=== PATIENT | female | born 1965 | race Caucasian/White ===

== ENCOUNTER 2017-09-20 09:58 | Outpatient (CLI) | payer MEDICARE, MEDICAID ==
--- NOTE | 2017-09-20 14:52 | PET ---
PET SCAN WITH CT ATTENUATION CORRECTION: HISTORY: Solitary pulmonary nodule. Right lung mass with metastasis. COMPARISON: None. CORRELATION: Chest, abdomen, and pelvis CT dated 08/25/17. TECHNIQUE: PET scanning with CT attenuation correction is performed from the base of the brain to the proximal t highs following the intravenous administration of 12.80 mCi F18-FDG. FINDINGS: HEAD/NECK: There appears to be hypermetabolic left Level II lymph node with a maximum SUV of 3.5. CHEST: There is a hypermetabolic nodule in the right upper lobe with a maximum SUV of 8.0. There is a hyperm etabolic activity associated with a left lower lobe mass with a maximum SUV of 14.7. There is hypermetabolic activity associated with a necrotic anterior right mediastinal lymph node wit h a maximum SUV of 8.4. There is hypermetabolic activity associated with a necrotic right paratrachea l/precarinal lymph node with a maximum SUV of 11.1. There is no FDG avidity associated with pericardi al hypodensities/lymph nodes noted on previous CT. ABDOMEN/PELVIS: No abnormal FDG localization associated with peripancreatic and periportal lymph nodes. No abnormal F DG localization in the abdomen or pelvis. OSSEOUS STRUCTURES: No abnormal FDG localization. IMPRESSION: Left lower lobe mass with FDG avidity. There is evidence of metastasis in the mediastinum and contral ateral lung, as well as a left neck lymph node. POS: [facility]
== END 2017-09-20 09:59 | disposition home or self-care (01) ==
LOC: PET 09:58
PROVIDERS: ATTEND Internal Medicine Critical Care Medicine
DX: R91.1 Solitary pulmonary nodule (principal); R91.8 Other nonspecific abnormal finding of lung field
CPT/HCPCS: 78815; A9552

== ENCOUNTER 2017-10-06 08:51 | Day surgery (SDC) | payer MEDICARE, MEDICAID ==
[2017-10-06 09:15] LABS: Hematocrit 38.6 % (36.0-47.0); Mean Platelet Volume 8.4 fL (7.4-10.4); Red Blood Cell (RBC) Count 4.07 mill/uL (4.20-5.40); White Blood Cell (WBC) Count 17.2 thou/uL (4.8-10.8)
[2017-10-06 09:19] LABS: Prothrombin Time 13.2 SEC (12.0-14.7)
[2017-10-06 10:31] LABS: Band 4 % (5-11); Neutrophil 39 % (42-75); Reactive Lymphocytes 2 % (0-10)
[2017-10-06 13:17] VITALS: BP 146/78; TEMP 97.7; BMI 38.4
--- NOTE | 2017-10-06 13:23 | RAD ---
INSPIRATORY AND EXPIRATORY AP CHEST XRAY: DATE: 10/06/17. HISTORY: Post biopsy left lower lobe mass. FINDINGS: There is a large mass seen overlying the left lung base which was seen on CT exam on 08/25/17. There is mild atelectasis at the right lung base. There is no pneumothorax or pleural effusion seen. Cardiac silhouette and pulmonary vasculature are within normal limits. There is mild prominence in t he right paratracheal location which likely is attributable to patient's lymphadenopathy noted on martin or CT thorax. There is partial visualization of surgical clips overlying the epigastric region. Degenerative diop es are noted in the spine. IMPRESSION: 1. Left lower lobe mass without evidence of a pneumothorax or pleural effusion. 2. Prominence of the right paratracheal soft tissues most likely related to patient's lymphadenopath y noted on CT thorax. POS: [facility]
--- NOTE | 2017-10-06 13:55 | CT ---
CT GUIDED PERCUTANEOUS BIOPSY OF A LEFT LOWER LOBE MASS: 10/06/2017 HISTORY: Left lower lobe mass. TECHNIQUE: After informed consent was obtained, the patient was placed on the CT scan table in the prone positio n. Limited CT scan examination was performed with a grid localizer overlying the left posterolateral chest. An area was meticulously prepped and draped in the usual sterile fashion. The patient was a dministered 100 mcg of Fentanyl during the procedure. The skin and subcutaneous tissues were infiltrated with buffered 1% Lidocaine for local anesthesia. A small skin incision was made. A 17 gauge guide needle was advanced, followed by three axial noncon trasted CT images. These steps were repeated until the needle was placed just within the peripheral aspect of the left lower lobe mass. A total of two 18 gauge core needle biopsy specimens were obtain ed utilizing a coaxial technique. During the procedure, the patient began experiencing pain and discomfort and, as a result, the patien t was unable to remain stationary. The needle was removed at this time. A CT scan through the thora x demonstrated no evidence of pneumothorax, and there was no evidence of hemorrhage or pleural fluid on the left. Findings are likely related to pleuritic type chest pain due to placement of the needle , but there is no hematoma or pneumothorax present. The patient was transported to the radiology nurses' holding area with slow but gradual improvement i n the pleuritic type chest pain. A follow-up chest x-ray was performed, and no pneumothorax or pleur al fluid was seen on the chest x-ray. Continued monitoring of the patient in radiology nurses' [facility] day[facility] ng will be performed with an additional follow-up chest x-ray performed prior to discharge. IMPRESSION: 1. Large lobulated left lower lobe mass. 2. Technically successful CT guided percutaneous biopsy of the large left lower lobe mass. Patholog y is currently pending at this time. POS: [facility]
--- NOTE | 2017-10-06 14:36 | RAD ---
INSPIRATORY AND EXPIRATORY PA CHEST RADIOGRAPH: Date: 10-06-17 History: Follow up post left lower lobe mass biopsy. Comparison: 10-06-17 at 1053 hours. FINDINGS: Again noted is a large left lower lobe mass. No pneumothorax or pleural effusion is seen. Prominent o f the right mediastinal structures is again present related to lymphadenopathy. Right lung is otherwi se clear. No other interval change. IMPRESSION: Stable left lower lobe mass without evidence of a pneumothorax. POS: [facility]
== END 2017-10-06 14:00 | disposition home or self-care (01) ==
LOC: CT 08:51
PROVIDERS: ATTEND Internal Medicine Critical Care Medicine
PROC: 0BDJ8ZX Extraction of Left Lower Lung Lobe, Via Natural or Artificial Opening Endoscopic, Diagnostic (ICD-10-PCS; principal; 2017-10-06)
DX: C34.32 Malignant neoplasm of lower lobe, left bronchus or lung (principal); Z90.81 Acquired absence of spleen; Z90.89 Acquired absence of other organs; Z90.710 Acquired absence of both cervix and uterus; Z98.890 Other specified postprocedural states; Z87.891 Personal history of nicotine dependence
CPT/HCPCS: 32405; 36415; 71010; 77002; 85025; 85610; 85730; 88305; 88313; 88334; 88341; 88342

== ENCOUNTER 2017-10-20 12:17 | Outpatient (CLI) | payer MEDICARE, MEDICAID | END 2017-10-20 12:18 | disposition home or self-care (01) | LOC: ULT 12:17 | PROVIDERS: ATTEND Internal Medicine Hematology & Oncology | DX: Z51.11 Encounter for antineoplastic chemotherapy (principal); C34.32 Malignant neoplasm of lower lobe, left bronchus or lung; Z79.899 Other long term (current) drug therapy | CPT/HCPCS: 93306 ==

== ENCOUNTER 2017-11-02 13:53 | Day surgery (SDC) | payer MEDICARE, MEDICAID ==
[2017-11-02] MEDS ORDERED: Pembrolizumab 200 MG in Sodium Chloride 0.9% 250 ML 250 ML IV SCH (14:15)
[2017-11-02] MEDS ORDERED: Sodium Chloride 0.9% 20 ML ONE (15:28)
[2017-11-02 15:32] VITALS: TEMP 97.9
[2017-11-02 16:40] VITALS: BP 131/71
== END 2017-11-02 15:42 | disposition home or self-care (01) ==
LOC: ONC/OP 13:53
PROVIDERS: ATTEND Internal Medicine Hematology & Oncology
DX: Z51.11 Encounter for antineoplastic chemotherapy (principal); C34.32 Malignant neoplasm of lower lobe, left bronchus or lung; M19.90 Unspecified osteoarthritis, unspecified site; F41.8 Other specified anxiety disorders; Z90.710 Acquired absence of both cervix and uterus; Z90.81 Acquired absence of spleen; Z98.890 Other specified postprocedural states
CPT/HCPCS: 36415; 80053; 82248; 83615; 84100; 84443; 84550; 96413; A4216; J7050; J9271

== ENCOUNTER 2017-11-23 12:25 | Day surgery (SDC) | payer MEDICARE, MEDICAID ==
[2017-11-23] MEDS ORDERED: Sodium Chloride 0.9% 20 ML ONE (12:37)
[2017-11-23] MEDS ORDERED: Pembrolizumab 200 MG in Sodium Chloride 0.9% 250 ML 250 ML IV SCH (12:45)
== END 2017-11-23 13:47 | disposition home or self-care (01) ==
LOC: ONC/OP 12:25
PROVIDERS: ATTEND Internal Medicine Hematology & Oncology
DX: Z51.11 Encounter for antineoplastic chemotherapy (principal); C34.32 Malignant neoplasm of lower lobe, left bronchus or lung; M19.90 Unspecified osteoarthritis, unspecified site; B19.20 Unspecified viral hepatitis C without hepatic coma; F32.9 Major depressive disorder, single episode, unspecified; K76.9 Liver disease, unspecified; F41.9 Anxiety disorder, unspecified; F17.200 Nicotine dependence, unspecified, uncomplicated; Z79.899 Other long term (current) drug therapy; Z90.81 Acquired absence of spleen; Z90.710 Acquired absence of both cervix and uterus; Z98.890 Other specified postprocedural states
CPT/HCPCS: 36415; 80053; 82248; 83615; 84100; 84443; 84550; 96413; A4216; J7050; J9271

== ENCOUNTER 2017-12-14 12:44 | Day surgery (SDC) | payer MEDICARE, MEDICAID ==
[2017-12-14] MEDS ORDERED: Pembrolizumab 200 MG, Admixture Fee 1 EACH in Sodium Chloride 0.9% 250 ML 250 ML IV SCH (13:15)
== END 2017-12-14 14:35 | disposition home or self-care (01) ==
LOC: ONC/OP 12:44
PROVIDERS: ATTEND Internal Medicine Hematology & Oncology
DX: Z51.11 Encounter for antineoplastic chemotherapy (principal); C34.32 Malignant neoplasm of lower lobe, left bronchus or lung; C78.1 Secondary malignant neoplasm of mediastinum; K74.60 Unspecified cirrhosis of liver; I25.10 Atherosclerotic heart disease of native coronary artery without angina pectoris; F41.9 Anxiety disorder, unspecified; F32.9 Major depressive disorder, single episode, unspecified; F17.200 Nicotine dependence, unspecified, uncomplicated; M19.90 Unspecified osteoarthritis, unspecified site; Z99.3 Dependence on wheelchair; Z90.710 Acquired absence of both cervix and uterus; Z98.890 Other specified postprocedural states; Z86.19 Personal history of other infectious and parasitic diseases
CPT/HCPCS: 96413; J7050; J9271

== ENCOUNTER 2017-12-29 09:06 | Outpatient (CLI) | payer MEDICARE, MEDICAID ==
--- NOTE | 2017-12-29 13:41 | PET ---
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 Bilateral lung cancer. Exam requested for restaging following last chemotherapy on 11/27/17. COMPARISON: PET CT dated 09/20/17. TECHNIQUE: PET scanning with CT attenuation correction was performed from the base of the brain through the prox imal thighs following the intravenous administration of 10.6 mCi F18-FDG in the left antecubital neil a. Imaging was performed after an uptake interval of 54 minutes. FINDINGS: HEAD/NECK: Hypermetabolic left Level II lymph node is again seen with a SUV of 3 (previously 3.5). CHEST: Hypermetabolic nodule in the right upper lobe has a SUV of 3.5 (previously 8). The left lower lobe ma ss is smaller with increased FDG localization and SUV of 5.4 (previously 14.7). Hypermetabolic mediastinal lymph node is again seen with a SUV of 6.3 in the right anterior mediastin al lymph node (previously 8.4) and SUV of 9.6 (previously 11.1) in the right paratracheal lymph node. No new hypermetabolic mediastinal, hilar or axillary lymph nodes are seen. ABDOMEN/PELVIS: No hypermetabolic liver, adrenal, or lymph evin lesions are seen. SKELETON: No hypermetabolic osseous lesions are noted. IMPRESSION: Incomplete response to therapy with interval improvement (without complete resolution) of previously noted findings of 09/20/17. POS: [facility]
== END 2017-12-29 09:07 | disposition home or self-care (01) ==
LOC: PET 09:06
PROVIDERS: ATTEND Internal Medicine Hematology & Oncology
DX: C34.32 Malignant neoplasm of lower lobe, left bronchus or lung (principal)
CPT/HCPCS: 78815; A9552

== ENCOUNTER 2018-01-04 11:08 | Day surgery (SDC) | payer MEDICARE, MEDICAID ==
[2018-01-04] MEDS ORDERED: Sodium Chloride 0.9% 20 ML ONE (11:17)
[2018-01-04] MEDS ORDERED: Pembrolizumab 200 MG, Admixture Fee 1 EACH in Sodium Chloride 0.9% 250 ML 250 ML IV SCH (11:30)
== END 2018-01-04 14:13 | disposition home or self-care (01) ==
LOC: ONC/OP 11:08
PROVIDERS: ATTEND Internal Medicine Hematology & Oncology
DX: Z51.11 Encounter for antineoplastic chemotherapy (principal); C34.92 Malignant neoplasm of unspecified part of left bronchus or lung; C77.9 Secondary and unspecified malignant neoplasm of lymph node, unspecified; M19.90 Unspecified osteoarthritis, unspecified site; F41.8 Other specified anxiety disorders; Z87.891 Personal history of nicotine dependence; Z79.899 Other long term (current) drug therapy
CPT/HCPCS: 36415; 80053; 82248; 83615; 84100; 84443; 84550; 96413; A4216; J7050; J9271

== ENCOUNTER 2018-01-25 11:46 | Day surgery (SDC) | payer MEDICARE, MEDICAID ==
[2018-01-25] MEDS ORDERED: Sodium Chloride 0.9% 20 ML ONE (12:03)
[2018-01-25 12:12] VITALS: BP 149/69; TEMP 97.8
[2018-01-25] MEDS ORDERED: Pembrolizumab 200 MG, Admixture Fee 1 EACH in Sodium Chloride 0.9% 250 ML 250 ML IV SCH (12:45)
== END 2018-01-25 13:34 | disposition home or self-care (01) ==
LOC: ONC/OP 11:46
PROVIDERS: ATTEND Internal Medicine Hematology & Oncology
DX: Z51.11 Encounter for antineoplastic chemotherapy (principal); C34.32 Malignant neoplasm of lower lobe, left bronchus or lung; C77.1 Secondary and unspecified malignant neoplasm of intrathoracic lymph nodes; R41.3 Other amnesia; F41.9 Anxiety disorder, unspecified; F32.9 Major depressive disorder, single episode, unspecified; M17.0 Bilateral primary osteoarthritis of knee; Z99.3 Dependence on wheelchair; Z79.899 Other long term (current) drug therapy; Z87.891 Personal history of nicotine dependence
CPT/HCPCS: 96413; A4216; J7050; J9271

== ENCOUNTER 2018-02-15 11:59 | Day surgery (SDC) | payer MEDICARE, MEDICAID ==
[2018-02-15] MEDS ORDERED: Pembrolizumab 200 MG in Sodium Chloride 0.9% 250 ML 250 ML IV SCH (12:15)
[2018-02-15] MEDS ORDERED: Sodium Chloride 0.9% 40 ML ONE (12:30)
== END 2018-02-15 13:28 | disposition home or self-care (01) ==
LOC: ONC/OP 11:59
PROVIDERS: ATTEND Internal Medicine Hematology & Oncology
DX: Z51.11 Encounter for antineoplastic chemotherapy (principal); C34.32 Malignant neoplasm of lower lobe, left bronchus or lung; M19.90 Unspecified osteoarthritis, unspecified site; F41.8 Other specified anxiety disorders; Z87.891 Personal history of nicotine dependence; Z79.899 Other long term (current) drug therapy
CPT/HCPCS: 96413; A4216; J7050; J9271

== ENCOUNTER 2018-03-01 05:54 | Day surgery (SDC) | payer MEDICARE, MEDICAID ==
[2018-02-28 10:24] VITALS: BMI 37.5
[2018-03-01] MEDS ORDERED: Lidocaine 2% 10 ML INJ ONE (06:47)
[2018-03-01] MEDS ORDERED: Bupivacaine/Epinephrine 0.25% 30 ML VIAL ONE (06:47)
[2018-03-01] MEDS ORDERED: CEFAZOLIN/Water 2 GM/20 ML SYRINGE ONE (07:12)
[2018-03-01] MEDS ORDERED: Fentanyl 100 MCG/2 ML VIAL ONE ×2 (07:24→07:31)
[2018-03-01 07:31] LABS: INR-International Normal Ratio 1.2; PTT 37.6 SEC (22.9-36.1); Prothrombin Time 15.6 SEC (12.0-14.7)
[2018-03-01] MEDS ORDERED: Midazolam HCl 2 mg/2 ml Vial ONE (07:31)
[2018-03-01] MEDS ORDERED: Propofol 500 MG/50 ML VIAL ONE (07:31)
[2018-03-01] MEDS ORDERED: HYDROcodone/Acetaminophen 5/325 mg Tablet ONE (09:34)
--- NOTE | 2018-03-01 10:54 | RAD ---
SINGLE VIEW CHEST: HISTORY: Mediport placement. COMPARISON: None. FINDINGS: A single view of the chest shows a normal sized cardiomediastinal silhouette. There is a right IJ Me diport with its tip in the superior vena cava. No pneumothorax is seen. There is no evidence of con solidation, mass, or pleural effusion. Degenerative changes are seen in the spine. IMPRESSION: Status post Mediport placement without evidence of complication. POS: [facility]
[2018-03-01] MEDS ORDERED: PHENYLEPHRINE-NS 100 MCG/ML 10 ML SYRINGE ONE (14:46)
[2018-03-01] MEDS ORDERED: Lidocaine 1% PF 5 ML VIAL ONE (14:46)
[2018-03-01] MEDS ORDERED: PROPOFOL 200 MG/20 ML VIAL ONE (14:47)
--- NOTE | 2018-03-02 17:12 | PDOC.OP ---
Operative Note - Operative Note Operative Note: PROCEDURE: Right internal jugular MediPort placement with ultrasound and fluoroscopic guidance SURGEON: Hipolito Telles M.D. DATE OF PROCEDURE: 02/26/20 PREOPERATIVE DIAGNOSIS: Squamous cell carcinoma of the lung POSTOPERATIVE DIAGNOSIS: Squamous cell carcinoma the lung HISTORY: Patient is diagnosed with lung cancer. Chemotherapy has been recommended and the oncologist has requested MediPort placement for this. OPERATIVE PROCEDURE IN DETAIL: After informed consent was obtained and appropriate preoperative antibiotics were administered, the patient was taken to the operating room and placed in supine position and monitored anesthesia care was administered. Due to the patient's history of cirrhosis the decision was made to place a right internal jugular Mediport. The patient was placed in Trendelenburg position and the right internal jugular vein accessed easily on the first attempt under direct ultrasound guidance with excellent flow of dark venous non-pulsatile blood. A wire threaded easily and was confirmed to be in the superior vena cava by fluoroscopy. Local anesthesia was infused the skin and subcutaneous tissues of the right chest and a subcutaneous pocket developed inferiorly. A Mediport was obtained and confirmed to fit in the subcutaneous pocket. This was secured inferiorly to the pectoralis fascia with a Prolene suture, which was clamped, but not tied. The Mediport tubing was tunneled from the right chest to the right IJ access site. The dilator and sheath were then placed over the wire and the dilator and wire removed leaving the sheath in place. The clamped MediPort tubing was tunneled through the sheath, which was then split and removed leaving the MediPort tubing in place. The tubing was adjusted until the tip was confirmed by fluoroscopy to be in the superior vena cava just above the atrium. The tubing was clamped at the skin level and cut and the tubing secured to the port, which was then placed in the subcutaneous pocket. The previously placed suture was secured and two additional sutures were placed to fix the port in place within the pocket. The port was aspirated with the Salas needle and had excellent flow of dark venous non-pulsatile blood and easily flushed without resistance. The subcutaneous tissues were closed with a running Monocryl suture, following which the skin was closed with a running subcuticular Monocryl suture. Dermabond dressings were placed and the hub was again accessed through the skin and confirmed to easily aspirate and easily flush. The course of the catheter was confirmed by fluoroscopy to be smooth with the tip appropriately located in the superior vena cava. The patient was taken her back to the day stay unit in good condition. Estimated blood loss was minimal. There were no complications. There were no specimens.
== END 2018-03-01 10:50 | disposition home or self-care (01) ==
LOC: SDC 05:54
PROVIDERS: ATTEND Surgery
PROC: 0JH63WZ Insertion of Totally Implantable Vascular Access Device into Chest Subcutaneous Tissue and Fascia, Percutaneous Approach (ICD-10-PCS; principal; 2018-03-01)
DX: C34.92 Malignant neoplasm of unspecified part of left bronchus or lung (principal); C77.1 Secondary and unspecified malignant neoplasm of intrathoracic lymph nodes; K74.60 Unspecified cirrhosis of liver; K43.9 Ventral hernia without obstruction or gangrene; F17.210 Nicotine dependence, cigarettes, uncomplicated; F17.290 Nicotine dependence, other tobacco product, uncomplicated; M19.90 Unspecified osteoarthritis, unspecified site; F41.8 Other specified anxiety disorders; Z79.82 Long term (current) use of aspirin; Z79.899 Other long term (current) drug therapy
CPT/HCPCS: 36561; 71045; 85610; 85730; C1788; 36415; J1642; J2001; J2250; J2704; J3010

== ENCOUNTER 2018-03-08 10:10 | Day surgery (SDC) | payer MEDICARE, MEDICAID ==
[2018-03-08] MEDS ORDERED: Sodium Chloride 0.9% 40 ML ONE (10:24)
[2018-03-08] MEDS ORDERED: Pembrolizumab 200 MG, Admixture Fee 1 EACH in Sodium Chloride 0.9% 250 ML 250 ML IV SCH (10:30)
[2018-03-08 11:33] VITALS: BP 111/76; TEMP 97.8
== END 2018-03-08 14:49 | disposition home or self-care (01) ==
LOC: ONC/OP 10:10
PROVIDERS: ATTEND Internal Medicine Hematology & Oncology
DX: Z51.12 Encounter for antineoplastic immunotherapy (principal); C34.32 Malignant neoplasm of lower lobe, left bronchus or lung
CPT/HCPCS: 84443; 96413; A4216; J1642; J7050; J9271

== ENCOUNTER 2018-03-29 10:42 | Inpatient (IN) | payer MEDICARE, MEDICAID ==
[2018-03-29] MEDS ORDERED: Sodium Chloride 0.9% 20 ML ONE (10:55)
[2018-03-29] MEDS ORDERED: Sodium Chloride 0.9% 40 ML ONE (11:28)
[2018-03-29] MEDS ORDERED: Pembrolizumab 200 MG in Sodium Chloride 0.9% 250 ML 250 ML IV SCH (11:30)
[2018-03-29] MEDS ORDERED: Acetaminophen 500 MG TAB PO SCH (11:45)
[2018-03-29] MEDS ORDERED: diphenhydrAMINE 25 MG CAP PO SCH (11:45)
[2018-03-29 12:00] VITALS: BMI 37.9
[2018-03-29] MEDS ORDERED: Bisacodyl 5 MG TAB PO PRN (14:03)
[2018-03-29] MEDS ORDERED: Acetaminophen 325 MG TAB PO PRN (14:03)
--- NOTE | 2018-03-29 14:31 | HP ---
PRIMARY CARE PROVIDER: Mandy Cadena D.O. CHIEF COMPLAINT: Shortness of breath. HISTORY OF PRESENT ILLNESS: Ms. Hand is a pleasant 53-year-old lady who was seen at [facility] after she was sent to the hospital by her oncologist. She has a history of stage IV lung cancer and is on Keytruda treatments. Her last chemotherapy was 3 weeks ago. Over the last week, she has been feeling short of breath. She reports shortness of breath with exert ion. She denies any orthopnea or paroxysmal nocturnal dyspnea. She denies any chest pain. She repo rts feeling winded after walking even short distances. She also reports that over the last several d ays, she has noted that her stools have become darker. They are not black. She denies any hematoche karishma or hematemesis. She denies any fevers or chills. She denies any abdominal pain, but reports laurel t she has some abdominal discomfort. She was seen in the Oncology office earlier today and was found to have symptomatic anemia with hemog lobin of 5.8. She was therefore sent to the hospital for admission. REVIEW OF SYSTEMS: All other systems reviewed and found to be negative. PAST MEDICAL HISTORY: Significant for hepatitis C, liver cirrhosis, stage IV lung cancer, depression , and chronic pain. PAST SURGICAL HISTORY: Significant for tonsillectomy, hysterectomy, splenectomy, left knee arthrosco py, and MediPort placement. ALLERGIES: No known drug allergies. CURRENT MEDICATIONS: Include amitriptyline, Tylenol #3, cyclobenzaprine, clonazepam, zolpidem, vitam in D, and aspirin. Doses need to be clarified. FAMILY HISTORY: No family history of premature coronary artery disease. SOCIAL HISTORY: No history of alcohol use or recreational drug use. The patient uses E-cigarettes. PHYSICAL EXAMINATION: GENERAL: On examination, Ms. Hand is awake and alert, not in acute distress. VITAL SIGNS: Blood pressure is 149/68, pulse is 89. She is breathing at rate of 18 and saturating w ell on room air. She is afebrile. She is obese. EYES: No scleral icterus. She has conjunctival pallor. ENT: Moist mucosal membranes, no oropharyngeal erythema or exudates. NECK: Supple, nontender, trachea midline. RESPIRATORY: Accessory muscles of breathing are not active. Chest wall movements are symmetric bila terally. LUNGS: Clear to auscultation without wheeze, rhonchi or crepitations. CARDIOVASCULAR: S1 and S2 are heard, regular. Peripheral pulses palpable. No carotid bruit, no per icardial rub. ABDOMEN: Distended, nontender, bowel sounds heard. MUSCULOSKELETAL: Power is 5/5 in all four extremities. She has bilateral lower extremity edema. NEUROLOGIC: Cranial nerves II-XII intact. SKIN: Cutaneous pallor present. LYMPHATIC: No cervical lymphadenopathy. PSYCHIATRIC: Normal mood and normal affect. The patient is oriented to person, place, and time. LABORATORY DATA: Ms. Hand's labs and investigations were reviewed. Today, she has a white count o f 15,100, hemoglobin 5.8 and platelet count 700,000. Her last known hemoglobin was 10.4 on 8. ASSESSMENT AND PLAN: Ms. Hand is a pleasant 53-year-old lady who was seen at [facility] on 03/29/2018. Her problem list includes: 1. Symptomatic anemia: Etiology is unclear. Given her description of change in stool color, upper gastrointestinal bleed is a possibility. She will be admitted to the hospital for further workup. S he is receiving packed RBC transfusions as ordered by Oncology Service. She will be started on a PPI drip. Gastroenterology Service will be consulted. 2. Stage IV lung cancer. The patient is receiving chemotherapy today. 3. Hepatitis C: Stable. 4. Chronic pain: Appears to be stable. Many thanks for allowing me to participate in your patient's care. Please feel free to contact me wi th any questions or concerns. LEVEL OF RISK: Moderate. LEVEL OF COMPLEXITY: Moderate.
[2018-03-29] MEDS ORDERED: Lubiprostone 24 MCG CAP PO PRN (15:11)
[2018-03-29 15:47] LABS: Potassium 5.3 mmol/L (3.5-5.1)
[2018-03-29] MEDS ORDERED: Albuterol Sulfate 2.5 mg/3 ml Neb NEB SCH (16:00)
--- NOTE | 2018-03-29 16:46 | CON ---
DATE OF CONSULTATION: 03/29/2018 HISTORY OF PRESENT ILLNESS: Patient is a 53-year-old female recently diagnosed with a stag e IV lung cancer. Over the last week, she has had difficulty with weakness and standing and shortnes s of breath. She has had no nausea, vomiting, no melena or hematochezia, although she does report he r stools are occasionally dark, no red blood is noted. She also complains of upper abdominal fullnes s. PAST MEDICAL HISTORY: Includes hepatitis C, cirrhosis, stage IV lung cancer, depression, chronic aidan n syndrome. PAST SURGICAL HISTORY: Includes tonsillectomy, hysterectomy, splenectomy, left knee arthroscopy. ALLERGIES: No known allergies. HOME MEDICATIONS: Includes clonazepam 1 p.o. b.i.d., Ambien 10 mg p.o. at bedtime, Amitiza 24 mcg p. o. b.i.d., hydrocodone 1 p.o. t.i.d., Flexeril 10 mg p.o. t.i.d., vitamin D3 2000 units p.o. at bedti me, aspirin 81 mg p.o. daily and amitriptyline 100 mg p.o. daily. SOCIAL HISTORY: She does not drink. FAMILY HISTORY: Negative for GI or liver disease. REVIEW OF SYSTEMS: CONSTITUTIONAL: No fever or chills, no weight loss. EYES: No blurred vision or double vision. ENT: No sore throat or earache. CARDIOVASCULAR: No chest pain or palpitation. PU LMONARY: Positive for shortness of breath. Positive for dyspnea on exertion. GASTROINTESTINAL: Po sitive for bloating and abdominal fullness. GENITOURINARY: No hematuria or dysuria. MUSCULOSKELETA L: No joint pain or muscle weakness. SKIN: No rashes. NEUROLOGIC: No numbness or seizure activit y. PHYSICAL EXAMINATION: GENERAL: Shows a pale white female in no acute distress. VITAL SIGNS: Temperature 97.2, pulse 89, respiratory rate 16, blood pressure 149/68. HEENT: Unremarkable. NECK: Supple. CHEST: Clear. CARDIOVASCULAR: Regular rate and rhythm. ABDOMEN: Distended. There is a mass in the epigastric area. No rebound or guarding is notable. EXTREMITIES: Normal. NEUROLOGIC: Nonfocal. LABORATORY DATA AND IMAGING DATA: Shows a white blood cell count of 15.7, hemoglobin of 10.4, hemato crit of 33.5 prior to this admission. PT is 15.6 with an INR of 1.2. Chemistries show sodium of 131 , potassium 5.3, CO2 21, uric acid 72, AST of 48, ALT 38, alkaline phosphatase 289. HIV is negative. Abdominal and pelvic CT from 02/16/2018 shows enlarged liver and changes consistent with lung cance r. Abdominal ultrasound done in December showed mild increased hepatic echotexture suggestive of steato sis. ASSESSMENT: 1. Severe symptomatic anemia. 2. Possible melena. 3. Stage IV lung cancer. 4. Hepatomegaly. 5. History of hepatitis C. RECOMMENDATIONS: 1. PPI. 2. EGD. 3. Alpha fetoprotein.
[2018-03-29] MEDS: Pantoprazole 80 MG in Sodium Chloride 0.9% 100 ML IVP SCH (20:34)
[2018-03-29] MEDS: Amitriptyline HCl 100 MG TAB PO SCH (20:34)
[2018-03-29] MEDS: HYDROcodone/Acetaminophen 10/325 mg Tablet PO SCH (20:35)
[2018-03-29] MEDS: Zolpidem Tartrate 5 MG TAB PO SCH (20:35)
[2018-03-29] MEDS: clonazePAM 1 MG TAB PO SCH (20:35)
[2018-03-29] MEDS: Cyclobenzaprine 10 MG TAB PO SCH (20:36)
[2018-03-30 05:11] LABS: Anion Gap 11 mmol/L (10-20); BUN (Urea Nitrogen) 13 mg/dL (9.8-20.1); Calc. Creatinine Clearance 121 mL/min (70-130); Calcium 8.8 mg/dL (7.8-10.44); Carbon Dioxide 26 mmol/L (22-29); Chloride 101 mmol/L (98-107); Estimated GFR-MDRD 74; Glucose 73 mg/dL (70-105); Potassium 4.5 mmol/L (3.5-5.1); Sodium 133 mmol/L (136-145)
[2018-03-30 05:52] LABS: Band 2 % (5-11); Eosinophils 1 % (0-10); Lymphocytes 40 % (21-51); MDiff Complete? YES; Mean Corpuscular HGB CONC 31.7 g/dL (32.0-36.0); Mean Corpuscular Hemoglobin 27.3 pg (27.0-31.0); Mean Corpuscular Volume 86.2 fl (81.0-99.0); Mean Platelet Volume 8.9 fL (7.4-10.4); Monocytes 12 % (0-10); Neutrophil 44 % (42-75); Nucleated RBC 1 % (0); Platelet Count 595 thou/uL (130-400); Red Blood Cell (RBC) Count 2.93 mill/uL (4.20-5.40); White Blood Cell (WBC) Count 13.7 thou/uL (4.8-10.8)
[2018-03-30] MEDS: HYDROcodone/Acetaminophen 10/325 mg Tablet PO SCH ×3 (08:34→20:59)
[2018-03-30] MEDS ORDERED: Promethazine HCl 25 MG/ML VIAL SLOW IVP PRN (10:00)
[2018-03-30] MEDS ORDERED: Ondansetron HCl/PF 4 MG/2 ML Vial IVP PRN (10:00)
[2018-03-30] MEDS: clonazePAM 1 MG TAB PO SCH ×2 (10:18→21:00)
[2018-03-30] MEDS: Cyclobenzaprine 10 MG TAB PO SCH ×3 (10:19→21:00)
--- NOTE | 2018-03-30 10:57 | OP ---
DATE OF PROCEDURE: 03/30/2018 SURGEON: Sb Gama M.D. PREPROCEDURE DIAGNOSES: 1. Severe anemia. 2. Cirrhosis. 3. Lung cancer. POSTOPERATIVE DIAGNOSES: 1. Grade I esophageal varices. 2. Mild portal gastropathy. 3. Normal duodenum. 4. No bleeding sites identified. RECOMMENDATIONS: Colonoscopy tomorrow. ANESTHESIA: TIVA. PROCEDURE IN DETAIL: After the patient was informed of the risks, benefits, and possible complicatio ns of endoscopy including perforation, bleeding, reactions to medication and aspiration, informed con sent was obtained. The patient brought to endoscopy where she was sedated in gradual fashion. Once she was comfortable a bite block was advanced in the appendiceal orifice. The endoscope was advanced through the esophagus, stomach, second and third portion of duodenum and slowly removed. There was good visualization of mucosa. The esophagus was notable for grade I varices, no stigmata of bleeding . There was mild portal gastropathy with no signs of bleeding. Retroflexed views in the stomach wer e normal. The stomach was normal in forward view. The duodenum was normal to the third portion. Th e scope was removed. The patient tolerated the procedure without any complications.
[2018-03-30] MEDS: Pantoprazole 80 MG in Sodium Chloride 0.9% 100 ML IVP SCH (11:26)
--- NOTE | 2018-03-30 14:42 | PDOC.PN ---
- Subjective Encounter Start Date: 03/30/18 Encounter Start Time: 14:40 Pt seen for followup re: symptomatic anemia. Denies chest pain, shortness of breath, fevers or chills. - Objective MAR Reviewed: Yes Vital Signs & Weight: Vital Signs (12 hours) Temp Pulse Resp BP Pulse Ox 03/30/18 11:49 98.0 F 96 20 123/75 78 L 03/30/18 08:00 98.0 F 96 20 139/76 95 03/30/18 04:00 98.1 F 81 16 125/65 94 L Weight Weight 213 lb I&O: 03/29/18 03/30/18 03/31/18 06:59 06:59 06:59 Intake Total 1060 Output Total 1 Balance 1059 Result Diagrams: 03/30/18 04:37 03/30/18 04:37 Additional Labs: Labs reviewed by me Phys Exam - Physical Examination Constitutional: NAD HEENT: moist MMs, sclera anicteric, oral pharynx no lesions, 2+ tonsils pallor Neck: no nodes, no JVD, supple, full ROM Respiratory: no wheezing, no rales, no rhonchi, clear to auscultation bilateral Cardiovascular: RRR, no rub S1, S2 Gastrointestinal: soft, non-tender, no distention, positive bowel sounds Musculoskeletal: edema present Neurological: moves all 4 limbs Psychiatric: normal affect, A&O x 3 Dx/Plan (1) Symptomatic anemia Code(s): D64.9 - ANEMIA, UNSPECIFIED Status: Acute Comment: s/p EGD, for colonoscopy tomorrow. Hb improved after pRBC transfusions. (2) Lung cancer Code(s): C34.90 - MALIGNANT NEOPLASM OF UNSP PART OF UNSP BRONCHUS OR LUNG Status: Chronic Comment: pt received chemotherapy yesterday (3) Hepatitis C Code(s): B19.20 - UNSPECIFIED VIRAL HEPATITIS C WITHOUT HEPATIC COMA Status: Chronic Comment: stable (4) Cirrhosis Code(s): K74.60 - UNSPECIFIED CIRRHOSIS OF LIVER Status: Chronic Comment: stable (5) Chronic pain Code(s): G89.29 - OTHER CHRONIC PAIN Status: Chronic Comment: stable - Plan plan discussed w/ family, out of bed/ambulate * . Review of Systems - Review of Systems Constitutional: negative: fever, chills, sweats, weakness, malaise Respiratory: negative: Cough, Shortness of Breath, SOB with Excertion, Pleuritic Pain, Wheezing Cardiovascular: negative: chest pain, palpitations, orthopnea, paroxysmal nocturnal dyspnea, edema, light headedness Gastrointestinal: negative: Nausea, Vomiting, Abdominal Pain, Diarrhea, Constipation, Melena, Hematochezia Genitourinary: negative: Dysuria, Frequency, Incontinence, Hematuria, Retention Skin: negative: Rash, Lesions, [place], Bruising Neurological: negative: Weakness, Numbness, Incoordination, Change in Speech, Confusion, Seizures - Medications/Allergies Allergies/Adverse Reactions: Allergies Allergy/AdvReac Type Severity Reaction Status Date / Time No Known Drug Allergies Allergy Verified 03/29/18 11:38 Medications: Current Medications Acetaminophen (Tylenol) 650 mg PO Q4H PRN PRN Reason: Headache/Fever or Pain Hydrocodone Bitart/Acetaminophen ([place] 10/325) 1 tab PO TID [facility] Last Admin: 03/30/18 08:34 Dose: 1 tab Amitriptyline HCl (Elavil) 100 mg PO [facility] Last Admin: 03/29/18 20:34 Dose: 100 mg Aspirin (Aspirin Chewable) 81 mg PO [facility] Last Admin: 03/29/18 20:34 Dose: 81 mg Bisacodyl (Dulcolax) 10 mg PO DAILYPRN PRN PRN Reason: Constipation Cholecalciferol (Vitamin D3) 2,000 units PO HS [facility] Last Admin: 03/29/18 20:34 Dose: 2,000 units Clonazepam (Klonopin) 1 mg PO BID [facility] Last Admin: 03/30/18 10:18 Dose: 1 mg Cyclobenzaprine HCl (Flexeril) 10 mg PO TID [facility] Last Admin: 03/30/18 10:19 Dose: 10 mg Lubiprostone (Amitiza) 24 mcg PO BID-WM PRN PRN Reason: Constipation Morphine Sulfate (Morphine) 4 mg SLOW IVP Q6H PRN PRN Reason: Moderate to Severe Pain (4-10) Last Admin: 03/30/18 11:26 Dose: 4 mg Pantoprazole Sodium (Protonix) 40 mg PO DAILY [facility] Polyethylene Glycol/Electrolytes (Golytely) 4,000 ml PO 1800 [facility] Stop: 03/30/18 23:59 Sodium Chloride (Flush - Normal Saline) 10 ml IVF PRN PRN PRN Reason: Saline Flush Zolpidem Tartrate (Ambien) 10 mg PO HS [facility] Last Admin: 03/29/18 20:35 Dose: 10 mg
[2018-03-30] MEDS ORDERED: PROPOFOL 200 MG/20 ML VIAL ONE (15:03)
[2018-03-30] MEDS ORDERED: Lidocaine 1% PF 5 ML VIAL ONE (15:03)
[2018-03-30] MEDS ORDERED: GoLYTELY 4,000 ml Bottle PO SCH (18:00)
[2018-03-30] MEDS: Zolpidem Tartrate 5 MG TAB PO SCH (20:59)
[2018-03-30] MEDS: Amitriptyline HCl 100 MG TAB PO SCH (20:59)
[2018-03-31 06:42] LABS: Anion Gap 14 mmol/L (10-20); BUN (Urea Nitrogen) 10 mg/dL (9.8-20.1); Calc. Creatinine Clearance 115 mL/min (70-130); Calcium 9.5 mg/dL (7.8-10.44); Carbon Dioxide 26 mmol/L (22-29); Chloride 100 mmol/L (98-107); Estimated GFR-MDRD 70; Glucose 94 mg/dL (70-105); Potassium 4.2 mmol/L (3.5-5.1); Sodium 136 mmol/L (136-145)
[2018-03-31 07:30] LABS: Band 1 % (5-11); Eosinophils 5 % (0-10); Hemoglobin 8.3 g/dL (12.0-16.0); Hypochromia SLIGHT = 6-15 cells (100X) (0-5/hpf); Large Platelets SLIGHT; Lymphocytes 55 % (21-51); MDiff Complete? YES; Mean Corpuscular HGB CONC 31.9 g/dL (32.0-36.0); Mean Corpuscular Hemoglobin 28.2 pg (27.0-31.0); Mean Corpuscular Volume 88.2 fl (81.0-99.0); Mean Platelet Volume 9.2 fL (7.4-10.4); Monocytes 6 % (0-10); Neutrophil 27 % (42-75); PLT Morphology Comment Appears Increased; Platelet Count 613 thou/uL (130-400); Polychromasia SLIGHT = 2-3 cells (100X) (0-2/hpf); RBC Distribution Width 14.1 % (11.5-14.5); Reactive Lymphocytes 4 % (0-10); Red Blood Cell (RBC) Count 2.94 mill/uL (4.20-5.40); White Blood Cell (WBC) Count 12.9 thou/uL (4.8-10.8)
[2018-03-31] MEDS: HYDROcodone/Acetaminophen 10/325 mg Tablet PO SCH ×3 (07:46→20:21)
[2018-03-31] MEDS: Cyclobenzaprine 10 MG TAB PO SCH ×3 (07:46→20:21)
[2018-03-31] MEDS: clonazePAM 1 MG TAB PO SCH ×2 (07:46→20:22)
[2018-03-31] MEDS ORDERED: Promethazine HCl 25 MG/ML VIAL SLOW IVP PRN (10:01)
[2018-03-31] MEDS ORDERED: Promethazine HCl 25 MG/ML VIAL IM PRN (10:01)
[2018-03-31] MEDS ORDERED: Ondansetron HCl/PF 4 MG/2 ML Vial IVP PRN (10:01)
--- NOTE | 2018-03-31 10:30 | OP ---
DATE OF PROCEDURE: 03/31/2018 SURGEON: Sb Gama M.D. PREOPERATIVE DIAGNOSES: 1. Presentation with severe anemia. 2. Normal esophagogastroduodenoscopy yesterday. 3. History of cirrhosis. 4. History of epigastric mass. PROCEDURES: Colonoscopy with polypectomy. POSTOPERATIVE DIAGNOSES: 1. A 5 mm polyp sigmoid colon removed by snare polypectomy. 2. Severe diverticular disease with a tortuous colon requiring conversion to upper endoscope which w e were able to reach the cecum with. 3. Very poor prep, could not rule out other small polyps, but no overt mass lesions were seen, no bl eeding sources were seen. RECOMMENDATIONS: We will discuss with Oncology. It is reported she had a hemoglobin of 5.8 at the O ncology office. We will talk to them, if they do not think this is related to her chemotherapy we wi ll go and get a CAT scan of her abdomen. Follow up on large left hepatic lobe and make sure there townsend s been no intraperitoneal blood loss. Follow up on pathology of polyp. ANESTHESIA: TIVA. PROCEDURE IN DETAIL: After the patient was informed of the risks, benefits and possible complication s of endoscopy including perforation, reaction to medication and aspiration, informed consent was obt ained. The patient was brought to endoscopy suite where she was sedated in a gradual fashion. Once she was comfortable, a rectal exam was performed which was normal. The endoscope was advanced in the anal canal through the colon to cecum which was identified by the ileocecal valve and appendiceal or ifice. In the sigmoid colon we could not navigate this with a regular colonoscope. Therefore we swi tched to an upper endoscope which is more flexible and we were able to navigate this area. There wer e no signs of active inflammation, masses or lesions. The prep was fair with polyps less than a cent imeter being possibly missed, but no large masses were seen, no bleeding sources were seen. The dive rticula showed no signs of inflammation. The cecum was reached, but it was identified by the appendi ceal orifice. The scope was then slowly removed. We did the best we could to clear the prep, but du e to vegetable matter that was present we could not get it clear even with irrigation. Retroflexed v iews in the rectum were normal. Sigmoid colon polyp was found and removed, 5 mm in size, submitted t o Pathology. The scope was then removed. The patient tolerated the procedure well with no complicat ions.
--- NOTE | 2018-03-31 14:03 | CT ---
ABDOMEN CT WITH CONTRAST PELVIC CT WITH CONTRAST: COMPARISON: 02/16/18. CORRELATION: PET imaging 12/29/17. HISTORY: Left lung cancer. Cirrhosis. Acute drop in hemoglobin. TECHNIQUE: An abdomen and pelvic CT is performed with IV and oral contrast. Coronal reformatted images are subm itted for interpretation. FINDINGS: ABDOMEN CT: Incomplete evaluated opacity in the left lower lobe measuring 2.5 x 1.9 cm. Heart size is within nor mal limits. There is no pericardial effusion. However, there are hypodensities along the anterior a spect of the heart, measuring 1.7 x 0.9 cm. A necrotic pericardial lymph node is favored. There is an additional hypodensity along the right heart border with an attenuation coefficient of -19 Hounsfi eld units suggesting a pericardial cyst measuring 3.1 cm. Visualized aorta has a normal caliber. No periaortic fat stranding. There is marked hepatomegaly with nodularity compatible with patient's history of cirrhosis. Gallbla dder is unremarkable. Portal vein is patent. Spleen is not appreciated. Small splenule is again no aaliyah. Stable appearance of the pancreas and adrenal glands. Symmetric enhancement of the kidneys. There is what appears to be a large gastrohepatic lymph nodes. Sound Designer enlarged gastrohepatic lymph node measures 2.5 x 1.3 cm. Additional enlarged lymph nodes are noted. No retrocrural lymphad enopathy. Symmetric enhancement of the kidneys. Bilaterally, no obstructive uropathy. No mesenteric mass, free air, or free fluid. No evidence of bowel obstruction. The gastric mucosa, duodenum, and multiple normal-caliber small bowel loops are noted. Ileocecal junction is normal. No rmal-caliber appendix. There is scattered fecal material in a nondistended, nondilated colon. Limit ed evaluation of the ascending colon mucosa due to lack of adequate contrast opacification. The nico ining colonic mucosa is also difficult to assess due to lack of adequate distention. If there is con cern for colon-based pathology, consider colonoscopy. Diverticulosis, without evidence of diverticul itis is identified. PELVIC CT: The uterus is surgically absent. No pelvic mass, lymphadenopathy, free air, or free fluid. No lytic or blastic lesions in the osseous structures. IMPRESSION: 1. Incompletely evaluated mass in the left lower lobe. 2. Limited evaluation of the colon. Mucosal prominence may be due to inadequate distention. Consid er nonemergent colonoscopy. 3. Hepatomegaly with cirrhosis. 4. Enlarged gastrohepatic lymph nodes, unchanged from the previous examination. Lymphadenopathy is nonspecific. POS: [facility]
--- NOTE | 2018-03-31 15:46 | PDOC.PN ---
- Subjective Encounter Start Date: 03/31/18 Encounter Start Time: 15:44 Pt seen for followup re: anemia. Denies chest pain, shortness of breath, fevers or chills. - Objective MAR Reviewed: Yes Vital Signs & Weight: Vital Signs (12 hours) Temp Pulse Resp BP Pulse Ox 03/31/18 13:10 97.4 F L 80 18 126/85 97 03/31/18 12:00 97.4 F L 72 18 121/74 99 03/31/18 11:24 97.4 F L 67 16 135/75 94 L 03/31/18 10:25 97.4 F L 77 18 124/65 100 03/31/18 08:00 97.8 F 74 20 118/56 L 95 Weight Weight 213 lb I&O: 03/30/18 03/31/18 04/01/18 06:59 06:59 06:59 Intake Total 1060 3440 Output Total 1 Balance 1059 3440 Result Diagrams: 03/31/18 06:10 03/31/18 06:10 Additional Labs: Labs reviewed by me Phys Exam - Physical Examination Constitutional: NAD HEENT: moist MMs Neck: supple Respiratory: clear to auscultation bilateral Cardiovascular: RRR Gastrointestinal: soft Neurological: moves all 4 limbs Psychiatric: normal affect Dx/Plan (1) Symptomatic anemia Code(s): D64.9 - ANEMIA, UNSPECIFIED Status: Acute Comment: s/p C-scope, with polyp removal. hemoglobin stable. (2) Lung cancer Code(s): C34.90 - MALIGNANT NEOPLASM OF UNSP PART OF UNSP BRONCHUS OR LUNG Status: Chronic Comment: s/p chemo 2 days ago (3) Hepatitis C Code(s): B19.20 - UNSPECIFIED VIRAL HEPATITIS C WITHOUT HEPATIC COMA Status: Chronic Comment: stable (4) Cirrhosis Code(s): K74.60 - UNSPECIFIED CIRRHOSIS OF LIVER Status: Chronic Comment: stable (5) Chronic pain Code(s): G89.29 - OTHER CHRONIC PAIN Status: Chronic Comment: stable - Plan * . Review of Systems - Review of Systems Constitutional: negative: fever, chills, sweats, weakness, malaise Cardiovascular: negative: chest pain, palpitations, orthopnea, paroxysmal nocturnal dyspnea, edema, light headedness Gastrointestinal: negative: Nausea, Vomiting, Abdominal Pain, Diarrhea, Constipation, Melena, Hematochezia - Medications/Allergies Allergies/Adverse Reactions: Allergies Allergy/AdvReac Type Severity Reaction Status Date / Time No Known Drug Allergies Allergy Verified 03/29/18 11:38 Medications: Current Medications Acetaminophen (Tylenol) 650 mg PO Q4H PRN PRN Reason: Headache/Fever or Pain Hydrocodone Bitart/Acetaminophen (Cushing 10/325) 1 tab PO TID [facility] Last Admin: 03/31/18 14:41 Dose: 1 tab Amitriptyline HCl (Elavil) 100 mg PO [facility] Last Admin: 03/30/18 20:59 Dose: 100 mg Aspirin (Aspirin Chewable) 81 mg PO [facility] Last Admin: 03/30/18 20:59 Dose: 81 mg Bisacodyl (Dulcolax) 10 mg PO DAILYPRN PRN PRN Reason: Constipation Cholecalciferol (Vitamin D3) 2,000 units PO [facility] Last Admin: 03/30/18 21:00 Dose: 2,000 units Clonazepam (Klonopin) 1 mg PO BID [facility] Last Admin: 03/31/18 07:46 Dose: 1 mg Cyclobenzaprine HCl (Flexeril) 10 mg PO TID [facility] Last Admin: 03/31/18 14:41 Dose: 10 mg Lubiprostone (Amitiza) 24 mcg PO BID-WM PRN PRN Reason: Constipation Morphine Sulfate (Morphine) 4 mg SLOW IVP Q6H PRN PRN Reason: Moderate to Severe Pain (4-10) Last Admin: 03/31/18 15:42 Dose: 4 mg Pantoprazole Sodium (Protonix) 40 mg PO DAILY [facility] Last Admin: 03/31/18 07:46 Dose: 40 mg Sodium Chloride (Flush - Normal Saline) 10 ml IVF PRN PRN PRN Reason: Saline Flush Zolpidem Tartrate (Ambien) 10 mg PO [facility] Last Admin: 03/30/18 20:59 Dose: 10 mg
[2018-03-31] MEDS ORDERED: Iopamidol 370 76% 100 ML VIAL ONE (16:31)
[2018-03-31] MEDS ORDERED: Lidocaine 1% PF 5 ML VIAL ONE (17:57)
[2018-03-31] MEDS ORDERED: PROPOFOL 200 MG/20 ML VIAL ONE (17:57)
[2018-03-31] MEDS: Amitriptyline HCl 100 MG TAB PO SCH (20:22)
[2018-03-31] MEDS: Zolpidem Tartrate 5 MG TAB PO SCH (20:22)
[2018-04-01 03:56] LABS: #Basophils 0.1 thou/uL (0.0-0.2); #Eosinphils 0.9 thou/uL (0.0-0.7); #Lymphocytes 5.4 thou/uL (1.20-3.40); #Monocytes 1.2 thou/uL (0.11-0.59); #Neutrophils 6.3 thou/uL (1.40-6.50); %Basophils 0.8 % (0.0-1.0); %Eosinophils 6.5 % (0.0-10.0); %Monocytes 8.6 % (0.0-10.0); %Neutrophils 45.1 % (42.0-75.0); Hemoglobin 7.9 g/dL (12.0-16.0); Mean Corpuscular HGB CONC 32.2 g/dL (32.0-36.0); Mean Corpuscular Hemoglobin 27.9 pg (27.0-31.0); Mean Corpuscular Volume 86.6 fl (81.0-99.0); Mean Platelet Volume 8.9 fL (7.4-10.4); Platelet Count 610 thou/uL (130-400); RBC Distribution Width 14.5 % (11.5-14.5); Red Blood Cell (RBC) Count 2.84 mill/uL (4.20-5.40); White Blood Cell (WBC) Count 13.9 thou/uL (4.8-10.8)
[2018-04-01 04:15] LABS: Anion Gap 13 mmol/L (10-20); BUN (Urea Nitrogen) 8 mg/dL (9.8-20.1); Calc. Creatinine Clearance 126 mL/min (70-130); Carbon Dioxide 25 mmol/L (22-29); Chloride 100 mmol/L (98-107); Estimated GFR-MDRD 77; Glucose 82 mg/dL (70-105); Potassium 4.2 mmol/L (3.5-5.1); Sodium 134 mmol/L (136-145)
[2018-04-01 07:42] VITALS: BP 127/90; TEMP 97.8
[2018-04-01] MEDS: clonazePAM 1 MG TAB PO SCH (07:48)
[2018-04-01] MEDS: HYDROcodone/Acetaminophen 10/325 mg Tablet PO SCH (07:48)
[2018-04-01] MEDS: Cyclobenzaprine 10 MG TAB PO SCH (07:49)
--- NOTE | 2018-04-01 17:17 | DIS ---
PRIMARY CARE PROVIDER: Mandy Cadena D.O. DATE OF ADMISSION: 03/29/2018 DATE OF DISCHARGE: 04/01/2018 DISCHARGE DIAGNOSES: 1. Symptomatic anemia. 2. Colon polyp. 3. Severe diverticular disease. 4. Grade 1 esophageal varices. 5. Mild portal gastropathy. CONDITION OF PATIENT ON THE DAY OF DISCHARGE: Stable. I assessed Ms. Hand on the day of discharge . She denies any chest pain or shortness of breath. Vital signs are stable. S1 and S2 are heard, r egular. Lungs are clear to auscultation bilaterally. CONSULTATIONS DURING THIS HOSPITALIZATION: Gastroenterology, Dr. Reji Layne. DISCHARGE MEDICATIONS: Amitriptyline 100 mg at bedtime, vitamin D3 of 2000 units at bedtime, Klonopi n 1 mg 2 times a day, Flexeril 10 mg 3 times a day, [place] p.r.n., Protonix 40 mg daily, zolpidem 10 m g at bedtime, Amitiza 24 mcg 2 times a day. HOSPITAL COURSE: Ms. Hand is a pleasant 53-year-old lady, who was admitted to [facility] on 03/29/2018 for symptomatic anemia. Please refer to my history and physical note for further information. She was seen by Gastroenterology Service. She was started on PPI. She underw ent EGD on 03/30/2018, which showed grade 1 esophageal varices, mild portal gastropathy, normal duode num and no bleeding sites identified. She went on to have colonoscopy on 03/31/2018. She was found to have a 5 mm sigmoid colon polyp, which was removed by snare polypectomy. She also had severe dive rticular disease with a tortuous colon requiring conversion to upper endoscope. The prep was poor. Other polyps could not be ruled out by metal plater. No overt mass lesions were seen. No blee ding sources were seen. She went on to have a CT scan of abdomen and pelvis on 03/31/2018, which arcelia wed an incompletely evaluated mass in the left lower lobe, limited evaluation of the colon, hepatomeg hedy with cirrhosis and enlarged gastrohepatic lymph nodes unchanged from previous examination. She was cleared for discharge by Gastroenterology and Oncology Services. On the day of discharge, she has white count 13,900, hemoglobin 7.9, platelet count 610,000, sodium 1 34, potassium 4.2 and creatinine 0.78. Her alpha fetoprotein level was elevated at 15.9. She is advised to follow up with Oncology Service, Gastroenterology Service and her primary care prov wade as an outpatient. Many thanks for allowing me to participate in your patient's care. Please feel free to contact me wi th any questions or concerns. DISCHARGE DESTINATION: Home. TOTAL AMOUNT OF TIME SPENT COORDINATING THIS DISCHARGE: Thirty three minutes.
== END 2018-04-01 11:10 | disposition home or self-care (01) | DRG 812 ==
LOC: ONC/OP 10:42 → ONC 11:01
PROVIDERS: ADMIT Internal Medicine Hematology & Oncology; ATTEND Internal Medicine Hematology & Oncology
PROC: 30233N1 Transfusion of Nonautologous Red Blood Cells into Peripheral Vein, Percutaneous Approach (ICD-10-PCS; 2018-03-29)
PROC: 0DJ08ZZ Inspection of Upper Intestinal Tract, Via Natural or Artificial Opening Endoscopic (ICD-10-PCS; 2018-03-30)
PROC: 0DBN8ZX Excision of Sigmoid Colon, Via Natural or Artificial Opening Endoscopic, Diagnostic (ICD-10-PCS; principal; 2018-03-31)
DX: D64.9 Anemia, unspecified (principal); C34.32 Malignant neoplasm of lower lobe, left bronchus or lung; I85.10 Secondary esophageal varices without bleeding; M19.90 Unspecified osteoarthritis, unspecified site; E03.8 Other specified hypothyroidism; K74.60 Unspecified cirrhosis of liver; F32.9 Major depressive disorder, single episode, unspecified; G89.4 Chronic pain syndrome; K57.30 Diverticulosis of large intestine without perforation or abscess without bleeding; K63.5 Polyp of colon; K31.9 Disease of stomach and duodenum, unspecified; B19.20 Unspecified viral hepatitis C without hepatic coma; Z79.899 Other long term (current) drug therapy
CPT/HCPCS: 36415; 36430; 74177; 80048; 80053; 82105; 82248; 83615; 84100; 84132; 84443; 84550; 85025; 86850; 86900; 86901; 88305; A4216; C9113; J2001; J2270; J2704; J7050; J9271; P9016

== ENCOUNTER 2018-04-19 11:55 | Inpatient (IN) | payer MEDICARE, MEDICAID ==
[2018-04-19] MEDS ORDERED: Pembrolizumab 200 MG in Sodium Chloride 0.9% 250 ML 250 ML IV SCH (14:15)
[2018-04-19] MEDS ORDERED: diphenhydrAMINE 25 MG CAP PO SCH (14:15)
[2018-04-19] MEDS ORDERED: Acetaminophen 500 MG TAB PO SCH (14:15)
[2018-04-19] MEDS ORDERED: Chloraseptic Spray 180 ml Bottle PO PRN (14:21)
[2018-04-19] MEDS ORDERED: Loratadine 10 MG TAB PO PRN (14:21)
[2018-04-19] MEDS ORDERED: Lubiprostone 24 MCG CAP PO PRN (14:21)
[2018-04-19] MEDS ORDERED: Artificial Tears 18 DROP/0.9 ML EA EYE PRN (14:21)
[2018-04-19] MEDS ORDERED: Mag-Al 1200 mg/1200 mg/30 ML UDCUP PO PRN (14:21)
[2018-04-19] MEDS ORDERED: Milk Of Magnesia 30 ML UDCUP PO PRN (14:21)
[2018-04-19] MEDS ORDERED: Acetaminophen 325 MG TAB PO PRN (14:21)
[2018-04-19] MEDS ORDERED: hydrALAZINE 20 MG/ML VIAL SLOW IVP PRN (14:21)
[2018-04-19] MEDS ORDERED: Ondansetron HCl/PF 4 MG/2 ML Vial IVP PRN (14:21)
[2018-04-19] MEDS ORDERED: Ondansetron ODT 4 MG TAB PO PRN (14:21)
[2018-04-19] MEDS ORDERED: Senokot 8.6 MG TAB PO PRN (14:21)
[2018-04-19] MEDS ORDERED: Sodium Chloride 0.65% Nasal 44 ML BOT EA NARE PRN (14:21)
[2018-04-19] MEDS ORDERED: Diabetic Tussin 200 MG/10 ML UDCUP PO PRN (14:21)
[2018-04-19] MEDS ORDERED: Loperamide HCl 2 MG CAP PO PRN (14:21)
[2018-04-19] MEDS ORDERED: Eucerin (Mineral Oil/Petrolatum,White) 30 gm Jar TOP PRN (14:21)
[2018-04-19 15:46] LABS: INR-International Normal Ratio 1.2; PTT 35.7 SEC (22.9-36.1)
[2018-04-19 15:55] LABS: Hemoglobin 6.2 g/dL (12.0-16.0); Mean Corpuscular HGB CONC 31.8 g/dL (32.0-36.0); Mean Corpuscular Hemoglobin 26.1 pg (27.0-31.0); Mean Corpuscular Volume 82.1 fL (78.0-98.0); Mean Platelet Volume 9.5 fL (7.4-10.4); Platelet Count 617 thou/uL (130-400); Red Blood Cell (RBC) Count 2.36 mill/uL (4.20-5.40)
--- NOTE | 2018-04-19 16:05 | HP ---
PRIMARY CARE PHYSICIAN: Dr. Surinder Galvan. REASON FOR ADMISSION: Direct admission from oncologist's office for anemia. HISTORY OF PRESENT ILLNESS: A 53-year-old female who has underlying history of squamous cell carcinoma of lung and she is getting chemotherapy. Patient also has underlying cirrhosis of liver secondary to chronic hepatitis C. She was recently admitted in our hospital on 03/29/2018. At that time, patient had symptomatic anemia. She was given blood transfusion. She was evaluated by per diem clerk. She had negative upper endoscopy and colonoscopy showed sigmoid colon polyp which was removed with polypectomy. She also had CT of the abdomen and pelvis which showed only cirrhosis of liver, without any acute abdominal process. The patient was discharged home on 04/01/2018. Patient has received so far 9 cycles of chemotherapy which she gets every 3 weeks. The patient is planned for chemotherapy, Keytruda today. Patient was seen by per diem clerk and they ordered a bunch of blood tests for her ongoing anemia as well as Dr. Rich saw this patient and she was instructed to go to hospital for blood transfusion for anemia. She does have generalized weakness, fatigue, dyspnea on exertion, dizziness, easy fatigability, and weakness. She denies any chest pain, palpitations or syncope. She denies any black tarry stool. She denies any hematochezia. She denies any kind of blood loss from her body. She denies any abdominal distension. She denies any altered mental status. She denies any fever or chills. She denies any headaches. She denies any loss of consciousness. She reports that she has chronic pain. When she was in hospital, she was asking for pain medication. She denies any NSAID abuse. She denies any epigastric pain. REVIEW OF SYSTEMS: The following complete review of systems was negative, unless otherwise mentioned in the HPI or below: Constitutional: Weight loss or gain, ability to conduct usual activities. Skin: Rash, itching. Eyes: Double vision, pain. ENT/Mouth: Nose bleeding, neck stiffness, pain, tenderness. Cardiovascular: Palpitations, dyspnea on exertion, orthopnea. Respiratory: Shortness of breath, wheezing, cough, hemoptysis, fever or night sweats. Gastrointestinal: Poor appetite, abdominal pain, heartburn, nausea, vomiting, constipation, or diarrhea. Genitourinary: Urgency, frequency, dysuria, nocturia. Musculoskeletal: Pain, swelling. Neurologic/Psychiatric: Anxiety, depression. Allergy/Immunologic: Skin rash, bleeding tendency. Please see my HPI for pertinent positive and negative. All other review of systems reviewed and negative except as mentioned in the HPI. 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 PAST PSYCHIATRIC HISTORY: Anxiety and depression. PAST SURGICAL HISTORY: Splenic resection, total hysterectomy, ACL repair, history of , MediPort placement. SOCIAL HISTORY: Patient is single. She has no children. She currently lives with her father. She has history of smoking. She denies any alcohol abuse. She denies any other illicit drug abuse. ALLERGIES: No known drug allergy. FAMILY HISTORY: No strong family history of premature coronary artery disease, stroke or cancer. CURRENT HOME MEDICATIONS: Amitriptyline 100 mg p.o. at bedtime, vitamin D3 2000 units p.o. at bedtime, Klonopin 1 mg p.o. b.i.d., Flexeril 10 mg t.i.d., [place]one 10 one tablet t.i.d., Amitiza 24 mcg p.o. b.i.d. p.r.n., Protonix 40 mg p.o. daily, Ambien 10 mg p.o. at bedtime. PHYSICAL EXAMINATION: VITAL SIGNS: Currently, temperature 98.6, pulse 72, respiratory rate 18, blood pressure 130/80, saturation 99% on room air and weight 221 pounds. GENERAL: Patient is currently alert, awake, no obvious acute distress. HEAD: Normocephalic, atraumatic. EYES: Pupils round, reactive to light. Extraocular muscle intact. ENT: Oropharynx within normal limit. Pale mucous membranes, no oral lesion, no pharyngeal erythema, no exudate. NECK: Supple, no JVD, no thyromegaly, no carotid bruit, no jugular venous distention. LUNGS: Clear to auscultation without any rhonchi or rales. CARDIAC: S1 and S2 regular. No murmur, no gallop, no rub. ABDOMEN: Soft, bowel sounds present, nontender, nondistended. No organomegaly , no mass, no suprapubic tenderness. BACK: Examination unremarkable, no CVA tenderness. EXTREMITIES: Upper extremity passive movement of all joints are normal. Lower extremities: No edema. Good peripheral pulsation. SKIN: Pallor plus, no rash, no icterus. NEUROLOGIC: The patient is alert and oriented x3. Cranial nerves II-XII intact. Motor and sensation within normal limit. No focal neurological deficit noted. PSYCHIATRIC: Anxious affect. HEMATOLOGICAL SYSTEM: No lymphadenopathy. SIGNIFICANT LABORATORY DATA: At this point, we do not have any blood test done from clinic. We are going to order CBC and acute hepatitis profile. Alpha 1 antitrypsin, antinuclear antibody, ceruloplasmin, ferritin, gamma GGT, immunoglobulin IgG and IgM iron, TIBC, mitochondrial antibody, smooth muscle antibody, ammonia, CBC, CMP. TSH 8.51. ASSESSMENT AND PLAN/IMPRESSION: 1. Symptomatic anemia. The patient is sent from GI and Oncology Clinic for transfusion. The patient will be given 2 units of transfusion as per Oncology recommendations. As per Gastroenterology recommendation, we are sending recommended test including acute hepatitis profile, alpha 1 antitrypsin, BELLA, ceruloplasmin, ferritin, gamma GGT IgA, IgM iron, TIBC, antimitochondrial antibody, smooth muscle antibody, ammonia, CBC, CMP, we will also check stool for guaiac. This patient had upper endoscopy recently which was unremarkable. Colonoscopy showed colon polyp which was removed. CBC does not have any acute ongoing bleeding. Etiology of her anemia is unclear suspecting chemotherapy related bone marrow suppression is also possible. The patient may need a capsule endoscopy to rule out any bleeding from small intestine that can be done as an outpatient basis. We will transfuse 2 units of PRBCs today and then we will repeat CBC tomorrow. We will consider discharging her home tomorrow. 2. Chronic hepatitis C with liver cirrhosis. We are going to do necessary testing for this problem including acute hepatitis profile. Alpha 1 antitrypsin , BELLA, ceruloplasmin, ferritin, gamma GGT, IgM, IgG, mitochondrial antibody, ammonia, PT/INR, smooth muscle antibody. The patient will follow up with GI as an outpatient basis. 3. Squamous cell carcinoma of lung, stage 4 with a mediastinal metastasis and probable right-sided lung metastasis. Patient is getting chemotherapy with Keytruda every 3 weeks. The patient is planned for chemotherapy today. 4. Anxiety and depression. We will continue Klonopin 1 mg p.o. b.i.d. and amitriptyline 100 mg p.o. at bedtime. 5. Chronic low back pain. The patient will be given Flexeril 10 mg p.o. t.i.d. The patient will continue morphine p.r.n. basis for her chronic pain. We will also continue [place] while in hospital. 6. Hypothyroidism. We will start levothyroxine 25 mcg p.o. daily. The patient will need follow up with primary care physician for followup on thyroid function test. 7. Deep venous thrombosis prophylaxis not needed because we are expecting discharge in 24 hours. 8. Gastrointestinal prophylaxis, Protonix 40 mg p.o. daily. CODE STATUS: The patient is FULL CODE. The patient's father is surrogate decision maker. Disposition plan within 24 hours. Plan of care discussed with the patient in detail. MTDD
[2018-04-19 16:17] LABS: Ferritin 533.95 ng/mL (10-291)
[2018-04-19 16:31] LABS: HBCM Index 0.11 S/CO (0-0.79); HBSAg Index 0.21 S/CO (0-0.99); Hep A IgM AB Non-Reactive (NonReactive); Hep A IgM S/CO 0.09 S/CO (0-0.79); Hep B Surf Ag Non-Reactive S/CO (NonReactive); Hepatitis B Core IGM Abs Non-Reactive (NonReactive)
[2018-04-19 16:34] LABS: Anisocytosis SLIGHT = 6-15 cells (100X) (0-5/hpf); Band 1 % (5-11); Eosinophils 2 % (0-10); Howell Jolly Bodies SLIGHT = 1-2 cells (100X) (None Seen); Hypochromia SLIGHT = 6-15 cells (100X) (0-5/hpf); Large Platelets SLIGHT; Lymphocytes 44 % (21-51); MDiff Complete? YES; Monocytes 2 % (0-10); Neutrophil 50 % (42-75); PLT Morphology Comment Appears Increased; Polychromasia MODERATE = 3-4 cells (100X) (0-2/hpf); Target Cells MODERATE= 6-15 cells (100X) (0-1/hpf)
[2018-04-19] MEDS: HYDROcodone/Acetaminophen 10/325 mg Tablet PO PRN (17:59)
[2018-04-19 18:23] LABS: Hep C IgG Ab Reflex HepC Qnt (NonReactive)
[2018-04-19] MEDS: clonazePAM 1 MG TAB PO SCH (21:42)
[2018-04-19] MEDS: Amitriptyline HCl 100 MG TAB PO SCH (21:46)
[2018-04-20] MEDS: HYDROcodone/Acetaminophen 10/325 mg Tablet PO PRN ×4 (00:50→20:22)
[2018-04-20] MEDS: Levothyroxine Sodium 25 MCG TAB PO SCH (06:15)
[2018-04-20 06:48] LABS: ALT (SGPT) 37 U/L (8-55); AST (SGOT) 50 U/L (5-34); Albumin 2.9 g/dL (3.5-5.0); Alkaline Phosphatase 226 U/L (40-150); Anion Gap 12 mmol/L (10-20); BUN (Urea Nitrogen) 20 mg/dL (9.8-20.1); Bilirubin, Total 0.5 mg/dL (0.2-1.2); Calc. Creatinine Clearance 131 mL/min (70-130); Calcium 8.9 mg/dL (7.8-10.44); Carbon Dioxide 24 mmol/L (22-29); Chloride 103 mmol/L (98-107); Estimated GFR-MDRD 78; Globulin 4.7 g/dL (2.4-3.5); Glucose 107 mg/dL (70-105); Potassium 4.5 mmol/L (3.5-5.1); Protein, Total 7.6 g/dL (6.0-8.3); Sodium 134 mmol/L (136-145)
[2018-04-20 07:05] LABS: Hemoglobin 6.6 g/dL (12.0-16.0); Mean Corpuscular HGB CONC 32.3 g/dL (32.0-36.0); Mean Corpuscular Volume 83.7 fL (78.0-98.0); Mean Platelet Volume 9.8 fL (7.4-10.4); Platelet Count 512 thou/uL (130-400); RBC Distribution Width 15.5 % (11.5-14.5); Red Blood Cell (RBC) Count 2.46 mill/uL (4.20-5.40); White Blood Cell (WBC) Count 14.3 thou/uL (4.8-10.8)
[2018-04-20] MEDS ORDERED: Furosemide 20 MG/2 ML VIAL SLOW IVP SCH (07:15)
[2018-04-20 08:02] LABS: Band 2 % (5-11); Hypochromia SLIGHT = 6-15 cells (100X) (0-5/hpf); Lymphocytes 37 % (21-51); MDiff Complete? YES; Monocytes 8 % (0-10); Neutrophil 50 % (42-75); Nucleated RBC 1 % (0); PLT Morphology Comment Appears Increased; Polychromasia MODERATE = 3-4 cells (100X) (0-2/hpf); Reactive Lymphocytes 2 % (0-10); Target Cells MODERATE= 6-15 cells (100X) (0-1/hpf)
--- NOTE | 2018-04-20 09:38 | PDOC.PN ---
- Subjective Encounter Start Date: 04/20/18 Encounter Start Time: 06:45 -: old records requested/rev Patient seen and examined. No new complaints. No overnight events - Objective Resuscitation Status: Resuscitation Status FULL:Full Resuscitation MAR Reviewed: Yes Vital Signs & Weight: Vital Signs (12 hours) Temp Pulse Pulse Resp BP BP BP 04/20/18 08:11 98.3 F 88 18 133/69 04/20/18 08:00 98.3 F 88 18 133/69 04/20/18 03:30 97.6 F 88 16 128/74 04/20/18 01:15 98.1 F 89 16 127/68 04/19/18 23:59 98.7 F 92 20 138/70 Pulse Ox 04/20/18 08:11 94 L 04/20/18 08:00 94 L 04/20/18 03:30 04/20/18 01:15 04/19/18 23:59 Weight Weight 219 lb I&O: 04/19/18 04/20/18 04/21/18 06:59 06:59 06:59 Intake Total 1200 Balance 1200 Result Diagrams: 04/20/18 06:28 04/20/18 06:28 Phys Exam - Physical Examination Constitutional: NAD HEENT: PERRLA, moist MMs, sclera anicteric pallor+ Neck: no JVD, supple Respiratory: no wheezing, no rales, no rhonchi Cardiovascular: RRR, no significant murmur, no rub Gastrointestinal: soft, non-tender, no distention, positive bowel sounds Musculoskeletal: no edema, pulses present Neurological: non-focal, normal sensation, moves all 4 limbs Lymphatic: no nodes Psychiatric: normal affect, A&O x 3 Deviation from normal: no asterexis Skin: no rash, normal turgor Dx/Plan (1) Hyperammonemia Code(s): E72.20 - DISORDER OF UREA CYCLE METABOLISM, UNSPECIFIED Status: Acute (2) Hypothyroidism Code(s): E03.9 - HYPOTHYROIDISM, UNSPECIFIED Status: Acute (3) Symptomatic anemia Code(s): D64.9 - ANEMIA, UNSPECIFIED Status: Acute Comment: (4) Anxiety and depression Code(s): F41.9 - ANXIETY DISORDER, UNSPECIFIED; F32.9 - MAJOR DEPRESSIVE DISORDER, SINGLE EPISODE, UNSPECIFIED Status: Chronic (5) Chronic pain Code(s): G89.29 - OTHER CHRONIC PAIN Status: Chronic Comment: stable (6) Hepatic cirrhosis due to chronic hepatitis C infection Code(s): B18.2 - CHRONIC VIRAL HEPATITIS C; K74.60 - UNSPECIFIED CIRRHOSIS OF LIVER Status: Chronic (7) Hepatitis C Code(s): B19.20 - UNSPECIFIED VIRAL HEPATITIS C WITHOUT HEPATIC COMA Status: Chronic Comment: stable (8) Obesity (BMI 30-39.9) Code(s): E66.9 - OBESITY, UNSPECIFIED Status: Chronic (9) SCC (squamous cell carcinoma of lung) Code(s): C34.90 - MALIGNANT NEOPLASM OF UNSP PART OF UNSP BRONCHUS OR LUNG Status: Chronic - Plan cont current plan of care * 2 unit prbc given but H & H has not improved * guiac is negative * etiology of anemia is unclear * follow on send out test result * consult GI and oncology for opinion * does not have e/o hemolysis * medication reviewed as below * symptomatic treatment * ? lab error, will repeat H & H. * transfuse again for low H & H * discharge when risk management consultant OK * no encephalopathy, but will add lactulose and rifaximin Review of Systems - Review of Systems Eyes: negative: Pain, Vision Change, Conjunctivae Inflammation, Eyelid Inflammation, Redness, Other ENT: negative: Ear Pain, Ear Discharge, Nose Pain, Nose Discharge, Nose Congestion, Mouth Pain, Mouth Swelling, Throat Pain, Throat Swelling, Other Respiratory: negative: Cough, Dry, Shortness of Breath, Hemoptysis, SOB with Excertion, Pleuritic Pain, Sputum, Wheezing Cardiovascular: negative: chest pain, palpitations, orthopnea, paroxysmal nocturnal dyspnea, edema, light headedness, other Gastrointestinal: negative: Nausea, Vomiting, Abdominal Pain, Diarrhea, Constipation, Melena, Hematochezia, Other Musculoskeletal: negative: Neck Pain, Shoulder Pain, Arm Pain, Back Pain, Hand Pain, Leg Pain, Foot Pain, Other Skin: negative: Rash, Lesions, N[place]um, Bruising, Other - Medications/Allergies Allergies/Adverse Reactions: Allergies Allergy/AdvReac Type Severity Reaction Status Date / Time No Known Drug Allergies Allergy Verified 03/29/18 11:38 Medications: Current Medications Acetaminophen (Tylenol) 650 mg PO Q4H PRN PRN Reason: Headache/Fever or Pain Hydrocodone Bitart/Acetaminophen ([place] 10/325) 1 tab PO Q4H PRN PRN Reason: Moderate Pain (4-6) Last Admin: 04/20/18 06:15 Dose: 1 tab Hydrocodone Bitart/Acetaminophen ([place] 5/325) 1 tab PO Q4H PRN PRN Reason: Mild Pain (1-3) Al Hydroxide/Mg Hydroxide (Maalox) 30 ml PO Q6H PRN PRN Reason: Heartburn or Indigestion Amitriptyline HCl (Elavil) 100 mg PO HS [facility] Last Admin: 04/19/18 21:46 Dose: 100 mg Artificial Tears (Tears Naturale) 0 drop EA EYE PRN PRN PRN Reason: Dry Eyes Aspirin (Ecotrin) 81 mg PO QAM [facility] Cholecalciferol (Vitamin D3) 2,000 units PO DAILY [facility] Clonazepam (Klonopin) 1 mg PO BID [facility] Last Admin: 04/19/18 21:42 Dose: 1 mg Cyclobenzaprine HCl (Flexeril) 10 mg PO TID PRN PRN Reason: Muscle Spasm Guaifenesin (Robitussin Sf) 200 mg PO Q4H PRN PRN Reason: Cough Hydralazine HCl (Apresoline) 10 mg SLOW IVP Q4H PRN PRN Reason: Systolic BP > 180 Lactulose (Lactulose) 20 gm PO BID [facility] Levothyroxine Sodium (Synthroid) 25 mcg PO 0600 [facility] Last Admin: 04/20/18 06:15 Dose: 25 mcg Loperamide HCl (Imodium) 2 mg PO PRN PRN PRN Reason: Diarrhea/Loose Stools Loratadine (Claritin) 10 mg PO DAILYPRN PRN PRN Reason: Sinus Symptoms Lubiprostone (Amitiza) 24 mcg PO BID PRN PRN Reason: Constipation Magnesium Hydroxide (Milk Of Magnesium) 30 ml PO DAILYPRN PRN PRN Reason: Constipation Mineral Oil/White Petrolatum (Eucerin Cream) 0 gm TOP BIDPRN PRN PRN Reason: Dry Skin Morphine Sulfate (Morphine Sulfate) 4 mg SLOW IVP Q4H PRN PRN Reason: Severe Pain (7-10) Last Admin: 04/20/18 07:49 Dose: 4 mg Ondansetron HCl (Zofran Odt) 4 mg PO Q6H PRN PRN Reason: Nausea/Vomiting Ondansetron HCl (Zofran) 4 mg IVP Q6H PRN PRN Reason: Nausea/Vomiting Pantoprazole Sodium (Protonix) 40 mg PO DAILY [facility] Phenol (Chloraseptic [place] 180 Ml Bot) 0 ml PO PRN PRN PRN Reason: Sore Throat Rifaximin (Xifaxan) 550 mg PO BID [facility] Senna (Senokot) 2 tab PO HSPRN PRN PRN Reason: Constipation Sodium Chloride ([place] Nasal [place] 0.65%) 0 ml EA NARE QIDPRN PRN PRN Reason: Nasal Congestion Sodium Chloride (Flush - Normal Saline) 10 ml IVF Q12HR [facility] Last Admin: 04/20/18 07:51 Dose: 10 ml Sodium Chloride (Flush - Normal Saline) 10 ml IVF PRN PRN PRN Reason: Saline Flush Last Admin: 04/19/18 15:35 Dose: 10 ml Zolpidem Tartrate (Ambien) 5 mg PO HSPRN PRN PRN Reason: Insomnia
[2018-04-20] MEDS: Rifaximin 550 MG TAB PO SCH ×2 (09:58→20:22)
[2018-04-20] MEDS: clonazePAM 1 MG TAB PO SCH ×2 (09:58→20:24)
[2018-04-20] MEDS: Aspirin 81 mg Enteric Coated Tablet PO SCH (09:58)
[2018-04-20 12:04] LABS: Hemoglobin 7.3 g/dL (12.0-16.0)
--- NOTE | 2018-04-20 12:19 | CON ---
DATE OF CONSULTATION: 04/20/2018 REASON FOR CONSULTATION: Lung cancer. HISTORY OF PRESENT ILLNESS: Ms. Hand is a pleasant 53-year-old female who was diagnosed with squamous cell carcinoma of the left lung, stage IV. She was 100% PD-L1 positive. She was start ed on Keytruda and has received 9 cycles with dramatic improvement in her cancer. The patient has townsend d a leukocytosis since the time of diagnosis as well as a thrombocytosis. She has been mildly anemic ; however, in the past several weeks she has become severely anemic with a hemoglobin of 5.8 in early March. She was admitted and had a negative GI workup. A CT scan in the past showed cirrhosis. She has also had intermittent elevated LFTs since starting Keytruda. Yesterday, she presented to the [facility] for treatment. She complained of fatigue. Her hemoglobin was 6.2. She was admitted for further evaluation. She denies any bleeding, but reports frequent black stools. She was transfused 2 units of blood yesterday with minimal improvement. Her CBC today shows a hemoglobin of 6.6. She has targ et cells and Ellis[place] bodies. She has got nucleated RBCs. PAST MEDICAL HISTORY: 1. Stage IV squamous cell carcinoma of the left lung. 2. Cirrhosis. 3. Osteoarthritis. 4. Anxiety and depression. 5. History of hepatitis C. PAST SURGICAL HISTORY: 1. Splenic resection. 2. Total hysterectomy. 3. ACL repair. 4. . ALLERGIES: No known drug allergies. HOME MEDICATIONS: 1. Amitiza 24 mcg p.r.n. 2. Amitriptyline 100 mg at bedtime p.r.n. 3. Clonazepam 1 mg b.i.d. 4. Flexeril p.r.n. 5. Hydrocodone 10/325 p.r.n. 6. Xanax b.i.d. p.r.n. 7. Zolpidem 10 mg at bedtime p.r.n. FAMILY HISTORY: Noncontributory. SOCIAL HISTORY: She is single. No children, lives with her family. No alcohol or illicit drug use. Current everyday smoker. REVIEW OF SYSTEMS: CONSTITUTIONAL: No fever, chills, night sweats. EYES: No blurred or double vision. ENT: No pain, hoarseness, sore throat, dysphagia. CARDIOVASCULAR: No chest pain, palpitations or syncope. RESPIRATORY: Positive for dyspnea on exertion. GASTROINTESTINAL: No nausea, vomiting, diarrhea, constipation or abdominal pain. GENITOURINARY: No dysuria or hematuria. MUSCULOSKELETAL: No joint or back pain. SKIN: No rash or pruritus. HEMATOLOGIC: No bleeding, bruising or clotting. NEUROLOGIC: Positive for weakness, no headache, numbness, tingling or seizure activity. PSYCHIATRIC: Positive for anxiety and depression. PHYSICAL EXAMINATION: VITAL SIGNS: Temperature is 98.3, pulse is 88, respiratory rate 18, BP is 133/69. She is 94% on candice m air. GENERAL: Well-developed, well-nourished female in no acute distress. HEENT: Normocephalic, atraumatic. Pupils equal and reactive to light. NECK: Supple. HEART: Regular rate and rhythm. LUNGS: Clear. ABDOMEN: Soft, nontender, bowel sounds are positive. EXTREMITIES: No clubbing, cyanosis or edema. SKIN: No rash. HEMATOLOGIC: No petechia or purpura. NEUROLOGICAL: Nonfocal. PSYCHIATRIC: The patient is alert and oriented and appropriate. PERTINENT LABORATORY AND X-RAYS: Current WBCs are 14.3, hemoglobin 6.6, hematocrit 20.6, platelet co unt is 512,000, and 50% neutrophils, 2% bands, 37% lymphocytes. PT is 15.0, INR is 1.2, PTT 35.7. S odium is 134, potassium 4.5, chloride 103, CO2 is 24, BUN is 20, creatinine 0.77, calcium 8.9. Iron is 24, TIBC is 576. Ferritin is 533, bilirubin is 0.5, GGT is 224, AST is 50, ALT is 34, alkaline ph osphatase is 226. Ammonia is 120. LDH is 188, serum total protein is 7.6, albumin 2.9, globulin 4.7 . IgG and IgM were normal. Hepatitis C antibody is positive. IMPRESSION: 1. Non-small cell lung cancer, squamous type on Keytruda. 2. Acute severe symptomatic anemia with poor response to transfusion. DISCUSSION: The patient's inflammatory markers have been drawn and are currently pending. We will c heck haptoglobin and Georgette to rule out hemolysis, although her bilirubin is normal as is her LDH. S he will have a bone marrow hopefully this afternoon. We will transfuse later today based on Georgette r esults, believe GI has been consulted for their additional insight. Thank you for the consult. We will follow her closely.
[2018-04-20] MEDS ORDERED: Sodium Bicarbonate 2.5 MEQ/5 ML VIAL ONE (13:20)
[2018-04-20] MEDS ORDERED: Fentanyl 100 MCG/2 ML VIAL ONE (13:20)
[2018-04-20] MEDS ORDERED: Midazolam HCl 2 mg/2 ml Vial ONE (13:20)
--- NOTE | 2018-04-20 14:36 | CT ---
CT GUIDED BONE MARROW ASPIRATION AND CORE BIOPSY: DATE: 04/20/18. HISTORY: A 53-year-old female with severe anemia and lung cancer. FINDINGS: Informed consent obtained prior to the procedure. Preprocedural imaging demonstrates sigmoid diverticulosis. The patient was placed on the CT table in the prone position and the skin overlying the left iliac robert ne was prepped and draped in normal sterile fashion. The skin was anesthetized with 1% buffered Lido ame. The periosteum of the left iliac bone was anesthetized as well. A small skin pritesh was made and the 11G outer guide needle was advanced through the cortex and confirm ed with CT. Aspiration was then performed yielding approximately 10 cc of marrow aspirate which was given to the pathology personnel at the bedside. Subsequently, a 2-3 cm core was obtained and given to the pathology personnel at the bedside as well. The needle was removed and hemostasis was quickly achieved with manual compression. The patient tole rated the procedure well. IMPRESSION: Successful CT-guided bone marrow aspiration and core biopsy utilizing an 11-gauge system. POS: RADHA
[2018-04-20] MEDS: Amitriptyline HCl 100 MG TAB PO SCH (20:21)
[2018-04-20] MEDS: Zolpidem Tartrate 5 MG TAB PO PRN (20:24)
--- NOTE | 2018-04-21 05:29 | CON ---
DATE OF CONSULTATION: 04/20/2018 REASON FOR CONSULTATION: Anemia. CONSULTING PHYSICIAN: Dr. Chema Dunaway. HISTORY OF PRESENT ILLNESS: The patient is a 53-year-old female with past medical history of osteoar thritis, anxiety, depression, chronic HCV with cirrhosis and stage IV squamous cell carcinoma of the left lung, presenting with complaints of increased fatigue and shortness of breath. The patient stat es that she was recently discharged from the hospital as part of the workup related to a worsening of her anemia including both an upper and lower endoscopy that were negative for obvious source of blee ding. She was ultimately discharged to home and was followed up in the oncology clinic when routine CBC showed that she had had a significant drop in her hemoglobin and hematocrit since the previous ho spitalization. She was subsequently admitted to the hospital for further evaluation. Currently, she complains of increased fatigue and tiredness as well as shortness of breath with exertion where she is unable to walk any more than 50 feet without having to stop. She also endorses of darker co lored stools that have been present intermittently for the last week. The stools were dark brown in coloration and characterize semisolid to liquid. However, over the last 6 hours, she said that these darker colored liquid stools have turned from darker color to bright red blood per rectum that was p resent both in the toilet and on the toilet paper. She does have a history of chronic abdominal pain located within the midepigastric region that has been chronic since 08/2017, but she has not noticed any significant change in his abdominal pain over the last 1-2 weeks. Currently, she denies any jennifer sea, vomiting, fevers, chills, hematemesis, dysphagia, odynophagia or constipation. Of note, she was transfused approximately 2 units of PRBCs yesterday with no significant change in he r hemoglobin and hematocrit. REVIEW OF SYSTEMS: A 10-category review of systems was obtained with all responses negative except f or the pertinent positives as listed in the HPI. PAST MEDICAL HISTORY: As per HPI. PAST SURGICAL HISTORY: Total hysterectomy, ACL repair, splenic resection as well as elective abortio n. FAMILY HISTORY: Denies any GI malignancy. SOCIAL HISTORY: Denies any alcohol or illicit drug use, but does continue to smoke daily. OUTPATIENT MEDICATIONS: Reviewed including chemotherapy course with the last cycle being this . ALLERGIES: No known drug allergies. PHYSICAL EXAMINATION: VITAL SIGNS: Temperature of 97.8, pulse 104, blood pressure 144/70, respiratory rate 20, satting 95% on room air. GENERAL: The patient is lying in bed, in no acute distress. Alert and oriented x4. NECK: Supple. No JVD noted. CARDIOVASCULAR: Tachycardic rate with a 3/6 systolic ejection murmur best heard at the left lower st ernal border. RESPIRATORY: Clear to auscultation bilaterally with no discernible wheezes or rales. ABDOMEN: Normoactive bowel sounds, nontender, nondistended. EXTREMITIES: No cyanosis, clubbing or edema. LABORATORY DATA: CBC with a white blood cell count of 14.3, hemoglobin 7.3, hematocrit 23.2, platele ts 512. Chemistry with a sodium of 134, potassium 4.5, chloride 103, CO2 of 24, BUN 20, creatinine 0 .77, glucose 107, AST 50, ALT 37, alkaline phosphatase 226, total bilirubin 0.5, albumin 2.9. INR 1. 2. Iron 24, ferritin 533, TIBC 576. IMAGING DATA: EGD performed on 03/30/2018, showed the presence of grade I esophageal varices that di d not show any high-risk stigmata of active or recent bleeding. There was also the presence of mild portal hypertensive gastropathy, but no bleeding sites were identified during that evaluation. A fol low up colonoscopy obtained on 03/31/2018 showed the presence of 5 mm sigmoid polyp, severe diverticu lar disease, but also with a very poor prep. So, mucosal lesions less than 5 mm in size, may not hav e been evaluated. There was no mention of either internal or external hemorrhoids during the colonos copy. ASSESSMENT AND PLAN: The patient is a 53-year-old female with past medical history of osteoarthritis , anxiety, depression, chronic hepatitis C with cirrhosis and stage IV squamous cell carcinoma of the left lung, presenting with anemia. Anemia: The patient is presenting with a chronic anemia that has been present and performed fo r the greater portion of this year; however, she has had significant worsening of her anemia over the last month, characterized as an approximate drop in hemoglobin over the last 3 weeks. During her hospitalization, she was evaluated with both an upper and lower endoscopy with no obvious sources of gastrointestinal bleeding identified at that time. Since then she has had as a further decrease i n her hemoglobin and hematocrit, but is now complaining of darker colored stools over the last 2-3 da ys as well as bright red blood per rectum concerning for the presence of melena and hematochezia. Co ncerning the origin of her hematochezia, it seems to be more hemorrhoidal or rectal outlet related pr imarily because of its appearance after having multiple liquid bowel movements over the last 12-24 ho urs; however, these darker colored stools are potentially worrisome for the presence of melena and up per gastrointestinal bleeding. It is unclear if this bleeding is within the upper gastrointestinal t ract that can be reached with the endoscope including the esophagus, stomach or proximal small intest ine or is within the jejunum or ileum further generating her anemia. As the cause for anemia is unkn own, but differential could include portal hypertensive gastropathy, arteriovenous malformation, Kai lafoy lesion, mucositis associated with chemotherapy administration, small bowel neoplasm, enteritis and/or colitis. RECOMMENDATIONS: 1. We continue to trend H and H and transfuse as necessary to maintain an H and H of 7/21. 2. We continue to monitor clinically for signs of active gastrointestinal bleeding. 3. If she continues to have a decreasing H and H despite administration of packed red blood cells. I would consider repeat upper endoscopy given the appearance of these darker colored stools prior to admission and occult melena being a more likely source of her significant anemia. 4. Could consider use of loperamide as an antidiarrheal agent. 5. If her watery stools continue, may consider infectious workup as a possible source of GI bleeding as well. We will continue to follow. Please call with any questions.
[2018-04-21] MEDS: Levothyroxine Sodium 25 MCG TAB PO SCH (06:37)
[2018-04-21 07:01] LABS: Hemoglobin 5.4 g/dL (12.0-16.0); Mean Corpuscular HGB CONC 31.4 g/dL (32.0-36.0); Mean Corpuscular Hemoglobin 26.1 pg (27.0-31.0); Mean Corpuscular Volume 83.3 fL (78.0-98.0); Mean Platelet Volume 9.3 fL (7.4-10.4); Platelet Count 550 thou/uL (130-400); RBC Distribution Width 15.6 % (11.5-14.5); Red Blood Cell (RBC) Count 2.07 mill/uL (4.20-5.40); White Blood Cell (WBC) Count 16.3 thou/uL (4.8-10.8)
[2018-04-21 07:34] LABS: Band 4 % (5-11); Eosinophils 4 % (0-10); Hypochromia SLIGHT = 6-15 cells (100X) (0-5/hpf); Lymphocytes 53 % (21-51); MDiff Complete? YES; Monocytes 6 % (0-10); Neutrophil 31 % (42-75); PLT Morphology Comment Appears Increased; Polychromasia SLIGHT = 2-3 cells (100X) (0-2/hpf); Target Cells MODERATE= 6-15 cells (100X) (0-1/hpf)
[2018-04-21] MEDS: clonazePAM 1 MG TAB PO SCH ×2 (08:58→20:13)
[2018-04-21] MEDS: Aspirin 81 mg Enteric Coated Tablet PO SCH (08:59)
[2018-04-21] MEDS: Rifaximin 550 MG TAB PO SCH ×2 (08:59→20:11)
--- NOTE | 2018-04-21 10:46 | PDOC.PN ---
- Subjective Encounter Start Date: 04/21/18 Encounter Start Time: 08:30 Patient seen and examined for anemia, today her Hb dropped again, she does not have any bleeding from any site, but she feels weak.. No new complaints. No overnight events - Objective Resuscitation Status: Resuscitation Status FULL:Full Resuscitation MAR Reviewed: Yes Vital Signs & Weight: Vital Signs (12 hours) Temp Pulse Resp BP BP Pulse Ox 04/21/18 08:00 97.6 F 102 H 20 141/69 H 96 04/21/18 00:01 98.8 F 98 18 142/74 H 96 Weight Admit Weight 219 lb Weight 219 lb 0.009 oz I&O: 04/20/18 04/21/18 04/22/18 06:59 06:59 06:59 Intake Total 1200 2000 Balance 1200 1999 Result Diagrams: 04/21/18 06:48 04/20/18 06:28 Phys Exam - Physical Examination Constitutional: NAD HEENT: PERRLA, moist MMs, sclera anicteric pallor+ Neck: no JVD, supple Respiratory: no wheezing, no rales, no rhonchi Cardiovascular: RRR, no significant murmur, no rub Gastrointestinal: soft, non-tender, no distention, positive bowel sounds Musculoskeletal: no edema, pulses present Neurological: non-focal, normal sensation, moves all 4 limbs Lymphatic: no nodes Psychiatric: normal affect, A&O x 3 Skin: no rash, normal turgor Dx/Plan (1) Hyperammonemia Code(s): E72.20 - DISORDER OF UREA CYCLE METABOLISM, UNSPECIFIED Status: Acute (2) Hypothyroidism Code(s): E03.9 - HYPOTHYROIDISM, UNSPECIFIED Status: Acute (3) Symptomatic anemia Code(s): D64.9 - ANEMIA, UNSPECIFIED Status: Acute Comment: (4) Anxiety and depression Code(s): F41.9 - ANXIETY DISORDER, UNSPECIFIED; F32.9 - MAJOR DEPRESSIVE DISORDER, SINGLE EPISODE, UNSPECIFIED Status: Chronic (5) Chronic pain Code(s): G89.29 - OTHER CHRONIC PAIN Status: Chronic Comment: stable (6) Hepatic cirrhosis due to chronic hepatitis C infection Code(s): B18.2 - CHRONIC VIRAL HEPATITIS C; K74.60 - UNSPECIFIED CIRRHOSIS OF LIVER Status: Chronic (7) Hepatitis C Code(s): B19.20 - UNSPECIFIED VIRAL HEPATITIS C WITHOUT HEPATIC COMA Status: Chronic Comment: stable (8) Obesity (BMI 30-39.9) Code(s): E66.9 - OBESITY, UNSPECIFIED Status: Chronic (9) SCC (squamous cell carcinoma of lung) Code(s): C34.90 - MALIGNANT NEOPLASM OF UNSP PART OF UNSP BRONCHUS OR LUNG Status: Chronic - Plan cont current plan of care * as her Hb again dropped very low, she is not ready for discharge * she had bone marrow biopsy done and await few test results * will defer transfusion decision to hematology * GI following, may be repeat EGD? * will check parvo virus antibody * medication reviewed as below * symptomatic treatment * will change to inpt status. Review of Systems - Review of Systems Constitutional: weakness. negative: fever, chills, sweats, malaise, other ENT: negative: Ear Pain, Ear Discharge, Nose Pain, Nose Discharge, Nose Congestion, Mouth Pain, Mouth Swelling, Throat Pain, Throat Swelling, Other Respiratory: negative: Cough, Dry, Shortness of Breath, Hemoptysis, SOB with Excertion, Pleuritic Pain, Sputum, Wheezing Cardiovascular: negative: chest pain, palpitations, orthopnea, paroxysmal nocturnal dyspnea, edema, light headedness, other Gastrointestinal: negative: Nausea, Vomiting, Abdominal Pain, Diarrhea, Constipation, Melena, Hematochezia, Other Genitourinary: negative: Dysuria, Frequency, Incontinence, Hematuria, Retention , Other Musculoskeletal: negative: Neck Pain, Shoulder Pain, Arm Pain, Back Pain, Hand Pain, Leg Pain, Foot Pain, Other Skin: negative: Rash, Lesions, [place], Bruising, Other Neurological: negative: Weakness, Numbness, Incoordination, Change in Speech, Confusion, Seizures, Other - Medications/Allergies Allergies/Adverse Reactions: Allergies Allergy/AdvReac Type Severity Reaction Status Date / Time No Known Drug Allergies Allergy Verified 03/29/18 11:38 Medications: Current Medications Acetaminophen (Tylenol) 650 mg PO Q4H PRN PRN Reason: Headache/Fever or Pain Hydrocodone Bitart/Acetaminophen ([place] 10/325) 1 tab PO Q4H PRN PRN Reason: Moderate Pain (4-6) Last Admin: 04/20/18 20:22 Dose: 1 tab Hydrocodone Bitart/Acetaminophen ([place] 5/325) 1 tab PO Q4H PRN PRN Reason: Mild Pain (1-3) Al Hydroxide/Mg Hydroxide (Maalox) 30 ml PO Q6H PRN PRN Reason: Heartburn or Indigestion Amitriptyline HCl (Elavil) 100 mg PO HS [facility] Last Admin: 04/20/18 20:21 Dose: 100 mg Artificial Tears (Tears Naturale) 0 drop EA EYE PRN PRN PRN Reason: Dry Eyes Aspirin (Ecotrin) 81 mg PO QAM [facility] Last Admin: 04/21/18 08:59 Dose: 81 mg Cholecalciferol (Vitamin D3) 2,000 units PO DAILY [facility] Last Admin: 04/21/18 09:00 Dose: 2,000 units Clonazepam (Klonopin) 1 mg PO BID [facility] Last Admin: 04/21/18 08:58 Dose: 1 mg Cyclobenzaprine HCl (Flexeril) 10 mg PO TID PRN PRN Reason: Muscle Spasm Guaifenesin (Robitussin Sf) 200 mg PO Q4H PRN PRN Reason: Cough Hydralazine HCl (Apresoline) 10 mg SLOW IVP Q4H PRN PRN Reason: Systolic BP > 180 Lactulose (Lactulose) 20 gm PO BID [facility] Last Admin: 04/21/18 09:03 Dose: Not Given Levothyroxine Sodium (Synthroid) 25 mcg PO 0600 [facility] Last Admin: 04/21/18 06:37 Dose: 25 mcg Loperamide HCl (Imodium) 2 mg PO PRN PRN PRN Reason: Diarrhea/Loose Stools Last Admin: 04/20/18 16:07 Dose: 2 mg Loratadine (Claritin) 10 mg PO DAILYPRN PRN PRN Reason: Sinus Symptoms Lubiprostone (Amitiza) 24 mcg PO BID PRN PRN Reason: Constipation Magnesium Hydroxide (Milk Of Magnesium) 30 ml PO DAILYPRN PRN PRN Reason: Constipation Mineral Oil/White Petrolatum (Eucerin Cream) 0 gm TOP BIDPRN PRN PRN Reason: Dry Skin Morphine Sulfate (Morphine Sulfate) 4 mg SLOW IVP Q4H PRN PRN Reason: Severe Pain (7-10) Last Admin: 04/21/18 06:37 Dose: 4 mg Ondansetron HCl (Zofran Odt) 4 mg PO Q6H PRN PRN Reason: Nausea/Vomiting Ondansetron HCl (Zofran) 4 mg IVP Q6H PRN PRN Reason: Nausea/Vomiting Pantoprazole Sodium (Protonix) 40 mg PO DAILY [facility] Last Admin: 04/21/18 08:59 Dose: 40 mg Phenol (Chloraseptic [place] 180 Ml Bot) 0 ml PO PRN PRN PRN Reason: Sore Throat Rifaximin (Xifaxan) 550 mg PO BID [facility] Last Admin: 04/21/18 08:59 Dose: 550 mg Senna (Senokot) 2 tab PO HSPRN PRN PRN Reason: Constipation Sodium Chloride ([place] Nasal [place] 0.65%) 0 ml EA NARE QIDPRN PRN PRN Reason: Nasal Congestion Sodium Chloride (Flush - Normal Saline) 10 ml IVF Q12HR [facility] Last Admin: 04/21/18 09:05 Dose: 10 ml Sodium Chloride (Flush - Normal Saline) 10 ml IVF PRN PRN PRN Reason: Saline Flush Last Admin: 04/20/18 16:07 Dose: 10 ml Zolpidem Tartrate (Ambien) 5 mg PO HSPRN PRN PRN Reason: Insomnia Last Admin: 04/20/18 20:24 Dose: 5 mg
[2018-04-21 12:21] LABS: ANA Symphony (Qualitative) Negative (Negative); EliA Vaculitis New Method **** NEW METHOD ****; Mitochondrial Ab 0.7 U/mL (<4 Negative); dsDNA IgG Antibody 1.3 IU/mL (<10 Negative)
[2018-04-21] MEDS: HYDROcodone/Acetaminophen 10/325 mg Tablet PO PRN ×2 (14:04→20:11)
--- NOTE | 2018-04-21 19:19 | PRG ---
DATE OF SERVICE: 04/21/2018 REASON FOR CONSULTATION: Anemia. SUBJECTIVE: Overnight, the patient did continue to have frequent watery bowel movements, but states that the darker colored fluid that she was expressing is no longer present. However, it has turned i nto bright red blood per rectum present on both the toilet paper and in the toilet. Otherwise, she d enies any nausea, vomiting, fevers, chills, hematemesis, dysphagia, odynophagia, constipation, or abd ominal pain. OBJECTIVE: VITAL SIGNS: Temperature 97.7, pulse 102, blood pressure 133/65, respiratory rate 18, satting 96% on room air. GENERAL: The patient is lying in bed, in no acute distress. Alert and oriented x4. CARDIOVASCULAR: Tachycardic rate, but regular rhythm. RESPIRATORY: Clear to auscultation bilaterally. ABDOMEN: Normoactive bowel sounds, soft, nontender, nondistended. EXTREMITIES: No cyanosis, clubbing or edema. LABORATORY DATA: CBC with a white blood cell count of 16.3, hemoglobin 5.4, hematocrit 17.2, platele ts 550. IMAGING DATA: No current GI imaging is available for review. ASSESSMENT AND PLAN: The patient is a 53-year-old female with past medical history of osteoarthritis , anxiety, depression, chronic hepatitis C with cirrhosis and stage IV squamous cell carcinoma of the left lung, presenting with anemia. Anemia: The patient is presenting with a chronic anemia that has been present for the [facility] of this year; however, she has had significant worsening of her anemia over the last month, charact erized as a significant drop over the last 3 weeks. During her last hospitalization, she was evaluat ed by the GI service with both an upper and lower endoscopy with no obvious sources of GI bleeding id entified at that time. Since that evaluation, she has continued to have a decrease in her hemoglobin and hematocrit, but now presenting with darker colored stools over the last 2-3 days prior to admiss ion that have slowly evolved into bright red blood per rectum present both in the toilet and on the t oilet paper. Her H&H has also continued to drop despite the infusion of blood, concerning for active bleeding in this patient. At this point, with the appearance of these dark colored stools on admiss ion as well as the appearance of bright red blood per rectum, localization of her bleeding is most li dev somewhere within the GI tract, but cannot be determined if it is upper or lower in origin. The differential could include portal hypertensive gastropathy, arteriovenous malformation, Dieulafoy les ion, mucositis associated with chemotherapy administration (much less likely given normal LDH) small bowel neoplasm, enteritis, colitis, hemorrhoidal bleeding or rectal outlet bleeding due to skin macer ation. RECOMMENDATIONS: 1. We would continue to trend H&H and transfuse as necessary to maintain an H&H of 05/13. 2. We would continue to monitor clinically for signs of active gastrointestinal bleeding. 3. We will plan for both EGD and colonoscopy tomorrow. We will place the patient on a clear liquid diet today with n.p.o. at midnight in preparation for these procedures. We will continue to follow. Please call with any questions.
[2018-04-21] MEDS: Amitriptyline HCl 100 MG TAB PO SCH (20:11)
[2018-04-21] MEDS: HYDROcodone/Acetaminophen 5/325 mg Tablet PO PRN (21:52)
[2018-04-21] MEDS: Zolpidem Tartrate 5 MG TAB PO PRN (21:53)
[2018-04-21] MEDS ORDERED: GoLYTELY 4,000 ml Bottle PO SCH (23:45)
[2018-04-22] MEDS: Levothyroxine Sodium 25 MCG TAB PO SCH (05:14)
[2018-04-22] MEDS: Rifaximin 550 MG TAB PO SCH ×2 (09:00→20:08)
[2018-04-22] MEDS: clonazePAM 1 MG TAB PO SCH ×2 (09:00→20:08)
[2018-04-22] MEDS ORDERED: Morphine 4 MG/ML VIAL ONE (09:11)
[2018-04-22] MEDS: HYDROcodone/Acetaminophen 5/325 mg Tablet PO PRN (12:42)
--- NOTE | 2018-04-22 13:17 | PDOC.PN ---
- Subjective Encounter Start Date: 04/22/18 Encounter Start Time: 13:16 Subjective: no new complaints.no bleeding per rectum.no dizziness -: no CP/SOB - Objective Resuscitation Status: Resuscitation Status FULL:Full Resuscitation MAR Reviewed: Yes Vital Signs & Weight: Vital Signs (12 hours) Temp Pulse Resp BP BP Pulse Ox 04/22/18 12:40 97.5 F L 110 H 18 139/71 93 L 04/22/18 08:00 97.6 F 94 20 98 04/22/18 07:30 97.6 F 94 20 145/81 H 98 Weight Admit Weight 219 lb Weight 219 lb 0.009 oz I&O: 04/21/18 04/22/18 04/23/18 06:59 06:59 06:59 Intake Total 1999 700 Balance 1999 700 Result Diagrams: 04/22/18 08:31 04/20/18 06:28 Additional Labs: Laboratory Tests 02/14/18 03/29/18 04/19/18 11:53 10:22 14:49 Hgb Iron TIBC Ferritin AST 51 H 48 H Alkaline Phosphatase 302 H 289 H GGT Ammonia 120 H Lactate Dehydrogenase Rpzia-0-Cwlstwqscwk Ceruloplasmin IgG Total IgM Total BELLA Screen BELLA IgG Screen Anti-ds DNA IgG Ab Anti-Mitochondrial Ab 04/19/18 04/19/18 04/19/18 15:33 15:33 15:33 Hgb Iron 24 L TIBC 576 H Ferritin 533.95 H AST Alkaline Phosphatase GGT 224 H Ammonia Lactate Dehydrogenase Bbfxw-8-Mvioijhllcd Ceruloplasmin IgG Total 1584.00 IgM Total 167.00 BELLA Screen Negative BELLA IgG Screen Negative Anti-ds DNA IgG Ab 1.3 Anti-Mitochondrial Ab 0.7 04/19/18 04/19/18 04/20/18 15:33 15:33 06:28 Hgb 6.2 L Iron TIBC Ferritin AST 50 H Alkaline Phosphatase 226 H GGT Ammonia Lactate Dehydrogenase Irfxo-0-Uduouvkbgzh 355 H Ceruloplasmin 21.1 IgG Total IgM Total BELLA Screen BELLA IgG Screen Anti-ds DNA IgG Ab Anti-Mitochondrial Ab 04/20/18 04/20/18 04/20/18 06:28 06:28 10:47 Hgb 6.6 L 7.3 L Iron TIBC Ferritin AST Alkaline Phosphatase GGT Ammonia Lactate Dehydrogenase 188 Dvveh-2-Eknrafiahep Ceruloplasmin IgG Total IgM Total BELLA Screen BELLA IgG Screen Anti-ds DNA IgG Ab Anti-Mitochondrial Ab 04/21/18 04/21/18 06:48 06:48 Hgb 5.4 L* Iron TIBC Ferritin AST Alkaline Phosphatase GGT Ammonia 46 Lactate Dehydrogenase Bzqhz-3-Oixfuexauhu Ceruloplasmin IgG Total IgM Total BELLA Screen BELLA IgG Screen Anti-ds DNA IgG Ab Anti-Mitochondrial Ab labs reviewed Phys Exam - Physical Examination Constitutional: NAD HEENT: PERRLA, moist MMs, sclera anicteric, oral pharynx no lesions Neck: no nodes, no JVD, supple, full ROM Respiratory: no wheezing, no rales, no rhonchi, clear to auscultation bilateral Cardiovascular: RRR, no significant murmur, no rub Gastrointestinal: soft, non-tender, no distention, positive bowel sounds Musculoskeletal: no edema, pulses present Neurological: non-focal, normal sensation, moves all 4 limbs Psychiatric: normal affect, A&O x 3 Skin: no rash Dx/Plan (1) Symptomatic anemia Code(s): D64.9 - ANEMIA, UNSPECIFIED Status: Acute Comment: s/p Transfusion 04/21/18 (2) Hyperammonemia Code(s): E72.20 - DISORDER OF UREA CYCLE METABOLISM, UNSPECIFIED Status: Acute Comment: Improved.continue lactulose. (3) Hypothyroidism Code(s): E03.9 - HYPOTHYROIDISM, UNSPECIFIED Status: Chronic (4) Anxiety and depression Code(s): F41.9 - ANXIETY DISORDER, UNSPECIFIED; F32.9 - MAJOR DEPRESSIVE DISORDER, SINGLE EPISODE, UNSPECIFIED Status: Chronic (5) Chronic pain Code(s): G89.29 - OTHER CHRONIC PAIN Status: Chronic Comment: stable (6) Hepatic cirrhosis due to chronic hepatitis C infection Code(s): B18.2 - CHRONIC VIRAL HEPATITIS C; K74.60 - UNSPECIFIED CIRRHOSIS OF LIVER Status: Chronic (7) Obesity (BMI 30-39.9) Code(s): E66.9 - OBESITY, UNSPECIFIED Status: Chronic Comment: On lactulose, Xifaxan (8) SCC (squamous cell carcinoma of lung) Code(s): C34.90 - MALIGNANT NEOPLASM OF UNSP PART OF UNSP BRONCHUS OR LUNG Status: Chronic Qualifiers: Laterality: left Qualified Code(s): C34.92 - Malignant neoplasm of unspecified part of left bronchus or lung Comment: On ChemoRx with Keytruda [id number] - Plan out of bed/ambulate, DVT proph w/SCDs H/h stable today.cont tpo monitor.s/p EGD/Colonoscopy-results pending -: BM Bx negative for aplastic anemia/leukemia/lymphoma. -: DC ASA given possibilty of GIB untill colonoscopy results available -: no evidence of hemolysis -: cont home meds as below & supportive care.AM labs * . Review of Systems - Review of Systems Constitutional: weakness. negative: fever, chills, sweats, other ENT: negative: Ear Pain, Ear Discharge, Nose Pain, Nose Discharge, Nose Congestion, Mouth Pain, Mouth Swelling, Throat Pain, Throat Swelling, Other Respiratory: negative: Cough, Dry, Shortness of Breath, Hemoptysis, SOB with Excertion, Pleuritic Pain, Sputum, Wheezing Cardiovascular: negative: chest pain, palpitations, orthopnea, paroxysmal nocturnal dyspnea, edema, light headedness, other Gastrointestinal: negative: Nausea, Vomiting, Abdominal Pain, Diarrhea, Constipation, Melena, Hematochezia, Other Genitourinary: negative: Dysuria, Frequency, Incontinence, Hematuria, Retention , Other Musculoskeletal: negative: Neck Pain, Shoulder Pain, Arm Pain, Back Pain, Hand Pain, Leg Pain, Foot Pain, Other Neurological: negative: Weakness, Numbness, Incoordination, Change in Speech, Confusion, Seizures, Other - Medications/Allergies Allergies/Adverse Reactions: Allergies Allergy/AdvReac Type Severity Reaction Status Date / Time No Known Drug Allergies Allergy Verified 03/29/18 11:38 Medications: Current Medications Acetaminophen (Tylenol) 650 mg PO Q4H PRN PRN Reason: Headache/Fever or Pain Hydrocodone Bitart/Acetaminophen ([place] 10/325) 1 tab PO Q4H PRN PRN Reason: Moderate Pain (4-6) Last Admin: 04/21/18 20:11 Dose: 1 tab Hydrocodone Bitart/Acetaminophen ([place] 5/325) 1 tab PO Q4H PRN PRN Reason: Mild Pain (1-3) Last Admin: 04/22/18 12:42 Dose: 1 tab Al Hydroxide/Mg Hydroxide (Maalox) 30 ml PO Q6H PRN PRN Reason: Heartburn or Indigestion Amitriptyline HCl (Elavil) 100 mg PO HS [facility] Last Admin: 04/21/18 20:11 Dose: 100 mg Artificial Tears (Tears Naturale) 0 drop EA EYE PRN PRN PRN Reason: Dry Eyes Cholecalciferol (Vitamin D3) 2,000 units PO DAILY [facility] Last Admin: 04/22/18 09:00 Dose: Not Given Clonazepam (Klonopin) 1 mg PO BID [facility] Last Admin: 04/22/18 09:00 Dose: Not Given Cyclobenzaprine HCl (Flexeril) 10 mg PO TID PRN PRN Reason: Muscle Spasm Guaifenesin (Robitussin Sf) 200 mg PO Q4H PRN PRN Reason: Cough Hydralazine HCl (Apresoline) 10 mg SLOW IVP Q4H PRN PRN Reason: Systolic BP > 180 Lactulose (Lactulose) 20 gm PO BID [facility] Last Admin: 04/22/18 09:00 Dose: Not Given Levothyroxine Sodium (Synthroid) 25 mcg PO 0600 [facility] Last Admin: 04/22/18 05:14 Dose: 25 mcg Loperamide HCl (Imodium) 2 mg PO PRN PRN PRN Reason: Diarrhea/Loose Stools Last Admin: 04/20/18 16:07 Dose: 2 mg Loratadine (Claritin) 10 mg PO DAILYPRN PRN PRN Reason: Sinus Symptoms Lubiprostone (Amitiza) 24 mcg PO BID PRN PRN Reason: Constipation Magnesium Hydroxide (Milk Of Magnesium) 30 ml PO DAILYPRN PRN PRN Reason: Constipation Mineral Oil/White Petrolatum (Eucerin Cream) 0 gm TOP BIDPRN PRN PRN Reason: Dry Skin Morphine Sulfate (Morphine Sulfate) 4 mg SLOW IVP Q4H PRN PRN Reason: Severe Pain (7-10) Last Admin: 04/22/18 12:43 Dose: 4 mg Ondansetron HCl (Zofran Odt) 4 mg PO Q6H PRN PRN Reason: Nausea/Vomiting Ondansetron HCl (Zofran) 4 mg IVP Q6H PRN PRN Reason: Nausea/Vomiting Pantoprazole Sodium (Protonix) 40 mg PO DAILY [facility] Last Admin: 04/22/18 09:00 Dose: Not Given Phenol (Chloraseptic [place] 180 Ml Bot) 0 ml PO PRN PRN PRN Reason: Sore Throat Rifaximin (Xifaxan) 550 mg PO BID [facility] Last Admin: 04/22/18 09:00 Dose: Not Given Senna (Senokot) 2 tab PO HSPRN PRN PRN Reason: Constipation Sodium Chloride ([place] Nasal [place] 0.65%) 0 ml EA NARE QIDPRN PRN PRN Reason: Nasal Congestion Sodium Chloride (Flush - Normal Saline) 10 ml IVF Q12HR [facility] Last Admin: 04/22/18 12:44 Dose: 10 ml Sodium Chloride (Flush - Normal Saline) 10 ml IVF PRN PRN PRN Reason: Saline Flush Last Admin: 04/20/18 16:07 Dose: 10 ml Zolpidem Tartrate (Ambien) 5 mg PO HSPRN PRN PRN Reason: Insomnia Last Admin: 04/21/18 21:53 Dose: 5 mg
[2018-04-22] MEDS ORDERED: PROPOFOL 200 MG/20 ML VIAL ONE (15:02)
[2018-04-22] MEDS: HYDROcodone/Acetaminophen 10/325 mg Tablet PO PRN ×2 (17:34→21:34)
--- NOTE | 2018-04-22 17:51 | OP ---
DATE OF PROCEDURE: 04/22/2018 PROCEDURES: Esophagogastroduodenoscopy (diagnostic), colonoscopy with control of hemorrhage. INDICATIONS FOR PROCEDURE: Melena, hematochezia. DESCRIPTION OF PROCEDURE: After the risks and benefits of the procedures were explained to the patie nt including risks of bleeding, infection, perforation, reaction to anesthesia and/or pain, informed consent was obtained. The patient was then taken to the endoscopy suite where deep sedation was admi nistered via propofol and anesthesia support. Once adequate anesthesia was achieved, the standard ga stroscope was introduced into the mouth with intubation of the esophagus, stomach and the proximal sm all intestine with the findings listed below. Upon completion of this portion of the procedure, all equipment was removed and the bed rotated approximately 180 degrees. After a digital rectal examinat ion, the standard colonoscope was introduced into the rectum and advanced to the terminal ileum with moderate difficulty requiring manual abdominal pressure in order to facilitate passage of the scope. The quality of the prep was poor with a significant amount of solid and liquid stool seen throughout the entire colon. The patient tolerated the procedure well with no immediate perioperative complica tions. EGD FINDINGS: Esophagus: Normal appearing mucosa was seen in the proximal, mid and distal esophagus. There was no evidence of erosions, ulcerations, mass lesions were active/recent bleeding. Stomach: A large amount of solid food was seen in the gastric fundus, body and proximal antrum, ther fran limiting visualization of approximately 40% of the gastric mucosa. The mucosa seen, there was no evidence of erosions, ulcerations, mass lesions or active/recent bleeding. Duodenum: Normal appearing mucosa was seen in both the duodenal bulb and second portion of the duode num. There was no evidence of erosions, ulcerations, mass lesions or active/recent bleeding. IMPRESSION: 1. Large amount of retained solid food within the stomach concerning for delayed gastric emptying. 2. Limited visualization of the gastric mucosa as a result of the solid food. 3. No evidence of active or recent gastrointestinal bleeding seen during this portion of the examina tion. COLONOSCOPY FINDINGS: Digital rectal examination, small external hemorrhoids were seen on external exam. COLON FINDINGS: Normal appearing mucosa was seen in the terminal ileum as well as at the ileocecal v alve and appendiceal orifice. A large amount of retained solid and liquid stool was seen throughout the entire colon that was somewhat amenable to aggressive irrigation and suctioning. However, with t hese methods the prep was only able to be considered adequate for the evaluation of lesions greater t hanna 5 mm in size. The mucosa of the visualized, normal appearing mucosa was seen in the ascending, t ransverse, and descending colons, multiple small diverticula was seen in the distal descending and si gmoid colons. These were aggressively irrigated for possible source of bleeding with no discernible bleeding seen at the sources; however, at approximately 25 cm past the anal verge, a 5 mm slightly cr atered ulceration was seen along one of the colonic folds with manipulation of the ulceration, it did start oozing some blood, but no consistent active bleeding seen. Hemoclips x3 were placed across th is ulceration with good hemostasis achieved. An erythematous polyp was also seen within a diverticul um at 20 cm past the anal verge that had what appeared to be a small superficial ulceration overlying the top of this polyp. No intervention was taken given the low likelihood of bleeding source. Norm al appearing mucosa was seen in the rectum, no abnormalities were seen on rectal retroflexion. Altho ugh difficulty with insufflation was experienced at this point. IMPRESSION: 1. Large amount of both solid and liquid stool was seen throughout the entire colon, limited visuali zation of the colonic mucosa. 2. A large amount of old blood was seen throughout the colon as well. 3. Moderate left-sided diverticulosis without evidence of recent bleeding. 4. A 5 mm slightly cratered ulceration at 25 cm with some friability, now status post Hemoclip x3 (m ost likely source of the patient's recent hematochezia). 5. Small external hemorrhoids. RECOMMENDATIONS: 1. We would continue to trend H and H and transfuse as necessary to maintain an H and H of 7/21. 2. Continue to monitor clinically for signs of active gastrointestinal bleeding. 3. If she continues to have symptoms of hematochezia, I would recommend a repeat flexible sigmoidosc opy for evaluation of the ulcer site and/or the small polyp with the possible ulcer on as well. 4. We will place the patient on clear liquid diet in case expedited repeat colonoscopy is needed. I f patient starts having darker colored stools we would consider repeat upper endoscopy given poor vis ualization of the gastric mucosa today; however, she did have an upper endoscopy approximately 3 week s ago that was negative for abnormalities, so the likelihood of upper gastrointestinal bleeding at th is time is low. We will continue to follow. Please call with any questions.
[2018-04-22 18:09] LABS: HCV log10 6.033 (.); Hep C PCR-Quant 1080000 IU/mL (.)
[2018-04-22] MEDS: Amitriptyline HCl 100 MG TAB PO SCH (20:08)
[2018-04-23] MEDS: Levothyroxine Sodium 25 MCG TAB PO SCH (05:18)
[2018-04-23 06:02] LABS: Hemoglobin 7.5 g/dL (12.0-16.0)
[2018-04-23 06:13] LABS: Anion Gap 14 mmol/L (10-20); BUN (Urea Nitrogen) 10 mg/dL (9.8-20.1); Calc. Creatinine Clearance 136 mL/min (70-130); Calcium 8.9 mg/dL (7.8-10.44); Carbon Dioxide 24 mmol/L (22-29); Chloride 98 mmol/L (98-107); Estimated GFR-MDRD 82; Glucose 89 mg/dL (70-105); Sodium 132 mmol/L (136-145)
[2018-04-23] MEDS: HYDROcodone/Acetaminophen 10/325 mg Tablet PO PRN ×4 (06:37→22:59)
[2018-04-23] MEDS: clonazePAM 1 MG TAB PO SCH ×2 (09:23→22:58)
[2018-04-23] MEDS: Rifaximin 550 MG TAB PO SCH ×2 (09:24→22:59)
--- NOTE | 2018-04-23 12:36 | PRG ---
DATE OF SERVICE: 04/23/2018 REASON FOR CONSULTATION: Anemia. SUBJECTIVE: Overnight, the patient did well with no further episodes of hematochezia. She states th at she is doing well without any complaints of nausea, vomiting, fevers, chills, dysphagia, odynophag ia, abdominal pain, or constipation. OBJECTIVE: VITAL SIGNS: Temperature 97.9, pulse 93, blood pressure 112/62, respiratory rate 20, satting 94% on room air. GENERAL: Patient is lying in bed in no acute distress. Alert and oriented x4. CARDIOVASCULAR: Regular rate and rhythm. RESPIRATORY: Clear to auscultation bilaterally. ABDOMEN: Normoactive bowel sounds, soft, nontender, nondistended. EXTREMITIES: No cyanosis, clubbing, or edema. LABORATORY DATA: Hemoglobin 7.5, hematocrit 24.2. Chemistry with a sodium of 132, potassium 4, chlo ride 98, CO2 of 24, BUN 10, creatinine 0.74, glucose 89. IMAGING DATA: Patient underwent both upper and lower endoscopy on 04/22/2018. Within the upper GI t ract, there was a large amount of retained solid food that did significantly limit visualization of t he gastric mucosa, but there was no evidence of active or recent bleeding within GI tract, in the upp er GI tract. However, during her colonoscopy, a large amount of old blood was seen throughout the co kolby with a 5-mm cratered ulceration seen at 25 cm that did exhibit friability. Hemoclips x3 were zackary es with good hemostasis achieved. 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 Anemia from gastrointestinal blood loss. The patient presented with chronic anemia that has been pre sent for the greater portion of the year, but has been worsening over the last month. She was seen a s an outpatient prior to admission and noted to have a significant drop in her H and H, which then pr ompted admission for further evaluation. Upon admission, she did have some complaints of darker colo red stools that evolved into bright red blood per rectum that was present both in the toilet and on t he toilet paper. Her H and H continued to drop with the appearance of this bright red blood per rect um, necessitating endoscopic evaluation. She underwent endoscopic evaluation on 04/22/2018 with no e vidence of gastrointestinal bleeding in the upper gastrointestinal tract, but a 5 mm ulceration in th e lower gastrointestinal tract in the sigmoid colon at approximately 25 cm. That was most likely the source of her bleeding. This was intervened upon by Hemoclips x3 and she has had no further episode s of hematochezia. RECOMMENDATIONS: 1. We would continue to trend H and H and transfuse as necessary to maintain an H and H of 7/21. 2. We would continue to monitor clinically for signs of active gastrointestinal bleeding. 3. If the patient continues to have a drop in her H and H, despite no further evidence of GI bleedin g, I would consider obtaining either a tagged red cell scan or a capsule endoscopy as an outpatient. We will continue to follow. Please call with any questions.
--- NOTE | 2018-04-23 13:49 | PDOC.PN ---
- Subjective Encounter Start Date: 04/23/18 Encounter Start Time: 13:47 Subjective: feels tired and weak. no more BRB NV.eating little - Objective Resuscitation Status: Resuscitation Status FULL:Full Resuscitation MAR Reviewed: Yes Vital Signs & Weight: Vital Signs (12 hours) Temp Pulse Resp 04/23/18 09:20 97.9 F 93 20 Weight Admit Weight 219 lb Weight 219 lb 0.009 oz I&O: 04/22/18 04/23/18 04/24/18 06:59 06:59 06:59 Intake Total 700 1220 Balance 700 1220 Result Diagrams: 04/23/18 05:51 04/23/18 05:51 Additional Labs: Laboratory Tests 04/20/18 06:28 Total Bilirubin 0.5 labs reviewed Laboratory Tests 04/19/18 04/19/18 04/20/18 15:33 15:33 10:47 Hgb 7.3 L Smooth Muscle Ab Titer 20 H HCV RNA (PCR) log10 6.033 HCV RNA Ultraquant [id number] 04/21/18 04/22/18 04/23/18 06:48 08:31 05:51 Hgb 5.4 L* 8.0 L 7.5 L Smooth Muscle Ab Titer HCV RNA (PCR) log10 HCV RNA Ultraquant Phys Exam - Physical Examination Constitutional: NAD pale HEENT: PERRLA, moist MMs, sclera anicteric, oral pharynx no lesions Neck: no nodes, no JVD, supple, full ROM Respiratory: no wheezing, no rales, no rhonchi, clear to auscultation bilateral Cardiovascular: RRR, no significant murmur, no rub Gastrointestinal: soft, non-tender, no distention, positive bowel sounds Musculoskeletal: no edema, pulses present Neurological: non-focal, normal sensation, moves all 4 limbs Psychiatric: normal affect, A&O x 3 Skin: no rash Dx/Plan (1) Symptomatic anemia Code(s): D64.9 - ANEMIA, UNSPECIFIED Status: Acute Comment: s/p Transfusion 04/21/18 .likley due to colonic ulcer found on Colonoscopy 04/22/18.S/P hemoclips (2) Colonic ulcer Code(s): K63.3 - ULCER OF INTESTINE Status: Acute (3) Hypothyroidism Code(s): E03.9 - HYPOTHYROIDISM, UNSPECIFIED Status: Chronic (4) Anxiety and depression Code(s): F41.9 - ANXIETY DISORDER, UNSPECIFIED; F32.9 - MAJOR DEPRESSIVE DISORDER, SINGLE EPISODE, UNSPECIFIED Status: Chronic (5) Chronic pain Code(s): G89.29 - OTHER CHRONIC PAIN Status: Chronic Comment: stable (6) Hepatic cirrhosis due to chronic hepatitis C infection Code(s): B18.2 - CHRONIC VIRAL HEPATITIS C; K74.60 - UNSPECIFIED CIRRHOSIS OF LIVER Status: Chronic Comment: No treatment in the past 30 years (7) Obesity (BMI 30-39.9) Code(s): E66.9 - OBESITY, UNSPECIFIED Status: Chronic Comment: On lactulose, Xifaxan (8) SCC (squamous cell carcinoma of lung) Code(s): C34.90 - MALIGNANT NEOPLASM OF UNSP PART OF UNSP BRONCHUS OR LUNG Status: Chronic Qualifiers: Laterality: left Qualified Code(s): C34.92 - Malignant neoplasm of unspecified part of left bronchus or lung Comment: On ChemoRx with Keytruda [id number] (9) Hyperammonemia Code(s): E72.20 - DISORDER OF UREA CYCLE METABOLISM, UNSPECIFIED Status: Resolved Comment: Improved.continue lactulose. - Plan PT/OT, out of bed/ambulate, DVT proph w/SCDs clinically stable. H/H w slight drop today despite no overt bleed -: monitor.s/p control of minor bleed from colonic ulcer -: discussed hep C status w her w high viral load-will refer to Gi an an OP -: cont lactulose . ammonia level Normal. -: Bennie HANNA in am if H/H stable. * .refuses rehab or HH . * am labs Review of Systems - Review of Systems Constitutional: weakness, malaise. negative: fever, chills, sweats, other Respiratory: negative: Cough, Dry, Shortness of Breath, Hemoptysis, SOB with Excertion, Pleuritic Pain, Sputum, Wheezing Cardiovascular: negative: chest pain, palpitations, orthopnea, paroxysmal nocturnal dyspnea, edema, light headedness, other Gastrointestinal: negative: Nausea, Vomiting, Abdominal Pain, Diarrhea, Constipation, Melena, Hematochezia, Other Genitourinary: negative: Dysuria, Frequency, Incontinence, Hematuria, Retention , Other Musculoskeletal: negative: Neck Pain, Shoulder Pain, Arm Pain, Back Pain, Hand Pain, Leg Pain, Foot Pain, Other Neurological: negative: Weakness, Numbness, Incoordination, Change in Speech, Confusion, Seizures, Other - Medications/Allergies Allergies/Adverse Reactions: Allergies Allergy/AdvReac Type Severity Reaction Status Date / Time No Known Drug Allergies Allergy Verified 03/29/18 11:38 Medications: Current Medications Acetaminophen (Tylenol) 650 mg PO Q4H PRN PRN Reason: Headache/Fever or Pain Hydrocodone Bitart/Acetaminophen ([place] 10/325) 1 tab PO Q4H PRN PRN Reason: Moderate Pain (4-6) Last Admin: 04/23/18 13:22 Dose: 1 tab Hydrocodone Bitart/Acetaminophen ([place] 5/325) 1 tab PO Q4H PRN PRN Reason: Mild Pain (1-3) Last Admin: 04/22/18 12:42 Dose: 1 tab Al Hydroxide/Mg Hydroxide (Maalox) 30 ml PO Q6H PRN PRN Reason: Heartburn or Indigestion Amitriptyline HCl (Elavil) 100 mg PO HS [facility] Last Admin: 04/22/18 20:08 Dose: 100 mg Artificial Tears (Tears Naturale) 0 drop EA EYE PRN PRN PRN Reason: Dry Eyes Cholecalciferol (Vitamin D3) 2,000 units PO DAILY [facility] Last Admin: 04/23/18 09:24 Dose: 2,000 units Clonazepam (Klonopin) 1 mg PO BID [facility] Last Admin: 04/23/18 09:23 Dose: 1 mg Cyclobenzaprine HCl (Flexeril) 10 mg PO TID PRN PRN Reason: Muscle Spasm Guaifenesin (Robitussin Sf) 200 mg PO Q4H PRN PRN Reason: Cough Hydralazine HCl (Apresoline) 10 mg SLOW IVP Q4H PRN PRN Reason: Systolic BP > 180 Lactulose (Lactulose) 20 gm PO BID [facility] Last Admin: 04/23/18 09:27 Dose: 20 gm Levothyroxine Sodium (Synthroid) 25 mcg PO 0600 [facility] Last Admin: 04/23/18 05:18 Dose: 25 mcg Loperamide HCl (Imodium) 2 mg PO PRN PRN PRN Reason: Diarrhea/Loose Stools Last Admin: 04/20/18 16:07 Dose: 2 mg Loratadine (Claritin) 10 mg PO DAILYPRN PRN PRN Reason: Sinus Symptoms Lubiprostone (Amitiza) 24 mcg PO BID PRN PRN Reason: Constipation Magnesium Hydroxide (Milk Of Magnesium) 30 ml PO DAILYPRN PRN PRN Reason: Constipation Mineral Oil/White Petrolatum (Eucerin Cream) 0 gm TOP BIDPRN PRN PRN Reason: Dry Skin Morphine Sulfate (Morphine Sulfate) 4 mg SLOW IVP Q4H PRN PRN Reason: Severe Pain (7-10) Last Admin: 04/23/18 13:23 Dose: 4 mg Ondansetron HCl (Zofran Odt) 4 mg PO Q6H PRN PRN Reason: Nausea/Vomiting Ondansetron HCl (Zofran) 4 mg IVP Q6H PRN PRN Reason: Nausea/Vomiting Pantoprazole Sodium (Protonix) 40 mg PO DAILY [facility] Last Admin: 04/23/18 09:24 Dose: 40 mg Phenol (Chloraseptic [place] 180 Ml Bot) 0 ml PO PRN PRN PRN Reason: Sore Throat Rifaximin (Xifaxan) 550 mg PO BID [facility] Last Admin: 04/23/18 09:24 Dose: 550 mg Senna (Senokot) 2 tab PO HSPRN PRN PRN Reason: Constipation Sodium Chloride ([place] Nasal [place] 0.65%) 0 ml EA NARE QIDPRN PRN PRN Reason: Nasal Congestion Sodium Chloride (Flush - Normal Saline) 10 ml IVF Q12HR [facility] Last Admin: 04/23/18 09:26 Dose: 10 ml Sodium Chloride (Flush - Normal Saline) 10 ml IVF PRN PRN PRN Reason: Saline Flush Last Admin: 04/20/18 16:07 Dose: 10 ml Zolpidem Tartrate (Ambien) 5 mg PO HSPRN PRN PRN Reason: Insomnia Last Admin: 04/21/18 21:53 Dose: 5 mg
[2018-04-23] MEDS: HYDROcodone/Acetaminophen 5/325 mg Tablet PO PRN ×2 (15:25→20:42)
[2018-04-23] MEDS: Cyclobenzaprine 10 MG TAB PO PRN (15:53)
[2018-04-23] MEDS: Amitriptyline HCl 100 MG TAB PO SCH (22:57)
[2018-04-23] MEDS: Zolpidem Tartrate 5 MG TAB PO PRN (22:58)
[2018-04-24] MEDS: Cyclobenzaprine 10 MG TAB PO PRN ×2 (01:15→21:05)
[2018-04-24] MEDS: Zolpidem Tartrate 5 MG TAB PO PRN ×2 (01:15→23:01)
[2018-04-24] MEDS: HYDROcodone/Acetaminophen 10/325 mg Tablet PO PRN ×3 (03:11→23:00)
[2018-04-24] MEDS: Levothyroxine Sodium 25 MCG TAB PO SCH (06:31)
[2018-04-24] MEDS: clonazePAM 1 MG TAB PO SCH ×2 (07:56→21:06)
[2018-04-24] MEDS: Rifaximin 550 MG TAB PO SCH ×2 (07:56→21:06)
--- NOTE | 2018-04-24 09:19 | PRG ---
DATE OF SERVICE: 04/24/2018 REASON FOR CONSULTATION: Anemia, hematochezia. SUBJECTIVE: Overnight, the patient did well with no further episodes of hematochezia and was resting comfortably in bed, eating breakfast when I interviewed her. Currently, denies any nausea, vomiting , fevers, chills or further GI bleeding (including melena). OBJECTIVE: VITAL SIGNS: Temperature 98.7, pulse 95, blood pressure 132/65, respiratory rate 18. She is satting 96% on room air. GENERAL: The patient is lying in bed in no acute distress. She is alert and oriented x4. CARDIOVASCULAR: Regular rate and rhythm. RESPIRATORY: Clear to auscultation bilaterally. ABDOMEN: Normoactive bowel sounds, soft, nontender, nondistended. EXTREMITIES: No cyanosis, clubbing or edema. LABORATORY DATA: CBC and chemistry were still pending at the time of interview. IMAGING DATA: No current GI imaging is available for review. 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 1. Anemia from gastrointestinal blood loss. The patient presented with chronic anemia that has been present for the greater portion of this last year, but worsening over the last month. She was seen as an outpatient prior to this admission and n oted to have significant drop in her H&H, which prompted admission this time for further evaluation. With a continued drop in her H&H during this admission, she underwent both upper and lower endoscopy with the upper endoscopy unrevealing, but the lower endoscopy revealing a 5 mm ulceration within the sigmoid colon, that was successfully clipped using Hemoclip x3 with good hemostasis achieved. Since the intervention. She has not had any further episodes of hematochezia and her H&H has been relativ rigo stable thus far. RECOMMENDATIONS: 1. We will check on her H&H this morning and if stable, the patient can be discharged from a GI [facility]. 2. Would have the patient follow up in the GI Clinic in approximately 2-3 weeks for further evaluati on related to her chronic hepatitis C and possible treatment related to that. She will need to have consultation with the oncologist prior to this to determine prognosis of her lung cancer which would then further dictate possible treatment for her chronic hepatitis C. We will sign off at this time. Please call with any additional questions.
[2018-04-24 09:33] LABS: Hemoglobin 7.3 g/dL (12.0-16.0); Mean Corpuscular Hemoglobin 27.3 pg (27.0-31.0); Mean Corpuscular Volume 82.9 fL (78.0-98.0); Mean Platelet Volume 9.7 fL (7.4-10.4); Platelet Count 591 thou/uL (130-400); RBC Distribution Width 22.9 % (11.5-14.5); Red Blood Cell (RBC) Count 2.68 mill/uL (4.20-5.40); White Blood Cell (WBC) Count 11.3 thou/uL (4.8-10.8)
[2018-04-24 09:36] LABS: Band 2 % (5-11); Eosinophils 8 % (0-10); Hypochromia MODERATE=16-30 cells (100X) (0-5/hpf); Large Platelets SLIGHT; Lymphocytes 30 % (21-51); MDiff Complete? YES; Monocytes 6 % (0-10); Neutrophil 50 % (42-75); PLT Morphology Comment Appears Increased; Polychromasia SLIGHT = 2-3 cells (100X) (0-2/hpf); Target Cells SLIGHT = 2-5 cells (100X) (0-1/hpf)
--- NOTE | 2018-04-24 12:33 | PDOC.PN ---
- Subjective Encounter Start Date: 04/24/18 Encounter Start Time: 12:31 Subjective: feels tired.no blood in stools,no dark stools -: no chest pain/SOB - Objective Resuscitation Status: Resuscitation Status FULL:Full Resuscitation MAR Reviewed: Yes Vital Signs & Weight: Vital Signs (12 hours) Temp Pulse Resp BP Pulse Ox 04/24/18 08:00 98.7 F 95 18 132/65 96 Weight Admit Weight 219 lb Weight 219 lb 0.009 oz I&O: 04/23/18 04/24/18 04/25/18 06:59 06:59 06:59 Intake Total 1220 Balance 1220 Result Diagrams: 04/24/18 07:49 04/23/18 05:51 Additional Labs: labs reviewed Phys Exam - Physical Examination Constitutional: NAD pale HEENT: PERRLA, moist MMs, sclera anicteric, oral pharynx no lesions Neck: no nodes, no JVD, supple, full ROM Respiratory: no wheezing, no rales, no rhonchi, clear to auscultation bilateral Cardiovascular: RRR, no significant murmur, no rub Gastrointestinal: soft, non-tender, no distention, positive bowel sounds Musculoskeletal: no edema, pulses present Neurological: non-focal, normal sensation, moves all 4 limbs Psychiatric: normal affect, A&O x 3 Skin: no rash Dx/Plan (1) Symptomatic anemia Code(s): D64.9 - ANEMIA, UNSPECIFIED Status: Acute Comment: s/p Transfusion 04/21/18 .likley due to colonic ulcer found on Colonoscopy 04/22/18.S/P hemoclips (2) Colonic ulcer Code(s): K63.3 - ULCER OF INTESTINE Status: Acute (3) Hypothyroidism Code(s): E03.9 - HYPOTHYROIDISM, UNSPECIFIED Status: Chronic (4) Anxiety and depression Code(s): F41.9 - ANXIETY DISORDER, UNSPECIFIED; F32.9 - MAJOR DEPRESSIVE DISORDER, SINGLE EPISODE, UNSPECIFIED Status: Chronic (5) Chronic pain Code(s): G89.29 - OTHER CHRONIC PAIN Status: Chronic Comment: stable (6) Hepatic cirrhosis due to chronic hepatitis C infection Code(s): B18.2 - CHRONIC VIRAL HEPATITIS C; K74.60 - UNSPECIFIED CIRRHOSIS OF LIVER Status: Chronic Comment: No treatment in the past 30 years (7) Obesity (BMI 30-39.9) Code(s): E66.9 - OBESITY, UNSPECIFIED Status: Chronic Comment: On lactulose, Xifaxan (8) SCC (squamous cell carcinoma of lung) Code(s): C34.90 - MALIGNANT NEOPLASM OF UNSP PART OF UNSP BRONCHUS OR LUNG Status: Chronic Qualifiers: Laterality: left Qualified Code(s): C34.92 - Malignant neoplasm of unspecified part of left bronchus or lung Comment: On ChemoRx with Keytruda [id number] (9) Hyperammonemia Code(s): E72.20 - DISORDER OF UREA CYCLE METABOLISM, UNSPECIFIED Status: Resolved Comment: Improved.continue lactulose. - Plan respiratory therapy, incentive spirometry, out of bed/ambulate, DVT proph w/SCDs H/H low again today .will give IV iron and repeat in am -: not stable for DC yet with Hb down trending -: OP Oncology as per before for lung Cancer -: cont lactulose to 2-3 stools .NH4 level better -: cont rifaxamin.OP f/u GI for chr hep C. * . Review of Systems - Review of Systems Constitutional: weakness. negative: fever, chills, sweats, malaise, other ENT: negative: Ear Pain, Ear Discharge, Nose Pain, Nose Discharge, Nose Congestion, Mouth Pain, Mouth Swelling, Throat Pain, Throat Swelling, Other Respiratory: negative: Cough, Dry, Shortness of Breath, Hemoptysis, SOB with Excertion, Pleuritic Pain, Sputum, Wheezing Cardiovascular: negative: chest pain, palpitations, orthopnea, paroxysmal nocturnal dyspnea, edema, light headedness, other Gastrointestinal: negative: Nausea, Vomiting, Abdominal Pain, Diarrhea, Constipation, Melena, Hematochezia, Other Genitourinary: negative: Dysuria, Frequency, Incontinence, Hematuria, Retention , Other Musculoskeletal: negative: Neck Pain, Shoulder Pain, Arm Pain, Back Pain, Hand Pain, Leg Pain, Foot Pain, Other Skin: negative: Rash, Lesions, [place], Bruising, Other Neurological: negative: Weakness, Numbness, Incoordination, Change in Speech, Confusion, Seizures, Other - Medications/Allergies Allergies/Adverse Reactions: Allergies Allergy/AdvReac Type Severity Reaction Status Date / Time No Known Drug Allergies Allergy Verified 03/29/18 11:38 Medications: Current Medications Acetaminophen (Tylenol) 650 mg PO Q4H PRN PRN Reason: Headache/Fever or Pain Hydrocodone Bitart/Acetaminophen ([place] 10/325) 1 tab PO Q4H PRN PRN Reason: Moderate Pain (4-6) Last Admin: 04/24/18 03:11 Dose: 1 tab Hydrocodone Bitart/Acetaminophen (Balm 5/325) 1 tab PO Q4H PRN PRN Reason: Mild Pain (1-3) Last Admin: 04/23/18 20:42 Dose: 1 tab Al Hydroxide/Mg Hydroxide (Maalox) 30 ml PO Q6H PRN PRN Reason: Heartburn or Indigestion Amitriptyline HCl (Elavil) 100 mg PO [facility] Last Admin: 04/23/18 22:57 Dose: 100 mg Artificial Tears (Tears Naturale) 0 drop EA EYE PRN PRN PRN Reason: Dry Eyes Cholecalciferol (Vitamin D3) 2,000 units PO DAILY [facility] Last Admin: 04/24/18 07:56 Dose: 2,000 units Clonazepam (Klonopin) 1 mg PO BID [facility] Last Admin: 04/24/18 07:56 Dose: 1 mg Cyclobenzaprine HCl (Flexeril) 10 mg PO TID PRN PRN Reason: Muscle Spasm Last Admin: 04/24/18 01:15 Dose: 10 mg Guaifenesin (Robitussin Sf) 200 mg PO Q4H PRN PRN Reason: Cough Hydralazine HCl (Apresoline) 10 mg SLOW IVP Q4H PRN PRN Reason: Systolic BP > 180 Lactulose (Lactulose) 20 gm PO BID [facility] Last Admin: 04/24/18 07:55 Dose: 20 gm Levothyroxine Sodium (Synthroid) 25 mcg PO 0600 [facility] Last Admin: 04/24/18 06:31 Dose: 25 mcg Loperamide HCl (Imodium) 2 mg PO PRN PRN PRN Reason: Diarrhea/Loose Stools Last Admin: 04/20/18 16:07 Dose: 2 mg Loratadine (Claritin) 10 mg PO DAILYPRN PRN PRN Reason: Sinus Symptoms Lubiprostone (Amitiza) 24 mcg PO BID PRN PRN Reason: Constipation Magnesium Hydroxide (Milk Of Magnesium) 30 ml PO DAILYPRN PRN PRN Reason: Constipation Mineral Oil/White Petrolatum (Eucerin Cream) 0 gm TOP BIDPRN PRN PRN Reason: Dry Skin Morphine Sulfate (Morphine Sulfate) 4 mg SLOW IVP Q4H PRN PRN Reason: Severe Pain (7-10) Last Admin: 04/24/18 11:22 Dose: 4 mg Ondansetron HCl (Zofran Odt) 4 mg PO Q6H PRN PRN Reason: Nausea/Vomiting Ondansetron HCl (Zofran) 4 mg IVP Q6H PRN PRN Reason: Nausea/Vomiting Pantoprazole Sodium (Protonix) 40 mg PO DAILY [facility] Last Admin: 04/24/18 07:56 Dose: 40 mg Phenol (Chloraseptic [place] 180 Ml Bot) 0 ml PO PRN PRN PRN Reason: Sore Throat Rifaximin (Xifaxan) 550 mg PO BID [facility] Last Admin: 04/24/18 07:56 Dose: 550 mg Senna (Senokot) 2 tab PO HSPRN PRN PRN Reason: Constipation Sodium Chloride ([place] Nasal [place] 0.65%) 0 ml EA NARE QIDPRN PRN PRN Reason: Nasal Congestion Sodium Chloride (Flush - Normal Saline) 10 ml IVF Q12HR [facility] Last Admin: 04/24/18 07:56 Dose: 10 ml Sodium Chloride (Flush - Normal Saline) 10 ml IVF PRN PRN PRN Reason: Saline Flush Last Admin: 04/24/18 01:16 Dose: 10 ml Zolpidem Tartrate (Ambien) 5 mg PO HSPRN PRN PRN Reason: Insomnia Last Admin: 04/24/18 01:15 Dose: 5 mg
[2018-04-24 12:54] LABS: Anion Gap 14 mmol/L (10-20); BUN (Urea Nitrogen) 7 mg/dL (9.8-20.1); Calc. Creatinine Clearance 128 mL/min (70-130); Carbon Dioxide 24 mmol/L (22-29); Chloride 97 mmol/L (98-107); Estimated GFR-MDRD 76; Glucose 103 mg/dL (70-105); Potassium 4.5 mmol/L (3.5-5.1); Sodium 130 mmol/L (136-145)
[2018-04-24 15:18] LABS: Parvovirus B19 IgG ABS 8.3 index (0.0-0.8); Parvovirus B19 IgM ABS 0.3 index (0.0-0.8)
[2018-04-24] MEDS: Amitriptyline HCl 100 MG TAB PO SCH (21:05)
[2018-04-25] MEDS: Zolpidem Tartrate 5 MG TAB PO PRN (00:20)
[2018-04-25] MEDS: Levothyroxine Sodium 25 MCG TAB PO SCH (06:15)
[2018-04-25] MEDS: HYDROcodone/Acetaminophen 10/325 mg Tablet PO PRN ×2 (06:39→12:00)
[2018-04-25] MEDS: Cyclobenzaprine 10 MG TAB PO PRN (07:04)
[2018-04-25] MEDS: Rifaximin 550 MG TAB PO SCH (08:34)
[2018-04-25] MEDS: clonazePAM 1 MG TAB PO SCH (08:34)
[2018-04-25 10:39] VITALS: BMI 37.5
[2018-04-25 12:19] LABS: Hemoglobin 7.3 g/dL (12.0-16.0)
--- NOTE | 2018-04-25 13:49 | DIS ---
DATE OF ADMISSION: 04/19/2018 DATE OF DISCHARGE: 04/25/2018 PRIMARY CARE PHYSICIAN: Dr. Mandy Cadena. PRIMARY ONCOLOGIST: Dr. Terrie Rich.e DISCHARGE DIAGNOSES: 1. Symptomatic anemia, multifactorial in nature with combination of some occult GI bleed as well as cancer chemotherapy as well as history of hepatitis C. 2. Colonic ulcer found on the colonoscopy this admission, status post Hemoclip. 3. Hypothyroidism. 4. Anxiety and depression. 5. Chronic pain. 6. Hepatic cirrhosis due to chronic hepatitis C infection without any treatment in the last 3 decade s. 7. Obesity with BMI of 37.5. 8. Hyperammonemia, resolved. 9. Squamous cell carcinoma of the lung, on chemotherapy with Dr. Rich. DISCHARGE MEDICATIONS: Aspirin 81 mg daily, Xanax 1 mg p.o. b.i.d., Flexeril 10 mg p.o. t.i.d., wanda min D3 daily, Elavil 100 mg daily, Amitzia 24 mcg b.i.d. p.r.n., [place] t.i.d., zolpidem 10 mg at bedt bi, Protonix 40 mg daily, rifaximin 550 mg p.o. b.i.d., Synthroid 25 mcg daily, and lactulose 20 mg p.o. b.i.d. The patient is instructed to titrate the lactulose to 2-3 soft stools daily. PROCEDURES DONE IN THE HOSPITAL: Include, bone marrow biopsy, which is negative for any evidence of leukemia, lymphoma, or aplasia. EGD and colonoscopy: EGD, was rather unremarkable without any erosion, ulceration, or mass lesions. There was a large amount of retained solid food within the stomach concerning for delayed gastric em ptying. The colonoscopy also showed large amount of solid and liquid stool in the colon. There was a large amount of old blood was seen throughout the colon as well. She had moderate left-sided diver ticulosis without evidence of recent bleed. There was a 5 mm slightly cratered ulceration 25 cm with some friability, which was hemoclipped. Small external hemorrhoids were also noticed. HISTORY OF PRESENT ILLNESS: Ms. Hand is a very pleasant 53-year-old unfortunate female, who was ad mitted as a direct admission from oncologist's office for anemia. She is currently undergoing chemot herapy for squamous cell carcinoma. She also has history of chronic active hepatitis C, which has be en untreated. She was found to have significant anemia by her oncologist, Dr. Rich. She was rece ntly also was admitted in the hospital for similar symptoms and underwent a GI workup with negative E GD and colonoscopy, and CT scan showing only cirrhosis. She was discharged home only on 04/01/2018, but had to be readmitted on 04/19/2018, when her hemoglobin level was once again found to be very low . Her hemoglobin on presentation was found to be 6.2. She was given blood transfusion and was admit aaliyah for further evaluation and care. Please see admission history and physical for further details. HOSPITAL COURSE: To evaluate for the reason of anemia, the patient underwent a bone marrow biopsy, w hich did not have any evidence of aplasia, leukemia, or lymphoma. She then underwent a GI evaluation again with repeat colonoscopy and EGD on 04/22/2018. This did show evidence of old blood and some s mall ulcerated lesion in the colon, which was hemoclipped. She was monitored over the next several d ays and her H&H did drop from 8-7.5, but then sterilely has been stable at 7.3. The patient is no lo nger symptomatic or having any evidence of any active bleed. At this time, she will be discharged wi th close followup with her oncologist for repeat CBC and transfusion as necessary. For her hepatitis C, she is instructed to go follow up with key sander for possible options f or treatment. She was seen and examined prior to discharge. PHYSICAL EXAMINATION: VITAL SIGNS: This morning, temperature 98.4, pulse of 94, respirations 18, saturating 96% on room ai r, blood pressure 142/66. GENERAL: No acute distress, awake, alert, oriented x3. She does appear pale, but is in good spirits . CHEST: Clear to auscultation. Rate and rhythm is regular. LABORATORY DATA: CBC shows hemoglobin at 7.3 with hematocrit of 22.5. Serum chemistries unremarkabl e. She is instructed to follow up with the Gastroenterology and Oncology as an outpatient. INHOUSE CONSULTATION. 1. Oncology, Dr. Rich. 2. Gastroenterology, Dr. Gonzalez. Total time spent 32 minutes.
[2018-04-25 17:02] VITALS: BP 130/72; TEMP 98.6
== END 2018-04-25 17:20 | disposition home or self-care (01) | DRG 803 ==
LOC: ONC/OP 11:55 → ONC 13:56 → OBSVTOIN 04-21 07:23
PROVIDERS: ADMIT Internal Medicine; ATTEND Internal Medicine Hematology & Oncology
PROC: 0QB33ZX Excision of Left Pelvic Bone, Percutaneous Approach, Diagnostic (ICD-10-PCS; 2018-04-20)
PROC: 07DR3ZX Extraction of Iliac Bone Marrow, Percutaneous Approach, Diagnostic (ICD-10-PCS; 2018-04-20)
PROC: 30233N1 Transfusion of Nonautologous Red Blood Cells into Peripheral Vein, Percutaneous Approach (ICD-10-PCS; 2018-04-21)
PROC: 0W3P8ZZ Control Bleeding in Gastrointestinal Tract, Via Natural or Artificial Opening Endoscopic (ICD-10-PCS; principal; 2018-04-22)
PROC: 0DJ08ZZ Inspection of Upper Intestinal Tract, Via Natural or Artificial Opening Endoscopic (ICD-10-PCS; 2018-04-22)
DX: D50.0 Iron deficiency anemia secondary to blood loss (chronic) (principal); K63.3 Ulcer of intestine; C34.92 Malignant neoplasm of unspecified part of left bronchus or lung; C78.1 Secondary malignant neoplasm of mediastinum; C78.01 Secondary malignant neoplasm of right lung; E72.20 Disorder of urea cycle metabolism, unspecified; D63.0 Anemia in neoplastic disease; D64.81 Anemia due to antineoplastic chemotherapy; K74.60 Unspecified cirrhosis of liver; B18.2 Chronic viral hepatitis C; F41.9 Anxiety disorder, unspecified; F32.9 Major depressive disorder, single episode, unspecified; G89.29 Other chronic pain; M54.5 Low back pain; E03.9 Hypothyroidism, unspecified; K57.30 Diverticulosis of large intestine without perforation or abscess without bleeding; K64.4 Residual hemorrhoidal skin tags; F17.210 Nicotine dependence, cigarettes, uncomplicated; E66.9 Obesity, unspecified; Z68.37 Body mass index [BMI] 37.0-37.9, adult; Z79.82 Long term (current) use of aspirin; Z79.899 Other long term (current) drug therapy; T45.1X5A Adverse effect of antineoplastic and immunosuppressive drugs, initial encounter
CPT/HCPCS: 20225; 36415; 36430; 77012; 80048; 80053; 80074; 82103; 82140; 82274; 82390; 82728; 82977; 83010; 83516; 83540; 83550; 83615; 84443; 85014; 85018; 85025; 85097; 85610; 85730; 86038; 86225; 86747; 86850; 86880; 86900; 86901; 87522; 88184; 88237; 88264; 88280; 88305; 88311; 88313; 88341; 88342; A4216; J1940; J2250; J2270; J2704; J3010; J7050; J9271; P9016

== ENCOUNTER 2018-05-10 10:55 | Day surgery (SDC) | payer MEDICARE, MEDICAID ==
[2018-05-10] MEDS ORDERED: Pembrolizumab 200 MG in Sodium Chloride 0.9% 250 ML 250 ML IV SCH (11:15)
[2018-05-10] MEDS ORDERED: Sodium Chloride 0.9% 20 ML ONE (11:58)
[2018-05-10 12:13] VITALS: BP 120/69; TEMP 98.5
== END 2018-05-10 13:00 | disposition home or self-care (01) ==
LOC: ONC/OP 10:55
PROVIDERS: ATTEND Internal Medicine Hematology & Oncology
DX: Z51.11 Encounter for antineoplastic chemotherapy (principal); C34.32 Malignant neoplasm of lower lobe, left bronchus or lung; C77.1 Secondary and unspecified malignant neoplasm of intrathoracic lymph nodes; D64.9 Anemia, unspecified; K74.60 Unspecified cirrhosis of liver; F41.9 Anxiety disorder, unspecified; F32.9 Major depressive disorder, single episode, unspecified; B19.20 Unspecified viral hepatitis C without hepatic coma; M19.90 Unspecified osteoarthritis, unspecified site; Z87.891 Personal history of nicotine dependence
CPT/HCPCS: 82728; 84443; 96413; A4216; J1642; J7050; J9271

== ENCOUNTER 2018-05-18 22:30 | Observation (INO) | payer MEDICARE, MEDICAID ==
--- NOTE | 2018-05-18 23:39 | RAD ---
CHEST TWO VIEWS: 05/18/18 HISTORY: Shortness of breath. COMPARISON: 03/01/18. FINDINGS: Stable right sided Mediport catheter. Enlarged cardiac silhouette. Pulmonary vessels and hilum are no rmal. Costophrenic angles are clear. patchy interstitial opacities may represent chronic change. No c onsolidation or mass. Lungs are hyperinflated. No pneumothorax or osseous abnormality. IMPRESSION: 1. Cardiomegaly. Pulmonary vascular prominence. 2. Hyperinflation. POS: [facility]
[2018-05-19 00:45] LABS: Reticulocyte Count 3.5 % (0.5-1.5)
[2018-05-19 00:59] LABS: Lactic Acid 1.4 mmol/L (0.5-2.2)
[2018-05-19 03:46] VITALS: BMI 36.8
[2018-05-19] MEDS: Cyclobenzaprine 10 MG TAB PO PRN ×3 (04:23→20:11)
[2018-05-19] MEDS ORDERED: HYDROcodone/Acetaminophen 10/325 mg Tablet PO SCH ×2 (06:00→11:45)
[2018-05-19 07:27] LABS: Hemoglobin 7.6 g/dL (12.0-16.0)
[2018-05-19] MEDS ORDERED: Prevnar 13-Val Conj/PF 0.5 ML SYRINGE IM ONE (09:00)
[2018-05-19] MEDS ORDERED: Acetaminophen 325 MG TAB PO PRN (11:15)
[2018-05-19] MEDS ORDERED: Dextrose 5 % And 0.9 % NaCl 1,000 ML IV SCH (11:30)
[2018-05-19] MEDS ORDERED: Sodium Ferric Gluconate 125 MG in Sodium Chloride 0.9% 100 ML IVPB SCH (15:15)
[2018-05-19 17:45] LABS: Hemoglobin 7.5 g/dL (12.0-16.0)
[2018-05-19] MEDS: ALPRAZolam 1 MG TAB PO SCH (20:10)
[2018-05-19] MEDS: HYDROcodone/Acetaminophen 10/325 mg Tablet PO SCH (20:11)
[2018-05-19] MEDS: Rifaximin 550 MG TAB PO SCH (20:11)
[2018-05-19] MEDS ORDERED: Amitriptyline HCl 100 MG TAB PO SCH (21:00)
[2018-05-19] MEDS ORDERED: Famotidine/PF 20 mg/2ml Vial SLOW IVP SCH (21:00)
[2018-05-19 21:08] LABS: Hemoglobin 7.3 g/dL (12.0-16.0)
--- NOTE | 2018-05-19 22:00 | CON ---
DATE OF CONSULTATION: 05/19/2018 REASON FOR CONSULTATION: Lung cancer. HISTORY OF PRESENT ILLNESS: Ms. 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 She is on immunotherapy with Keytruda and h as received 10 cycles, which showed dramatic improvement in her cancer. Over the past several weeks, she became severely anemic. In April, she was admitted for hemoglobin of 5.8. She had a GI workup, which showed a colonic ulcer, it was hemoclipped. Otherwise, there was no evidence of bleeding. She received 5 units of blood on prior admission. She was discharged on 04/25/2018. On 05/10/2018, she presented to the clinic for next dose of Keytruda, her hemoglobin was 7.9, ferritin was 293. She wa s feeling significantly improved; however, a few days ago, she began to have dark black stools again, she presented to the emergency room for evaluation. She did have a guaiac, which was negative. Her hemoglobin in the emergency room was 6.5. She was transfused 1 unit of packed RBCs and admitted for further treatment. Retic count has been performed and is elevated at 3.5. PAST MEDICAL HISTORY: 1. Stage IV squamous cell carcinoma on Keytruda immunotherapy. 2. Cirrhosis. 3. Hepatitis C. 4. Osteoarthritis. 5. Anxiety and depression. 6. Former tobacco use. PAST SURGICAL HISTORY: 1. Splenic resection. 2. Total hysterectomy. 3. ACL repair. 4. . ALLERGIES: No known drug allergies. HOME MEDICATIONS: 1. Xanax 1 mg b.i.d. 2. Amitriptyline 100 mg at bedtime. 3. Aspirin 81 mg. 4. Flexeril t.i.d. 5. Hydrocodone p.r.n. 6. Synthroid 25 mcg daily. 7. Amitiza 25 mcg b.i.d. 8. Protonix 40 mg daily. 9. Rifaximin 550 mg b.i.d. 10. Zolpidem 10 mg at bedtime. FAMILY HISTORY: Noncontributory. SOCIAL HISTORY: Single, lives with her family. No alcohol or illicit drug use. She is a daily smok er. REVIEW OF SYSTEMS: CONSTITUTIONAL: No fever, chills, night sweats. EYES: No blurred or double vision. ENT: No pain, hoarseness, sore throat, dysphagia. CARDIOVASCULAR: No chest pain, palpitations or syncope. RESPIRATORY: No shortness of breath, dyspnea on exertion or orthopnea. GASTROINTESTINAL: No nausea, vomiting, diarrhea, constipation. Positive for abdominal distention an d dark stools. GENITOURINARY: No dysuria or hematuria. MUSCULOSKELETAL: No joint or back pain. SKIN: No rash or pruritus. HEMATOLOGIC: Denies bleeding, bruising or clotting. NEUROLOGIC: Positive for weakness, no headache, numbness, tingling or seizure activity. PSYCHIATRIC: Positive for anxiety and depression. PHYSICAL EXAMINATION: VITAL SIGNS: Temperature is 98.4, pulse is 92, respiratory rate 22, BP is 121/80. She is 95% on candice m air. GENERAL: This is an obese female in no acute distress. HEENT: Normocephalic, atraumatic. Pupils equal and reactive to light. NECK: Supple. HEART: Regular rate and rhythm. LUNGS: Clear. ABDOMEN: Distended but nontender. Bowel sounds are positive. She does have a midline abdominal her henok. EXTREMITIES: No clubbing, cyanosis, or edema. SKIN: No rash. HEMATOLOGIC: No petechia or purpura. NEUROLOGICAL: Nonfocal. PSYCHIATRIC: The patient is alert and oriented and appropriate. PERTINENT LABORATORY AND X-RAYS: Current WBCs are 16.6, hemoglobin 7.6, hematocrit 24.1, platelet co unt is 617,000, 54% neutrophils, 3% bands, 35% lymphocytes. Sodium is 133, potassium 4.8, chloride 1 00, CO2 is 18, BUN is 11, creatinine 0.81, lactic acid 1.4, calcium 9.6, total bilirubin is 0.6, AST is 57, ALT 35, alkaline phosphatase is 269. BNP is 295. Serum total protein is 8.4, albumin 2.8, gl obulin 5.6. Chest x-ray showed cardiomegaly. Abdomen and pelvis CT showed cirrhosis with hepatomega ly and varices. There was some mucosal thickening of the sigmoid. There was a left lower lobe nodul e decreased in size since last scan. ASSESSMENT: 1. Stage IV squamous cell carcinoma on Keytruda immunotherapy. 2. Recurrent blood loss anemia. 3. Recent colonic ulcer with clipping. 4. Hepatitis C with hepatomegaly. 5. History of splenectomy with thrombocytosis and leukocytosis. DISCUSSION: The patient has been recently worked up by Gastroenterology, who again has been consulte d on this visitation. Her abdominal and pelvis CT shows no ascites. However, there is some mucosal thickening of the sigmoid colon. Recommend is monitoring her CBC and transfuse her p.r.n. Her last iron studies showed a ferritin level of 293, it is very unlikely that this anemia is due to her immun otherapy treatment. Await for the consults for further assistance. Thank you for the consult.
--- NOTE | 2018-05-19 22:02 | HP ---
DATE OF ADMISSION: 05/19/2018 CHIEF COMPLAINT: Dark stools. HISTORY OF PRESENT ILLNESS: The patient is a 53-year-old female with a history of hepatitis C; histo ry of recently diagnosed squamous cell carcinoma of the lung, stage IV with mets; who presented to [facility] with complaints of dark stool. The patient stated about 2-3 days ago she had diarrhea x1 which she stated it was pretty dark in nature. The patient stated that then following after a couple days later she had no bowel movement, but yesterday she had a very dark bowel movement and also has been complaining of some significant abdominal tightness around her upper abdomen area. The patient denies any nausea, vomiting, fevers, chills, any worsening abdominal pain; however, she feels that he r upper abdomen is pretty distended. The patient stated that she has been started on iron supplement s; however, has not recently taken anything because she just got the prescription yesterday. Upon reviewing the patient's history, the patient was just recently discharged 04/25/2018 and at that time, she had an EGD and colonoscopy. The colonoscopy indicated that she did have a 5 mm slightly c ratered ulceration which was hemoclipped; however, the EGD was normal. The patient denies any use of any recent NSAIDs or Excedrin. The patient states that she has been having a good appetite. She no rmally gets chemotherapy every 3 weeks, which is Keytruda. The patient's stool for occult in the ER was negative. PAST MEDICAL HISTORY: 1. She has a past medical history of osteoarthritis. 2. Cirrhosis of the liver secondary to hepatitis C. 3. Anxiety. 4. Depression. 5. Recurrent symptomatic anemia. She has received blood transfusions in the past. 6. Current stage IV squamous carcinoma of the lung with mediastinal lymphadenopathy. PAST SURGICAL HISTORY: She has had a splenic resection, she has had a total hysterectomy, ACL repair , history of and a MediPort placement. SOCIAL HISTORY: She has a history of smoking. Denies any alcohol or drug use. ALLERGIES: She has got no known drug allergies. MEDICATIONS: As the following: She takes amitriptyline 100 mg daily, vitamin D3 of 2000 daily, Klon opin 1 mg b.i.d., Flexeril 10 mg t.i.d., [place] 10 mg t.i.d., Amitiza 24 mcg p.o. b.i.d. p.r.n., Jeff nix 40 mg daily, Ambien 10 mg p.o. at bedtime. REVIEW OF SYSTEMS: All negative except for the ones mentioned above in the HPI. PHYSICAL EXAMINATION: VITAL SIGNS: As of the following, temperature of 98.4, pulse 92, respirations are 16, saturations 95 % on room air, blood pressure 121/80. GENERAL: She is awake, alert, and oriented x3, does not appear in distress. HEENT: The patient appears very slightly pale, does not appear dehydrated. CARDIOVASCULAR: S1, S2 present. No murmurs, rubs or gallops. ABDOMEN: Soft, mild distention noted on her upper abdomen area. No tenderness upon palpation. EXTREMITIES: No edema. Pedal pulses are present x2. NEUROLOGIC: Neurovascular marie, no focal deficits noted. LABORATORY DATA AND IMAGING: As the following: Her WBCs are 16.6, hemoglobin of 6.5, hematocrit of 21.4, repeat hemoglobin was 7.6, her platelets have been 617, bands are 3, her reticular count is 3.5 . Chemistry: Sodium of 133, potassium of 4.8, bicarbonate of 18, glucose of 118, lactic acid of 1.4 , AST 57, alkaline phosphatase of 261, ALT is 35. TSH was 5.924. She did have an abdomen and pelvis CAT scan with IV contrast which indicated persistent abdominal lymphadenopathy. There appears to be soft tissue in the perisplenic region which may represent varicosities versus omental seeding. No e vidence of high grade small-bowel obstruction. There are focal loops of small bowel which are slight ly prominent and may represent a partial obstructive process versus an ileus. ASSESSMENT AND PLAN: The patient is a very pleasant 53-year-old female who presents to the hospital with dark stools and abdominal distention. 1. Melena. The patient's H&H has been low. She had a recent EGD earlier this month, which did not indicate any acute abnormalities. She has not been taking any ibuprofen or any NSAIDs over the count er. She has a prescription of iron; however, has not started as of yet. Her anemia could be most li dev secondary due to chemotherapy-related; however, and also due to bone marrow suppression from her cirrhosis. The patient have a bone marrow biopsy which indicated mild decrease in the proportion of erythroid series, decreased stainable iron. No metastatic carcinoma identified. She has had a stoo l for occult blood negative in the past 2 times that she is here. She has been here; however, the co lonoscopy that she had last time did indicate an ulcer. Therefore, we will consult GI; however, I am not sure if this will benefit the patient in regards to scoping. We will continue the patient's Pro tonix. Also given the CT findings of possible varicosities versus omental seeding, there is a chance that the patient could have metastatic disease. Also, Oncology has been consulted. We will trend t he patient's H&H and transfuse if needed. We will also start her on some IV iron given her low IV ir on mentioned in the bone marrow and continue to monitor. We will keep patient n.p.o. for now with so me ice chips until the patient is seen by GI. 2. Mildly elevated LFTs. We will continue to monitor. 3. History of hepatitis C. We will continue to monitor. 4. Deep venous thrombosis prophylaxis. We will put the patient on sequential compression devices.
--- NOTE | 2018-05-20 02:58 | CON ---
DATE OF CONSULTATION: 05/19/2018 REASON FOR CONSULTATION: Dark stools. HISTORY OF PRESENT ILLNESS: Ms. Hand is a 53-year-old female well known to GI service, who has his tory of cirrhosis secondary to chronic hepatitis C, history of lung cancer, history of chronic anemia . She was evaluated by Gastroenterology on March 29, , and with EGD and colonoscopy on the and . She had grade I varices, no stigmata of bleeding. She had colonoscopy with this severel y tortuous sigmoid colon with severe diverticular disease at that time. On 03/30/2018, she had an EG D with grade I varices, moderate portal gastropathy, and no GI bleeding. On 04/22/2018, she had EGD with large amount of retained solid food in her stomach, but no bleeding and lot of solid and liquid stool throughout the colon with some old blood in the colon, which was felt to be diverticular relate d. There was a 5-mm cratered ulceration at 25 cm with some friability to which a Hemoclip was placed on. The patient came back to the hospital apparently on the with complaints of dark stools. She tho ught maybe she was bleeding again. She has had some abdominal fullness in the upper abdomen and felt she was distended. She complained of shortness of breath and some nausea. Presently, she had a Hem occult negative stool. Her hemoglobin was between 7 and 8, which is what it has been in the past. S he wants to eat now. She is hungry and denies any present abdominal pain, but feels full and wonders if that is certainly normal with her liver disease and cirrhosis. PAST MEDICAL HISTORY: 1. Lung disease, cancer, squamous, stage 4. 2. Hepatitis C, cirrhosis, compensated. 3. Obesity. PAST SURGICAL HISTORY: Left knee replacement, history of splenectomy, tonsillectomy, hysterectomy. ALLERGIES: None known. MEDICATIONS AT HOME: [place], Flexeril, alprazolam, zolpidem, amitriptyline, Protonix, Lasix, MiraLax, aspirin, ferrous sulfate, rifaximin. In the emergency room, her occult blood test was negative. MEDICATIONS: Tylenol, Xanax, Elavil, Flexeril, D5 normal at 35 an hour, hydrocodone, lactulose, Synt hroid, Protonix, rifaximin. REVIEW OF SYSTEMS: Negative for dysphagia or odynophagia. Negative for fever, chills, dysuria, freq uency, urgency, confusion, change in sleep pattern, weight loss or weight gain, hematemesis, nausea. PHYSICAL EXAMINATION: VITAL SIGNS: Temperature is 98, pulse 85, blood pressure is 117/76. GENERAL: She is resting comfortably in bed. She is in no distress. HEENT: Conjunctivae and sclerae are clear. NECK: Supple. LUNGS: Clear. HEART: Regular rate and rhythm without clicks or murmurs. ABDOMEN: Protuberant. She has got midline hernias with incarceration, which is reducible, somewhat protuberant without rebound or guarding. EXTREMITIES: Trace edema. There is no CVA tenderness. There is no asterixis. NEUROLOGIC: Intact. LABORATORY STUDIES AND X-RAY FINDINGS: Hemoglobin was 6.5 yesterday, 7.6 today, baseline is between 7 and 8. White count 16,000, platelet count 617. Sodium 133, potassium 4.8, bicarbonate was 20, chl oride was 100, anion gap 15, BUN 11, creatinine 0.8. Ferritin 292, AST 57, ALT 35, alkaline phosphat ase 261, bilirubin 0.6, albumin 2.8, protein 8.4, globulin 5.6. AFP 15.9 in 03/2018. CT scan on of the abdomen and pelvis showed cirrhosis, hepatomegaly, and varices consistent with abdomin al lymphadenopathy in perisplenic regions, and also may have just been varices. There are no signs o f bowel obstruction. There is focal loop of small bowel, slightly prominent mucosal thickening of th e sigmoid, which has been seen in the past on colonoscopy. ASSESSMENT: 1. This is an ill female, who is actually very nice, who has had repetitive admissions with anemia, complications of cirrhosis, and lung cancer. She has persistent anemia and definitely has some risk factors from gastrointestinal loss with portal hypertension, but she has had some bleeding noted with ulceration of the colon in the past, but on this admission, she has had heme-negative stool in the e mergency room and heme-negative stool today. There are no signs of overt gastrointestinal hemorrhage . 2. She has a very elevated globulin gap, this could be related to paraproteins from her cancer and t his could be related to myeloma. With her huge liver, multiple myeloma needs to be considered. RECOMMENDATIONS: 1. Two-gram sodium diet. 2. Continue PPI. 3. We would hold her IV fluids because this is going to make her retain fluid and have more distenti on. 4. We would check an SPEP and UPEP to rule out myeloma.
[2018-05-20] MEDS: Cyclobenzaprine 10 MG TAB PO PRN (04:03)
[2018-05-20] MEDS ORDERED: Levothyroxine Sodium 25 MCG TAB PO SCH (06:00)
[2018-05-20 06:27] LABS: Anion Gap 15 mmol/L (10-20); BUN (Urea Nitrogen) 10 mg/dL (9.8-20.1); Calc. Creatinine Clearance 129 mL/min (70-130); Calcium 10.3 mg/dL (7.8-10.44); Carbon Dioxide 24 mmol/L (22-29); Chloride 100 mmol/L (98-107); Estimated GFR-MDRD 78; Glucose 112 mg/dL (70-105); Potassium 5.5 mmol/L (3.5-5.1); Sodium 133 mmol/L (136-145)
[2018-05-20 07:38] LABS: Hemoglobin 7.5 g/dL (12.0-16.0); Mean Corpuscular HGB CONC 30.5 g/dL (32.0-36.0); Mean Corpuscular Hemoglobin 25.5 pg (27.0-31.0); Mean Corpuscular Volume 83.4 fL (78.0-98.0); Mean Platelet Volume 10.4 fL (7.4-10.4); Platelet Count 586 thou/uL (130-400); RBC Distribution Width 17.2 % (11.5-14.5); Red Blood Cell (RBC) Count 2.93 mill/uL (4.20-5.40)
[2018-05-20 07:51] LABS: Eosinophils 4 % (0-10); Hypochromia MODERATE=16-30 cells (100X) (0-5/hpf); Large Platelets SLIGHT; Lymphocytes 29 % (21-51); MDiff Complete? YES; Microcytosis MODERATE=15-30 cells (100X) (0-5/hpf); Monocytes 10 % (0-10); Neutrophil 56 % (42-75); PLT Morphology Comment Appears Decreased; Polychromasia SLIGHT = 2-3 cells (100X) (0-2/hpf); Reactive Lymphocytes 1 % (0-10); Target Cells SLIGHT = 2-5 cells (100X) (0-1/hpf)
[2018-05-20 08:27] LABS: Hemoglobin 7.5 g/dL (12.0-16.0)
[2018-05-20] MEDS: Rifaximin 550 MG TAB PO SCH (08:37)
[2018-05-20] MEDS: ALPRAZolam 1 MG TAB PO SCH (08:38)
[2018-05-20] MEDS: HYDROcodone/Acetaminophen 10/325 mg Tablet PO SCH ×2 (08:38→15:17)
[2018-05-20] MEDS ORDERED: Sodium Ferric Gluconate 125 MG in Sodium Chloride 0.9% 100 ML IVPB SCH (09:00)
[2018-05-20 14:23] LABS: Hemoglobin 7.8 g/dL (12.0-16.0)
--- NOTE | 2018-05-20 14:33 | PDOC.PN ---
- Subjective Encounter Start Date: 05/20/18 Encounter Start Time: 14:31 Ms. Hand was seen today in follow-up of anemia. She does not have any complaints today. She denies chest pain or dyspnea. - Objective Resuscitation Status: Resuscitation Status FULL:Full Resuscitation MAR Reviewed: Yes Vital Signs & Weight: Vital Signs (12 hours) Temp Pulse Resp BP Pulse Ox 05/20/18 11:35 97.8 F 86 18 115/73 96 05/20/18 08:38 98.5 F 87 14 05/20/18 07:47 98.5 F 87 14 106/71 96 Weight Weight 214 lb 15.211 oz I&O: 05/19/18 05/20/18 05/21/18 06:59 06:59 06:59 Intake Total 300 1080 110 Output Total 300 900 Balance 0 1080 -790 Result Diagrams: 05/20/18 14:13 05/20/18 05:27 Phys Exam - Physical Examination HEENT: PERRLA Respiratory: no wheezing, no rales, no rhonchi, clear to auscultation bilateral Cardiovascular: RRR, no significant murmur, no rub Gastrointestinal: soft, non-tender, positive bowel sounds Musculoskeletal: no edema Dx/Plan (1) Symptomatic anemia Code(s): D64.9 - ANEMIA, UNSPECIFIED Status: Acute Comment: s/p Transfusion 04/21/18 .likley due to colonic ulcer found on Colonoscopy 04/22/18.S/P hemoclips (2) Anxiety and depression Code(s): F41.9 - ANXIETY DISORDER, UNSPECIFIED; F32.9 - MAJOR DEPRESSIVE DISORDER, SINGLE EPISODE, UNSPECIFIED Status: Chronic (3) Hepatitis C Code(s): B19.20 - UNSPECIFIED VIRAL HEPATITIS C WITHOUT HEPATIC COMA Status: Chronic Comment: stable (4) SCC (squamous cell carcinoma of lung) Code(s): C34.90 - MALIGNANT NEOPLASM OF UNSP PART OF UNSP BRONCHUS OR LUNG Status: Chronic Qualifiers: Comment: On ChemoRx with Keytruda q2sernd - Plan * Anemia- not due to GI bleed * Currently she is having an SPEP UPEP done to rule out Myeloma * Once the 24hour urine is complete she can be discharged home..
[2018-05-20 17:33] VITALS: BP 121/71; TEMP 98.5
--- NOTE | 2018-05-21 02:46 | DIS ---
DATE OF ADMISSION: 05/19/2018 DATE OF DISCHARGE: 05/20/2018 PRIMARY CARE PHYSICIAN: Mandy Cadena DO DISCHARGE DISPOSITION: Home. PRIMARY DISCHARGE DIAGNOSES: 1. Anemia. 2. History of stage IV lung cancer. 3. History of recent gastrointestinal bleed. 4. History of chronic hepatitis C. DISCHARGE MEDICATIONS: Include rifaximin 550 mg twice daily, Edluar 10 mg at bedtime, Protonix 40 mg daily, Amitiza 24 mcg twice a day, levothyroxine 25 mcg daily, [place] 10/325 three times a day as nee ded, lactulose 20 grams twice a day, Flexeril 10 mg 3 times a day, vitamin D3 of 2000 units at bedtim e, aspirin 81 mg daily, amitriptyline 100 mg at bedtime and Xanax 1 mg twice a day. CODE STATUS: FULL CODE. ALLERGIES: No known drug allergies. HOSPITAL COURSE: Ms. Hand is a very pleasant 53-year-old female who presented to the emergency [facility] complaining of dark stools. She had recently had an EGD and colonoscopy and colonoscopy had demons trated a 5-mm cratered ulceration which was hemoclipped. EGD was normal. She presented to the [facility] room once again with dark stools and she was anemic. However, she has been on aspirin therapy. She was monitored in the hospital and her H&H remained stable. She did receive a unit of blood. He r anemia is normocytic and she did have a large globulin gap and she was seen by Gastroenterology, wh o did not feel that the bleeding was GI related and recommended that she undergo an SPEP, UPEP to rul e out myeloma. Once the urine collection was completed, the patient was stable and able to be discha rged home with close outpatient followup.
--- NOTE | 2018-05-22 09:50 | PRG ---
DATE OF SERVICE: 05/20/2018 SUBJECTIVE: Ms. Hand is without complaints. She has finished 24-hour urine for electrophore sis. She denies any bleeding. She is eating well. She is not short of breath. OBJECTIVE: VITAL SIGNS: Temperature is 97, pulse 66, and blood pressure 115/73. LUNGS: Clear, decreased breath sounds at bases, some slight expiratory wheezing. ABDOMEN: She has got midline hernias, which are reducible and she got a massively enlarged liver. LABORATORY STUDIES: Hemoglobin is stable at 7.8, white count was 13 this morning. Platelet count is 586. Sodium 133, potassium 5.5, BNP 295. ASSESSMENT: 1. Hepatitis C, cirrhosis. 2. Stage IV lung cancer on Keytruda. 3. Massive hepatomegaly with hepatitis C. No evidence of tumor. AFP is normal. Workup for myeloma in process as this can cause massively enlarged liver. I do not think that I would go as far as bio psying the liver on this as I am not sure it would change her treatment. SPEP and UPEP are pending. 4. We will order question of GI bleeding. Her stool, Hemoccult negative and she has no overt signs of blood or bleeding. At this time, her hemoglobin is stable. RECOMMENDATIONS: Agree with plans for discharge this evening. She remains stable.
[2018-05-22 18:11] LABS: A/G Ratio 0.4 (0.7-1.7); Albumin 2.1 g/dL (2.9-4.4); Alpha 1 0.6 g/dL (0.0-0.4); Alpha 2 1.1 g/dL (0.4-1.0); Beta 1.8 g/dL (0.7-1.3); Gamma 1.5 g/dL (0.4-1.8); M-Spike Not Observed g/dL (Not Observed); Protein Electrophoresis Intrp Note: (.)
[2018-05-23 13:18] LABS: Alpha-1-Globulin, PEP 24h Ur 2.9 % (NOT ESTAB.); Alpha-2-Globulin, PEP 24h Ur 19.1 % (NOT ESTAB.); Beta Globulin, PEP 24h Ur 30.6 % (NOT ESTAB.); Gamma Globulin, PEP 24h Ur 34.4 % (NOT ESTAB.); M-Spike,% PEP 24hr Ur Not Observed % (Not Observed); Protein, PEP 24hr calculated 157 mg/24 hr (30-150); Protein, Urine 12.1 mg/dL (Not Estab.)
== END 2018-05-20 19:24 | disposition home or self-care (01) ==
LOC: ERS 22:30 → SURG A 05-19 02:54
PROVIDERS: ADMIT Internal Medicine; ATTEND Internal Medicine
DX: D64.9 Anemia, unspecified (principal); F41.9 Anxiety disorder, unspecified; B18.2 Chronic viral hepatitis C; C34.90 Malignant neoplasm of unspecified part of unspecified bronchus or lung; F32.9 Major depressive disorder, single episode, unspecified; E66.9 Obesity, unspecified; K92.1 Melena; M19.90 Unspecified osteoarthritis, unspecified site; K74.60 Unspecified cirrhosis of liver; Z79.82 Long term (current) use of aspirin; Z87.891 Personal history of nicotine dependence; Z79.899 Other long term (current) drug therapy; Z79.52 Long term (current) use of systemic steroids; Z68.36 Body mass index [BMI] 36.0-36.9, adult
CPT/HCPCS: 36430; 71046; 80048; 83605; 83880; 84156; 84165; 84166; 85014 ×3; 85018 ×3; 85025; 85046; 86850; 86900; 86901; 86920; 96365; 96366; 96375; 99285; G0378; P9016; 36415; 96374; J2270; J2916; J7050

== ENCOUNTER 2018-05-31 14:47 | Day surgery (SDC) | payer MEDICARE, MEDICAID ==
[2018-05-31] MEDS ORDERED: Pembrolizumab 200 MG in Sodium Chloride 0.9% 250 ML 250 ML IV SCH (15:45)
[2018-05-31] MEDS ORDERED: ALPRAZolam 1 MG TAB PO PRN (17:13)
[2018-05-31] MEDS ORDERED: Cyclobenzaprine 10 MG TAB PO SCH (17:15)
[2018-05-31] MEDS: HYDROcodone/Acetaminophen 10/325 mg Tablet PO PRN (17:31)
[2018-05-31] MEDS ORDERED: Acetaminophen 500 MG TAB PO SCH (17:45)
[2018-05-31] MEDS ORDERED: diphenhydrAMINE 25 MG CAP PO SCH (17:45)
[2018-05-31] MEDS ORDERED: Cyclobenzaprine 10 MG TAB PO PRN (21:00)
[2018-05-31] MEDS ORDERED: ALPRAZolam 0.5 MG TAB PO PRN (21:30)
[2018-06-01] MEDS: HYDROcodone/Acetaminophen 10/325 mg Tablet PO PRN (01:42)
[2018-06-01 02:36] VITALS: BP 118/58; TEMP 97.9
== END 2018-06-01 08:45 | disposition home or self-care (01) ==
LOC: ONC/OP 14:47 → ONC 14:50 → ONC/OP 06-01 08:45
PROVIDERS: ATTEND Internal Medicine Hematology & Oncology
DX: Z51.11 Encounter for antineoplastic chemotherapy (principal); C34.32 Malignant neoplasm of lower lobe, left bronchus or lung; C77.1 Secondary and unspecified malignant neoplasm of intrathoracic lymph nodes; D64.9 Anemia, unspecified; D69.6 Thrombocytopenia, unspecified; K74.60 Unspecified cirrhosis of liver; F41.9 Anxiety disorder, unspecified; F32.9 Major depressive disorder, single episode, unspecified; B19.20 Unspecified viral hepatitis C without hepatic coma; M19.90 Unspecified osteoarthritis, unspecified site; Z87.891 Personal history of nicotine dependence; Z90.710 Acquired absence of both cervix and uterus; Z90.81 Acquired absence of spleen; Z79.52 Long term (current) use of systemic steroids; Z79.899 Other long term (current) drug therapy
CPT/HCPCS: 36415; 36430; 84443; 86850; 86900; 86901; 96413; J1642; J2270; J7050; J9271; P9016

== ENCOUNTER 2018-06-05 15:20 | Inpatient (IN) | payer MEDICARE, MEDICAID ==
[~2018-06-05 15:20] MED LIST: ISOVUE-370 76%-LOCM 1 ML ONE
--- NOTE | 2018-06-05 20:05 | CT ---
CT ABDOMEN AND PELVIS WITH CONTRAST: INDICATIONS: Abdominal pain. COMPARISON: 05/18/2018 FINDINGS: Redemonstration of cirrhotic morphology of the liver with ascites, which has progressed in volume. T here is marked distention of the gallbladder. Colonic diverticulosis is present. The bowel is incom pletely assessed without enteric contrast administration. Areas of mild colonic wall prominence and hyperdensity could relate to superimposed acute colitis in the correct clinical context or could rela te to wall thickening from chronic disease and a hypoproteinemic state, given the concomitant finding s. The previously noted prominent sized lymph nodes persist and are grossly stable. No overt hydron ephrosis involving either kidney. The pancreas and adrenal glands are grossly stable. Scattered vas cular disease is present. There is a partially imaged, wedge shaped density of the posterolateral le ft lung base that may relate to subsegmental atelectasis, although it is not reliably evaluated. Pat sarah beth subpleural densities of the lung bases are seen, likely volume loss. There is scattered osseous degenerative change, regionally. No evidence of free air. Diffuse soft tissue edema is present. Th ere is redemonstration of multiple ventral abdominal wall metallic clips. IMPRESSION: 1. Redemonstration of cirrhotic morphology of the liver with progressive ascites. 2. Marked distention of the gallbladder. 3. Hyperdensity and thickening of the colonic wall, as discussed above. 4. Grossly stable adenopathy. POS: [facility]
[2018-06-05] MEDS ORDERED: Ondansetron HCl/PF 4 MG/2 ML Vial IVP PRN (21:19)
[2018-06-05] MEDS ORDERED: HYDROcodone/Acetaminophen 5/325 mg Tablet PO PRN ×2 (21:19)
[2018-06-05] MEDS ORDERED: Acetaminophen 325 MG TAB PO PRN (21:19)
[2018-06-05] MEDS ORDERED: Ondansetron ODT 4 MG TAB SL PRN (21:19)
[2018-06-05 22:00] VITALS: BMI 36.7
[2018-06-06] MEDS ORDERED: Ondansetron HCl/PF 4 MG/2 ML Vial IVP PRN (01:25)
[2018-06-06] MEDS ORDERED: Ondansetron ODT 4 MG TAB PO PRN (01:25)
[2018-06-06] MEDS ORDERED: traMADol HCl 50 MG TAB PO PRN (01:25)
[2018-06-06] MEDS ORDERED: Acetaminophen 325 MG TAB PO PRN (01:25)
[2018-06-06] MEDS ORDERED: Lubiprostone 24 MCG CAP PO PRN (01:25)
[2018-06-06] MEDS ORDERED: Zolpidem Tartrate 5 MG TAB PO SCH ×2 (01:30→21:00)
[2018-06-06] MEDS: cefTRIAXone\\ROCEPHIN 1 GM in Sodium Chloride 0.9% 100 ML IVPB SCH (02:00)
--- NOTE | 2018-06-06 02:30 | HP ---
PRIMARY CARE PHYSICIAN: Mandy Cadena D.O. CHIEF COMPLAINT: Abdominal pain. HISTORY OF PRESENT ILLNESS: Ms. Hand is a pleasant 53-year-old female that has a history of stage IV squamous cell lung cancer. She also has a history of cirrhosis secondary to hepatitis C. She als o has a history of recent upper GI bleed. She was in her usual state of health until the last couple of months. She says that she has been having progressive abdominal pain. She relates that in the e pigastric region going straight down the middle of her abdomen. She says it feels like her bowels ar e squished up. She says she also says that her abdomen is getting larger and larger. She also says that she has been having rectal bleeding almost every day since her last admission. She says that th e blood in the stool was originally dark. She was on iron, so she could not tell if it was iron or n ot, so she stopped taking it and then she started noticing that the blood was more red in color. She would see it mixed in with the stool and she also noted some black clots in her stool as well. She also says she has been getting more and more short of breath and extremely tired. She also has occas ional nausea as well and as a result of the symptoms, she has come to the emergency room for evaluati on. In the ER, she was found to be anemic with a hemoglobin of 6.[address] scan of the abdomen show ed a distended gallbladder as well as some thickening in the ayala of her colon as well as progressiv e ascites. The patient relates the abdominal pain is constant and 7/10 and not really related or rel ieved by anything. The patient denies having any hematemesis; however. REVIEW OF SYSTEMS: All systems were reviewed and are negative except for that mentioned in the histo ry of present illness. PAST MEDICAL HISTORY: Significant for, stage IV squamous cell cancer of the lungs, osteoarthritis, h epatitis C with cirrhosis, anxiety and depression. PAST SURGICAL HISTORY: She has had a splenic resection, hysterectomy, ACL repair, MediPort placement and an . ALLERGIES: No known drug allergies. SOCIAL HISTORY: She is single. She is a nonsmoker, nondrinker. Denies any drug use. FAMILY HISTORY: Significant for heart disease in her father. Mother had bipolar disorder. MEDICATIONS: She is on Keytruda, Ambien 10 mg at bedtime, Protonix 40 mg daily, Amitiza 24 mcg twice a day as needed, [place] 10/325 three times a day, aspirin 81 mg daily, vitamin D3 of 2000 units daily , Flexeril 10 mg t.i.d., alprazolam 1 mg twice a day, Elavil 100 mg at bedtime, Lasix 20 mg daily, an d MiraLax 17 grams daily. PHYSICAL EXAMINATION: GENERAL: She is alert and oriented. She appears to be in no acute distress and she is well-develope d and well-nourished. VITAL SIGNS: Blood pressure was 121/62, heart rate 88, respiratory rate of 16, temperature is 98, an d O2 sats 93% on room air. HEENT: Pupils are equal, round, and reactive. Extraocular muscles are intact. Her sclerae are anic teric. Throat: No erythema, no exudates. NECK: No adenopathy, no bruits. LUNGS: Clear. There was no wheezing or rales. CARDIOVASCULAR: She has a normal S1, S2. I did not appreciate an S3 or S4. No murmurs, clicks, or rubs. ABDOMEN: Distended, mildly dull to percussion. She has some fullness in the epigastric region and m id abdominal region and this area is actually tender to palpation. The liver span is enlarged and is percussed to about 4-5 cm below the right costal margin. EXTREMITIES: She has got 1-2+ pitting edema. NEUROLOGIC: The exam is nonfocal. SKIN AND INTEGUMENT: She has got some very mild light petechial rash on the lower extremities. LABORATORY RESULTS: White blood cell count is 13.5, hemoglobin 6.7, hematocrit is 21.6, and platelet count is 749. Sodium 128, potassium 4.8, chloride is 99, CO2 of 17, BUN of 14, creatinine 0.84, glu cose is 125. ASSESSMENT AND PLAN: 1. This is a pleasant 53-year-old female that presents with abdominal pain, increasing abdominal gir th and ascites that was noted via CT scan. She also has a low grade temperature. Therefore, the fin dings are concerning for spontaneous bacterial peritonitis. She is also anemic and is reporting rect al bleeding. It is unclear if she has any other GI pathology such as peptic ulcer disease and she is potentially at risk for varices as well. She will be admitted and we will obtain an ultrasound guid ed paracentesis for both therapeutic and diagnostic purposes. The fluid will be sent for cell count and culture and will place her on empiric Rocephin pending the results of the test. We will consult Gastroenterology for further recommendations. With regards to the anemia, orders have already been quin mendoza to give her transfusion and will continue to monitor H&H and once again await further GI recom mendations. 2. Hyponatremia. This is likely related to cirrhosis and we will restart her Lasix and maybe need t o add Aldactone to improve her volume status regarding the cirrhosis which hopefully will help her se rum sodium level and lung cancer. We will continue her Keytruda and likely she will need to continue her on medications regarding this.
[2018-06-06] MEDS: HYDROcodone/Acetaminophen 5/325 mg Tablet PO PRN ×2 (05:32→11:40)
[2018-06-06 05:57] LABS: ALT (SGPT) 25 U/L (8-55); AST (SGOT) 42 U/L (5-34); Albumin 2.5 g/dL (3.5-5.0); Alkaline Phosphatase 202 U/L (40-150); Anion Gap 13 mmol/L (10-20); BUN (Urea Nitrogen) 14 mg/dL (9.8-20.1); Bilirubin, Direct 0.5 mg/dL (0.1-0.3); Bilirubin, Total 0.8 mg/dL (0.2-1.2); Calc. Creatinine Clearance 103 mL/min (70-130); Calcium 8.9 mg/dL (7.8-10.44); Carbon Dioxide 21 mmol/L (22-29); Chloride 101 mmol/L (98-107); Estimated GFR-MDRD 61; Glucose 84 mg/dL (70-105); Potassium 5.2 mmol/L (3.5-5.1); Protein, Total 7.1 g/dL (6.0-8.3); Sodium 130 mmol/L (136-145)
[2018-06-06 06:33] LABS: Hypochromia SLIGHT = 6-15 cells (100X) (0-5/hpf); Lymphocytes 29 % (21-51); MDiff Complete? YES; Mean Corpuscular Hemoglobin 28.3 pg (27.0-31.0); Mean Corpuscular Volume 88.6 fL (78.0-98.0); Mean Platelet Volume 8.8 fL (7.4-10.4); Monocytes 6 % (0-10); Neutrophil 65 % (42-75); PLT Morphology Comment Appears Increased; Platelet Count 682 thou/uL (130-400); RBC Distribution Width 17.6 % (11.5-14.5); Red Blood Cell (RBC) Count 2.48 mill/uL (4.20-5.40); White Blood Cell (WBC) Count 12.2 thou/uL (4.8-10.8)
[2018-06-06] MEDS ORDERED: Loratadine 10 MG TAB PO PRN (06:54)
[2018-06-06] MEDS ORDERED: Chloraseptic Spray 180 ml Bottle PO PRN (06:54)
[2018-06-06] MEDS ORDERED: Sodium Chloride 0.65% Nasal 44 ML BOT EA NARE PRN (06:54)
[2018-06-06] MEDS ORDERED: Senokot 8.6 MG TAB PO PRN (06:54)
[2018-06-06] MEDS ORDERED: hydrALAZINE 20 MG/ML VIAL SLOW IVP PRN (06:54)
[2018-06-06] MEDS ORDERED: Milk Of Magnesia 30 ML UDCUP PO PRN (06:54)
[2018-06-06] MEDS ORDERED: Artificial Tears 18 DROP/0.9 ML EA EYE PRN (06:54)
[2018-06-06] MEDS ORDERED: Diabetic Tussin 200 MG/10 ML UDCUP PO PRN (06:54)
[2018-06-06] MEDS ORDERED: Mag-Al 1200 mg/1200 mg/30 ML UDCUP PO PRN (06:54)
[2018-06-06] MEDS ORDERED: Eucerin (Mineral Oil/Petrolatum,White) 30 gm Jar TOP PRN (06:54)
[2018-06-06] MEDS: ALPRAZolam 0.5 MG TAB PO SCH ×2 (08:59→21:43)
[2018-06-06] MEDS: HYDROcodone/Acetaminophen 10/325 mg Tablet PO SCH ×3 (09:00→21:42)
[2018-06-06] MEDS ORDERED: Pantoprazole 40 MG VIAL IVP SCH (09:00)
[2018-06-06] MEDS ORDERED: Aspirin 81 mg Enteric Coated Tablet PO SCH (09:00)
[2018-06-06] MEDS ORDERED: Furosemide 20 MG TAB PO SCH (09:00)
[2018-06-06] MEDS ORDERED: Polyethylene Glycol 3350 17 GM Packet PO SCH (09:00)
[2018-06-06 09:09] LABS: INR-International Normal Ratio 1.3; Prothrombin Time 16.1 SEC (12.0-14.7)
[2018-06-06] MEDS: Cyclobenzaprine 10 MG TAB PO SCH ×3 (09:16→21:47)
--- NOTE | 2018-06-06 10:23 | PDOC.PN ---
- Subjective Encounter Start Date: 06/06/18 Encounter Start Time: 07:00 -: old records requested/rev pt has intermittent hematochezia, now admitted for ascites and anemia, had low grade fever, has mild abdominal discomfort - Objective Resuscitation Status: Resuscitation Status FULL:Full Resuscitation MAR Reviewed: Yes Vital Signs & Weight: Vital Signs (12 hours) Temp Pulse Resp BP BP Pulse Ox 06/06/18 10:02 99.1 F 93 18 134/69 96 06/06/18 07:10 97.4 F L 86 18 98/55 L 96 06/06/18 03:54 97.7 F 85 16 119/58 L 91 L 06/05/18 23:49 98.0 F 88 16 121/62 93 L 06/05/18 23:01 98.2 F 103 H 20 98 Weight Weight 214 lb I&O: 06/05/18 06/06/18 06/07/18 06:59 06:59 06:59 Intake Total 400 Balance 400 Result Diagrams: 06/06/18 05:35 06/06/18 05:35 Radiology Reviewed by me: Yes (CT abdomen noted) Phys Exam - Physical Examination Constitutional: NAD HEENT: PERRLA, moist MMs, sclera anicteric pallor+ Neck: no JVD, supple Respiratory: no wheezing, no rales, no rhonchi Cardiovascular: RRR, no significant murmur, no rub Gastrointestinal: soft, no distention, positive bowel sounds ascites+ Musculoskeletal: pulses present, edema present Neurological: non-focal, normal sensation, moves all 4 limbs Psychiatric: normal affect, A&O x 3 Skin: normal turgor Deviation from normal: pallor+ Dx/Plan (1) Hematochezia Code(s): K92.1 - MELENA Status: Acute (2) Hyperkalemia Code(s): E87.5 - HYPERKALEMIA Status: Acute (3) Anemia, normocytic normochromic Code(s): D64.9 - ANEMIA, UNSPECIFIED Status: Chronic (4) Anxiety and depression Code(s): F41.9 - ANXIETY DISORDER, UNSPECIFIED; F32.9 - MAJOR DEPRESSIVE DISORDER, SINGLE EPISODE, UNSPECIFIED Status: Chronic (5) Chronic hepatitis C Code(s): B18.2 - CHRONIC VIRAL HEPATITIS C Status: Chronic (6) Chronic pain Code(s): G89.29 - OTHER CHRONIC PAIN Status: Chronic Comment: stable (7) Cirrhosis of liver with ascites Code(s): K74.60 - UNSPECIFIED CIRRHOSIS OF LIVER; R18.8 - OTHER ASCITES Status : Chronic (8) Hypothyroidism Code(s): E03.9 - HYPOTHYROIDISM, UNSPECIFIED Status: Chronic (9) Obesity (BMI 30-39.9) Code(s): E66.9 - OBESITY, UNSPECIFIED Status: Chronic Comment: On lactulose, Xifaxan (10) SCC (squamous cell carcinoma of lung) Code(s): C34.90 - MALIGNANT NEOPLASM OF UNSP PART OF UNSP BRONCHUS OR LUNG Status: Chronic Qualifiers: Comment: On ChemoRx with Keytruda [id number] - Plan cont current plan of care, continue antibiotics * today diagnostic and therapeutic paracentesis * continue empiric rocephin * GI consulted for anemia * medication reviewed as below * symptomatic treatment * will repeat labs tomorrow. * home medication reconciled * will transfuse for Hb <7 Review of Systems - Review of Systems Constitutional: negative: fever, chills, sweats, weakness, malaise, other Eyes: negative: Pain, Vision Change, Conjunctivae Inflammation, Eyelid Inflammation, Redness, Other ENT: negative: Ear Pain, Ear Discharge, Nose Pain, Nose Discharge, Nose Congestion, Mouth Pain, Mouth Swelling, Throat Pain, Throat Swelling, Other Respiratory: negative: Cough, Dry, Shortness of Breath, Hemoptysis, SOB with Excertion, Pleuritic Pain, Sputum, Wheezing Cardiovascular: edema. negative: chest pain, palpitations, orthopnea, paroxysmal nocturnal dyspnea, light headedness, other Gastrointestinal: Abdominal Pain, Hematochezia. negative: Nausea, Vomiting, Diarrhea, Constipation, Melena, Other Genitourinary: negative: Dysuria, Frequency, Incontinence, Hematuria, Retention , Other Musculoskeletal: negative: Neck Pain, Shoulder Pain, Arm Pain, Back Pain, Hand Pain, Leg Pain, Foot Pain, Other - Medications/Allergies Allergies/Adverse Reactions: Allergies Allergy/AdvReac Type Severity Reaction Status Date / Time No Known Drug Allergies Allergy Verified 06/05/18 22:06 Medications: Current Medications Acetaminophen (Tylenol) 325 mg PO Q4H PRN PRN Reason: Headache/Fever or Pain Hydrocodone Bitart/Acetaminophen ([place] 5/325) 1 tab PO Q4H PRN PRN Reason: Moderate Pain (4-6) Last Admin: 06/06/18 05:32 Dose: 1 tab Hydrocodone Bitart/Acetaminophen ([place] 10/325) 1 tab PO TID [facility] Last Admin: 06/06/18 09:00 Dose: 1 tab Al Hydroxide/Mg Hydroxide (Maalox) 15 ml PO Q4H PRN PRN Reason: Heartburn or Indigestion Alprazolam (Xanax) 1 mg PO BID [facility] Last Admin: 06/06/18 08:59 Dose: 1 mg Amitriptyline HCl (Elavil) 100 mg PO [facility] Artificial Tears (Tears Naturale) 0 drop EA EYE PRN PRN PRN Reason: Dry Eyes Aspirin (Ecotrin) 81 mg PO QAM [facility] Last Admin: 06/06/18 08:59 Dose: 81 mg Cholecalciferol (Vitamin D3) 2,000 units PO [facility] Cyclobenzaprine HCl (Flexeril) 10 mg PO TID [facility] Last Admin: 06/06/18 09:16 Dose: 10 mg Furosemide (Lasix) 20 mg PO DAILY [facility] Last Admin: 06/06/18 08:59 Dose: 20 mg Guaifenesin (Robitussin Sf) 200 mg PO Q4H PRN PRN Reason: Cough Hydralazine HCl (Apresoline) 10 mg SLOW IVP Q4H PRN PRN Reason: Systolic BP > 180 Ceftriaxone Sodium 1 gm/ (Sodium Chloride) 100 mls @ 200 mls/hr IVPB Q24HR [facility] Last Admin: 06/06/18 02:00 Dose: 100 mls Loratadine (Claritin) 10 mg PO DAILYPRN PRN PRN Reason: Sinus Symptoms Lubiprostone (Amitiza) 24 mcg PO BID-WM PRN PRN Reason: Constipation Magnesium Hydroxide (Milk Of Magnesium) 30 ml PO DAILYPRN PRN PRN Reason: Constipation Mineral Oil/White Petrolatum (Eucerin Cream) 0 gm TOP BIDPRN PRN PRN Reason: Dry Skin Ondansetron HCl (Zofran Odt) 4 mg PO Q6H PRN PRN Reason: Nausea/Vomiting Ondansetron HCl (Zofran) 4 mg IVP Q6H PRN PRN Reason: Nausea/Vomiting Pantoprazole Sodium (Protonix) 40 mg IVP DAILY [facility] Last Admin: 06/06/18 09:00 Dose: 40 mg Phenol (Chloraseptic [place] 180 Ml Bot) 0 ml PO PRN PRN PRN Reason: Sore Throat Polyethylene Glycol (Miralax) 17 gm PO DAILY [facility] Last Admin: 06/06/18 09:00 Dose: 17 gm Senna (Senokot) 2 tab PO HSPRN PRN PRN Reason: Constipation Sodium Chloride (Gonzalez Nasal [place] 0.65%) 0 ml EA NARE QIDPRN PRN PRN Reason: Nasal Congestion Tramadol HCl (Ultram) 50 mg PO Q4H PRN PRN Reason: Moderate Pain (4-6) Zolpidem Tartrate (Ambien) 10 mg PO HS [facility]
--- NOTE | 2018-06-06 10:54 | ULT ---
SONOGRAPHIC GUIDED PARACENTESIS DIAGNOSTIC: History: Small amount of ascites. Fever. Pain. FINDINGS: Sonographic survey shows small amount of free fluid anterior to the right liver lobe. Sterile techniq ue, buffered local anesthesia, sonographic guidance and a right anterior approach were used to carefu lly advance a 22 gauge spinal needle into the free fluid in the right upper quadrant. Total volume of 22 cc clear yellow liquid was aspirated and sent to pathology for evaluation. Needle was removed. No evidence of calcification. Patient tolerated the procedure well and was returned in unchanged condit ion. IMPRESSION: Technically successful sonographic guided paracentesis. Pathology is pending. POS: [facility]
[2018-06-06 10:58] LABS: BF Color Yellow; Body Fluid Source Ascites Body Fluid; Clarity Hazy (Clear); Tube # EDTA
[2018-06-06 11:12] LABS: BF RBC Count - Manual 83 /cumm; BF WBC/Nonhematics Ct. - Manua 450 /cumm
[2018-06-06 11:34] LABS: BF Segmented Neutrophils 2 %; Cell Count Non Hematic 58 %; Lymphocytes 40 %
[2018-06-06] MEDS ORDERED: GoLYTELY 4,000 ml Bottle PO SCH (17:00)
[2018-06-06] MEDS ORDERED: Amitriptyline HCl 100 MG TAB PO SCH (21:00)
[2018-06-06] MEDS ORDERED: ZOLPIDEM TARTRATE 10 MG PO SCH (21:00)
--- NOTE | 2018-06-06 23:34 | PRG ---
DATE OF SERVICE: 06/06/2018 SUBJECTIVE: Ms. Hand is back in the hospital with anemia. She was last discharged on 05/20/2018. At that time, she came in with anemia. Again, she had negative Hemoccult stools. It was felt that her reportedly black stools is from iron. She was transfused and was discharged with a hemoglobin of 7.8. She returned yesterday with a hemoglobin of 6.7. She was transfused and one today is 7. No h emoccults were sent. The patient states her stools are not black. She has been not on her iron for a couple of days as she has a capsule endoscopy pending. Other evaluations for her anemia have inclu ded a bone marrow biopsy, which was negative; serologic workup for multiple myeloma, which was negati ve. On 04/19/2018, her iron was 24. Her TIBC was 576. Her ferritin was 533. Presently, she is wit hout complaints. She has an appointment in our office tomorrow for a capsule endoscopy of the small bowel at the request of Dr. Rich. The patient though states that she knows nothing about that, ta lked to my office, they have send her appropriate mail, have talked to her several times late last we ek scheduling this. OBJECTIVE: GENERAL: Presently, she knows where she is. She is alert and oriented. VITAL SIGNS: Temperature is 97, pulse 88, blood pressure is 112/66. ABDOMEN: Protuberant. She has got massive hepatomegaly. EXTREMITIES: No clubbing, cyanosis, or edema. SIGNIFICANT LABORATORY DATA: As per HPI, the H&H was noted. Platelets were 682. INR is 1.3. Sodiu m is 130, potassium 5.2, bilirubin 0.8, AST and ALT are 42 and 25, alkaline phosphatase is 202. Alph a fetoprotein was 15.9 on 03/29/2018. SPEP on 05/19/2018 showed nonspecific increase in alpha-1 frac tion, no monoclonal proteins. Hemoccults negative on 04/18/2018 and 04/19/2018. Previous endoscopie s 04/22/2018 and 03/30/2018: There were small erosions on her 04/22/2018 colonoscopy, for which a sm all clip was placed. This was around some areas of diverticular disease and her endoscopies prior to that. No bleeding sites were seen. ASSESSMENT: 1. Metastatic lung cancer, on Keytruda. There has been some concern on part of the Hematology this could be the cause of her anemia. 2. Cirrhosis, hepatitis C with massive hepatomegaly. Normal hepatoma screening. There has been no signs of portal hypertension or gastrointestinal bleeding on endoscopic evaluations thus far. 3. Some mild ascites noted on this admission. Apparently, this was tapped earlier today. RECOMMENDATIONS: 1. I have talked with the patient. She is able to get to our office tomorrow morning and get back t o our office tomorrow afternoon. She wants to go ahead and do the capsule endoscopy. We will go ahe ad and facilitate that, give her a prep today here. 2. Recommended to the hospitalist that she will be transfused 1 more unit of blood as her hemoglobin is 7, comes in about once weekly for blood anyway. 3. With regard to her chronic hepatitis C, she is not a candidate for therapy in light of her metast atic lung cancer. 4. If she is not found to have any of other findings on the capsule endoscopy, I would recommend con sidering Keytruda is possibly playing a role in her anemia. We will follow along with you.
[2018-06-07] MEDS: cefTRIAXone\\ROCEPHIN 1 GM in Sodium Chloride 0.9% 100 ML IVPB SCH (01:18)
[2018-06-07 04:26] VITALS: TEMP 97.6
[2018-06-07 05:03] LABS: Eosinophils 3 % (0-10); Hemoglobin 7.5 g/dL (12.0-16.0); Lymphocytes 40 % (21-51); MDiff Complete? YES; Mean Corpuscular HGB CONC 30.3 g/dL (32.0-36.0); Mean Corpuscular Hemoglobin 26.9 pg (27.0-31.0); Mean Corpuscular Volume 88.8 fL (78.0-98.0); Mean Platelet Volume 9.3 fL (7.4-10.4); Monocytes 7 % (0-10); Neutrophil 50 % (42-75); PLT Morphology Comment Appears Increased; Platelet Count 651 thou/uL (130-400); RBC Distribution Width 17.3 % (11.5-14.5); Red Blood Cell (RBC) Count 2.79 mill/uL (4.20-5.40); Target Cells SLIGHT = 2-5 cells (100X) (0-1/hpf); White Blood Cell (WBC) Count 10.1 thou/uL (4.8-10.8)
[2018-06-07 05:11] LABS: ALT (SGPT) 25 U/L (8-55); AST (SGOT) 43 U/L (5-34); Albumin 2.4 g/dL (3.5-5.0); Alkaline Phosphatase 199 U/L (40-150); Anion Gap 15 mmol/L (10-20); BUN (Urea Nitrogen) 11 mg/dL (9.8-20.1); Bilirubin, Total 0.9 mg/dL (0.2-1.2); Calc. Creatinine Clearance 128 mL/min (70-130); Calcium 8.7 mg/dL (7.8-10.44); Carbon Dioxide 22 mmol/L (22-29); Chloride 98 mmol/L (98-107); Estimated GFR-MDRD 78; Globulin 4.8 g/dL (2.4-3.5); Glucose 88 mg/dL (70-105); Potassium 3.5 mmol/L (3.5-5.1); Protein, Total 7.2 g/dL (6.0-8.3); Sodium 131 mmol/L (136-145)
[2018-06-07 07:37] VITALS: BP 129/64
--- NOTE | 2018-06-07 11:19 | DIS ---
PRIMARY CARE PHYSICIAN: Dr. Edson Cadena DATE OF ADMISSION: 06/05/2018 DATE OF DISCHARGE: 06/07/2018 DISCHARGE DISPOSITION: Home. PRIMARY DISCHARGE DIAGNOSES: 1. Hematochezia, intermittent 2. Anemia, symptomatic, status post 1 unit transfusion. 3. Hyponatremia and hyperkalemia, improved. 4. Ascites, status post paracentesis. SECONDARY DISCHARGE DIAGNOSES: Squamous cell carcinoma of lung, obesity with body mass index 36, hyp othyroidism, cirrhosis of liver with ascites, chronic pain disorder, chronic hepatitis C, anxiety and depression, chronic normocytic anemia. PRIMARY PROCEDURE/OPERATION: Paracentesis. RADIOLOGICAL INVESTIGATION: Abdomen and pelvis CT scan showed ascites, cirrhosis. SIGNIFICANT LABORATORY DATA: WBC 10.1, hemoglobin 7.5, platelets 651. INR 1.3. Sodium 131, potassi um 3.5, BUN 11, creatinine 0.77, calcium 8.7, AST 43, ALT 25, alkaline phosphatase 199, albumin 2.4. Ascites fluid; WBC 450 with a neutrophil 2%. Fluid albumin 1.0. Ascitic fluid culture is negative. DISCHARGE MEDICATIONS: Cipro 500 mg p.o. b.i.d., Florastor 250 mg p.o. daily, Xanax 1 mg p.o. b.i.d. , amitriptyline 100 mg p.o. at bedtime, vitamin D3 2000 unit p.o. at bedtime, Flexeril 10 mg p.o. t.i .d. p.r.n., Lasix 40 mg p.o. daily, [place] 10 one tablet t.i.d. p.r.n., Amitiza 24 mcg p.o. b.i.d. p.r .n., MiraLax 17 grams p.o. daily p.r.n., Ambien 10 mg p.o. at bedtime p.r.n., Protonix 40 mg p.o. karon ly. CONTRAINDICATIONS: None. CODE STATUS: FULL CODE. INPATIENT CONSULTANTS: Dr. Gama was consulted. TEST RESULTS PENDING ON DISCHARGE: None. ALLERGIES: No known drug allergy. DISCHARGE PLAN: Post hospital, the patient is instructed to follow up with primary care physician, Francisca Gama. The patient has a capsule endoscopy appointment today. HOSPITAL COURSE: A 53-year-old female who was admitted to the hospital by Dr. Carroll. The patient w as having abdominal distention and lower abdominal pain. She was feeling weakness. Her hemoglobin o n admission was 7.0. She had ascites which required paracentesis. Her paracentesis fluid was negati ve for any SBP, but her fluid albumin is less than around 1 and that is why the patient was treated w ith Rocephin while in hospital. On discharge, we changed to Cipro for prophylaxis. Her culture nico ined negative. She remained afebrile. This patient already had upper and lower endoscopy done in [facility] and she was scheduled for outpatient capsule endoscopy and she had appointment today and that is w hy we consider discharging her home today. She will get a capsule endoscopy done in Dr. Gama's off ice today. If this patient has a recurrent anemia and at this point GI is suspecting her chemotherapy contributi ng to her anemia. If this patient recurrently admitted for anemia, then she should have a bone marro w evaluation or just a periodic transfusional support. This patient will not be a good candidate for any future major surgery for a small intestinal problem in case if we diagnosed with a capsule endos copy. The patient is seen and examined at bedside today. Plan of care discussed with the patient in detail . VITAL SIGNS: Today, temperature 97.6, pulse 86, respiratory rate 18, saturation 98% on room air, blo od pressure 129/64, weight 214 pounds. GENERAL: The patient is currently alert, awake, no obvious acute distress. HEAD: Normocephalic, atraumatic. EYES: Pupils round, reactive to light. Extraocular muscle intact. ENT: Oropharynx within normal limits. Pallor plus. ABDOMEN: Soft and benign without any tenderness. EXTREMITIES: No edema. NEUROLOGIC: Nonfocal examination. During this admission, we increased her Lasix from 20 to 40 mg p.o. daily and Cipro 500 mg p.o. b.i.d . prescribed. The patient is medically stable for discharge today.
== END 2018-06-07 07:35 | disposition home or self-care (01) | DRG 378 ==
LOC: ERS 15:20 → ONC 21:04
PROVIDERS: ADMIT Internal Medicine; ATTEND Internal Medicine
PROC: 30233N1 Transfusion of Nonautologous Red Blood Cells into Peripheral Vein, Percutaneous Approach (ICD-10-PCS; 2018-06-05)
PROC: 0W9G3ZZ Drainage of Peritoneal Cavity, Percutaneous Approach (ICD-10-PCS; principal; 2018-06-06)
DX: K92.1 Melena (principal); E87.1 Hypo-osmolality and hyponatremia; C34.90 Malignant neoplasm of unspecified part of unspecified bronchus or lung; C79.9 Secondary malignant neoplasm of unspecified site; R18.8 Other ascites; K74.60 Unspecified cirrhosis of liver; B19.20 Unspecified viral hepatitis C without hepatic coma; M19.90 Unspecified osteoarthritis, unspecified site; Z90.710 Acquired absence of both cervix and uterus; D64.9 Anemia, unspecified; E87.5 Hyperkalemia; F41.9 Anxiety disorder, unspecified; F32.9 Major depressive disorder, single episode, unspecified; B18.2 Chronic viral hepatitis C; E03.9 Hypothyroidism, unspecified; E66.9 Obesity, unspecified; Z68.36 Body mass index [BMI] 36.0-36.9, adult
CPT/HCPCS: 36415; 36430; 49083; 74177; 80048; 80053; 80076; 82042; 85025; 85060; 85610; 85730; 86850; 86900; 86901; 87070; 87205; 88112; 88305; 89051; 96374; C9113; J0696; J2270; J7050; P9016

== ENCOUNTER 2018-06-18 19:45 | Observation (INO) | payer MEDICARE, MEDICAID ==
--- NOTE | 2018-06-18 21:11 | RAD ---
PORTABLE CHEST: HISTORY: Shortness of breath. History of lung cancer with recurrent ascites. COMPARISON: 05/18/2018 FINDINGS: Mild cardiomegaly. Mild vascular congestion. No focal infiltrate or consolidation. No significant effusion. Mediport catheter appears in adequate position. IMPRESSION: Cardiomegaly and mild vascular congestion. POS: [facility]
[2018-06-18 21:30] LABS: INR-International Normal Ratio 1.6; PTT 38.3 SEC (22.9-36.1); Prothrombin Time 19.5 SEC (12.0-14.7)
[2018-06-18 21:31] LABS: Hemoglobin 7.4 g/dL (12.0-16.0); Mean Corpuscular HGB CONC 31.2 g/dL (32.0-36.0); Mean Corpuscular Hemoglobin 26.2 pg (27.0-31.0); Red Blood Cell (RBC) Count 2.82 mill/uL (4.20-5.40); White Blood Cell (WBC) Count 11.2 thou/uL (4.8-10.8)
[2018-06-18 21:43] LABS: ALT (SGPT) 34 U/L (8-55); AST (SGOT) 58 U/L (5-34); Albumin 2.4 g/dL (3.5-5.0); Alkaline Phosphatase 243 U/L (40-150); Anion Gap 13 mmol/L (10-20); BUN (Urea Nitrogen) 15 mg/dL (9.8-20.1); Bilirubin, Total 1.1 mg/dL (0.2-1.2); Calc. Creatinine Clearance 0 mL/min (70-130); Calcium 9.2 mg/dL (7.8-10.44); Carbon Dioxide 24 mmol/L (22-29); Chloride 101 mmol/L (98-107); Estimated GFR-MDRD 72; Globulin 5.5 g/dL (2.4-3.5); Glucose 100 mg/dL (70-105); Potassium 4.8 mmol/L (3.5-5.1); Protein, Total 7.9 g/dL (6.0-8.3); Sodium 133 mmol/L (136-145)
[2018-06-18 22:00] LABS: Anisocytosis SLIGHT = 6-15 cells (100X) (0-5/hpf); Hypochromia MODERATE=16-30 cells (100X) (0-5/hpf); Lymphocytes 15 % (21-51); MDiff Complete? YES; Mean Platelet Volume 10.5 fL (7.4-10.4); Monocytes 16 % (0-10); Neutrophil 69 % (42-75); PLT Morphology Comment Appears Increased; Platelet Count 574 thou/uL (130-400); RBC Distribution Width 22.3 % (11.5-14.5); Target Cells SLIGHT = 2-5 cells (100X) (0-1/hpf)
[2018-06-18 22:57] LABS: Bilirubin Small (Negative); Blood, Urine Negative (Negative); Clarity CLEAR (Clear); Glucose, Urine (Dipstick) Negative (Negative); Leukocyte Negative (Negative); Nitrite Negative (Negative); Protein, Urine (Dipstick) Trace mg/dL (Neg-Trace); Specific Gravity, Urine 1.016 (1.002-1.036)
[2018-06-19 01:38] VITALS: BMI 39.8
[2018-06-19] MEDS ORDERED: Amitriptyline HCl 100 MG TAB PO SCH ×2 (02:15→21:00)
[2018-06-19] MEDS ORDERED: Lubiprostone 24 MCG CAP PO PRN (08:00)
[2018-06-19] MEDS ORDERED: Spironolactone 25 MG TAB PO SCH (08:15)
[2018-06-19] MEDS ORDERED: Furosemide 20 MG/2 ML VIAL SLOW IVP SCH (08:15)
--- NOTE | 2018-06-19 08:44 | HP ---
CHIEF COMPLAINT: Shortness of breath. HISTORY OF PRESENT ILLNESS: Patient is a 53-year-old female with a recent diagnosis of stage IV lung cancer. The patient initially presented with some upper abdominal fullness that she felt was gas, b ut had a chest x-ray which revealed lung cancer. She has been down the path of evaluating her lung c ancer and that has been the priority although in the midst of that, she has been diagnosed with under lying hepatitis C and cirrhosis with ascites. The patient was just here on the and had ultrasou nd guided paracentesis at that time. She also had anemia which was significantly symptomatic. She h ad transfusion at that time. She subsequently returned home in [place], but has had reaccumulat ion of fluid in her lower extremities and her abdomen. She reports that she is very fatigued with mi nimal exertion. Just simply walking across the room causes her to be substantially winded. Of note, the patient is to have a PET scan tomorrow and then she is to go into rehab for a period of time for some physical therapy. REVIEW OF SYSTEMS: Unremarkable through a 10-system review. The patient does report that she is voi ding relatively well with the use of the Lasix. PAST MEDICAL HISTORY: 1. As noted above, significant for stage IV lung cancer. She is on Keytruda and has the PET scan sc heduled tomorrow. She is following with Dr. Rich. 2. Tense ascites with previous tap. 3. History of anemia. Patient has some history of evident GI bleeding, but had upper and lower endo scopy without any substantial findings. Her hemoglobin is still low, but stable from her previous ad mission. 4. History of hyponatremia. 5. History of hepatitis C. 6. Osteoarthritis. 7. Anxiety and depression. PAST SURGICAL HISTORY: Spleen resection, hysterectomy, ACL repair, MediPort placement. FAMILY HISTORY: Heart disease in her father. Mother had bipolar disorder. SOCIAL HISTORY: Patient is single. She is a nonsmoker, nondrug user. ALLERGIES: She has no allergies. CURRENT MEDICATIONS: Levothyroxine 25 mcg every day, Vickers 10 mg at bedtime, aspirin 81 mg every d ay, polyethylene glycol 17 grams p.o. daily, Protonix 40 mg every day, Amitiza 24 mcg b.i.d., [place] 1 t.i.d., Lasix 20 mg every day, Flexeril 10 mg t.i.d., vitamin D3 2000 units at bedtime, Elavil 100 mg at bedtime, Xanax 1 mg p.o. b.i.d. PHYSICAL EXAMINATION: VITAL SIGNS: Temperature is 98.3, pulse 92, respirations 20, O2 saturation 94% on room air, BP 128/6 4. GENERAL APPEARANCE: Age appropriate female, in no distress. She is awake, alert, oriented, pleasant and cooperative. She is wearing 2 liters nasal cannula. HEENT: PERRL. No OP lesions. NECK: Supple and symmetric. HEART: Regular rate and rhythm without murmurs, gallops or rubs. LUNGS: Have slight rales in the right base, but otherwise clear with no wheezes and good air exchang e. ABDOMEN: Has significant ascites. It is relatively tense with some overlying abdominal fat, modestl y diffusely tender. EXTREMITIES: Reveal 2+ to 3+ pitting edema to above the level of the knee. SKIN: Reveals some small abrasions around the right ankle, otherwise clear. PSYCHIATRIC: Patient has appropriate affect and is quite pleasant. LABORATORY DATA AND IMAGING DATA: White count 11.2, hemoglobin 7.4, platelets 574. INR is 1.6, PTT 38.3. Sodium 133, potassium 4.8, chloride 101, BUN 15, creatinine 0.83, AST 58, ALT 34, alkaline isabela sphatase 243. Albumin is 2.4. Urinalysis shows small bilirubin. Chest x-ray is clear. IMPRESSION AND PLAN: 1. Dyspnea on exertion, likely multifactorial including the fact the patient has underlying lung can cer, now has tense ascites. 2. Tense ascites. Counseled the patient regarding the fact that this is going to be a recurrent pro blem. If we tap this, it will likely recur again within a few weeks as it has done this time. We townsend ve the option of not tapping it; however, given the fact that she is about to undergo therapy, I justino richmonde that probably makes sense to go ahead and get her tune up this week and so that we can maximize h er rehabilitation in a short term. I will go ahead and order ultrasound guided paracentesis and we w ill go ahead and do some studies given that she has white count of 11.2, although that is consistent with where she was previously and likely unrelated. 3. Stage IV lung cancer. Patient has a PET scan pending tomorrow's follow up with Dr. Rich and r ight now is on Keytruda. 4. Peripheral edema likely due to low albumin and some compression with tense ascites. We will go a head and try to diurese with some IV Lasix and p.o. Aldactone again in an effort to try to get her to tune up for therapy. 5. Anemia. Patient has some chronic anemia likely related to her liver disease. Given that she sti ll sounds like she is fairly symptomatic, I am going to go ahead and give her 1 more unit of blood as well. 6. Chronic hypothyroidism. We will continue with her usual home medications.
[2018-06-19] MEDS ORDERED: LEVOTHYROXINE SODIUM 25 MCG PO SCH (09:00)
[2018-06-19] MEDS: Cyclobenzaprine 10 MG TAB PO SCH ×3 (09:08→20:43)
[2018-06-19] MEDS: HYDROcodone/Acetaminophen 10/325 mg Tablet PO SCH ×3 (09:09→20:43)
[2018-06-19] MEDS: ALPRAZolam 1 MG TAB PO SCH ×2 (09:09→20:43)
[2018-06-19] MEDS: Polyethylene Glycol 3350 17 GM Packet PO SCH (09:20)
--- NOTE | 2018-06-19 11:08 | ULT ---
LIMITED ABDOMINAL ULTRASOUND EXAMINATION: History: Intraperitoneal free fluid. Recurrent ascites. Date: 06-19-18 FINDINGS: Sonographic imaging of the abdomen was obtained in four separate quadrants as well as in the midline. No free intraperitoneal fluid is identified. IMPRESSION: No evidence of ascites. POS: [facility]
[2018-06-19] MEDS ORDERED: Non-Formulary Item 1 EACH (Cholecalciferol (Vitamin D3) [Vitamin D3] 2,000 UNIT) PO SCH (21:00)
[2018-06-19] MEDS ORDERED: Zolpidem Tartrate 5 MG TAB PO SCH (21:00)
[2018-06-19] MEDS ORDERED: ZOLPIDEM TARTRATE 10 MG PO SCH (21:00)
[2018-06-20 05:29] LABS: Anion Gap 15 mmol/L (10-20); BUN (Urea Nitrogen) 15 mg/dL (9.8-20.1); Calc. Creatinine Clearance 124 mL/min (70-130); Calcium 9.2 mg/dL (7.8-10.44); Carbon Dioxide 24 mmol/L (22-29); Chloride 97 mmol/L (98-107); Estimated GFR-MDRD 69; Glucose 79 mg/dL (70-105); Potassium 4.5 mmol/L (3.5-5.1); Sodium 131 mmol/L (136-145)
[2018-06-20] MEDS ORDERED: Levothyroxine Sodium 25 MCG TAB PO SCH (06:00)
[2018-06-20 06:02] LABS: #Basophils 0.2 thou/uL (0.0-0.2); #Eosinphils 0.5 thou/uL (0.0-0.7); #Lymphocytes 4.4 thou/uL (1.20-3.40); #Neutrophils 5.1 thou/uL (1.40-6.50); %Basophils 1.5 % (0.0-1.0); %Eosinophils 4.5 % (0.0-10.0); %Lymphocytes 39.6 % (21.0-51.0); %Monocytes 8.5 % (0.0-10.0); %Neutrophils 45.9 % (42.0-75.0); Hemoglobin 7.6 g/dL (12.0-16.0); Mean Corpuscular HGB CONC 30.6 g/dL (32.0-36.0); Mean Corpuscular Hemoglobin 26.2 pg (27.0-31.0); Mean Corpuscular Volume 85.7 fL (78.0-98.0); Mean Platelet Volume 10.2 fL (7.4-10.4); Platelet Count 550 thou/uL (130-400); RBC Distribution Width 17.1 % (11.5-14.5); White Blood Cell (WBC) Count 11.1 thou/uL (4.8-10.8)
[2018-06-20 07:40] VITALS: BP 110/69; TEMP 98
[2018-06-20] MEDS: Polyethylene Glycol 3350 17 GM Packet PO SCH (07:53)
[2018-06-20] MEDS: Cyclobenzaprine 10 MG TAB PO SCH (07:54)
[2018-06-20] MEDS: ALPRAZolam 1 MG TAB PO SCH (07:54)
[2018-06-20] MEDS: HYDROcodone/Acetaminophen 10/325 mg Tablet PO SCH (07:54)
--- NOTE | 2018-06-20 23:22 | DIS ---
DATE OF ADMISSION: 06/19/2018 DATE OF DISCHARGE: 06/20/2018 DISCHARGE DIAGNOSES: 1. Stage IV lung cancer. 2. Hepatitis C. 3. Cirrhosis. 4. History of ascites. 5. Peripheral edema. 6. Abdominal distention. 7. Generalized weakness. 8. History of iron deficiency anemia. HISTORY: This patient is a 53-year-old female who actually lives in [place]. She has been diag nosed with a stage IV lung cancer and is taking Keytruda. Patient presented with some shortness of b reath which she believes was related to worsening abdominal fullness. She has had a recent admission where she had paracentesis because of tense ascites. She felt like this had reoccurred and her abdo men was distended. She also had reported new peripheral edema and this was worsening her dyspnea on exertion, her shortness of breath and her generalized weakness. HOSPITAL COURSE: Patient was placed in observation. She was sent for ultrasound with a potential pa racentesis given that she did appear to have some abdominal distention. However, her ultrasound fail ed to reveal significant pockets of ascites that were amenable to paracentesis. The patient did rece earle IV diuresis with the addition of some Aldactone and she did respond to that with significant void ing. She had some persistent peripheral edema in spite of that. The patient was also seen and evalu ated by rehab for the possibility of going there for some improvement in her generalized weakness. O n the second day, the patient stated still had some peripheral edema, but did feel somewhat better. Her vital signs were stable. PHYSICAL EXAMINATION: VITAL SIGNS: On day of discharge, temperature was 98.0, pulse 81, respirations 20, O2 sat 93%, blood pressure was 110/69. GENERAL: Awake and alert. HEART: Regular rate and rhythm. LUNGS: Clear. ABDOMEN: Still slightly distended, but nontender. EXTREMITIES: 1-2+ edema to the level of the knee. LABORATORY DATA: White count 11.7, hemoglobin 7.6, platelets 550, sodium 131, potassium 4.5, chlorid e 97. DISPOSITION: The patient is discharged, she is to have regular activity level and her diet is low so dium. DISCHARGE MEDICATIONS: Include vitamin D 2000 units at bedtime, Edluar 10 mg at bedtime, Amitiza 24 mcg b.i.d. as needed, Elavil 100 mcg at bedtime, Flexeril 10 mg t.i.d. p.r.n., [place] 10/325 p.r.n., p antoprazole 40 every day, Xanax 1 mg b.i.d., MiraLax 17 grams every day, levothyroxine 25 mcg every d ay, aspirin 81 mg every day, Lasix 20 mg p.o. daily. She is to go for her PET scan at the time of discharge. She subsequently will follow up with Dr. Etelvina swain the following day to discuss the results of the PET scan and subsequent to that will determine i f she is a candidate for rehabilitation based on their assessment. The patient is encouraged to retu rn to the emergency department should she have any problems prior to her follow up.
== END 2018-06-20 10:41 | disposition home or self-care (01) ==
LOC: ERS 19:45 → T4-A 06-19 01:17
PROVIDERS: ADMIT Internal Medicine Infectious Disease; ATTEND Internal Medicine Infectious Disease
DX: R06.02 Shortness of breath (principal); C34.90 Malignant neoplasm of unspecified part of unspecified bronchus or lung; B19.20 Unspecified viral hepatitis C without hepatic coma; K74.60 Unspecified cirrhosis of liver; R60.0 Localized edema; R53.1 Weakness; D50.9 Iron deficiency anemia, unspecified; M19.90 Unspecified osteoarthritis, unspecified site; E03.9 Hypothyroidism, unspecified; F41.8 Other specified anxiety disorders; Z79.82 Long term (current) use of aspirin; Z79.899 Other long term (current) drug therapy
CPT/HCPCS: 36430; 71045; 76705; 80048; 80053; 81003; 85025 ×2; 85610; 85730; 86850; 86900; 86901; 86920; 96374; 96376; 97139 ×3; 99285; G0378 ×2; G8978; G8979; G8987; G8988; P9016; 36415; A4216; J1940; J2270

== ENCOUNTER 2018-06-20 11:04 | Outpatient (CLI) | payer MEDICARE, MEDICAID ==
--- NOTE | 2018-06-20 14:34 | PET ---
PET CT FROM SKULL TO MID THIGH: INDICATION: History of lung cancer. COMPARISON: Recent PET CT evaluation dated 12/29/17. RADIOPHARMACEUTICAL: 12.8 mCi [id number] IV was administered. TECHNIQUE: PET CT images were obtained from the skull to the mid-thigh following introduction of IV radiotracer. CT images were obtained for attenuation correction purposes only. FINDINGS: Biodistribution for the examination appears acceptable. Head/Neck: The enlarged hypermetabolic left Level II lymph node now measures 2.5 cm, where it previously measure d 1.9 cm, with a peak SUV value of 3.76 and a mean value of 3.6. No additional hypermetabolic lymphad enopathy is seen within the head and neck region. Chest: There is new hypermetabolic right subclavicular lymph node and right paratracheal lymph node. The rig ht subclavicular lymph node measures 1.3 cm with a peak SUV value of 7.5 and a mean value of 6.74. Th e right paratracheal enlarged lymph node measures 1.5 cm with peak SUV of 7.53 and a mean value of 7. 07. Hypermetabolic right paratracheal and prevascular lymph nodes are stable in size with peak SUV uptake involving the right paratracheal lymph node with of 10.84 and mean value of 10.53. The peak SUV valu e of the prevascular lymph node was 6.67 and mean value of 5.6. There is a new 1.5 cm subcarinal hypermetabolic lymph node measuring 5.1 peak SUV with a mean value o f 4.32. Right upper lobe pulmonary nodule is increased in size, measuring 1.4 cm, with a peak SUV value of 6. 79 and a mean value of 5.45. The left lower lobe mass is slightly decreased in size, now measuring 3.2 cm, but with persistent hyp ermetabolic activity with a peak SUV value of 6.96 and mean value of 5.96. The nonhypermetabolic epicardial lymph nodes are stable. Small pericardial cyst along the right heart border is stable. There has been interval development of some shotty appearing lymph nodes within th e axillary region without associated hypermetabolic uptake. There is a small right pleural effusion. Abdomen/Pelvis: No hypermetabolic mass or lymphadenopathy is evident. There is mild anasarca. There is mild free fluid in the pelvis, which is nonhypermetabolic. Skin/Osseous Structures: No hypermetabolic skin or osseous abnormality is demonstrated. IMPRESSION: 1. Abnormal PET CT. Findings of mixed response to therapy. 2. Worsening hypermetabolic mediastinal and right subclavicular lymphadenopathy. 3. The hypermetabolic right upper lobe nodule is slightly increased in size from the comparison exam ination. The left lower lobe mass is slightly decreased in size. 4. Hypermetabolic left Level II lymph node is slightly increased in size from the comparison examina tion. 5. No evidence of hypermetabolic metastatic disease in abdomen or pelvis, or skin and osseous struct ures. 6. Anasarca and small right pleural effusion. POS: [facility]
== END 2018-06-20 11:05 | disposition home or self-care (01) ==
LOC: PET 11:04
PROVIDERS: ATTEND Internal Medicine Hematology & Oncology
DX: C34.90 Malignant neoplasm of unspecified part of unspecified bronchus or lung (principal); R59.0 Localized enlarged lymph nodes; R91.8 Other nonspecific abnormal finding of lung field; J90 Pleural effusion, not elsewhere classified
CPT/HCPCS: 78815; A9552

== ENCOUNTER 2018-06-21 11:26 | Day surgery (SDC) | payer MEDICARE, MEDICAID ==
[2018-06-21 11:56] VITALS: BP 128/58; TEMP 98
[2018-06-21] MEDS ORDERED: Sodium Chloride 0.9% 20 ML ONE (11:59)
[2018-06-21] MEDS ORDERED: Pembrolizumab 200 MG in Sodium Chloride 0.9% 250 ML 250 ML IV SCH (12:00)
--- NOTE | 2018-06-21 13:33 | EKG ---
Test Reason : CP Blood Pressure : / mmHG Vent. Rate : 091 BPM Atrial Rate : 091 BPM P-R Int : 152 ms QRS Dur : 082 ms QT Int : 362 ms P-R-T Axes : 071 001 056 degrees QTc Int : 445 ms Normal sinus rhythm Possible Left atrial enlargement Borderline ECG Confirmed by BLANCA RODRIGUEZ, CARMELA ([id number]), assignment editor RIKKI NOEL ([id number]) on 06/21/2018 1:32:51 PM Referred By: Confirmed By:CARMELA RIOS MD
== END 2018-06-21 15:56 ==
LOC: ONC/OP 11:26
PROVIDERS: ATTEND Internal Medicine Hematology & Oncology
DX: Z51.11 Encounter for antineoplastic chemotherapy (principal); C34.32 Malignant neoplasm of lower lobe, left bronchus or lung; F17.200 Nicotine dependence, unspecified, uncomplicated; Z79.82 Long term (current) use of aspirin; Z79.899 Other long term (current) drug therapy
CPT/HCPCS: 36415; 84443; 93005; 96413; A4216; J1642; J7050; J9271

== ENCOUNTER 2018-06-30 20:45 | Inpatient (IN) | payer MEDICARE, MEDICAID ==
--- NOTE | 2018-06-30 21:32 | RAD ---
CHEST ONE VIEW: 06/30/18 HISTORY: 53-year-old female with history of dyspnea, bilateral lower extremity swelling. COMPARISON: 06/26/18. FINDINGS: Right subclavian catheter injection port. Cardiomegaly with bilateral vascular congestion and some in terstitial and alveolar parenchymal changes which are more prominent in the perihilar regions than wh en compared to the prior study suggesting some developing edema. There is minimal cardiomegaly. IMPRESSION: Cardiomegaly with bilateral vascular congestion and some interstitial and alveolar parenchymal change s bilaterally certainly worrisome for some worsening bilateral pulmonary edema and right pleural effu pablo. These parenchymal changes have worsened from the prior study. Continued short term followup. POS: [facility]
[2018-06-30 21:39] LABS: ALT (SGPT) 68 U/L (8-55); AST (SGOT) 74 U/L (5-34); Albumin 2.5 g/dL (3.5-5.0); Alkaline Phosphatase 237 U/L (40-150); Anion Gap 17 mmol/L (10-20); BUN (Urea Nitrogen) 27 mg/dL (9.8-20.1); Bilirubin, Total 1.5 mg/dL (0.2-1.2); Calc. Creatinine Clearance 0 mL/min (70-130); Calcium 8.8 mg/dL (7.8-10.44); Carbon Dioxide 26 mmol/L (22-29); Chloride 87 mmol/L (98-107); Estimated GFR-MDRD 70; Globulin 5.6 g/dL (2.4-3.5); Glucose 89 mg/dL (70-105); Potassium 4.4 mmol/L (3.5-5.1); Protein, Total 8.1 g/dL (6.0-8.3); Sodium 126 mmol/L (136-145)
[2018-06-30 21:44] LABS: CKMB 0.5 ng/mL (0-6.6); Troponin I Less than 0.010 ng/mL (< 0.028)
[2018-06-30 21:52] LABS: Hemoglobin 7.8 g/dL (12.0-16.0); Hypochromia SLIGHT = 6-15 cells (100X) (0-5/hpf); Lymphocytes 51 % (21-51); MDiff Complete? YES; Mean Corpuscular HGB CONC 31.9 g/dL (32.0-36.0); Mean Corpuscular Hemoglobin 26.6 pg (27.0-31.0); Mean Corpuscular Volume 83.4 fL (78.0-98.0); Mean Platelet Volume 10.5 fL (7.4-10.4); Monocytes 4 % (0-10); Neutrophil 45 % (42-75); PLT Morphology Comment Appears Increased; Platelet Count 473 thou/uL (130-400); RBC Distribution Width 17.4 % (11.5-14.5); Red Blood Cell (RBC) Count 2.92 mill/uL (4.20-5.40); Target Cells MODERATE= 6-15 cells (100X) (0-1/hpf); White Blood Cell (WBC) Count 11.9 thou/uL (4.8-10.8)
[2018-06-30] MEDS ORDERED: ALPRAZolam 0.25 MG TAB ONE (22:18)
[2018-06-30] MEDS ORDERED: Nitroglycerin 2% Ointment 1 INCH/1 GM Packet ONE (22:19)
[2018-06-30] MEDS ORDERED: Furosemide 20 MG/2 ML VIAL ONE (22:19)
[2018-06-30] MEDS ORDERED: Furosemide 40 MG/4 ML VIAL ONE (22:19)
[2018-06-30] MEDS ORDERED: Ondansetron HCl/PF 4 MG/2 ML Vial IVP PRN (23:17)
[2018-06-30] MEDS ORDERED: Ondansetron ODT 4 MG TAB PO PRN (23:17)
[2018-06-30] MEDS ORDERED: Bisacodyl 5 MG TAB PO PRN (23:17)
[2018-06-30] MEDS ORDERED: Lubiprostone 24 MCG CAP PO PRN (23:22)
[2018-06-30] MEDS ORDERED: IRON SUCROSE COMPLEX 100 MG/5 ML SLOW IVP SCH (23:30)
[2018-06-30] MEDS ORDERED: Enoxaparin Sodium 40 MG/0.4 ML SYRINGE SC SCH (23:30)
[2018-07-01 00:44] LABS: Troponin I Less than 0.010 ng/mL (< 0.028)
[2018-07-01] MEDS ORDERED: Sodium Ferric Gluconate 125 MG in Sodium Chloride 0.9% 100 ML IVPB SCH (02:00)
[2018-07-01 03:31] LABS: Eosinophils 2 % (0-10); Hemoglobin 7.5 g/dL (12.0-16.0); Hypochromia SLIGHT = 6-15 cells (100X) (0-5/hpf); Lymphocytes 49 % (21-51); MDiff Complete? YES; Mean Corpuscular HGB CONC 31.7 g/dL (32.0-36.0); Mean Corpuscular Hemoglobin 26.6 pg (27.0-31.0); Mean Corpuscular Volume 83.9 fL (78.0-98.0); Mean Platelet Volume 10.4 fL (7.4-10.4); Monocytes 6 % (0-10); Neutrophil 43 % (42-75); PLT Morphology Comment Appears Increased; Platelet Count 452 thou/uL (130-400); RBC Distribution Width 17.1 % (11.5-14.5); Red Blood Cell (RBC) Count 2.81 mill/uL (4.20-5.40); Target Cells SLIGHT = 2-5 cells (100X) (0-1/hpf); White Blood Cell (WBC) Count 11.8 thou/uL (4.8-10.8)
[2018-07-01 03:33] LABS: Troponin I Less than 0.010 ng/mL (< 0.028)
[2018-07-01 04:01] LABS: Anion Gap 15 mmol/L (10-20); BUN (Urea Nitrogen) 27 mg/dL (9.8-20.1); Calc. Creatinine Clearance 126 mL/min (70-130); Calcium 8.6 mg/dL (7.8-10.44); Carbon Dioxide 27 mmol/L (22-29); Chloride 87 mmol/L (98-107); Estimated GFR-MDRD 73; Glucose 82 mg/dL (70-105); Potassium 3.6 mmol/L (3.5-5.1); Sodium 125 mmol/L (136-145)
[2018-07-01] MEDS: Levothyroxine Sodium 25 MCG TAB PO SCH (06:08)
[2018-07-01] MEDS: HYDROcodone/Acetaminophen 10/325 mg Tablet PO SCH ×3 (09:20→21:06)
[2018-07-01] MEDS: ALPRAZolam 1 MG TAB PO SCH ×2 (09:20→21:05)
[2018-07-01] MEDS: Furosemide 40 MG/4 ML VIAL SLOW IVP SCH (09:21)
[2018-07-01] MEDS: Cyclobenzaprine 10 MG TAB PO SCH ×3 (09:21→21:07)
[2018-07-01] MEDS: Famotidine 20 MG TAB PO SCH ×2 (09:21→21:05)
[2018-07-01] MEDS: Polyethylene Glycol 3350 17 GM Packet PO SCH (09:21)
--- NOTE | 2018-07-01 09:55 | HP ---
CHIEF COMPLAINT: Shortness of breath. HISTORY OF PRESENT ILLNESS: This is a 53-year-old female with multiple comorbidities who presented w ith shortness of breath, which has been ongoing for the past couple of days. The patient was recentl y admitted and patient was discharged for rehabilitation. Patient recently just got discharged from rehabilitation within 2 hours. The patient just returned to the hospital, because the patient is hav ing shortness of breath and patient has significant lower extremity edema about 4+ and the patient st ates that she is not able to walk. She is having a lot of shortness of breath with exertion and she has put on about 30 pounds since the last time she left the hospital. REVIEW OF SYSTEMS: Positive for shortness of breath, bilateral lower extremity edema, abdominal disc omfort, chest pressure, otherwise as documented in the HPI. All other systems are reviewed and are n egative. PAST MEDICAL HISTORY: Significant for, 1. Heart failure with preserved ejection fraction with left ventricular ejection fraction of 50%-55% . 2. Obesity. 3. Squamous cell lung cancer stage IV. 4. Hepatitis C. PAST SURGICAL HISTORY: The patient had left knee surgery, splenectomy, tonsillectomy, hysterectomy, and colonoscopy in the past. PSYCHIATRIC HISTORY: Includes anxiety, depression. SOCIAL HISTORY: Patient is a former tobacco user, quit less than 10 years ago. Patient states that she smoked E-cigarettes. Patient denies alcohol use. The patient denies any illicit drug use. FAMILY HISTORY: Reviewed and noncontributory to this visit. KNOWN ALLERGIES: No known drug allergies. CURRENT MEDICATIONS: The patient takes, 1. [place]. 2. Flexeril 10 mg. 3. Alprazolam 1 mg 2 times a day. 4. Zolpidem 10 mg. 5. Amitriptyline. 6. Lasix 20 mg. 7. MiraLax. 8. Aspirin. PHYSICAL EXAMINATION: VITAL SIGNS: In the ED, the patient's blood pressure is 117/71, pulse 82, respiratory rate 26, tempe rature 98, O2 sat of 93% on 2 liters nasal cannula. GENERAL APPEARANCE: The patient is sitting in bed, using abdominal muscles to breathe. However, abl e to speak in full sentences and does not appear to really be in acute distress. Patient does have s hortness of breath. She is alert and oriented x3. HEENT: Normocephalic, atraumatic. Pupils are equally round and reactive to light. Extraocular move ments are intact. No scleral icterus. NECK: Supple. JVD is appreciated. Trachea is midline. RESPIRATORY: Lung sounds are clear, no wheezing, no rales, no rhonchi is appreciated. CARDIOVASCULAR: Positive S1, S2, regular rate and rhythm. No murmurs, no gallops or rubs appreciate d. ABDOMEN: Patient has obese abdomen and ascites, no tenderness. EXTREMITIES: The upper extremity has 5/5 upper extremity strength. Radial pulses are intact. Lower extremity, patient has 4+ pitting edema bilaterally of the lower extremities. NEUROLOGIC: No focal neurological deficits noted. SKIN: Warm, dry, and intact. EMERGENCY DEPARTMENT COURSE: The patient received Lasix 60 mg, aspirin, nitro 1 inch, alprazolam 1 m g. X-RAY FINDINGS: Chest x-ray showed cardiomegaly with bilateral vascular congestion and some intersti tial and alveolar parenchymal changes bilaterally, some worsening bilateral pulmonary edema and right pleural effusions. LABORATORY DATA: WBC 11.9, hemoglobin 7.8, hematocrit 24.4, platelet count 473. Sodium 126, potassi um 4.4, chloride 87, BUN 27, creatinine 0.85. Serum osmolality 275, total bilirubin is 1.5, AST 74, ALT 68, alkaline phosphatase 237. BNP is 2085. ASSESSMENT AND PLAN: This is a 53-year-old female with a significant past medical history being admi tted for congestive heart failure exacerbation. At this point, the patient has been started on Lasix . We will continue Lasix and we have consulted Cardiology to help with diuresing the patient. Patie nt will have multiple comorbidities and the patient's prognosis is currently guarded. The patient is DNR/DNI. We have consulted palliative care to talk to the patient regarding goals of care. I think the patient will benefit from hospice care at this point. Since the patient has had major organ abhishek lure in terms of like stage IV squamous cell carcinoma, it will be beneficial for the patient t o just receive a noninvasive treatment. We will follow up with palliative care recommendations. 1. Iron deficiency anemia. Currently, we will start the patient on Venofer. The patient's hemoglob in is trending down. We will transfuse when hemoglobin is less than 7. 2. Hyponatremia, most likely due to fluid overload or patient being in pain or it could be multiple such as the patient's cancer causing a possible syndrome of inappropriate antidiuretic hormone secretion type of picture with fluid overload also leading to more hyponatremia. At this point, we a re going to monitor the patient's sodium closely. We will do Lasix IV treatments and we will order s belle osmolarity and urine spot sodium to find out the exact cause of patient's hyponatremia. 3. History of squamous cell carcinoma, status post chemo. At this point, the patient is having marjorie re shortness of breath and as stated in assessment and plan #1, the patient will benefit from hospice evaluation. 4. History of depression and anxiety. We will continue the patient on her home medications. 5. Deep venous thrombosis and gastrointestinal prophylaxis.
[2018-07-01 13:01] LABS: Osmolality, Urine 352 mOsm/kg (300-900)
--- NOTE | 2018-07-01 13:19 | PDOC.EVN ---
Event Note - Event Note Event Note: Known to me from previous admission. Had similar sx then. Had echo with pulm htn and RHF. Based on her history I had thought she had a therapeutic paracentesis, but it was apparently just diagnostic. She had a PET CT after discharge. It revealed mixed results, but no evidence of tumor in the abdomen. She then went to rehab. Was not getting up and around very well there. Was discharge. Barely made it up the two steps into the front door of the where she is living due to SOB. Back to ED. Very edematous in LE's. Had lasix in ED. 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 Will continue to diurese, but will likely be minimally effective. May need to re-evaluate her ability to continue treatment. Palliative care, PT, wound care consult.
[2018-07-01 13:52] LABS: Sodium, Urine Less than 20 mmol/L (Not Available)
--- NOTE | 2018-07-01 15:08 | CON ---
DATE OF CONSULTATION: 07/01/2018 CARDIOLOGY CONSULT NOTE INDICATION FOR CONSULTATION: A 53-year-old female with multiple medical problems. She has developed significant lower extremity edema and hyponatremia. HISTORY OF PRESENT ILLNESS: This is a very unfortunate 53-year-old female with multiple medical prob lems, has stage IV lung cancer. She also has cirrhosis of liver. She has history of hepatitis C whi ch she has had for 25-30 years. She has obesity. She has congestive heart failure which most likely appears to be right-sided failure with dilated right chambers and has a normal left ventricular syst olic function. She also has chronic anemia and we were asked to see her to help with the lower extre mity edema. Unfortunately, she has had this edema for several months now, it has been ongoing and co ntinues to get worse. She has been on Keytruda for her lung cancer. Her BNP actually was 2085, her creatinine 0.82, her sodium was 125. She also has elevated liver function tests due to her liver con gestion likely and she has chronic anemia. Her hemoglobin is now 7.5. She has been designated as a DNR patient. Apparently this weight gain at least 30 pounds of fluid since she was recently in the ospital and had been actually in rehab and then immediately was at a rehab very short period of time. Within hours returned to the hospital due to increasing shortness of breath. PAST MEDICAL HISTORY: Significant for stage IV lung cancer, squamous cell, hepatitis C, cirrhosis, s he has had obesity. She has a history of knee surgery, splenectomy, tonsillectomy, hysterectomy. Sh marii has had a colonoscopy. There has been no clear indication why she has bleeding, why she is so anem ic, but this may be due to her overall general poor health just anemia of chronic disease, but this a ppears to be relatively severe. She also has severe nosebleeds in the past which may be contributing some to her anemia. Her ejection fraction showed systolic function with ejection fraction of 50%-55 %, but BNP was elevated 2085 and this appears to be all a right-sided failure, most likely associated with her cirrhosis as well as her lung cancer and history of COPD with history of tobacco abuse in t he past. She also has a history of anxiety and depression. FAMILY HISTORY: Noncontributory. ALLERGIES: None. MEDICATIONS: Include Flexeril, alprazolam, Gordon, zolpidem, Lasix, MiraLax, aspirin, amitriptyline. They are holding the Lasix due to the hyponatremia. REVIEW OF SYSTEMS: Please refer to the notes already dictated. She has multiple complaints associat ed with the lower extremity edema and shortness of breath, but she denies any chest pain. PHYSICAL EXAMINATION: GENERAL: Reveals a short statured obese female who is in no acute distress at this time. HEENT: Shows head to be normocephalic, atraumatic. Carotid pulses are present. I did not hear any significant bruits. CHEST: Has decreased breath sounds in the right mid to lower base area. I did not hear any rales, r honchi or wheezing. CARDIOVASCULAR: Exam reveals a regular rate and rhythm. I did not hear any significant murmurs, hea ves, thrills, bruits or rubs. ABDOMEN: Shows obesity. She has ascites up to almost the sternal border. I did not palpate any mas ses due to the edema. EXTREMITIES: Show 3-4+ lower extremity edema essentially from the abdominal area all the way down to the feet. Pedal pulses are difficult to palpate due to the edema. NEUROLOGIC: She appears to be intact. I did not elicit any gross focal motor deficit. She does hav e difficulty to walk just due to the edema. LABORATORY DATA AND IMAGING DATA: Shows hemoglobin of 7.5, WBC 11.8, hematocrit 23.5, platelet count was 452,000. Chemistry shows sodium 125. She has chronic hyponatremia, chloride was 87, potassium 3.6, BUN 27 with creatinine 0.82. Cardiac enzymes are negative. BNP was 2085. Her AST is slightly elevated at 74, ALT is 68, alkaline phosphatase is 237. Most likely this is due to liver engorgement from her right-sided heart failure. IMPRESSION: 1. Severe lower extremity edema and anasarca all the way up to the sternal border due to most likely right-sided heart failure. She may have diastolic dysfunction, but she has had difficulty in diures ing the fluid due to the hyponatremia. Unfortunately, she has significant symptoms associated with t he edema including the shortness of breath and inability to walk due to large amount of edema. At th is time, the best option would be to fluid restrict her to 800 mL a day. We could possibly consider Samsca 50 mg tablet to see whether or not she will respond; however, it is contraindicated in people with hepatic disease and would need to hold off on this medication at this time. Otherwise, we will just have to volume restrict her and then give diuretics as needed and even add low dose of normal sa line. There is no indication that she has any systolic heart failure and again appears right-sided h eart failure. It is very little more that I have offered this patient from a cardiac standpoint. 2. Stage IV lung cancer. The patient is a DNR patient and may need to have a hospice or palliative care. 3. Chronic anemia. She may eventually need to have a transfusion, but if she is a DNR patient, this may not be an option. As far as her hyponatremia, this most likely is due to syndrome of inappropri ate antidiuretic hormone secretion associated with her lung cancer. 4. History of depression and anxiety. This may be contributing some to her increasing shortness of breath. At this time, we will be more than happy to continue to follow the patient with you, but her prognosis is very dismal.
[2018-07-01] MEDS: Amitriptyline HCl 100 MG TAB PO SCH (21:05)
[2018-07-02] MEDS: Levothyroxine Sodium 25 MCG TAB PO SCH (03:22)
[2018-07-02] MEDS: Acetaminophen 325 MG TAB PO PRN (03:22)
[2018-07-02 05:17] LABS: Anion Gap 14 mmol/L (10-20); BUN (Urea Nitrogen) 23 mg/dL (9.8-20.1); Calc. Creatinine Clearance 128 mL/min (70-130); Carbon Dioxide 27 mmol/L (22-29); Chloride 87 mmol/L (98-107); Estimated GFR-MDRD 74; Glucose 95 mg/dL (70-105); Sodium 124 mmol/L (136-145)
[2018-07-02] MEDS ORDERED: Prevnar 13-Val Conj/PF 0.5 ML SYRINGE IM ONE (09:00)
[2018-07-02] MEDS: Famotidine 20 MG TAB PO SCH ×2 (09:13→21:36)
[2018-07-02] MEDS: HYDROcodone/Acetaminophen 10/325 mg Tablet PO SCH ×3 (09:13→21:36)
[2018-07-02] MEDS: ALPRAZolam 1 MG TAB PO SCH ×2 (09:14→21:37)
[2018-07-02] MEDS: Cyclobenzaprine 10 MG TAB PO SCH ×3 (09:14→21:36)
[2018-07-02] MEDS: Furosemide 40 MG/4 ML VIAL SLOW IVP SCH (09:14)
[2018-07-02] MEDS: Polyethylene Glycol 3350 17 GM Packet PO SCH (09:15)
--- NOTE | 2018-07-02 14:15 | PDOC.PN ---
- Subjective Encounter Start Date: 07/02/18 Encounter Start Time: 10:10 Doing ok today. No new concerns. She did talk with her family about POA issues. Would like to make some decisions on that. - Objective Resuscitation Status: Resuscitation Status DNR:Do Not Resuscitate Vital Signs & Weight: Vital Signs (12 hours) Temp Pulse Resp BP BP Pulse Ox 07/02/18 13:34 76 16 97 07/02/18 12:37 97.9 F 82 17 124/59 L 92 L 07/02/18 09:07 98.0 F 82 18 123/61 94 L 07/02/18 04:51 97.5 F L 82 26 H 122/60 92 L 07/02/18 04:36 94 L 07/02/18 04:33 93 L Weight Weight 224 lb 4.8 oz I&O: 07/01/18 07/02/18 07/03/18 06:59 06:59 06:59 Intake Total 400 Balance 400 Result Diagrams: 07/01/18 03:00 07/02/18 04:49 Phys Exam - Physical Examination Constitutional: NAD Respiratory: no wheezing, no rales, no rhonchi, clear to auscultation bilateral Cardiovascular: RRR, no significant murmur, no rub Gastrointestinal: soft, non-tender 3+ edema of LE's and extends higher. Psychiatric: normal affect Dx/Plan (1) SCC (squamous cell carcinoma of lung) Code(s): C34.90 - MALIGNANT NEOPLASM OF UNSP PART OF UNSP BRONCHUS OR LUNG Status: Chronic Qualifiers: Comment: On ChemoRx with Keytruda [id number]. Followed by Dr. Rich. (2) Right heart failure Status: Acute (3) Anasarca Code(s): R60.1 - GENERALIZED EDEMA Status: Acute Comment: Attempting diuresis. (4) Dyspnea Code(s): R06.00 - DYSPNEA, UNSPECIFIED Status: Acute - Plan * Appreciate Cards consult. As anticipated, there is little to be done for the RHF and anasarca. Underlying issue is the lung cancer that is likely causing some pulmonary hypertension. Her functional status if very poor right now. She cannot get up the steps to her home. Need to get Oncology to weigh in on continued treatment options v. hospice. May need placement. She says her quality of life is gone and she is ready to accept whatever is coming.
--- NOTE | 2018-07-02 14:38 | PDOC.CTH ---
<Reina Braden - Last Filed: 07/02/18 14:35> Cardiology Progress Note - Subjective The pt seen and examined. No overnight events. No cardiac complaints. She stated she does not want to do anything, but rest today. - Objective Vital Signs Temp Pulse Resp BP BP Pulse Ox 07/02/18 13:34 76 16 97 07/02/18 12:37 97.9 F 82 17 124/59 L 92 L 07/02/18 09:07 98.0 F 82 18 123/61 94 L 07/02/18 04:51 97.5 F L 82 26 H 122/60 92 L 07/02/18 04:36 94 L 07/02/18 04:33 93 L Weight 224 lb 4.8 oz 07/01/18 07/02/18 07/03/18 06:59 06:59 06:59 Intake Total 400 Balance 400 - Physical Examination General/Neuro: alert & oriented x3 Neck: no JVD present Lungs: other: (coarses and diminished at bases) Heart: RRR Abdomen: soft Extremities: other: (severe BLE edema) - Telemetry Telemetry Rhythm: SR 80s - Labs Result Diagrams: 07/01/18 03:00 07/02/18 04:49 Troponin/CKMB CK-MB (CK-2) 0.5 ng/mL (0-6.6) 06/30/18 21:11 Troponin I Less than 0.010 ng/mL (< 0.028) 07/01/18 03:00 - Assessment/Plan 1. Acute on Chronic diastolic HF with severe BLE edema - unchanged with Lasix 40mg IV daily per the pt. Will start Lisinopril 5mg qd, daily weight, strict I& O. Fluid restriction 800ml/day 2. Hyponatremia - Strict I&O. Fluid restriction 800ml/day 3. stage 4 Lung Cancer - will be followed by oncology service 4. COPD - unchanged 5. Anemia - unchanged 6. Hx of Hep C and Cirrhosis - 7. Anxiety and depression - MAR reviewed Echo on showed EF 50-55%, mild dilated LA, mild-mod MR, mod-severe TR , PAP 50 mmHg, IVC with poor inspiration collapse. Review of Systems - Review of Systems Constitutional: reports: weakness EENTM: reports: no symptoms reported Respiratory: reports: shortness of breath, SOB with excertion, SOB at rest Cardiac (ROS): reports: no symptoms reported ABD/GI: reports: no symptoms reported : reports: no symptoms reported Musculoskeletal: reports: back pain, joint pain <Kenney Jacobson - Last Filed: 07/02/18 18:40> Cardiology Progress Note - Objective Vital Signs Temp Pulse Resp BP Pulse Ox 07/02/18 15:26 83 07/02/18 15:21 98.1 F 83 19 112/57 L 93 L 07/02/18 13:34 76 16 97 07/02/18 12:37 97.9 F 82 17 124/59 L 92 L 07/02/18 09:07 98.0 F 82 18 123/61 94 L Weight 224 lb 4.8 oz 07/01/18 07/02/18 07/03/18 06:59 06:59 06:59 Intake Total 400 Balance 400 - Labs Result Diagrams: 07/01/18 03:00 07/02/18 04:49 Troponin/CKMB CK-MB (CK-2) 0.5 ng/mL (0-6.6) 06/30/18 21:11 Troponin I Less than 0.010 ng/mL (< 0.028) 07/01/18 03:00 - Assessment/Plan Pt. seen and eval. by me. I agree with the A/P by the ASSOCIATE PROFESSOR OF MUSICOLOGY.
[2018-07-02] MEDS ORDERED: Lisinopril 5 MG TAB PO SCH ×2 (15:00)
[2018-07-02] MEDS ORDERED: Benzonatate 100 MG CAP PO SCH (15:45)
[2018-07-02] MEDS: Amitriptyline HCl 100 MG TAB PO SCH (21:37)
[2018-07-02] MEDS: Benzonatate 100 MG CAP PO SCH (21:40)
[2018-07-03 05:26] LABS: Anion Gap 15 mmol/L (10-20); BUN (Urea Nitrogen) 24 mg/dL (9.8-20.1); Calc. Creatinine Clearance 106 mL/min (70-130); Calcium 8.6 mg/dL (7.8-10.44); Carbon Dioxide 25 mmol/L (22-29); Chloride 89 mmol/L (98-107); Estimated GFR-MDRD 60; Glucose 80 mg/dL (70-105); Potassium 3.6 mmol/L (3.5-5.1); Sodium 125 mmol/L (136-145)
[2018-07-03] MEDS: Levothyroxine Sodium 25 MCG TAB PO SCH (05:30)
[2018-07-03] MEDS: ALPRAZolam 1 MG TAB PO SCH ×2 (07:45→21:06)
[2018-07-03] MEDS: HYDROcodone/Acetaminophen 10/325 mg Tablet PO SCH ×3 (07:46→21:06)
--- NOTE | 2018-07-03 08:21 | RAD ---
TWO VIEWS LEFT HIP: HISTORY: Fall. Pain. COMPARISON: None. FINDINGS: Displaced intratrochanteric fracture. IMPRESSION: Displaced intertrochanteric fracture. POS: RADHA
--- NOTE | 2018-07-03 08:22 | RAD ---
FOUR VIEWS CALVARIUM: HISTORY: Unwitnessed fall. COMPARISON: None. FINDINGS: Based on the images provided, calvarium does appear to be intact. If there is concern for calvarial injury or possible intracranial posttraumatic sequelae, noncontrast head CT is recommended. IMPRESSION: Unremarkable skull radiograph series. Consider additional imaging if clinically warranted. POS: RADHA
[2018-07-03 10:03] LABS: Reticulocyte Count 2.7 % (0.5-1.5)
[2018-07-03 10:24] LABS: Band 1 % (5-11); Eosinophils 1 % (0-10); Hemoglobin 6.8 g/dL (12.0-16.0); Iron 20 ug/dL (50-170); Iron Binding Capacity, Total 378 mcg/dL (265-497); Lymphocytes 27 % (21-51); MDiff Complete? YES; Mean Corpuscular HGB CONC 30.6 g/dL (32.0-36.0); Mean Corpuscular Hemoglobin 25.5 pg (27.0-31.0); Mean Corpuscular Volume 83.4 fL (78.0-98.0); Mean Platelet Volume 10.4 fL (7.4-10.4); Monocytes 6 % (0-10); Neutrophil 64 % (42-75); PLT Morphology Comment Appears Increased; Platelet Count 558 thou/uL (130-400); Polychromasia MODERATE = 3-4 cells (100X) (0-2/hpf); RBC Distribution Width 17.4 % (11.5-14.5); Red Blood Cell (RBC) Count 2.68 mill/uL (4.20-5.40); Rouleaux Formation SLIGHT = 1-5 cells (100X) (None Seen); Target Cells MODERATE= 6-15 cells (100X) (0-1/hpf); White Blood Cell (WBC) Count 10.7 thou/uL (4.8-10.8)
--- NOTE | 2018-07-03 11:05 | CON ---
DATE OF CONSULTATION: 07/01/2018 REASON FOR CONSULTATION: Squamous cell carcinoma of the lungs. HISTORY OF PRESENT ILLNESS: A 53-year-old female with stage IV squamous cell lung with mets to B/L lung, currently on Keytruda, who presented to the hospital with ongoing shortness of breath and fluid overload. She showed signs of right heart failure with elevated BNP and severe peripheral edema along with pulmonary edema. Echocardiogram showed normal ejection fraction of 50%-55% with signs of right heart failure including moderate to severe tricuspid regurgitation and enlarged left atrium. The patient stated she could not walk a flight of stairs without becoming severely short of breath. She states she is only mildly improved since coming into the hospital. A recent PET scan showed mixed response, mostly stable disease to treatment. She has multiple spots of disease in the lungs, with most lesions approximately 1.5 cm in size. She has gained close to 30 pounds of fluid in the last few days once she was discharged from the hospital. REVIEW OF SYSTEMS: Ten system review of systems was completed. Pertinent positives are mentioned in the HPI. Otherwise, systems of review negative. PAST MEDICAL HISTORY: Squamous cell carcinoma of the lung, stage 4, uncontrolled; obesity, hepatitis C, heart failure with preserved ejection fraction. PAST SURGICAL HISTORY: Left knee surgery, splenectomy, tonsillectomy, hysterectomy. PSYCHIATRIC HISTORY: Anxiety, depression. SOCIAL HISTORY: Former smoker. Denies alcohol use. Denies illicit drug use. FAMILY HISTORY: Noncontributory to this visit. ALLERGIES: No known drug allergies. HOME MEDICATIONS: Reviewed. PHYSICAL EXAMINATION: VITAL SIGNS: Temperature 96.1, pulse 84, respirations 16, oxygen saturation 93 % on 2 liters by nasal cannula. GENERAL: The patient is sitting up in bed on nasal cannula, appears comfortable , able to speak in full sentences and does not appear to be short of breath. HEENT: Normocephalic, atraumatic. No scleral icterus. NECK: Supple. Mild JVD present. RESPIRATORY: Bilateral crackles at the bases of her lung hunter are clear to auscultation bilaterally. CARDIOVASCULAR: Normal S1, S2 with regular rate and rhythm. Soft 1-2/6 ejection murmur heard over the upper chest. ABDOMEN: Obese, soft and nontender. EXTREMITIES: 3+ pitting edema bilaterally. NEUROLOGIC: Nonfocal exam. SKIN: Warm, dry, and intact. LABORATORY DATA: White blood cells 11.8, hemoglobin 7.5, platelets 452. Sodium 125, chloride 87, BUN 27, creatinine 0.82, total bilirubin 1.5, AST 74, ALT 68, alkaline phosphatase 237. B-natriuretic peptide 2085.5, albumin 2.5. IMAGING DATA: Chest x-ray shows cardiomegaly with bilateral vascular congestion and some interstitial and alveolar parenchymal changes bilaterally, worrisome or worsening bilateral pulmonary edema and right pleural effusion. These changes have worsened from the prior study. ASSESSMENT AND PLAN: A 53-year-old female with stage IV squamous cell carcinoma of the lung with bilateral lung metastases, currently on Keytruda with stable disease, mixed response by PET imaging. Patient admitted for right-sided heart failure exacerbation. Currently, patient is being diuresed and treated with nebulizers. It is unlikely that the patient has right heart failure from her lung cancer lesions in the chest as the majority of the lesions are very small, most around 1.5 cm in size; with the exception of a left lower lobe mass measuring 3.2 cm. Recommend pulmonology consult to evaluate pulmonary hypertension and cause of right-sided heart failure Recommend continued aggressive diuresis to improve fluid overload and monitor serum sodium level MTDD
[2018-07-03] MEDS ORDERED: Sodium Ferric Gluconate 125 MG in Sodium Chloride 0.9% 100 ML IVPB SCH (12:00)
[2018-07-03] MEDS: Cyclobenzaprine 10 MG TAB PO SCH ×3 (12:17→21:06)
[2018-07-03] MEDS: Famotidine 20 MG TAB PO SCH ×2 (12:17→21:06)
[2018-07-03] MEDS: Lisinopril 5 MG TAB PO SCH (12:17)
[2018-07-03] MEDS: Polyethylene Glycol 3350 17 GM Packet PO SCH (12:17)
[2018-07-03] MEDS: Benzonatate 100 MG CAP PO SCH ×3 (12:18→21:07)
--- NOTE | 2018-07-03 13:08 | PDOC.CTH ---
<Reina Braden - Last Filed: 07/03/18 13:06> Cardiology Progress Note - Subjective The pt seen and examined. No cardiac complaints. S/p fall and fx Rt hip this AM. - Objective Vital Signs Temp Pulse Resp BP BP Pulse Ox 07/03/18 12:17 80 07/03/18 11:55 97.8 F 80 19 111/60 93 L 07/03/18 06:15 97 07/03/18 06:05 97.9 F 80 24 H 132/71 83 L 07/03/18 04:37 96.3 F L 72 13 95/54 L 90 L Weight 216 lb 6.4 oz 07/02/18 07/03/18 07/04/18 06:59 06:59 06:59 Intake Total 480 Output Total 1300 Balance -820 - Physical Examination General/Neuro: alert & oriented x3 Neck: no JVD present Lungs: other: (coarse and diminished at bases) Heart: RRR Abdomen: soft Extremities: other: (3-4+ pitting BLE edema) - Labs Result Diagrams: 07/03/18 09:26 07/03/18 05:01 Troponin/CKMB CK-MB (CK-2) 0.5 ng/mL (0-6.6) 06/30/18 21:11 Troponin I Less than 0.010 ng/mL (< 0.028) 07/01/18 03:00 - Assessment/Plan 1. Acute on Chronic diastolic HF with severe BLE edema - unchanged with Lasix 40mg IV daily per the pt. On Lisinopril 5mg qd. Not on BBlocker due to hx of COPD. Daily weight, strict I&O. Fluid restriction 800ml/day 2. Hyponatremia - Strict I&O. Fluid restriction 800ml/day 3. stage 4 Lung Cancer - will be followed by oncology service 4. COPD - unchanged. 5. Anemia - Hgb 6.7 today. Receiving Iron infusion with 2 units of PRBCs today. 6. Hx of Hep C and Cirrhosis - 7. Anxiety and depression - MAR reviewed * Echo on showed EF 50-55%, mild dilated LA, mild-mod MR, mod-severe TR, PAP 50 mmHg, IVC with poor inspiration collapse. Review of Systems - Review of Systems Constitutional: reports: weakness EENTM: reports: no symptoms reported Respiratory: reports: shortness of breath, SOB with excertion Cardiac (ROS): reports: no symptoms reported ABD/GI: reports: no symptoms reported : reports: no symptoms reported Musculoskeletal: reports: see HPI, back pain, joint pain Skin: reports: no symptoms reported Neurological: reports: no symptoms reported <Kenney Jacobson - Last Filed: 07/03/18 22:36> Cardiology Progress Note - Objective Vital Signs Temp Pulse Pulse Resp BP BP Pulse Ox 07/03/18 21:30 98.7 F 85 18 103/58 L 92 L 07/03/18 19:25 98.9 F 85 18 92 L 07/03/18 18:22 98.4 F 85 20 128/70 92 L 07/03/18 16:46 98.7 F 83 20 128/57 L 93 L 07/03/18 15:13 97.9 F 83 20 113/64 92 L 07/03/18 14:58 98.0 F 82 19 110/56 L 92 L 07/03/18 12:17 80 07/03/18 11:55 97.8 F 80 19 111/60 93 L Weight 216 lb 6.4 oz 07/02/18 07/03/18 07/04/18 06:59 06:59 06:59 Intake Total 480 690 Output Total 1300 200 Balance -820 490 - Labs Result Diagrams: 07/03/18 09:26 07/03/18 05:01 Troponin/CKMB CK-MB (CK-2) 0.5 ng/mL (0-6.6) 06/30/18 21:11 Troponin I Less than 0.010 ng/mL (< 0.028) 07/01/18 03:00 - Assessment/Plan Pt. seen and eval. by me.I agree with the A/P by the FLIGHT ATTENDANT. An unfortunate fall this AM resulted in a left hip fracture. She is planned for repair tomorrow . Blood transfusions today . The lower extremity edema/anasarca does not appear improved. She is fluid restricted to avoid further hyponatremia.
--- NOTE | 2018-07-03 15:39 | CON ---
DATE OF CONSULTATION: 07/03/2018 RE[facility]ING PHYSICIAN: [facility] CONSULTING PHYSICIAN: Dr. Sb Bailey. REASON FOR CONSULTATION: Left hip fracture. HISTORY OF PRESENT ILLNESS: This is a 53-year-old female with multiple comorbidities, who was admitted to our facility on 07/01/2018 for shortness of breath. The patient had just been discharged from rehabilitation. Patient also presented with significant lower extremity edema of about 4+ and the inability to walk. She was admitted for congestive heart failure exacerbation. Of significance, the patient does have history of squamous cell carcinoma, currently receiving Keytruda. 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 At the current time she is currently being diuresed and treated for anemia. Today, she is to receive blood. Our service has been consulted after the patient was in a bedside chair this morning and attempted to get up on her own to go to the bathroom. She fell landing onto her left side. She was found to have an intertrochanteric femur fracture on x-rays and our service has been consulted for this reason. Currently, at bedside, the patient reports left hip pain. She denies any other injuries or pain to any other extremities. She denies a history of previous hip fractures. She denies any numbness or tingling to the left lower extremity. She states that she lives at home in [place] with her father. She states that she normally ambulates with a cane, but has had more difficulty lately with feeling unsteady. PAST MEDICAL HISTORY: Significant for squamous cell carcinoma of the lung; stage 4, obesity, hepatitis C, heart failure with preserved ejection fraction. PAST SURGICAL HISTORY: Significant for left knee surgery, splenectomy, tonsillectomy, hysterectomy. PSYCHIATRIC HISTORY: Significant for anxiety, depression. SOCIAL HISTORY: Former smoker, denies alcohol use, denies illicit drug use. As stated above, patient lives with her father in [place], [place]. FAMILY HISTORY: Noncontributory. ALLERGIES: No known drug allergies. REVIEW OF SYSTEMS: Ten-point review of systems completed and negative except for as stated above. PHYSICAL EXAMINATION: VITAL SIGNS: Temperature 97.8, pulse of 80, respiratory rate of 19. Patient is on 2 liters nasal cannula oxygen with an oxygen saturation of 93%. Blood pressure 111/60. GENERAL: The patient is awake and alert. She is in no acute distress upon my examination. She is pleasant and cooperative with exam findings today. HEAD: Normocephalic, atraumatic. NECK: Supple. Trachea is midline. LUNGS: Patient does have conversational dyspnea. She is not currently in any respiratory distress. EXTREMITIES: The left lower extremity is externally rotated and shortened. The patient is able to move all toes. Capillary refill 2 seconds. Range of motion not assessed. No other injuries noted at the time of this exam. RADIOGRAPHIC FINDINGS: Reviewed including 2 views of the left hip show evidence of an intertrochanteric femur fracture. This does appear to involve the lesser trochanter. This does appear to be a two-part intertrochanteric femur fracture. These findings have been reviewed by myself as well as Dr. Bailey. ASSESSMENT: Left hip intertrochanteric femur fracture. PLAN: At this point, the patient reports a history that she is an ambulator with a cane, but she has been very unsteady lately. She has stage IV cancer with multiple risk factors for surgery. The big question here is for surgical intervention or conservative management. I have discussed this with Dr. Chase , as well as Dr. Bailey. Dr. Bailey will be in touch with Dr. Rich to further discuss this as well as discuss operative risks versus possible conservative management with the patient going forward. Patient wishes to have surgery, as she would like to be able to walk. Once clearance is obtained from Cardiology and Oncology, we plan to proceed with a DHS to the left hip for intertrochanteric femur fracture. Risks, benefits and alternatives of surgery discussed at bedside with patient. She verbalizes understanding and wishes to proceed. WILBER
--- NOTE | 2018-07-03 16:29 | PDOC.PN ---
- Subjective Encounter Start Date: 07/03/18 Encounter Start Time: 11:30 Subjective: pt up in bed has pain to her left hip - Objective Resuscitation Status: Resuscitation Status DNR:Do Not Resuscitate Vital Signs & Weight: Vital Signs (12 hours) Temp Pulse Pulse Resp BP BP BP 07/03/18 15:13 97.9 F 83 20 113/64 07/03/18 14:58 98.0 F 82 19 110/56 L 07/03/18 12:17 80 07/03/18 11:55 97.8 F 80 19 111/60 07/03/18 06:15 07/03/18 06:05 97.9 F 80 24 H 132/71 07/03/18 04:37 96.3 F L 72 13 95/54 L Pulse Ox 07/03/18 15:13 92 L 07/03/18 14:58 92 L 07/03/18 12:17 07/03/18 11:55 93 L 07/03/18 06:15 97 07/03/18 06:05 83 L 07/03/18 04:37 90 L Weight Weight 216 lb 6.4 oz I&O: 07/02/18 07/03/18 07/04/18 06:59 06:59 06:59 Intake Total 480 0 Output Total 1300 Balance -820 0 Result Diagrams: 07/03/18 09:26 07/03/18 05:01 Phys Exam - Physical Examination Neck: no nodes, no JVD, supple, full ROM Respiratory: no wheezing, no rales, no rhonchi, wheezing present, clear to auscultation bilateral Cardiovascular: RRR, no significant murmur, no rub, gallop, irregular Gastrointestinal: soft, non-tender, no distention, positive bowel sounds Musculoskeletal: edema present pain around left hip area Dx/Plan (1) Dyspnea Code(s): R06.00 - DYSPNEA, UNSPECIFIED Status: Acute (2) Hip fracture, left Code(s): S72.002A - FRACTURE OF UNSP PART OF NECK OF LEFT FEMUR, INIT Status: Acute (3) Anemia, normocytic normochromic Code(s): D64.9 - ANEMIA, UNSPECIFIED Status: Chronic - Plan pt feel this am xray indicates fx. will get ortho -: pt hh low this am, will transfuse 2untis and give lasix in between * . Review of Systems - Review of Systems Respiratory: negative: Cough, Dry, Shortness of Breath, Hemoptysis, SOB with Excertion, Pleuritic Pain, Sputum, Wheezing Cardiovascular: negative: chest pain, palpitations, orthopnea, paroxysmal nocturnal dyspnea, edema, light headedness, other Gastrointestinal: negative: Nausea, Vomiting, Abdominal Pain, Diarrhea, Constipation, Melena, Hematochezia, Other - Medications/Allergies Allergies/Adverse Reactions: Allergies Allergy/AdvReac Type Severity Reaction Status Date / Time No Known Drug Allergies Allergy Verified 07/01/18 03:23 Medications: Current Medications Acetaminophen (Tylenol) 650 mg PO Q4H PRN PRN Reason: Headache/Fever or Pain Last Admin: 07/02/18 03:22 Dose: 650 mg Hydrocodone Bitart/Acetaminophen ([place] 10/325) 1 tab PO TID [facility] Last Admin: 07/03/18 07:46 Dose: 1 tab Albuterol/Ipratropium (Duoneb) 3 ml NEB [id number] PRN PRN Reason: SOB &/or Wheezing Last Admin: 07/02/18 20:03 Dose: 3 ml Alprazolam (Xanax) 1 mg PO BID [facility] Last Admin: 07/03/18 07:45 Dose: 1 mg Amitriptyline HCl (Elavil) 100 mg PO [facility] Last Admin: 07/02/18 21:37 Dose: 100 mg Aspirin (Aspirin Chewable) 81 mg PO DAILY [facility] Last Admin: 07/03/18 12:17 Dose: Not Given Benzonatate (Tessalon) 100 mg PO TID [facility] Last Admin: 07/03/18 12:18 Dose: 100 mg Bisacodyl (Dulcolax) 10 mg PO DAILYPRN PRN PRN Reason: Constipation Cholecalciferol (Vitamin D3) 2,000 units PO [facility] Last Admin: 07/02/18 21:37 Dose: 2,000 units Cyclobenzaprine HCl (Flexeril) 10 mg PO TID [facility] Last Admin: 07/03/18 12:17 Dose: Not Given Famotidine (Pepcid) 20 mg PO BID [facility] Last Admin: 07/03/18 12:17 Dose: Not Given Furosemide (Lasix) 40 mg SLOW IVP DAILY [facility] Last Admin: 07/02/18 09:14 Dose: 40 mg Levothyroxine Sodium (Synthroid) 25 mcg PO 0600 [facility] Last Admin: 07/03/18 05:30 Dose: 25 mcg Lisinopril (Zestril) 5 mg PO DAILY [facility] Last Admin: 07/03/18 12:17 Dose: Not Given Lubiprostone (Amitiza) 24 mcg PO BID-WM PRN PRN Reason: Constipation Morphine Sulfate (Morphine) 2 mg SLOW IVP Q4H PRN PRN Reason: Severe Pain (7-10) Last Admin: 07/03/18 12:19 Dose: 2 mg Ondansetron HCl (Zofran Odt) 4 mg PO Q6H PRN PRN Reason: Nausea/Vomiting Ondansetron HCl (Zofran) 4 mg IVP Q6H PRN PRN Reason: Nausea/Vomiting Polyethylene Glycol (Miralax) 17 gm PO DAILY [facility] Last Admin: 07/03/18 12:17 Dose: Not Given Sodium Chloride (Flush - Normal Saline) 10 ml IVF Q12HR [facility] Last Admin: 07/03/18 12:19 Dose: 10 ml Sodium Chloride (Flush - Normal Saline) 10 ml IVF PRN PRN PRN Reason: Saline Flush
[2018-07-03] MEDS: Furosemide 40 MG/4 ML VIAL SLOW IVP SCH (18:27)
[2018-07-03] MEDS: Amitriptyline HCl 100 MG TAB PO SCH (21:07)
[2018-07-04] MEDS ORDERED: CEFAZOLIN/Water 2 GM/20 ML SYRINGE SLOW IVP SCH (01:15)
[2018-07-04] MEDS: Acetaminophen 325 MG TAB PO PRN (03:32)
[2018-07-04] MEDS: Levothyroxine Sodium 25 MCG TAB PO SCH (04:22)
[2018-07-04 05:39] LABS: Anion Gap 17 mmol/L (10-20); BUN (Urea Nitrogen) 24 mg/dL (9.8-20.1); Calc. Creatinine Clearance 111 mL/min (70-130); Calcium 8.9 mg/dL (7.8-10.44); Carbon Dioxide 26 mmol/L (22-29); Chloride 89 mmol/L (98-107); Estimated GFR-MDRD 65; Glucose 73 mg/dL (70-105); Potassium 4.5 mmol/L (3.5-5.1); Sodium 127 mmol/L (136-145)
[2018-07-04] MEDS: HYDROcodone/Acetaminophen 10/325 mg Tablet PO SCH ×3 (08:14→20:35)
[2018-07-04] MEDS: Cyclobenzaprine 10 MG TAB PO SCH ×3 (08:14→20:40)
[2018-07-04] MEDS: Famotidine 20 MG TAB PO SCH ×2 (08:14→20:40)
[2018-07-04] MEDS: Furosemide 40 MG/4 ML VIAL SLOW IVP SCH (08:14)
[2018-07-04] MEDS: ALPRAZolam 1 MG TAB PO SCH ×2 (08:16→20:40)
[2018-07-04 11:36] LABS: Hemoglobin 9.5 g/dL (12.0-16.0); Hypochromia MODERATE=16-30 cells (100X) (0-5/hpf); Large Platelets SLIGHT; Lymphocytes 29 % (21-51); MDiff Complete? YES; Mean Corpuscular HGB CONC 31.7 g/dL (32.0-36.0); Mean Corpuscular Hemoglobin 26.2 pg (27.0-31.0); Mean Corpuscular Volume 82.8 fL (78.0-98.0); Mean Platelet Volume 10.3 fL (7.4-10.4); Microcytosis SLIGHT = 6-15 cells (100X) (0-5/hpf); Monocytes 8 % (0-10); Neutrophil 63 % (42-75); PLT Morphology Comment Appears Increased; Platelet Count 539 thou/uL (130-400); Polychromasia SLIGHT = 2-3 cells (100X) (0-2/hpf); Red Blood Cell (RBC) Count 3.63 mill/uL (4.20-5.40); Target Cells MODERATE= 6-15 cells (100X) (0-1/hpf); White Blood Cell (WBC) Count 8.3 thou/uL (4.8-10.8)
[2018-07-04] MEDS: Polyethylene Glycol 3350 17 GM Packet PO SCH (13:04)
[2018-07-04] MEDS ORDERED: PROPOFOL 200 MG/20 ML VIAL ONE (13:32)
[2018-07-04] MEDS ORDERED: CEFAZOLIN/Water 2 GM/20 ML SYRINGE ONE (13:57)
--- NOTE | 2018-07-04 14:34 | PDOC.PN ---
- Subjective Encounter Start Date: 07/04/18 Encounter Start Time: 09:00 Subjective: pt up in bed has mild pain to her left hip - Objective Resuscitation Status: Resuscitation Status DNR:Do Not Resuscitate Vital Signs & Weight: Vital Signs (12 hours) Temp Pulse Resp BP Pulse Ox 07/04/18 11:49 98.2 F 81 18 109/56 L 95 07/04/18 07:40 98.0 F 82 20 124/60 95 07/04/18 03:35 98.1 F 81 16 122/58 L 93 L Weight Weight 216 lb 6.4 oz I&O: 07/03/18 07/04/18 07/05/18 06:59 06:59 06:59 Intake Total 480 1280 Output Total 1300 700 Balance -820 580 Result Diagrams: 07/04/18 05:05 07/04/18 05:05 Phys Exam - Physical Examination Neck: no nodes, no JVD, supple, full ROM Respiratory: no wheezing, no rales, no rhonchi, wheezing present, clear to auscultation bilateral Cardiovascular: RRR, no significant murmur, no rub, gallop, irregular Dx/Plan (1) Dyspnea Code(s): R06.00 - DYSPNEA, UNSPECIFIED Status: Acute (2) Hip fracture, left Code(s): S72.002A - FRACTURE OF UNSP PART OF NECK OF LEFT FEMUR, INIT Status: Acute (3) Anemia, normocytic normochromic Code(s): D64.9 - ANEMIA, UNSPECIFIED Status: Chronic - Plan pt up in bed has mild pain to her left hip -: hh has improved, will check labs in am -: bp is low -: pt going for surgery today -: will continue lasix * . Review of Systems - Review of Systems Respiratory: negative: Cough, Dry, Shortness of Breath, Hemoptysis, SOB with Excertion, Pleuritic Pain, Sputum, Wheezing Cardiovascular: negative: chest pain, palpitations, orthopnea, paroxysmal nocturnal dyspnea, edema, light headedness, other Gastrointestinal: negative: Nausea, Vomiting, Abdominal Pain, Diarrhea, Constipation, Melena, Hematochezia, Other - Medications/Allergies Allergies/Adverse Reactions: Allergies Allergy/AdvReac Type Severity Reaction Status Date / Time No Known Drug Allergies Allergy Verified 07/01/18 03:23 Medications: Current Medications Acetaminophen (Tylenol) 650 mg PO Q4H PRN PRN Reason: Headache/Fever or Pain Last Admin: 07/04/18 03:32 Dose: 650 mg Hydrocodone Bitart/Acetaminophen ([place] 10/325) 1 tab PO TID [facility] Last Admin: 07/04/18 08:14 Dose: 1 tab Albuterol/Ipratropium (Duoneb) 3 ml NEB [id number] PRN PRN Reason: SOB &/or Wheezing Last Admin: 07/02/18 20:03 Dose: 3 ml Alprazolam (Xanax) 1 mg PO BID [facility] Last Admin: 07/04/18 08:16 Dose: 1 mg Amitriptyline HCl (Elavil) 100 mg PO HS [facility] Last Admin: 07/03/18 21:07 Dose: 100 mg Aspirin (Aspirin Chewable) 81 mg PO DAILY [facility] Last Admin: 07/04/18 08:14 Dose: 81 mg Benzonatate (Tessalon) 100 mg PO TID [facility] Last Admin: 07/03/18 21:07 Dose: Not Given Bisacodyl (Dulcolax) 10 mg PO DAILYPRN PRN PRN Reason: Constipation Cefazolin Sodium (Ancef) 2 gm SLOW IVP [facility] Stop: 07/04/18 19:00 Cholecalciferol (Vitamin D3) 2,000 units PO [facility] Last Admin: 07/03/18 21:06 Dose: 2,000 units Cyclobenzaprine HCl (Flexeril) 10 mg PO TID [facility] Last Admin: 07/04/18 08:14 Dose: 10 mg Famotidine (Pepcid) 20 mg PO BID [facility] Last Admin: 07/04/18 08:14 Dose: 20 mg Furosemide (Lasix) 40 mg SLOW IVP DAILY [facility] Last Admin: 07/04/18 08:14 Dose: 40 mg Levothyroxine Sodium (Synthroid) 25 mcg PO 0600 [facility] Last Admin: 07/04/18 04:22 Dose: 25 mcg Lisinopril (Zestril) 5 mg PO DAILY [facility] Last Admin: 07/03/18 12:17 Dose: Not Given Lubiprostone (Amitiza) 24 mcg PO BID-WM PRN PRN Reason: Constipation Morphine Sulfate (Morphine) 2 mg SLOW IVP Q4H PRN PRN Reason: Severe Pain (7-10) Last Admin: 07/04/18 12:32 Dose: 2 mg Ondansetron HCl (Zofran Odt) 4 mg PO Q6H PRN PRN Reason: Nausea/Vomiting Ondansetron HCl (Zofran) 4 mg IVP Q6H PRN PRN Reason: Nausea/Vomiting Polyethylene Glycol (Miralax) 17 gm PO DAILY [facility] Last Admin: 07/04/18 13:04 Dose: Not Given Sodium Chloride (Flush - Normal Saline) 10 ml IVF Q12HR [facility] Last Admin: 07/04/18 08:14 Dose: 10 ml Sodium Chloride (Flush - Normal Saline) 10 ml IVF PRN PRN PRN Reason: Saline Flush Last Admin: 07/04/18 04:22 Dose: 10 ml
[2018-07-04] MEDS ORDERED: Morphine 4 MG/ML VIAL ONE (14:47)
[2018-07-04] MEDS ORDERED: Fentanyl 100 MCG/2 ML VIAL ONE ×6 (15:12→18:11)
[2018-07-04] MEDS ORDERED: Bupivacaine 0.75% W/DEXTROSE 8.25% 2 ML AMP ONE (15:12)
[2018-07-04] MEDS ORDERED: Lidocaine 1% PF 5 ML VIAL ONE (15:19)
[2018-07-04 15:29] LABS: INR-International Normal Ratio 1.4; PTT 34.9 SEC (22.9-36.1); Prothrombin Time 17.4 SEC (12.0-14.7)
--- NOTE | 2018-07-04 15:51 | PDOC.CTH ---
Cardiology Progress Note - Subjective The pt seen and examined. No overnight events. No cardiac complaints. Complaining of pain to Rt hip site. - Objective Vital Signs Temp Pulse Resp BP Pulse Ox 07/04/18 11:49 98.2 F 81 18 109/56 L 95 07/04/18 07:40 98.0 F 82 20 124/60 95 Weight 216 lb 6.4 oz 07/03/18 07/04/18 07/05/18 06:59 06:59 06:59 Intake Total 480 1280 Output Total 1300 700 Balance -820 580 - Physical Examination General/Neuro: alert & oriented x3 Neck: no JVD present Lungs: other: (very diminished at bases) Heart: RRR Abdomen: soft Extremities: other: (4+ pitting BLE edema) - Telemetry Telemetry Rhythm: SR 80s - Labs Result Diagrams: 07/04/18 05:05 07/04/18 05:05 Troponin/CKMB CK-MB (CK-2) 0.5 ng/mL (0-6.6) 06/30/18 21:11 Troponin I Less than 0.010 ng/mL (< 0.028) 07/01/18 03:00 - Assessment/Plan 1. Acute on Chronic diastolic HF with severe BLE edema - unchanged with Lasix 40mg IV daily per the pt. On Lisinopril 5mg qd. Not on BBlocker due to hx of COPD. Daily weight, strict I&O. Fluid restriction 800ml/day 2. Hyponatremia - The lower extremity edema/anasarca does not appear improved. Cont. Strict I&O. Fluid restriction 800ml/day to avoide further hyponatremia. 3. stage 4 Lung Cancer - will be followed by oncology service 4. COPD - unchanged. 5. Anemia - After receiving Iron infusion with 2 units of PRBCs on 07/03/18, Hgb level today was 9.6 from 6.7 yesterday. 6. Hx of Hep C and Cirrhosis - 7. Anxiety and depression - 8. hx of fall - plan for Lt hip repair today. MAR reviewed * Echo on showed EF 50-55%, mild dilated LA, mild-mod MR, mod-severe TR, PAP 50 mmHg, IVC with poor inspiration collapse. Review of Systems - Review of Systems Constitutional: reports: no symptoms reported EENTM: reports: no symptoms reported Respiratory: reports: shortness of breath Cardiac (ROS): reports: no symptoms reported ABD/GI: reports: no symptoms reported : reports: no symptoms reported Musculoskeletal: reports: see HPI Skin: reports: no symptoms reported
[2018-07-04] MEDS ORDERED: Ketamine 50 MG/ML VIAL ONE (16:26)
[2018-07-04] MEDS ORDERED: Propofol 500 MG/50 ML VIAL ONE (16:29)
[2018-07-04] MEDS: Lisinopril 5 MG TAB PO SCH (16:52)
[2018-07-04] MEDS: Benzonatate 100 MG CAP PO SCH ×3 (16:52→20:40)
[2018-07-04] MEDS ORDERED: Propofol 1,000 MG/100 ML VIAL IV ONE (17:01)
[2018-07-04] MEDS ORDERED: Promethazine HCl 25 MG/ML VIAL SLOW IVP PRN (17:43)
[2018-07-04] MEDS ORDERED: Promethazine HCl 25 MG/ML VIAL IM PRN (17:43)
[2018-07-04] MEDS ORDERED: Ondansetron HCl/PF 4 MG/2 ML Vial IVP PRN (17:43)
--- NOTE | 2018-07-04 18:12 | RAD ---
TWO VIEWS OF THE LEFT HIP: 07/04/18 COMPARISON: 07/03/18 HISTORY: Left hip fracture, status post ORIF. FINDINGS/IMPRESSION: Two views of the left hip shows the patient to be status post ORIF of the intertrochanteric femur fra cture with a plate and screws. No perihardware lucency is seen. POS: [facility]
[2018-07-04] MEDS: Fentanyl 100 MCG/2 ML VIAL SLOW IVP PRN ×2 (20:09→23:21)
[2018-07-04] MEDS: CEFAZOLIN/Water 2 GM/20 ML SYRINGE SLOW IVP SCH (20:40)
[2018-07-04] MEDS: Amitriptyline HCl 100 MG TAB PO SCH (20:40)
--- NOTE | 2018-07-04 20:57 | OP ---
DATE OF OPERATION: 07/04/2018 OPERATION: Left hip open reduction and internal fixation with dynamic hip screw. PREOPERATIVE DIAGNOSIS: Left intertrochanteric femur fracture. POSTOPERATIVE DIAGNOSIS: Left intertrochanteric femur fracture. COMPLICATIONS: None. ESTIMATED BLOOD LOSS: 100 mL SURGEON: Sb Bailey M.D. LOANS OFFICER: Nirmal Harvey PA-C. IMPLANTS: [employer] 3-hole side plate. INDICATIONS: Ms. Hand is a 53-year-old female who has multiple medical problems including end-stag e cancer. She has fallen while in the hospital, fracturing her left intertrochanteric femur. She wa s indicated for dynamic hip screw placement to restore anatomic alignment and hopefully promote early mobilization. Goal of surgery is to prevent complications of prolonged bed rest. She is at high ri sk of complication; however regarding her multiple medical problems which are severe. We have review ed this with her, but based on her quality of life, she would like to proceed. DESCRIPTION OF PROCEDURE: Ms. Hand was identified in the preoperative holding area. Her correct e xtremity was marked. She was carried to the operating room. She was positioned supine. A spinal an esthetic was placed. She was placed on the fracture table and the left leg was placed in traction. We used intraoperative x-ray to evaluate the fracture and reduced it into an anatomic position. At t his point, we prepped and draped the left lower extremity. We then made a lateral incision. We diss ected down through the subcutaneous tissues to the fascia which was opened. We then split the vastus lateralis muscle. Next, we applied 135-degree guide. We placed a guidewire in the centered positio n of the femoral head. Once this was accomplished, we overdrilled the guidewire. We then applied ou r central screw and side plate. Three distal screws were placed completing fixation. We took images in orthogonal planes again to check reduction and hardware placement. There were no complications. At this point, the patient was taken to the recovery room in good condition.
[2018-07-05] MEDS: Fentanyl 100 MCG/2 ML VIAL SLOW IVP PRN ×7 (03:36→22:08)
[2018-07-05] MEDS: Levothyroxine Sodium 25 MCG TAB PO SCH (05:06)
[2018-07-05] MEDS: CEFAZOLIN/Water 2 GM/20 ML SYRINGE SLOW IVP SCH (05:07)
[2018-07-05 06:44] LABS: Anion Gap 18 mmol/L (10-20); BUN (Urea Nitrogen) 24 mg/dL (9.8-20.1); Calc. Creatinine Clearance 107 mL/min (70-130); Calcium 8.8 mg/dL (7.8-10.44); Carbon Dioxide 25 mmol/L (22-29); Chloride 91 mmol/L (98-107); Estimated GFR-MDRD 63; Glucose 68 mg/dL (70-105); Sodium 129 mmol/L (136-145)
[2018-07-05] MEDS: Cyclobenzaprine 10 MG TAB PO SCH ×3 (08:17→21:07)
[2018-07-05] MEDS: Polyethylene Glycol 3350 17 GM Packet PO SCH (08:17)
[2018-07-05] MEDS: HYDROcodone/Acetaminophen 10/325 mg Tablet PO SCH ×3 (08:17→21:07)
[2018-07-05] MEDS: Famotidine 20 MG TAB PO SCH ×2 (08:17→21:07)
[2018-07-05] MEDS: Furosemide 40 MG/4 ML VIAL SLOW IVP SCH (08:17)
[2018-07-05] MEDS: ALPRAZolam 1 MG TAB PO SCH ×2 (08:17→21:06)
[2018-07-05] MEDS: Lisinopril 5 MG TAB PO SCH (08:18)
[2018-07-05 08:20] LABS: Hemoglobin 7.6 g/dL (12.0-16.0); Mean Corpuscular HGB CONC 31.6 g/dL (32.0-36.0); Mean Corpuscular Hemoglobin 26.7 pg (27.0-31.0); Mean Corpuscular Volume 84.4 fL (78.0-98.0); Mean Platelet Volume 10.6 fL (7.4-10.4); Platelet Count 576 thou/uL (130-400); RBC Distribution Width 17.2 % (11.5-14.5); Red Blood Cell (RBC) Count 2.84 mill/uL (4.20-5.40); White Blood Cell (WBC) Count 11.8 thou/uL (4.8-10.8)
[2018-07-05] MEDS: Benzonatate 100 MG CAP PO SCH ×3 (08:23→21:07)
--- NOTE | 2018-07-05 11:40 | PDOC.CTH ---
<Reina Braden - Last Filed: 07/05/18 11:38> Cardiology Progress Note - Subjective The pt seen and examined. No overnight events. No cardiac complaints. She complains of pain to Rt hip site. - Objective Vital Signs Temp Pulse Resp BP BP Pulse Ox 07/05/18 08:18 85 112/68 07/05/18 08:08 97.8 F 85 20 112/68 95 07/05/18 03:10 97.5 F L 83 15 108/58 L 98 07/05/18 00:48 96 Weight 216 lb 6.4 oz 07/04/18 07/05/18 07/06/18 06:59 06:59 06:59 Intake Total 1280 Output Total 700 Balance 580 - Physical Examination General/Neuro: alert & oriented x3 Neck: no JVD present Lungs: other: (coarses and diminished at bases) Heart: RRR Abdomen: soft Extremities: other: (4+ pitting BLE edema) - Telemetry Telemetry Rhythm: SR - Labs Result Diagrams: 07/05/18 05:25 07/05/18 05:25 Troponin/CKMB CK-MB (CK-2) 0.5 ng/mL (0-6.6) 06/30/18 21:11 Troponin I Less than 0.010 ng/mL (< 0.028) 07/01/18 03:00 - Assessment/Plan 1. Acute on Chronic diastolic HF with severe BLE edema - unchanged with Lasix 40mg IV daily per the pt. On Lisinopril 5mg qd. Not on BBlocker due to hx of COPD. Daily weight, strict I&O. Fluid restriction 800ml/day 2. Hyponatremia - Na level has improved gradually. The lower extremity edema/ anasarca have been improving slowly. Cont. Strict I&O. Fluid restriction 800ml /day to avoide further hyponatremia. 3. stage 4 Lung Cancer - will be followed by oncology service 4. COPD - unchanged. 5. Anemia - After receiving Iron infusion with 2 units of PRBCs on 07/03/18, Hgb level today down to 7.6 from 9.6 yesterday. 6. Hx of Hep C and Cirrhosis - 7. Anxiety and depression - 8. hx of fall - plan for Lt hip repair today. MAR reviewed * Echo on showed EF 50-55%, mild dilated LA, mild-mod MR, mod-severe TR, PAP 50 mmHg, IVC with poor inspiration collapse. Review of Systems - Review of Systems Constitutional: reports: no symptoms reported EENTM: reports: no symptoms reported Respiratory: reports: no symptoms reported Cardiac (ROS): reports: no symptoms reported ABD/GI: reports: no symptoms reported : reports: no symptoms reported Musculoskeletal: reports: see HPI Skin: reports: no symptoms reported Neurological: reports: no symptoms reported <Kenney Jacobson - Last Filed: 07/05/18 17:53> Cardiology Progress Note - Objective Vital Signs Temp Pulse Pulse Resp BP BP BP 07/05/18 14:15 98.5 F 86 18 123/61 07/05/18 11:40 97.7 F 20 116/57 L 07/05/18 08:18 85 112/68 07/05/18 08:08 97.8 F 85 20 112/68 07/05/18 08:00 Pulse Ox 07/05/18 14:15 07/05/18 11:40 94 L 07/05/18 08:18 07/05/18 08:08 95 07/05/18 08:00 96 Weight 216 lb 6.4 oz 07/04/18 07/05/18 07/06/18 06:59 06:59 06:59 Intake Total 1280 0 Output Total 700 Balance 580 0 - Labs Result Diagrams: 07/05/18 05:25 07/05/18 05:25 Troponin/CKMB CK-MB (CK-2) 0.5 ng/mL (0-6.6) 06/30/18 21:11 Troponin I Less than 0.010 ng/mL (< 0.028) 07/01/18 03:00 - Assessment/Plan Pt. seen and eval. by me. i agree with the A/P by the HAND STAMPER. S/P hip fracture and repair yesterday. She has increased pain today. She continues to have significant edema.
[2018-07-05 12:36] LABS: Band 6 % (5-11); Eosinophils 1 % (0-10); Lymphocytes 32 % (21-51); Monocytes 6 % (0-10); Neutrophil 53 % (42-75); Polychromasia MODERATE = 3-4 cells (100X) (0-2/hpf); Target Cells MARKED = >16 cells (100X) (0-1/hpf)
[2018-07-05 12:37] LABS: Hypochromia SLIGHT = 6-15 cells (100X) (0-5/hpf); MDiff Complete? YES; PLT Morphology Comment Appears Increased
--- NOTE | 2018-07-05 14:19 | RAD ---
TWO VIEWS OF THE LEFT HIP: 07/04/18 COMPARISON: 07/03/18 HISTORY: Left hip fracture, status post ORIF. FINDINGS/IMPRESSION: Two views of the left hip shows the patient to be status post ORIF of the intertrochanteric femur fra cture with a plate and screws. No perihardware lucency is seen.
--- NOTE | 2018-07-05 15:19 | PDOC.PN ---
- Subjective Encounter Start Date: 07/05/18 Encounter Start Time: 10:30 Subjective: pt up in bed no complains - Objective Resuscitation Status: Resuscitation Status DNR:Do Not Resuscitate Vital Signs & Weight: Vital Signs (12 hours) Temp Pulse Pulse Resp BP BP BP 07/05/18 14:15 98.5 F 86 18 123/61 07/05/18 11:40 97.7 F 20 116/57 L 07/05/18 08:18 85 112/68 07/05/18 08:08 97.8 F 85 20 112/68 Pulse Ox 07/05/18 14:15 07/05/18 11:40 94 L 07/05/18 08:18 07/05/18 08:08 95 Weight Weight 216 lb 6.4 oz I&O: 07/04/18 07/05/18 07/06/18 06:59 06:59 06:59 Intake Total 1280 0 Output Total 700 Balance 580 0 Result Diagrams: 07/05/18 05:25 07/05/18 05:25 Phys Exam - Physical Examination Neck: no nodes, no JVD, supple, full ROM Respiratory: no wheezing, no rales, no rhonchi, wheezing present, clear to auscultation bilateral Cardiovascular: RRR, no significant murmur, no rub, gallop, irregular Gastrointestinal: soft, non-tender, no distention, positive bowel sounds Dx/Plan (1) Dyspnea Code(s): R06.00 - DYSPNEA, UNSPECIFIED Status: Acute (2) Hip fracture, left Code(s): S72.002A - FRACTURE OF UNSP PART OF NECK OF LEFT FEMUR, INIT Status: Acute (3) Anemia, normocytic normochromic Code(s): D64.9 - ANEMIA, UNSPECIFIED Status: Chronic - Plan pt keeps asking for pain meds -: will discontinue morphine pt is on scheduled pain meds -: will ask PT to see pt -: pt s/p left hip ORIF pt's hh is low will put on scd -: will transfuse one more unit of blood. if she continues to have low hh will * . consult gi. Review of Systems - Review of Systems Respiratory: negative: Cough, Dry, Shortness of Breath, Hemoptysis, SOB with Excertion, Pleuritic Pain, Sputum, Wheezing Cardiovascular: negative: chest pain, palpitations, orthopnea, paroxysmal nocturnal dyspnea, edema, light headedness, other Gastrointestinal: negative: Nausea, Vomiting, Abdominal Pain, Diarrhea, Constipation, Melena, Hematochezia, Other Genitourinary: negative: Dysuria, Frequency, Incontinence, Hematuria, Retention , Other - Medications/Allergies Allergies/Adverse Reactions: Allergies Allergy/AdvReac Type Severity Reaction Status Date / Time No Known Drug Allergies Allergy Verified 07/01/18 03:23 Medications: Current Medications Acetaminophen (Tylenol) 650 mg PO Q4H PRN PRN Reason: Headache/Fever or Pain Last Admin: 07/04/18 03:32 Dose: 650 mg Hydrocodone Bitart/Acetaminophen ([place] 10/325) 1 tab PO TID [facility] Last Admin: 07/05/18 14:31 Dose: 1 tab Albuterol/Ipratropium (Duoneb) 3 ml NEB [id number] PRN PRN Reason: SOB &/or Wheezing Last Admin: 07/02/18 20:03 Dose: 3 ml Alprazolam (Xanax) 1 mg PO BID [facility] Last Admin: 07/05/18 08:17 Dose: 1 mg Amitriptyline HCl (Elavil) 100 mg PO [facility] Last Admin: 07/04/18 20:40 Dose: 100 mg Aspirin (Aspirin Chewable) 81 mg PO DAILY [facility] Last Admin: 07/05/18 08:17 Dose: 81 mg Benzonatate (Tessalon) 100 mg PO TID [facility] Last Admin: 07/05/18 14:31 Dose: 100 mg Bisacodyl (Dulcolax) 10 mg PO DAILYPRN PRN PRN Reason: Constipation Cholecalciferol (Vitamin D3) 2,000 units PO HS [facility] Last Admin: 07/04/18 20:40 Dose: 2,000 units Cyclobenzaprine HCl (Flexeril) 10 mg PO TID [facility] Last Admin: 07/05/18 14:31 Dose: 10 mg Famotidine (Pepcid) 20 mg PO BID [facility] Last Admin: 07/05/18 08:17 Dose: 20 mg Fentanyl (Sublimaze) 50 mcg SLOW IVP Q1H PRN PRN Reason: Severe Pain (7-10) Last Admin: 07/05/18 08:13 Dose: 50 mcg Furosemide (Lasix) 40 mg SLOW IVP DAILY [facility] Last Admin: 07/05/18 08:17 Dose: 40 mg Levothyroxine Sodium (Synthroid) 25 mcg PO 0600 [facility] Last Admin: 07/05/18 05:06 Dose: 25 mcg Lisinopril (Zestril) 5 mg PO DAILY [facility] Last Admin: 07/05/18 08:18 Dose: Not Given Lubiprostone (Amitiza) 24 mcg PO BID-WM PRN PRN Reason: Constipation Ondansetron HCl (Zofran Odt) 4 mg PO Q6H PRN PRN Reason: Nausea/Vomiting Ondansetron HCl (Zofran) 4 mg IVP Q6H PRN PRN Reason: Nausea/Vomiting Polyethylene Glycol (Miralax) 17 gm PO DAILY [facility] Last Admin: 07/05/18 08:17 Dose: 17 gm Sodium Chloride (Flush - Normal Saline) 10 ml IVF Q12HR [facility] Last Admin: 07/05/18 08:24 Dose: 10 ml Sodium Chloride (Flush - Normal Saline) 10 ml IVF PRN PRN PRN Reason: Saline Flush Last Admin: 07/05/18 06:45 Dose: 10 ml
--- NOTE | 2018-07-05 19:49 | CON ---
DATE OF CONSULTATION: 07/05/2018 HISTORY OF PRESENT ILLNESS: Ms. Hand is a pleasant woman with stage IV nonsmall cell lung cancer. She has actually been quite stable with the treatment prescribed by Dr. Rich. Her tumor has been managed with [facility]. She presented with volume overload. She subsequently has sustained a hip fracture that was repaired yesterday. I was consulted because of her pulmonary hypertension by her oncologist. PAST MEDICAL HISTORY: 1. Remarkable for stage 4 non-small cell lung cancer. 2. Hepatitis C. 3. Obesity. 4. Cirrhosis. 5. History of diastolic dysfunction with mild to moderate mitral regurgitation and mild left atrial dilation. 6. History of knee surgery. 7. History of splenectomy. 8. History of a hysterectomy and tonsillectomy. 9. History of anxiety and depression. SOCIAL HISTORY: She is a former smoker, nondrinker. She does not use drugs. ALLERGIES: She reports no drug allergies. FAMILY HISTORY: Negative for lung disease in early age. REVIEW OF SYSTEMS: 10 point system review completed; only remarkable for weakness now. She denies being short of breath. PHYSICAL EXAMINATION: GENERAL: She is afebrile VITALS: Respiratory is 18, oximetry is 94 on 3 liters, blood pressure 123/61. HEENT: Pupils react. Sclerae is anicteric. NECK: Supple. LUNGS: Clear. HEART: Regular rhythm. ABDOMEN: Soft and nontender. EXTREMITIES: It is protuberant. Extremities without clubbing, cyanosis, or edema. She has been out of bed since her surgery yesterday. LABORATORY DATA: White count is 11.8, hemoglobin 7.6. Blood has been ordered. Platelets 576. Sodium 129, potassium 5, chloride 91, bicarbonate 25, BUN 24, creatinine 0.93. IMPRESSION: Pulmonary hypertension with an estimated PA pressure in the 50s. This most likely is a complication of her cirrhosis. Her diastolic dysfunction is not severe. She does not have massive left atrial dilation, so it is less likely that the diastolic dysfunction is contributing, then the cirrhosis. No other workup is indicated. Fluid management and gentle diuresis is the order of the day. Transfusion will probably help, getting her moving as quickly as possible has also been her best interest. She wanted to go home, but last time when she was discharged home, she said she could make it up the stairs at the house, so she really needs to go to a swing bed in [place]. I will be happy to continue to follow her while she is in the hospital. This is a 50 minute consult, with greater than 50% of time spent on unit coordinating care. WILBER
[2018-07-05] MEDS: Amitriptyline HCl 100 MG TAB PO SCH (21:06)
[2018-07-05] MEDS: Senokot S 8.6-50 MG TAB PO SCH (21:07)
[2018-07-06] MEDS: Fentanyl 100 MCG/2 ML VIAL SLOW IVP PRN ×4 (04:21→14:19)
[2018-07-06] MEDS: Levothyroxine Sodium 25 MCG TAB PO SCH (06:08)
[2018-07-06 06:15] LABS: Anion Gap 12 mmol/L (10-20); BUN (Urea Nitrogen) 22 mg/dL (9.8-20.1); Calc. Creatinine Clearance 127 mL/min (70-130); Calcium 8.5 mg/dL (7.8-10.44); Carbon Dioxide 28 mmol/L (22-29); Chloride 91 mmol/L (98-107); Estimated GFR-MDRD 75; Glucose 107 mg/dL (70-105); Sodium 127 mmol/L (136-145)
[2018-07-06 08:15] LABS: Hemoglobin 7.6 g/dL (12.0-16.0); Mean Corpuscular HGB CONC 31.5 g/dL (32.0-36.0); Mean Corpuscular Hemoglobin 26.5 pg (27.0-31.0); Mean Corpuscular Volume 84.2 fL (78.0-98.0); Mean Platelet Volume 10.5 fL (7.4-10.4); Platelet Count 530 thou/uL (130-400); RBC Distribution Width 17.3 % (11.5-14.5); Red Blood Cell (RBC) Count 2.88 mill/uL (4.20-5.40); White Blood Cell (WBC) Count 12.3 thou/uL (4.8-10.8)
[2018-07-06 09:03] LABS: Band 3 % (5-11); Eosinophils 3 % (0-10); Hypochromia SLIGHT = 6-15 cells (100X) (0-5/hpf); Lymphocytes 28 % (21-51); MDiff Complete? YES; Monocytes 4 % (0-10); Neutrophil 62 % (42-75); PLT Morphology Comment Appears Increased; Polychromasia MODERATE = 3-4 cells (100X) (0-2/hpf); Target Cells MARKED = >16 cells (100X) (0-1/hpf)
[2018-07-06] MEDS: Cyclobenzaprine 10 MG TAB PO SCH ×3 (09:15→20:36)
[2018-07-06] MEDS: Benzonatate 100 MG CAP PO SCH ×3 (09:15→20:36)
[2018-07-06] MEDS: ALPRAZolam 1 MG TAB PO SCH ×2 (09:15→20:37)
[2018-07-06] MEDS: Lisinopril 5 MG TAB PO SCH (09:16)
[2018-07-06] MEDS: Famotidine 20 MG TAB PO SCH ×2 (09:16→20:36)
[2018-07-06] MEDS: Furosemide 40 MG/4 ML VIAL SLOW IVP SCH (09:17)
[2018-07-06] MEDS: Senokot S 8.6-50 MG TAB PO SCH ×2 (09:27→20:37)
[2018-07-06] MEDS: Polyethylene Glycol 3350 17 GM Packet PO SCH (09:27)
[2018-07-06] MEDS: HYDROcodone/Acetaminophen 10/325 mg Tablet PO SCH ×3 (11:30→20:37)
--- NOTE | 2018-07-06 16:59 | PRG ---
DATE OF SERVICE: 07/06/2018 SUBJECTIVE: Ms. Hand has no complaints. She tried to weight bear on her hip today, painful. OBJECTIVE: VITAL SIGNS: She is afebrile, heart rate is 85, respiratory rate is 18, oximetry is 98 on 2 liters, blood pressure 109/55. LUNGS: Clear. HEART: Regular rhythm. ABDOMEN: Soft. LABORATORY DATA: Hemoglobin 7.6 today after transfusing yesterday. White count 12.3, platelets 62,0 00. Sodium 127, potassium 4, chloride 91, bicarbonate 20, BUN 22, creatinine 0.8. IMPRESSION: 1. Pulmonary hypertension, likely associated with cirrhosis. 2. Mild diastolic heart failure with mild to moderate mitral regurgitation. 3. Thrombocytopenia. 4. Status post surgical repair of hip fracture. 4. Stage IV lung cancer on Keytruda. 5. Deconditioning. She will need a swing bed in [place] hopefully. 6. Hyponatremia.
--- NOTE | 2018-07-06 17:02 | PDOC.CTH ---
Cardiology Progress Note - Objective Vital Signs Temp Pulse Pulse Pulse Resp BP BP 07/06/18 11:45 97.8 F 85 18 07/06/18 09:31 84 88 109/55 L 130/60 07/06/18 09:15 07/06/18 07:32 98.7 F 83 18 BP Pulse Ox 07/06/18 11:45 122/57 L 98 07/06/18 09:31 07/06/18 09:15 96 07/06/18 07:32 122/65 96 Weight 221 lb 07/05/18 07/06/18 07/07/18 06:59 06:59 06:59 Intake Total 1430 Output Total 1700 Balance -270 - Physical Examination General/Neuro: alert & oriented x3 Neck: carotid US brisk Lungs: CTA Heart: RRR Abdomen: soft Extremities: other: (2+ edema.) - Labs Result Diagrams: 07/06/18 05:05 07/06/18 05:05 Troponin/CKMB CK-MB (CK-2) 0.5 ng/mL (0-6.6) 06/30/18 21:11 Troponin I Less than 0.010 ng/mL (< 0.028) 07/01/18 03:00 - Assessment/Plan 1. Acute on Chronic diastolic HF with severe BLE edema - slightly improved with Lasix . On Lisinopril 5mg qd. Not on BBlocker due to hx of COPD. Daily weight , strict I&O. Fluid restriction 800ml/day 2. Hyponatremia - Na level has improved gradually. The lower extremity edema/ anasarca have been improving slowly. Cont. Strict I&O. Fluid restriction 800ml /day to avoide further hyponatremia. 3. stage 4 Lung Cancer - will be followed by oncology service 4. COPD - unchanged. 5. Anemia - After receiving Iron infusion with 2 units of PRBCs on 07/03/18, Hgb level today 7.6 6. Hx of Hep C and Cirrhosis - 7. Anxiety and depression - 8. hx of fall hip fracture and surgical repair 2 days ago. Review of Systems - Review of Systems EENTM: reports: no symptoms reported Respiratory: reports: shortness of breath Cardiac (ROS): reports: edema ABD/GI: reports: abdomen distended Musculoskeletal: reports: joint pain Skin: reports: no symptoms reported
[2018-07-06] MEDS: Fentanyl 100 MCG/2 ML VIAL SLOW IVP SCH (20:34)
[2018-07-06] MEDS: Amitriptyline HCl 100 MG TAB PO SCH (20:37)
[2018-07-07] MEDS: Fentanyl 100 MCG/2 ML VIAL SLOW IVP SCH ×2 (03:18→09:40)
[2018-07-07] MEDS: Levothyroxine Sodium 25 MCG TAB PO SCH (05:14)
[2018-07-07 06:03] LABS: Anion Gap 13 mmol/L (10-20); BUN (Urea Nitrogen) 22 mg/dL (9.8-20.1); Calc. Creatinine Clearance 124 mL/min (70-130); Calcium 8.4 mg/dL (7.8-10.44); Carbon Dioxide 28 mmol/L (22-29); Chloride 92 mmol/L (98-107); Estimated GFR-MDRD 71; Glucose 81 mg/dL (70-105); Potassium 4.4 mmol/L (3.5-5.1); Sodium 129 mmol/L (136-145)
[2018-07-07] MEDS: Famotidine 20 MG TAB PO SCH ×2 (08:24→20:46)
[2018-07-07] MEDS: HYDROcodone/Acetaminophen 10/325 mg Tablet PO SCH ×3 (08:24→20:46)
[2018-07-07] MEDS: Furosemide 40 MG/4 ML VIAL SLOW IVP SCH ×2 (08:25→16:21)
[2018-07-07] MEDS: Lisinopril 5 MG TAB PO SCH (08:26)
[2018-07-07] MEDS: Cyclobenzaprine 10 MG TAB PO SCH ×3 (08:28→20:46)
[2018-07-07] MEDS: Benzonatate 100 MG CAP PO SCH ×3 (08:28→20:46)
[2018-07-07] MEDS: ALPRAZolam 1 MG TAB PO SCH ×2 (08:28→20:55)
--- NOTE | 2018-07-07 08:28 | PDOC.CTH ---
Cardiology Progress Note - Objective Vital Signs Temp Pulse Resp BP Pulse Ox 07/07/18 03:23 97.8 F 85 20 118/56 L 95 07/07/18 00:00 16 Weight 225 lb 14.4 oz 07/06/18 07/07/18 07/08/18 06:59 06:59 06:59 Intake Total 1430 502 Output Total 1700 825 Balance -270 -323 - Labs Result Diagrams: 07/06/18 05:05 07/07/18 05:16 Troponin/CKMB CK-MB (CK-2) 0.5 ng/mL (0-6.6) 06/30/18 21:11 Troponin I Less than 0.010 ng/mL (< 0.028) 07/01/18 03:00 - Assessment/Plan 1. Acute on Chronic diastolic HF with severe BLE edema - slightly improved with Lasix . On Lisinopril 5mg qd. Not on BBlocker due to hx of COPD. Daily weight , strict I&O. Fluid restriction 800ml/day 2. Hyponatremia - Na level has improved gradually. The lower extremity edema/ anasarca have been improving slowly. Cont. Strict I&O. Fluid restriction 800ml /day to avoide further hyponatremia. 3. stage 4 Lung Cancer - will be followed by oncology service 4. COPD - unchanged. 5. Anemia - After receiving Iron infusion with 2 units of PRBCs on 07/03/18, Hgb level today 7.6 6. Hx of Hep C and Cirrhosis - 7. Anxiety and depression - 8. hx of fall hip fracture and surgical repair 2 days ago.
--- NOTE | 2018-07-07 08:32 | PDOC.CTH ---
Cardiology Progress Note - Subjective The pt seen and examined. No overnight events. No cardiac complaints. She stated her pain is stable this AM. - Objective Vital Signs Temp Pulse Resp BP Pulse Ox 07/07/18 03:23 97.8 F 85 20 118/56 L 95 07/07/18 00:00 16 Weight 225 lb 14.4 oz 07/06/18 07/07/18 07/08/18 06:59 06:59 06:59 Intake Total 1430 502 Output Total 1700 825 Balance -270 -323 - Physical Examination General/Neuro: alert & oriented x3 Lungs: CTA (diminishes at bases) Heart: RRR Abdomen: soft Extremities: other: (2-3+ pitting BLE edema) - Labs Result Diagrams: 07/06/18 05:05 07/07/18 05:16 Troponin/CKMB CK-MB (CK-2) 0.5 ng/mL (0-6.6) 06/30/18 21:11 Troponin I Less than 0.010 ng/mL (< 0.028) 07/01/18 03:00 - Assessment/Plan 1. Acute on Chronic diastolic HF with severe BLE edema - BLE edema have improving with Lasix. On Lisinopril 5mg qd. Not on BBlocker due to hx of COPD. Daily weight, strict I&O. Fluid restriction 800ml/day 2. Hyponatremia - Na level has improved gradually. The lower extremity edema/ anasarca have been improving slowly. Cont. Strict I&O. Fluid restriction 800ml /day to avoide further hyponatremia. 3. stage 4 Lung Cancer - will be followed by oncology service 4. COPD - unchanged. 5. Anemia - After receiving Iron infusion with 2 units of PRBCs on 07/03/18, Hgb level today 7.6 6. Hx of Hep C and Cirrhosis - 7. Anxiety and depression - 8. hx of fall hip fracture and surgical repair on 07/04/18. MAR reviewed Review of Systems - Review of Systems Constitutional: reports: weakness EENTM: reports: no symptoms reported Respiratory: reports: no symptoms reported Cardiac (ROS): reports: no symptoms reported ABD/GI: reports: no symptoms reported : reports: no symptoms reported Musculoskeletal: reports: no symptoms reported Skin: reports: no symptoms reported Neurological: reports: no symptoms reported
[2018-07-07 08:37] LABS: Hemoglobin 7.6 g/dL (12.0-16.0); Mean Corpuscular HGB CONC 30.9 g/dL (32.0-36.0); Mean Corpuscular Hemoglobin 26.3 pg (27.0-31.0); Mean Corpuscular Volume 85.1 fL (78.0-98.0); Mean Platelet Volume 10.8 fL (7.4-10.4); Platelet Count 543 thou/uL (130-400); Red Blood Cell (RBC) Count 2.87 mill/uL (4.20-5.40); White Blood Cell (WBC) Count 12.4 thou/uL (4.8-10.8)
[2018-07-07 09:07] LABS: Band 1 % (5-11); Eosinophils 1 % (0-10); Hypochromia SLIGHT = 6-15 cells (100X) (0-5/hpf); Lymphocytes 31 % (21-51); MDiff Complete? YES; Monocytes 3 % (0-10); Neutrophil 63 % (42-75); PLT Morphology Comment Appears Increased; Polychromasia MODERATE = 3-4 cells (100X) (0-2/hpf); Target Cells MARKED = >16 cells (100X) (0-1/hpf)
[2018-07-07] MEDS: Senokot S 8.6-50 MG TAB PO SCH ×2 (09:41→20:48)
[2018-07-07] MEDS: Polyethylene Glycol 3350 17 GM Packet PO SCH (09:41)
--- NOTE | 2018-07-07 10:56 | PDOC.PN ---
- Subjective Encounter Start Date: 07/07/18 Encounter Start Time: 11:30 Subjective: pt complains of pain to her left hip - Objective Resuscitation Status: Resuscitation Status DNR:Do Not Resuscitate Vital Signs & Weight: Vital Signs (12 hours) Temp Pulse Resp BP BP Pulse Ox 07/07/18 08:34 97.9 F 84 18 116/54 L 94 L 07/07/18 08:26 86 116/54 L 07/07/18 03:23 97.8 F 85 20 118/56 L 95 07/07/18 00:00 16 Weight Weight 225 lb 14.4 oz I&O: 07/06/18 07/07/18 07/08/18 06:59 06:59 06:59 Intake Total 1430 502 Output Total 1700 825 Balance -270 -323 Result Diagrams: 07/07/18 05:16 07/07/18 05:16 Phys Exam - Physical Examination Respiratory: no wheezing, no rales, no rhonchi, wheezing present, clear to auscultation bilateral Cardiovascular: RRR, no significant murmur, no rub, gallop, irregular Gastrointestinal: soft, non-tender, no distention, positive bowel sounds Musculoskeletal: edema present left hip dressing intact Neurological: non-focal, normal sensation, moves all 4 limbs Dx/Plan (1) Dyspnea Code(s): R06.00 - DYSPNEA, UNSPECIFIED Status: Acute (2) Hip fracture, left Code(s): S72.002A - FRACTURE OF UNSP PART OF NECK OF LEFT FEMUR, INIT Status: Acute (3) Anemia, normocytic normochromic Code(s): D64.9 - ANEMIA, UNSPECIFIED Status: Chronic (4) Diastolic CHF Code(s): I50.30 - UNSPECIFIED DIASTOLIC (CONGESTIVE) HEART FAILURE Status: Acute (5) Lung cancer Code(s): C34.90 - MALIGNANT NEOPLASM OF UNSP PART OF UNSP BRONCHUS OR LUNG Status: Acute (6) Anasarca Code(s): R60.1 - GENERALIZED EDEMA Status: Acute Comment: Attempting diuresis. - Plan pt's hh is low, will check an occult blood, she has been seen by GI in -: the past. Her hh could be low due to her liver disease. will give her iv -: iron. her hh is stable today. mild elevated wbc will order cxr and ua -: spoke with ortho will start asa 81 bid for 30 days as dvt ppx -: will montior her hh, platelets are good. * Explained to pt about how pain medication work. she has agreed on fentanyl 50mcg patch and norco scheduled. Review of Systems - Review of Systems Respiratory: negative: Cough, Dry, Shortness of Breath, Hemoptysis, SOB with Excertion, Pleuritic Pain, Sputum, Wheezing Cardiovascular: negative: chest pain, palpitations, orthopnea, paroxysmal nocturnal dyspnea, edema, light headedness, other Gastrointestinal: negative: Nausea, Vomiting, Abdominal Pain, Diarrhea, Constipation, Melena, Hematochezia, Other Genitourinary: negative: Dysuria, Frequency, Incontinence, Hematuria, Retention , Other Musculoskeletal: Other (left hip pain) - Medications/Allergies Allergies/Adverse Reactions: Allergies Allergy/AdvReac Type Severity Reaction Status Date / Time No Known Drug Allergies Allergy Verified 07/01/18 03:23 Medications: Current Medications Acetaminophen (Tylenol) 650 mg PO Q4H PRN PRN Reason: Headache/Fever or Pain Last Admin: 07/04/18 03:32 Dose: 650 mg Hydrocodone Bitart/Acetaminophen ([place] 10/325) 1 tab PO TID [facility] Last Admin: 07/07/18 08:24 Dose: 1 tab Albuterol/Ipratropium (Duoneb) 3 ml NEB [id number] PRN PRN Reason: SOB &/or Wheezing Last Admin: 07/02/18 20:03 Dose: 3 ml Alprazolam (Xanax) 1 mg PO BID [facility] Last Admin: 07/07/18 08:28 Dose: 1 mg Amitriptyline HCl (Elavil) 100 mg PO [facility] Last Admin: 07/06/18 20:37 Dose: 100 mg Aspirin (Aspirin Chewable) 81 mg PO BID [facility] Benzonatate (Tessalon) 100 mg PO TID [facility] Last Admin: 07/07/18 08:28 Dose: 100 mg Bisacodyl (Dulcolax) 10 mg PO DAILYPRN PRN PRN Reason: Constipation Cholecalciferol (Vitamin D3) 2,000 units PO [facility] Last Admin: 07/06/18 20:37 Dose: 2,000 units Cyclobenzaprine HCl (Flexeril) 10 mg PO TID [facility] Last Admin: 07/07/18 08:28 Dose: 10 mg Famotidine (Pepcid) 20 mg PO BID [facility] Last Admin: 07/07/18 08:24 Dose: 20 mg Fentanyl (Duragesic) 50 mcg TD Q3D [facility] Last Admin: 07/07/18 13:17 Dose: 50 mcg Furosemide (Lasix) 40 mg SLOW IVP DAILY [facility] Last Admin: 07/07/18 08:25 Dose: 40 mg Levothyroxine Sodium (Synthroid) 25 mcg PO 0600 [facility] Last Admin: 07/07/18 05:14 Dose: 25 mcg Lisinopril (Zestril) 5 mg PO DAILY [facility] Last Admin: 07/07/18 08:26 Dose: 5 mg Lubiprostone (Amitiza) 24 mcg PO BID-WM PRN PRN Reason: Constipation Ondansetron HCl (Zofran Odt) 4 mg PO Q6H PRN PRN Reason: Nausea/Vomiting Ondansetron HCl (Zofran) 4 mg IVP Q6H PRN PRN Reason: Nausea/Vomiting Polyethylene Glycol (Miralax) 17 gm PO DAILY [facility] Senna/Docusate Sodium (Senokot S) 1 tab PO BID [facility] Last Admin: 07/07/18 09:41 Dose: Not Given Sodium Chloride (Flush - Normal Saline) 10 ml IVF Q12HR [facility] Last Admin: 07/07/18 08:37 Dose: 10 ml Sodium Chloride (Flush - Normal Saline) 10 ml IVF PRN PRN PRN Reason: Saline Flush Last Admin: 07/07/18 03:18 Dose: 10 ml
--- NOTE | 2018-07-07 11:44 | PRG ---
DATE OF SERVICE: 07/07/2018 Ms. Miller is unchanged. She has no complaints. She is actually sitting on the side of bed with min imal hip discomfort she says. PHYSICAL EXAMINATION: VITAL SIGNS: She is afebrile, heart rate is 84, respiratory rate 18, oximetry is 94 on 2 liters, blo od pressure 116/54. LUNGS: Lungs are clear. She has no wheezes. She has no crackles. White count 12.4, hemoglobin 7.6, which is stable, platelets 543,000. Sodium 129, potassium 4.4, chloride 92, bicarbonate 20, BUN 22, creatinine 0.84. IMPRESSION: 1. Stage IV lung cancer. 2. Status post fall with a hip fracture, now repaired. 3. Pulmonary hypertension, most likely secondary to combination of cirrhosis and some degree of henson tolic dysfunction with mitral regurgitation. PLAN: Continue with rehab. Continue monitoring intake and output. She remains in negative fluid ba swetha.
[2018-07-07 12:02] LABS: Bilirubin Small (Negative); Blood, Urine Large (Negative); Clarity CLOUDY (Clear); Glucose, Urine (Dipstick) Negative (Negative); Leukocyte Negative (Negative); Nitrite Negative (Negative); Protein, Urine (Dipstick) Negative (Neg-Trace); Specific Gravity, Urine 1.008 (1.002-1.036); pH, Urine 6.5 (5.0-9.0)
[2018-07-07 12:03] LABS: Bacteria/HPF None Seen HPF (None Seen); Hyaline Casts/LPF 0-3 HYALINE CAST LPF (0-3 Hyaline); Pathc Cast-AUWi Flag 0.72 (0-2.49); RBC/HPF 21-50 HPF (0-3); Squamous Epithelial 0-3 HPF (0-3); WBC/HPF 0-3 HPF (0-3)
--- NOTE | 2018-07-07 12:51 | RAD ---
SINGLE VIEW OF THE CHEST: COMPARISON: 06/30/18. HISTORY: Elevated white blood cell count. FINDINGS: A single view of the chest shows an enlarged but stable cardiomediastinal silhouette. Increased inte rstitial lung markings are present. There is a MediPort with its tip in the superior vena cava. The previously seen airspace opacities appear to have improved. No pleural effusion is seen. IMPRESSION: Cardiomegaly without evidence of acute cardiopulmonary disease. POS: [facility]
--- NOTE | 2018-07-07 12:59 | PDOC.CTH ---
<Reina Braden - Last Filed: 07/07/18 12:57> Cardiology Progress Note - Subjective The pt seenn and examined. No overnight events. No cardiac complaints. - Objective Vital Signs Temp Pulse Pulse Pulse Resp BP BP 07/07/18 11:30 98.3 F 86 16 07/07/18 09:45 86 83 108/58 L 07/07/18 08:34 97.9 F 84 18 07/07/18 08:26 86 116/54 L 07/07/18 03:23 97.8 F 85 20 BP BP BP Pulse Ox Pulse Ox Pulse Ox 07/07/18 11:30 108/57 L 97 07/07/18 09:45 105/57 L 98 94 L 07/07/18 08:34 116/54 L 94 L 07/07/18 08:26 07/07/18 03:23 118/56 L 95 Weight 225 lb 14.4 oz 07/06/18 07/07/18 07/08/18 06:59 06:59 06:59 Intake Total 1430 502 Output Total 1700 825 Balance -270 -323 - Physical Examination General/Neuro: alert & oriented x3 Neck: no JVD present Lungs: CTA Heart: RRR Abdomen: soft Extremities: other: (3+ pitting edema) - Labs Result Diagrams: 07/07/18 05:16 07/07/18 05:16 Troponin/CKMB CK-MB (CK-2) 0.5 ng/mL (0-6.6) 06/30/18 21:11 Troponin I Less than 0.010 ng/mL (< 0.028) 07/01/18 03:00 - Assessment/Plan 1. Acute on Chronic diastolic HF with severe BLE edema - BLE edema have improving with Lasix. On Lisinopril 5mg qd. Not on BBlocker due to hx of COPD. Daily weight, strict I&O. Fluid restriction 800ml/day 2. Hyponatremia - Na level has improved gradually. The lower extremity edema/ anasarca have been improving slowly. Cont. Strict I&O. Fluid restriction 800ml /day to avoide further hyponatremia. 3. stage 4 Lung Cancer - will be followed by oncology service 4. COPD - unchanged. 5. Anemia - After receiving Iron infusion with 2 units of PRBCs on 07/03/18, Hgb level today 7.6 6. Hx of Hep C and Cirrhosis - 7. Anxiety and depression - 8. hx of fall hip fracture and surgical repair on 07/04/18. MAR reviewed Review of Systems - Review of Systems Constitutional: reports: no symptoms reported EENTM: reports: no symptoms reported Respiratory: reports: no symptoms reported Cardiac (ROS): reports: no symptoms reported ABD/GI: reports: no symptoms reported <Kenney Jacobson - Last Filed: 07/07/18 14:51> Cardiology Progress Note - Objective Vital Signs Temp Pulse Pulse Pulse Resp BP BP 07/07/18 11:30 98.3 F 86 16 07/07/18 09:45 86 83 108/58 L 07/07/18 08:34 97.9 F 84 18 07/07/18 08:26 86 116/54 L 07/07/18 03:23 97.8 F 85 20 BP BP BP Pulse Ox Pulse Ox Pulse Ox 07/07/18 11:30 108/57 L 97 07/07/18 09:45 105/57 L 98 94 L 07/07/18 08:34 116/54 L 94 L 07/07/18 08:26 07/07/18 03:23 118/56 L 95 Weight 225 lb 14.4 oz 07/06/18 07/07/18 07/08/18 06:59 06:59 06:59 Intake Total 1430 502 Output Total 1700 825 Balance -270 -323 - Labs Result Diagrams: 07/07/18 05:16 07/07/18 05:16 Troponin/CKMB CK-MB (CK-2) 0.5 ng/mL (0-6.6) 06/30/18 21:11 Troponin I Less than 0.010 ng/mL (< 0.028) 07/01/18 03:00 - Assessment/Plan pt. seen and eval. by me. I agree with the A/P by the RESIDENTIAL TREATMENT COUNSELOR. I will add IV lasix bid and also add zaroxolyn to see if the edema can be improved. Unfortunately this is probably more right sided and we will need to be careful not to over diurese the pt.
[2018-07-07] MEDS: fentaNYL 50 mcg/hour Patch TD SCH (13:17)
--- NOTE | 2018-07-07 14:05 | PDOC.PN ---
- Subjective Encounter Start Date: 07/07/18 Encounter Start Time: 10:30 Subjective: pt still having pain to her left hip - Objective Resuscitation Status: Resuscitation Status DNR:Do Not Resuscitate Vital Signs & Weight: Vital Signs (12 hours) Temp Pulse Pulse Pulse Resp BP BP 07/07/18 11:30 98.3 F 86 16 07/07/18 09:45 86 83 108/58 L 07/07/18 08:34 97.9 F 84 18 07/07/18 08:26 86 116/54 L 07/07/18 03:23 97.8 F 85 20 BP BP BP Pulse Ox Pulse Ox Pulse Ox 07/07/18 11:30 108/57 L 97 07/07/18 09:45 105/57 L 98 94 L 07/07/18 08:34 116/54 L 94 L 07/07/18 08:26 07/07/18 03:23 118/56 L 95 Weight Weight 225 lb 14.4 oz I&O: 07/06/18 07/07/18 07/08/18 06:59 06:59 06:59 Intake Total 1430 502 Output Total 1700 825 Balance -270 -323 Result Diagrams: 07/07/18 05:16 07/07/18 05:16 Phys Exam - Physical Examination Respiratory: no wheezing, no rales, no rhonchi, wheezing present, clear to auscultation bilateral Cardiovascular: RRR, no significant murmur, no rub, gallop, irregular Gastrointestinal: soft, non-tender, no distention, positive bowel sounds Musculoskeletal: no edema, pulses present, edema present Neurological: non-focal, normal sensation, moves all 4 limbs Dx/Plan (1) Dyspnea Code(s): R06.00 - DYSPNEA, UNSPECIFIED Status: Acute (2) Hip fracture, left Code(s): S72.002A - FRACTURE OF UNSP PART OF NECK OF LEFT FEMUR, INIT Status: Acute (3) Anemia, normocytic normochromic Code(s): D64.9 - ANEMIA, UNSPECIFIED Status: Chronic (4) Lung cancer Code(s): C34.90 - MALIGNANT NEOPLASM OF UNSP PART OF UNSP BRONCHUS OR LUNG Status: Acute (5) Diastolic CHF Code(s): I50.30 - UNSPECIFIED DIASTOLIC (CONGESTIVE) HEART FAILURE Status: Acute - Plan pt on iv lasix will change to po * . Review of Systems - Review of Systems Respiratory: negative: Cough, Dry, Shortness of Breath, Hemoptysis, SOB with Excertion, Pleuritic Pain, Sputum, Wheezing Cardiovascular: negative: chest pain, palpitations, orthopnea, paroxysmal nocturnal dyspnea, edema, light headedness, other Gastrointestinal: negative: Nausea, Vomiting, Abdominal Pain, Diarrhea, Constipation, Melena, Hematochezia, Other Musculoskeletal: Other (left hip pain) - Medications/Allergies Allergies/Adverse Reactions: Allergies Allergy/AdvReac Type Severity Reaction Status Date / Time No Known Drug Allergies Allergy Verified 07/01/18 03:23 Medications: Current Medications Acetaminophen (Tylenol) 650 mg PO Q4H PRN PRN Reason: Headache/Fever or Pain Last Admin: 07/04/18 03:32 Dose: 650 mg Hydrocodone Bitart/Acetaminophen ([place] 10/325) 1 tab PO TID [facility] Last Admin: 07/07/18 08:24 Dose: 1 tab Albuterol/Ipratropium (Duoneb) 3 ml NEB [id number] PRN PRN Reason: SOB &/or Wheezing Last Admin: 07/02/18 20:03 Dose: 3 ml Alprazolam (Xanax) 1 mg PO BID [facility] Last Admin: 07/07/18 08:28 Dose: 1 mg Amitriptyline HCl (Elavil) 100 mg PO [facility] Last Admin: 07/06/18 20:37 Dose: 100 mg Aspirin (Aspirin Chewable) 81 mg PO BID [facility] Benzonatate (Tessalon) 100 mg PO TID [facility] Last Admin: 07/07/18 08:28 Dose: 100 mg Bisacodyl (Dulcolax) 10 mg PO DAILYPRN PRN PRN Reason: Constipation Cholecalciferol (Vitamin D3) 2,000 units PO [facility] Last Admin: 07/06/18 20:37 Dose: 2,000 units Cyclobenzaprine HCl (Flexeril) 10 mg PO TID [facility] Last Admin: 07/07/18 08:28 Dose: 10 mg Famotidine (Pepcid) 20 mg PO BID [facility] Last Admin: 07/07/18 08:24 Dose: 20 mg Fentanyl (Duragesic) 50 mcg TD Q3D [facility] Last Admin: 07/07/18 13:17 Dose: 50 mcg Furosemide (Lasix) 40 mg SLOW IVP DAILY [facility] Last Admin: 07/07/18 08:25 Dose: 40 mg Levothyroxine Sodium (Synthroid) 25 mcg PO 0600 [facility] Last Admin: 07/07/18 05:14 Dose: 25 mcg Lisinopril (Zestril) 5 mg PO DAILY [facility] Last Admin: 07/07/18 08:26 Dose: 5 mg Lubiprostone (Amitiza) 24 mcg PO BID-WM PRN PRN Reason: Constipation Ondansetron HCl (Zofran Odt) 4 mg PO Q6H PRN PRN Reason: Nausea/Vomiting Ondansetron HCl (Zofran) 4 mg IVP Q6H PRN PRN Reason: Nausea/Vomiting Polyethylene Glycol (Miralax) 17 gm PO DAILY [facility] Senna/Docusate Sodium (Senokot S) 1 tab PO BID [facility] Last Admin: 07/07/18 09:41 Dose: Not Given Sodium Chloride (Flush - Normal Saline) 10 ml IVF Q12HR [facility] Last Admin: 07/07/18 08:37 Dose: 10 ml Sodium Chloride (Flush - Normal Saline) 10 ml IVF PRN PRN PRN Reason: Saline Flush Last Admin: 07/07/18 03:18 Dose: 10 ml
[2018-07-07] MEDS ORDERED: Metolazone 5 MG TAB PO SCH (15:00)
[2018-07-07] MEDS: Amitriptyline HCl 100 MG TAB PO SCH (20:46)
[2018-07-08] MEDS: Furosemide 40 MG/4 ML VIAL SLOW IVP SCH (05:43)
[2018-07-08] MEDS: Levothyroxine Sodium 25 MCG TAB PO SCH (05:43)
[2018-07-08 06:17] LABS: Anion Gap 14 mmol/L (10-20); BUN (Urea Nitrogen) 23 mg/dL (9.8-20.1); Calc. Creatinine Clearance 132 mL/min (70-130); Calcium 8.4 mg/dL (7.8-10.44); Carbon Dioxide 26 mmol/L (22-29); Chloride 93 mmol/L (98-107); Estimated GFR-MDRD 77; Glucose 69 mg/dL (70-105); Potassium 4.5 mmol/L (3.5-5.1); Sodium 128 mmol/L (136-145)
[2018-07-08] MEDS: ALPRAZolam 1 MG TAB PO SCH ×2 (08:47→21:02)
[2018-07-08] MEDS: Cyclobenzaprine 10 MG TAB PO SCH ×3 (08:47→21:03)
[2018-07-08] MEDS: Benzonatate 100 MG CAP PO SCH ×3 (08:47→21:03)
[2018-07-08] MEDS: Famotidine 20 MG TAB PO SCH ×2 (08:47→21:03)
[2018-07-08] MEDS: HYDROcodone/Acetaminophen 10/325 mg Tablet PO SCH ×3 (08:47→21:03)
[2018-07-08] MEDS: Polyethylene Glycol 3350 17 GM Packet PO SCH (08:47)
[2018-07-08] MEDS: Furosemide 40 MG TAB PO SCH (08:47)
[2018-07-08] MEDS: Lisinopril 5 MG TAB PO SCH (08:48)
[2018-07-08] MEDS: Senokot S 8.6-50 MG TAB PO SCH ×2 (08:48→21:03)
[2018-07-08] MEDS: Acetaminophen 325 MG TAB PO PRN (13:31)
--- NOTE | 2018-07-08 14:08 | PDOC.PN ---
- Subjective Encounter Start Date: 07/08/18 Encounter Start Time: 08:20 Pt seen for followup re: diastolic CHF exacerbation. Reports feeling better. - Objective Resuscitation Status: Resuscitation Status DNR:Do Not Resuscitate MAR Reviewed: Yes Vital Signs & Weight: Vital Signs (12 hours) Temp Pulse Pulse Pulse Resp BP BP 07/08/18 12:08 78 80 101/54 L 07/08/18 11:30 84 18 07/08/18 08:48 80 121/58 L 07/08/18 07:07 07/08/18 07:00 80 16 07/08/18 05:17 07/08/18 03:08 98.4 F 77 15 BP BP BP Pulse Ox Pulse Ox 07/08/18 12:08 98/55 L 90 L 07/08/18 11:30 96/54 L 07/08/18 08:48 07/08/18 07:07 95 07/08/18 07:00 121/58 L 95 07/08/18 05:17 95 07/08/18 03:08 108/59 L 95 Weight Weight 224 lb 3.2 oz I&O: 07/07/18 07/08/18 07/09/18 06:59 06:59 06:59 Intake Total 502 740 Output Total 825 1600 Balance -323 -860 Result Diagrams: 07/07/18 05:16 07/08/18 05:25 EKG Reviewed by me: Yes (Tele: NSR) Phys Exam - Physical Examination Constitutional: NAD HEENT: moist MMs Neck: supple Respiratory: clear to auscultation bilateral Cardiovascular: RRR Gastrointestinal: soft Neurological: moves all 4 limbs Psychiatric: normal affect Dx/Plan (1) Acute on chronic diastolic CHF (congestive heart failure), NYHA class 3 Code(s): I50.33 - ACUTE ON CHRONIC DIASTOLIC (CONGESTIVE) HEART FAILURE Status : Acute Comment: Improved, continue furosemide (2) Hip fracture, left Code(s): S72.002A - FRACTURE OF UNSP PART OF NECK OF LEFT FEMUR, INIT Status: Acute Comment: s/p surgery. ASA and SCDs for DVT prophylaxis (3) Chronic hepatitis C Code(s): B18.2 - CHRONIC VIRAL HEPATITIS C Status: Chronic Comment: stable (4) Hypothyroidism Code(s): E03.9 - HYPOTHYROIDISM, UNSPECIFIED Status: Chronic Comment: continue synthroid (5) Lung cancer Code(s): C34.90 - MALIGNANT NEOPLASM OF UNSP PART OF UNSP BRONCHUS OR LUNG Status: Chronic - Plan * . Review of Systems - Review of Systems Respiratory: negative: Cough, Shortness of Breath, SOB with Excertion, Pleuritic Pain, Wheezing Cardiovascular: negative: chest pain, palpitations, orthopnea, paroxysmal nocturnal dyspnea, edema, light headedness - Medications/Allergies Allergies/Adverse Reactions: Allergies Allergy/AdvReac Type Severity Reaction Status Date / Time No Known Drug Allergies Allergy Verified 07/01/18 03:23 Medications: Current Medications Acetaminophen (Tylenol) 650 mg PO Q4H PRN PRN Reason: Headache/Fever or Pain Last Admin: 07/08/18 13:31 Dose: 650 mg Hydrocodone Bitart/Acetaminophen ([place] 10/325) 1 tab PO TID [facility] Last Admin: 07/08/18 08:47 Dose: 1 tab Albuterol/Ipratropium (Duoneb) 3 ml NEB [id number] PRN PRN Reason: SOB &/or Wheezing Last Admin: 07/02/18 20:03 Dose: 3 ml Alprazolam (Xanax) 1 mg PO BID [facility] Last Admin: 07/08/18 08:47 Dose: 1 mg Amitriptyline HCl (Elavil) 100 mg PO [facility] Last Admin: 07/07/18 20:46 Dose: 100 mg Aspirin (Aspirin Chewable) 81 mg PO BID [facility] Last Admin: 07/08/18 08:48 Dose: 81 mg Benzonatate (Tessalon) 100 mg PO TID [facility] Last Admin: 07/08/18 08:47 Dose: 100 mg Bisacodyl (Dulcolax) 10 mg PO DAILYPRN PRN PRN Reason: Constipation Cholecalciferol (Vitamin D3) 2,000 units PO HS [facility] Last Admin: 07/07/18 20:46 Dose: 2,000 units Cyclobenzaprine HCl (Flexeril) 10 mg PO TID [facility] Last Admin: 07/08/18 08:47 Dose: 10 mg Famotidine (Pepcid) 20 mg PO BID [facility] Last Admin: 07/08/18 08:47 Dose: 20 mg Fentanyl (Duragesic) 50 mcg TD Q3D [facility] Last Admin: 07/07/18 13:17 Dose: 50 mcg Furosemide (Lasix) 40 mg PO DAILY-AC [facility] Last Admin: 07/08/18 08:47 Dose: 40 mg Levothyroxine Sodium (Synthroid) 25 mcg PO 0600 [facility] Last Admin: 07/08/18 05:43 Dose: 25 mcg Lisinopril (Zestril) 5 mg PO DAILY [facility] Last Admin: 07/08/18 08:48 Dose: 5 mg Lubiprostone (Amitiza) 24 mcg PO BID-WM PRN PRN Reason: Constipation Ondansetron HCl (Zofran Odt) 4 mg PO Q6H PRN PRN Reason: Nausea/Vomiting Ondansetron HCl (Zofran) 4 mg IVP Q6H PRN PRN Reason: Nausea/Vomiting Polyethylene Glycol (Miralax) 17 gm PO DAILY [facility] Last Admin: 07/08/18 08:47 Dose: Not Given Senna/Docusate Sodium (Senokot S) 1 tab PO BID [facility] Last Admin: 07/08/18 08:48 Dose: Not Given Sodium Chloride (Flush - Normal Saline) 10 ml IVF Q12HR [facility] Last Admin: 07/08/18 08:47 Dose: 10 ml Sodium Chloride (Flush - Normal Saline) 10 ml IVF PRN PRN PRN Reason: Saline Flush Last Admin: 07/07/18 03:18 Dose: 10 ml
--- NOTE | 2018-07-08 15:26 | PRG ---
DATE OF SERVICE: 07/08/2018 SERVICE: Pulmonary Medicine. INTERVAL HISTORY: The patient is doing great from a respiratory standpoint. She has no complaints o f chest pain, nausea, vomiting, fevers, chills, shortness of breath. She does have some fullness in her belly. She says that her breathing is a touch tight, but much improved compared to where she was previously. Otherwise, there has been no interval change to her condition. PHYSICAL EXAMINATION: VITAL SIGNS: Afebrile, pulse 84, blood pressure 101/54, respirations 18, saturation 95% on 2 liters nasal cannula. GENERAL: The patient is awake and alert, in no apparent distress. LUNGS: Decent air entry. Crackles are present throughout bilateral lung hunter. There is a slightl y prolonged expiratory phase, but no wheezing is appreciated. HEART: Normal rate, regular. ABDOMEN: Soft, nontender, nondistended. Bowel sounds are positive. MUSCULOSKELETAL: No cyanosis or clubbing. There is diffuse pitting in the bilateral lower extremiti es. NEUROLOGIC: Grossly nonfocal. LABORATORY DATA: WBC 12.4, hemoglobin 7.6, platelets 543,000. INR 1.4. Creatinine 0.78. Basic met abolic profile is otherwise unremarkable. Her sodium is 128, but this is stable for her. ASSESSMENT: 1. Acute on chronic hypoxic respiratory failure. 2. Pulmonary hypertension. 3. Lung cancer, stage 4. 4. Hip fracture, status post repair. DISCUSSION AND PLAN: The patient will need to be diuresed through time as tolerated. Pulmonary Crit ical Care will continue to follow along for the time being.
[2018-07-08] MEDS ORDERED: Furosemide 40 MG/4 ML VIAL SLOW IVP SCH (15:30)
[2018-07-08] MEDS: Amitriptyline HCl 100 MG TAB PO SCH (21:02)
[2018-07-09] MEDS: Levothyroxine Sodium 25 MCG TAB PO SCH (05:12)
[2018-07-09 06:02] LABS: Anion Gap 18 mmol/L (10-20); BUN (Urea Nitrogen) 26 mg/dL (9.8-20.1); Calc. Creatinine Clearance 78 mL/min (70-130); Calcium 8.4 mg/dL (7.8-10.44); Carbon Dioxide 25 mmol/L (22-29); Chloride 90 mmol/L (98-107); Estimated GFR-MDRD 42; Glucose 70 mg/dL (70-105); Potassium 4.5 mmol/L (3.5-5.1); Sodium 128 mmol/L (136-145)
[2018-07-09] MEDS: Famotidine 20 MG TAB PO SCH ×2 (08:47→21:35)
[2018-07-09] MEDS: ALPRAZolam 1 MG TAB PO SCH ×2 (08:47→21:34)
[2018-07-09] MEDS: Furosemide 40 MG TAB PO SCH (08:47)
[2018-07-09] MEDS: Benzonatate 100 MG CAP PO SCH ×3 (08:47→21:42)
[2018-07-09] MEDS: Cyclobenzaprine 10 MG TAB PO SCH (08:47)
[2018-07-09] MEDS: HYDROcodone/Acetaminophen 10/325 mg Tablet PO SCH (08:48)
[2018-07-09] MEDS: Senokot S 8.6-50 MG TAB PO SCH ×2 (08:48→21:34)
[2018-07-09] MEDS: Polyethylene Glycol 3350 17 GM Packet PO SCH (08:48)
[2018-07-09] MEDS: Lisinopril 5 MG TAB PO SCH (08:48)
[2018-07-09] MEDS ORDERED: Furosemide 20 MG/2 ML VIAL SLOW IVP SCH (09:00)
[2018-07-09] MEDS: HYDROcodone/Acetaminophen 10/325 mg Tablet PO PRN ×2 (11:29→21:35)
--- NOTE | 2018-07-09 14:15 | PDOC.PN ---
- Subjective Encounter Start Date: 07/09/18 Encounter Start Time: 08:40 Pt seen for followup re: diastolic heart failure exacerbation. Sleepy but arousable, denies chest pain, shortness of breath, fevers or chills. - Objective Resuscitation Status: Resuscitation Status DNR:Do Not Resuscitate MAR Reviewed: Yes Vital Signs & Weight: Vital Signs (12 hours) Temp Pulse Pulse Pulse Resp BP BP 07/09/18 11:15 97.5 F L 79 15 07/09/18 10:04 79 80 110/53 L 104/56 L 07/09/18 09:11 78 14 07/09/18 07:12 98.7 F 78 14 07/09/18 04:00 97.7 F 79 14 BP BP Pulse Ox 07/09/18 11:15 97/47 L 95 07/09/18 10:04 07/09/18 09:11 92/55 L 07/09/18 07:12 94/52 L 96 07/09/18 04:00 91/50 L 93 L Weight Weight 223 lb I&O: 07/08/18 07/09/18 07/10/18 06:59 06:59 06:59 Intake Total 740 120 Output Total 1600 600 Balance -860 -600 120 Result Diagrams: 07/07/18 05:16 07/10/18 05:29 EKG Reviewed by me: Yes (Tele: NSR) Phys Exam - Physical Examination Constitutional: NAD HEENT: moist MMs Neck: supple Holger crackles Cardiovascular: RRR Gastrointestinal: soft Musculoskeletal: no edema Neurological: moves all 4 limbs Psychiatric: normal affect Dx/Plan (1) Acute on chronic diastolic CHF (congestive heart failure), NYHA class 3 Code(s): I50.33 - ACUTE ON CHRONIC DIASTOLIC (CONGESTIVE) HEART FAILURE Status : Acute Comment: continue furosemide (2) Hip fracture, left Code(s): S72.002A - FRACTURE OF UNSP PART OF NECK OF LEFT FEMUR, INIT Status: Acute Comment: s/p surgery. Continue aspirin and SCDs for DVT prophylaxis (3) Chronic hepatitis C Code(s): B18.2 - CHRONIC VIRAL HEPATITIS C Status: Chronic Comment: stable (4) Hypothyroidism Code(s): E03.9 - HYPOTHYROIDISM, UNSPECIFIED Status: Chronic Comment: on synthroid (5) Lung cancer Code(s): C34.90 - MALIGNANT NEOPLASM OF UNSP PART OF UNSP BRONCHUS OR LUNG Status: Chronic - Plan * . Review of Systems - Review of Systems Cardiovascular: negative: chest pain, palpitations, orthopnea, paroxysmal nocturnal dyspnea, edema, light headedness Gastrointestinal: negative: Nausea, Vomiting, Abdominal Pain, Diarrhea, Constipation, Melena, Hematochezia - Medications/Allergies Allergies/Adverse Reactions: Allergies Allergy/AdvReac Type Severity Reaction Status Date / Time No Known Drug Allergies Allergy Verified 07/01/18 03:23 Medications: Current Medications Acetaminophen (Tylenol) 650 mg PO Q4H PRN PRN Reason: Headache/Fever or Pain Last Admin: 07/08/18 13:31 Dose: 650 mg Hydrocodone Bitart/Acetaminophen ([place] 10/325) 1 tab PO TIDPRN PRN PRN Reason: Pain Last Admin: 07/09/18 11:29 Dose: 1 tab Albuterol/Ipratropium (Duoneb) 3 ml NEB [id number] PRN PRN Reason: SOB &/or Wheezing Last Admin: 07/08/18 22:16 Dose: 3 ml Alprazolam (Xanax) 1 mg PO BID [facility] Last Admin: 07/09/18 08:47 Dose: Not Given Amitriptyline HCl (Elavil) 100 mg PO [facility] Last Admin: 07/08/18 21:02 Dose: 100 mg Aspirin (Aspirin Chewable) 81 mg PO BID [facility] Last Admin: 07/09/18 08:47 Dose: Not Given Benzonatate (Tessalon) 100 mg PO TID [facility] Last Admin: 07/09/18 08:47 Dose: Not Given Bisacodyl (Dulcolax) 10 mg PO DAILYPRN PRN PRN Reason: Constipation Cholecalciferol (Vitamin D3) 2,000 units PO HS [facility] Last Admin: 07/08/18 21:03 Dose: 2,000 units Cyclobenzaprine HCl (Flexeril) 10 mg PO TIDPRN PRN PRN Reason: .PAIN Famotidine (Pepcid) 20 mg PO BID [facility] Last Admin: 07/09/18 08:47 Dose: Not Given Fentanyl (Duragesic) 50 mcg TD Q3D [facility] Last Admin: 07/07/18 13:17 Dose: 50 mcg Furosemide (Lasix) 40 mg PO DAILY-[facility] Last Admin: 07/09/18 08:47 Dose: Not Given Levothyroxine Sodium (Synthroid) 25 mcg PO 0600 [facility] Last Admin: 07/09/18 05:12 Dose: 25 mcg Lubiprostone (Amitiza) 24 mcg PO BID-WM PRN PRN Reason: Constipation Ondansetron HCl (Zofran Odt) 4 mg PO Q6H PRN PRN Reason: Nausea/Vomiting Ondansetron HCl (Zofran) 4 mg IVP Q6H PRN PRN Reason: Nausea/Vomiting Polyethylene Glycol (Miralax) 17 gm PO DAILY [facility] Last Admin: 07/09/18 08:48 Dose: Not Given Senna/Docusate Sodium (Senokot S) 1 tab PO BID [facility] Last Admin: 07/09/18 08:48 Dose: Not Given Sodium Chloride (Flush - Normal Saline) 10 ml IVF Q12HR [facility] Last Admin: 07/09/18 09:12 Dose: 10 ml Sodium Chloride (Flush - Normal Saline) 10 ml IVF PRN PRN PRN Reason: Saline Flush Last Admin: 07/07/18 03:18 Dose: 10 ml
[2018-07-09] MEDS: Cyclobenzaprine 10 MG TAB PO PRN (14:55)
--- NOTE | 2018-07-09 17:05 | PRG ---
DATE OF SERVICE: 07/09/2018 SERVICE: Pulmonary Medicine. INTERVAL HISTORY: The patient is doing fine from a respiratory standpoint. She is actually breathin g a little bit better. Her abdominal distention is improved a little bit. Her legs are slightly sma ller. Otherwise, there has been no interval change to her condition and she is actually fairly happy . PHYSICAL EXAMINATION: VITAL SIGNS: Afebrile, pulse 82, blood pressure 106/57, respirations 16, saturation 95% on 2 liters nasal cannula. GENERAL: The patient is awake, alert, no apparent distress. LUNGS: Crackles are present throughout bilateral lung hunter. There is slightly prolonged expirator y phase, but I do not appreciate rhonchi or wheezing today. HEART: Normal rate, regular. ABDOMEN: Soft, nontender, nondistended. Bowel sounds are positive. MUSCULOSKELETAL: No cyanosis or clubbing. There is 1+ pitting in the bilateral lower extremities, w hich is improved. GENITOURINARY: No Gilbert. NEUROLOGIC: Grossly nonfocal. LABORATORY DATA: WBC 12.4, hemoglobin 7.6, platelets 543,000. Neutrophil count is normal with 1% ba nds. Creatinine 1.32. Basic metabolic profile is otherwise unremarkable with sodium of 128, stable. ASSESSMENT: 1. Acute on chronic hypoxic respiratory failure. 2. Pulmonary hypertension. 3. Lung cancer, stage 4. 4. Hip fracture, status post repair. DISCUSSION AND PLAN: The patient will be diuresed gently through time. At this point, she is intrav ascularly depleted. I agree with backing off on the Lasix. Pulmonary Critical Care will continue to follow along. Dr. Wren will resume care for the Pulmonary Service in the morning.
[2018-07-09] MEDS: Amitriptyline HCl 100 MG TAB PO SCH (21:35)
[2018-07-10] MEDS: Levothyroxine Sodium 25 MCG TAB PO SCH (05:45)
[2018-07-10 06:15] LABS: Anion Gap 15 mmol/L (10-20); BUN (Urea Nitrogen) 29 mg/dL (9.8-20.1); Calc. Creatinine Clearance 68 mL/min (70-130); Calcium 8.6 mg/dL (7.8-10.44); Carbon Dioxide 25 mmol/L (22-29); Chloride 90 mmol/L (98-107); Estimated GFR-MDRD 36; Glucose 60 mg/dL (70-105); Potassium 4.8 mmol/L (3.5-5.1); Sodium 125 mmol/L (136-145)
[2018-07-10] MEDS: Polyethylene Glycol 3350 17 GM Packet PO SCH (07:58)
[2018-07-10] MEDS: Furosemide 40 MG TAB PO SCH (07:59)
[2018-07-10] MEDS: Senokot S 8.6-50 MG TAB PO SCH ×2 (07:59→20:21)
[2018-07-10] MEDS: Benzonatate 100 MG CAP PO SCH ×3 (07:59→20:21)
[2018-07-10] MEDS: Famotidine 20 MG TAB PO SCH ×2 (07:59→20:20)
[2018-07-10] MEDS: ALPRAZolam 1 MG TAB PO SCH ×2 (07:59→20:20)
[2018-07-10] MEDS: HYDROcodone/Acetaminophen 10/325 mg Tablet PO PRN ×2 (10:48→20:19)
[2018-07-10] MEDS: fentaNYL 50 mcg/hour Patch TD SCH (12:25)
--- NOTE | 2018-07-10 13:54 | PDOC.CTH ---
<Reina Braden - Last Filed: 07/10/18 13:52> Cardiology Progress Note - Subjective The pt seen and examined. No overnight events. No cardiac complaints. Cont. having pain to the sx site. - Objective Vital Signs Temp Pulse Resp BP Pulse Ox 07/10/18 11:42 97.6 F 79 16 103/57 L 97 07/10/18 08:00 100 07/10/18 07:15 97.6 F 78 16 112/58 L 100 07/10/18 03:45 98.2 F 78 16 93/51 L 95 Weight 223 lb 4.8 oz 07/09/18 07/10/18 07/11/18 06:59 06:59 06:59 Intake Total 580 Output Total 600 775 Balance -600 -195 - Physical Examination General/Neuro: alert & oriented x3 Neck: no JVD present Lungs: CTA (diminished at bases) Heart: RRR Abdomen: soft Extremities: other: - Telemetry Telemetry Rhythm: SR 70-80s - Labs Result Diagrams: 07/07/18 05:16 07/10/18 05:29 Troponin/CKMB CK-MB (CK-2) 0.5 ng/mL (0-6.6) 06/30/18 21:11 Troponin I Less than 0.010 ng/mL (< 0.028) 07/01/18 03:00 - Assessment/Plan 1. Acute on Chronic diastolic HF with severe BLE edema - BLE edema have improving with Lasix. On Lisinopril 5mg qd. Not on BBlocker due to hx of COPD. Daily weight, strict I&O. Fluid restriction 800ml/day 2. Hyponatremia - Na level has improved gradually. The lower extremity edema/ anasarca have been improving slowly. Cont. Strict I&O. Fluid restriction 800ml /day to avoide further hyponatremia. 3. stage 4 Lung Cancer - will be followed by oncology service 4. COPD - unchanged. 5. Anemia - After receiving Iron infusion with 2 units of PRBCs on 07/03/18, Hgb level today 7.6 6. Hx of Hep C and Cirrhosis - 7. Anxiety and depression - 8. hx of fall hip fracture and surgical repair on 07/04/18. MAR reviewed * From Cardiac standpoint, the pt is stable to tx to Rehab. After she d/es from the Rehab, the pt will f/u with Dr Jacobson' office. Review of Systems - Review of Systems Constitutional: reports: no symptoms reported EENTM: reports: no symptoms reported Respiratory: reports: no symptoms reported Cardiac (ROS): reports: no symptoms reported ABD/GI: reports: no symptoms reported : reports: no symptoms reported Musculoskeletal: reports: see HPI <Kenney Jacobson - Last Filed: 07/10/18 16:10> Cardiology Progress Note - Objective Vital Signs Temp Pulse Resp BP Pulse Ox 07/10/18 15:26 97.6 F 81 16 111/60 97 07/10/18 11:42 97.6 F 79 16 103/57 L 97 07/10/18 08:00 100 07/10/18 07:15 97.6 F 78 16 112/58 L 100 Weight 223 lb 4.8 oz 07/09/18 07/10/18 07/11/18 06:59 06:59 06:59 Intake Total 580 Output Total 600 775 Balance -600 -195 - Labs Result Diagrams: 07/07/18 05:16 07/10/18 05:29 Troponin/CKMB CK-MB (CK-2) 0.5 ng/mL (0-6.6) 06/30/18 21:11 Troponin I Less than 0.010 ng/mL (< 0.028) 07/01/18 03:00 - Assessment/Plan Pt. seen and eval. by me. I agree with the A/P by the CATERING ASSISTANT.except I noticed that the Na is decreasing again. Difficult situation. Poor prognosis.
[2018-07-10] MEDS ORDERED: Conivaptan 20 MG in Premix Bag 1 BAG IVPB SCH (16:45)
[2018-07-10 17:13] LABS: Anion Gap 15 mmol/L (10-20); BUN (Urea Nitrogen) 31 mg/dL (9.8-20.1); Calc. Creatinine Clearance 72 mL/min (70-130); Calcium 8.7 mg/dL (7.8-10.44); Carbon Dioxide 27 mmol/L (22-29); Chloride 89 mmol/L (98-107); Estimated GFR-MDRD 39; Glucose 88 mg/dL (70-105); Potassium 5.5 mmol/L (3.5-5.1); Sodium 125 mmol/L (136-145)
[2018-07-10] MEDS ORDERED: Tolvaptan 15 MG TAB PO SCH (17:30)
--- NOTE | 2018-07-10 17:40 | PDOC.PN ---
- Subjective Encounter Start Date: 07/10/18 Encounter Start Time: 17:38 Pt seen for followup re: diastolic CHF exacerbation. Reports feeling well. No nausea or vomiting. Not ambulating much. - Objective Resuscitation Status: Resuscitation Status DNR:Do Not Resuscitate Vital Signs & Weight: Vital Signs (12 hours) Temp Pulse Resp BP Pulse Ox 07/10/18 15:26 97.6 F 81 16 111/60 97 07/10/18 11:42 97.6 F 79 16 103/57 L 97 07/10/18 08:00 100 07/10/18 07:15 97.6 F 78 16 112/58 L 100 Weight Weight 223 lb 4.8 oz I&O: 07/09/18 07/10/18 07/11/18 06:59 06:59 06:59 Intake Total 580 Output Total 600 775 Balance -600 -195 Result Diagrams: 07/07/18 05:16 07/10/18 16:43 Phys Exam - Physical Examination Constitutional: NAD HEENT: moist MMs Neck: supple Respiratory: clear to auscultation bilateral Cardiovascular: RRR Gastrointestinal: soft Neurological: moves all 4 limbs Psychiatric: normal affect Dx/Plan (1) Acute on chronic diastolic CHF (congestive heart failure), NYHA class 3 Code(s): I50.33 - ACUTE ON CHRONIC DIASTOLIC (CONGESTIVE) HEART FAILURE Status : Acute Comment: continue oral furosemide (2) Hip fracture, left Code(s): S72.002A - FRACTURE OF UNSP PART OF NECK OF LEFT FEMUR, INIT Status: Acute Comment: s/p surgery. Aspirin and SCDs for DVT prophylaxis (3) Hyponatremia Code(s): E87.1 - HYPO-OSMOLALITY AND HYPONATREMIA Status: Acute Comment: Pt is on 800 ml fluid restriction, continues to have low sodium. Will consult nephrology. (4) Chronic hepatitis C Code(s): B18.2 - CHRONIC VIRAL HEPATITIS C Status: Chronic Comment: stable (5) Hypothyroidism Code(s): E03.9 - HYPOTHYROIDISM, UNSPECIFIED Status: Chronic Comment: on synthroid (6) Lung cancer Code(s): C34.90 - MALIGNANT NEOPLASM OF UNSP PART OF UNSP BRONCHUS OR LUNG Status: Chronic - Plan * . Discussed with pt's PCP over telephone, updated. Review of Systems - Review of Systems Respiratory: SOB with Excertion. negative: Cough, Shortness of Breath, Pleuritic Pain, Wheezing Cardiovascular: negative: chest pain, palpitations, orthopnea, paroxysmal nocturnal dyspnea, edema, light headedness - Medications/Allergies Allergies/Adverse Reactions: Allergies Allergy/AdvReac Type Severity Reaction Status Date / Time No Known Drug Allergies Allergy Verified 07/01/18 03:23 Medications: Current Medications Acetaminophen (Tylenol) 650 mg PO Q4H PRN PRN Reason: Headache/Fever or Pain Last Admin: 07/08/18 13:31 Dose: 650 mg Hydrocodone Bitart/Acetaminophen ([place] 10/325) 1 tab PO TIDPRN PRN PRN Reason: Pain Last Admin: 07/10/18 10:48 Dose: 1 tab Albuterol/Ipratropium (Duoneb) 3 ml NEB [id number] PRN PRN Reason: SOB &/or Wheezing Last Admin: 07/09/18 18:48 Dose: 3 ml Alprazolam (Xanax) 1 mg PO BID [facility] Last Admin: 07/10/18 07:59 Dose: 1 mg Amitriptyline HCl (Elavil) 100 mg PO [facility] Last Admin: 07/09/18 21:35 Dose: 100 mg Aspirin (Aspirin Chewable) 81 mg PO BID [facility] Last Admin: 07/10/18 07:59 Dose: 81 mg Benzonatate (Tessalon) 100 mg PO TID [facility] Last Admin: 07/10/18 15:22 Dose: 100 mg Bisacodyl (Dulcolax) 10 mg PO DAILYPRN PRN PRN Reason: Constipation Cholecalciferol (Vitamin D3) 2,000 units PO [facility] Last Admin: 07/09/18 21:34 Dose: 2,000 units Cyclobenzaprine HCl (Flexeril) 10 mg PO TIDPRN PRN PRN Reason: .PAIN Last Admin: 07/09/18 14:55 Dose: 10 mg Famotidine (Pepcid) 20 mg PO BID [facility] Last Admin: 07/10/18 07:59 Dose: 20 mg Fentanyl (Duragesic) 50 mcg TD Q3D [facility] Last Admin: 07/10/18 12:25 Dose: 50 mcg Furosemide (Lasix) 40 mg PO DAILY-[facility] Last Admin: 07/10/18 07:59 Dose: 40 mg Conivaptan HCl 20 mg/ Device 100 mls @ 200 mls/hr IVPB NOW [facility] Stop: 07/12/18 17:31 Levothyroxine Sodium (Synthroid) 25 mcg PO 0600 [facility] Last Admin: 07/10/18 05:45 Dose: 25 mcg Lubiprostone (Amitiza) 24 mcg PO BID-WM PRN PRN Reason: Constipation Ondansetron HCl (Zofran Odt) 4 mg PO Q6H PRN PRN Reason: Nausea/Vomiting Ondansetron HCl (Zofran) 4 mg IVP Q6H PRN PRN Reason: Nausea/Vomiting Polyethylene Glycol (Miralax) 17 gm PO DAILY [facility] Last Admin: 07/10/18 07:58 Dose: 17 gm Senna/Docusate Sodium (Senokot S) 1 tab PO BID [facility] Last Admin: 07/10/18 07:59 Dose: 1 tab Sodium Chloride (Flush - Normal Saline) 10 ml IVF Q12HR [facility] Last Admin: 07/10/18 07:59 Dose: 10 ml Sodium Chloride (Flush - Normal Saline) 10 ml IVF PRN PRN PRN Reason: Saline Flush Last Admin: 07/07/18 03:18 Dose: 10 ml Tolvaptan (Samsca) 15 mg PO NOW [facility] Stop: 07/10/18 19:00 Tolvaptan (Samsca) 15 mg PO DAILY [facility]
[2018-07-10] MEDS: Amitriptyline HCl 100 MG TAB PO SCH (20:20)
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
[2018-07-11] MEDS: Levothyroxine Sodium 25 MCG TAB PO SCH (05:46)
[2018-07-11 06:02] LABS: Anion Gap 14 mmol/L (10-20); BUN (Urea Nitrogen) 32 mg/dL (9.8-20.1); Calc. Creatinine Clearance 74 mL/min (70-130); Calcium 8.9 mg/dL (7.8-10.44); Carbon Dioxide 29 mmol/L (22-29); Chloride 89 mmol/L (98-107); Estimated GFR-MDRD 39; Glucose 77 mg/dL (70-105); Potassium 5.2 mmol/L (3.5-5.1); Sodium 127 mmol/L (136-145)
[2018-07-11 06:51] LABS: Anisocytosis SLIGHT = 6-15 cells (100X) (0-5/hpf); Band 3 % (5-11); Eosinophils 2 % (0-10); Hemoglobin 7.4 g/dL (12.0-16.0); Lymphocytes 21 % (21-51); MDiff Complete? YES; Mean Corpuscular HGB CONC 31.1 g/dL (32.0-36.0); Mean Corpuscular Hemoglobin 26.8 pg (27.0-31.0); Mean Corpuscular Volume 86.3 fL (78.0-98.0); Mean Platelet Volume 10.1 fL (7.4-10.4); Monocytes 10 % (0-10); Neutrophil 64 % (42-75); PLT Morphology Comment Appears Increased; Platelet Count 608 thou/uL (130-400); RBC Distribution Width 18.6 % (11.5-14.5); Red Blood Cell (RBC) Count 2.77 mill/uL (4.20-5.40); Target Cells MODERATE= 6-15 cells (100X) (0-1/hpf); White Blood Cell (WBC) Count 12.4 thou/uL (4.8-10.8)
[2018-07-11] MEDS: Furosemide 40 MG TAB PO SCH (08:36)
[2018-07-11] MEDS: Polyethylene Glycol 3350 17 GM Packet PO SCH (08:36)
[2018-07-11] MEDS: ALPRAZolam 1 MG TAB PO SCH (08:36)
[2018-07-11] MEDS: Famotidine 20 MG TAB PO SCH ×2 (08:36→21:02)
[2018-07-11] MEDS: Benzonatate 100 MG CAP PO SCH ×3 (08:36→21:03)
[2018-07-11] MEDS: Senokot S 8.6-50 MG TAB PO SCH ×2 (08:41→21:02)
--- NOTE | 2018-07-11 08:46 | PRG ---
DATE OF SERVICE: 07/11/2018 SUBJECTIVE: Ms. Hand is a 53-year-old white female with known history of lung cancer - in [facility], admitted for CHF, and seen by the Renal Service for the hyponatremia. I felt that the hyponatremi a was multifactorial. Initially due to the congestive heart failure. We thought it may all be dilut ional. She has been diuresed and her fluid overload is much improved. The possibility of hyponatrem ia related to her lung cancer remains. I have started her on Tolvaptan at 50 mg tab every day. An L P will be checked. This morning, she has no new complaints. She is mentating well. No complaints o f chest pain or shortness of breath. PHYSICAL EXAMINATION: VITAL SIGNS: Blood pressure is 102/51, heart rate 82, respiratory rate 20, temperature 98.4, pulse o x 97%. GENERAL: Awake, alert, comfortable, not in distress. SKIN: Adequate turgor. HEENT: Pinkish conjunctivae. Anicteric sclerae. NECK: No neck mass, no carotid bruits, no JVD. CHEST: No deformities. LUNGS: Clear. Decreased breath sounds. HEART: Normal sinus rhythm. No murmur, no gallops, no rubs. ABDOMEN: Globular, soft, nontender, no masses. EXTREMITIES: No edema. No deformities. MEDICATIONS: 07/11/2018 - Reviewed. LABORATORY: 07/04/2018 - Shows a sodium 127, potassium 4.5, chloride 89, carbon dioxide was noted at 26, BUN is 24, creatinine 0.9. 07/11/2018 - The serum sodium was rechecked at 127 with a potassium of 5.2, chloride 89, carbon dioxi de 29, BUN 32, creatinine 1.41. Serum calcium is 8.9. Urinalysis on 07/07/2018 showed specific gravity 1.008. No white cell casts noted. ASSESSMENT AND PLAN: 1. Hyponatremia, multifactorial etiology. Continue Tolvaptan 15 mg tab once a day. We will hold of f conivaptan since the conivaptan is not available. Recheck base met in a.m. Continue free water re striction. 2. Congestive heart failure, clinically much improved. 3. Lung cancer in remission. I agree with current management.
[2018-07-11 08:50] LABS: ALT (SGPT) 37 U/L (8-55); AST (SGOT) 81 U/L (5-34); Alkaline Phosphatase 201 U/L (40-150); Bilirubin, Direct 1.6 mg/dL (0.1-0.3); Bilirubin, Total 2.2 mg/dL (0.2-1.2)
[2018-07-11] MEDS ORDERED: Tolvaptan 15 MG TAB PO SCH (09:00)
[2018-07-11] MEDS ORDERED: Iron Sucrose Complex 200 MG in Sodium Chloride 0.9% 250 ML 250 ML IVPB SCH (10:15)
[2018-07-11] MEDS ORDERED: Sodium Ferric Gluconate 250 MG in Sodium Chloride 0.9% 100 ML IVPB SCH (11:00)
[2018-07-11] MEDS: Tolvaptan 15 MG TAB PO SCH (12:05)
--- NOTE | 2018-07-11 13:44 | PDOC.CTH ---
Cardiology Progress Note - Subjective The pt seen and examined. No overnight events. No cardiac complaints. She denied any pain at this time. - Objective Vital Signs Temp Pulse Pulse Resp BP BP BP 07/11/18 12:28 98.5 F 81 18 111/58 L 07/11/18 12:02 98.1 F 81 18 114/60 07/11/18 08:34 97.9 F 81 18 114/57 L 07/11/18 06:52 07/11/18 03:15 98.4 F 82 20 102/51 L Pulse Ox 07/11/18 12:28 07/11/18 12:02 99 07/11/18 08:34 95 07/11/18 06:52 97 07/11/18 03:15 97 Weight 226 lb 07/10/18 07/11/18 07/12/18 06:59 06:59 06:59 Intake Total 580 700 0 Output Total 775 1200 Balance -195 -500 0 - Physical Examination General/Neuro: alert & oriented x3 Neck: no JVD present Lungs: other: (diminished at bases) Heart: RRR Abdomen: soft Extremities: other: (3-4+ pitting BLE edema) - Telemetry Telemetry Rhythm: SR - Labs Result Diagrams: 07/11/18 05:16 07/11/18 05:16 Troponin/CKMB CK-MB (CK-2) 0.5 ng/mL (0-6.6) 06/30/18 21:11 Troponin I Less than 0.010 ng/mL (< 0.028) 07/01/18 03:00 - Assessment/Plan 1. Acute on Chronic diastolic HF with severe BLE edema - BLE edema have improving with Lasix. On Lisinopril 5mg qd. Not on BBlocker due to hx of COPD. Daily weight, strict I&O. Fluid restriction 800ml/day 2. Hyponatremia - Na level has improved gradually. The lower extremity edema/ anasarca have been improving slowly. On Tolvaptan 150mg qd by shale miner blasting. Cont. Strict I&O. Fluid restriction 800ml/day to avoide further hyponatremia. 3. stage 4 Lung Cancer - will be followed by oncology service 4. COPD - unchanged. 5. Anemia - After receiving Iron infusion with 2 units of PRBCs on 07/03/18, Hgb level has been stable. 6. Hx of Hep C and Cirrhosis - 7. Anxiety and depression - 8. hx of fall hip fracture and surgical repair on 07/04/18. 9. AMY - managed by shale miner blasting MAR reviewed Review of Systems - Review of Systems Constitutional: reports: no symptoms reported EENTM: reports: no symptoms reported Respiratory: reports: no symptoms reported Cardiac (ROS): reports: no symptoms reported ABD/GI: reports: no symptoms reported : reports: no symptoms reported Musculoskeletal: reports: no symptoms reported
--- NOTE | 2018-07-11 14:08 | ULT ---
RIGHT UPPER QUADRANT ULTRASOUND: 07/11/18 HISTORY: Abnormal liver function test. COMPARISON: CT abdomen on 06/05/18. FINDINGS: The liver is enlarged in craniocaudal dimensions measuring 28 cm. No focal hepatic lesion is seen. As noted on prior CT exam, the gallbladder is distended and measures 13.7 cm in length. There is echo genic material seen within the dependent portion of the gallbladder lumen suggesting gallbladder slud ge. No gallbladder calculus is seen. There is what appears to be mild gallbladder wall thickening wit h what is likely a mildly edematous gallbladder wall versus small amount of adjacent pericholecystic fluid. There was suggestion of a tiny amount of pericholecystic fluid on the CT examination as well. The common duct is at the upper limits of normal in size measuring 0.6 cm. Limited visualized portions of the pancreas, visualized portions of the IVC, and right kidney demonst rate a normal sonographic appearance. The right kidney measures 11.1 cm in length. There is a small r ight pleural effusion with tiny amount of intraperitoneal free fluid. IMPRESSION: 1. Hepatomegaly. 2. Gallbladder sludge with mild gallbladder wall thickening with the gallbladder wall measuring 0.5 cm. Near the fundus of the gallbladder, there is suggestion of tiny amount of pericholecystic flu id versus edema within the gallbladder wall. There was pericholecystic fluid seen adjacent to the gal lbladder on the study on 06/05/18. Hepatobiliary scan may be helpful for further evaluation. 3. No gallbladder calculi are seen, and the common duct is normal in caliber. 4. Small amount of ascites adjacent to the liver. There is also a small right pleural effusion w hich was not seen on the prior CT exam. POS: [facility]
--- NOTE | 2018-07-11 16:22 | PDOC.PN ---
- Subjective Encounter Start Date: 07/11/18 Encounter Start Time: 16:20 Pt seen for followup re: CHF exacerbation. Feels slightly better. Sleepy. - Objective Resuscitation Status: Resuscitation Status DNR:Do Not Resuscitate MAR Reviewed: Yes Vital Signs & Weight: Vital Signs (12 hours) Temp Pulse Pulse Resp BP BP Pulse Ox 07/11/18 15:15 97.0 F L 82 18 110/57 L 97 07/11/18 12:45 97.9 F 82 18 119/56 L 98 07/11/18 12:28 98.5 F 81 18 111/58 L 07/11/18 12:02 98.1 F 81 18 114/60 99 07/11/18 08:34 97.9 F 81 18 114/57 L 95 07/11/18 06:52 97 Weight Weight 226 lb I&O: 07/10/18 07/11/18 07/12/18 06:59 06:59 06:59 Intake Total 580 700 350 Output Total 775 1200 Balance -195 -500 350 Result Diagrams: 07/11/18 05:16 07/11/18 05:16 EKG Reviewed by me: Yes (Tele: NSR) Phys Exam - Physical Examination scleral icterus, conjunctival pallor Neck: supple Holger crackles Cardiovascular: RRR Gastrointestinal: soft Neurological: moves all 4 limbs Psychiatric: normal affect Dx/Plan (1) Acute on chronic diastolic CHF (congestive heart failure), NYHA class 3 Code(s): I50.33 - ACUTE ON CHRONIC DIASTOLIC (CONGESTIVE) HEART FAILURE Status : Acute Comment: Improving, continue oral furosemide (2) Hip fracture, left Code(s): S72.002A - FRACTURE OF UNSP PART OF NECK OF LEFT FEMUR, INIT Status: Acute Comment: s/p surgery. (3) Hyponatremia Code(s): E87.1 - HYPO-OSMOLALITY AND HYPONATREMIA Status: Acute Comment: sodium improved to 127 today, received conivaptan (4) Chronic hepatitis C Code(s): B18.2 - CHRONIC VIRAL HEPATITIS C Status: Chronic Comment: stable (5) Hypothyroidism Code(s): E03.9 - HYPOTHYROIDISM, UNSPECIFIED Status: Chronic Comment: on synthroid (6) Lung cancer Code(s): C34.90 - MALIGNANT NEOPLASM OF UNSP PART OF UNSP BRONCHUS OR LUNG Status: Chronic (7) Anemia Code(s): D64.9 - ANEMIA, UNSPECIFIED Status: Chronic Comment: Could be contributing to her weakness and shortness of breath. Pt had +ve FOBT. Also has low iron level. Give IV iron, one unit pRBC and consult GI for opinion and help with management (pt had scopes in March). - Plan * . Review of Systems - Review of Systems Respiratory: SOB with Excertion. negative: Cough, Shortness of Breath, Pleuritic Pain, Wheezing Cardiovascular: negative: chest pain, palpitations, orthopnea, paroxysmal nocturnal dyspnea, edema, light headedness - Medications/Allergies Allergies/Adverse Reactions: Allergies Allergy/AdvReac Type Severity Reaction Status Date / Time No Known Drug Allergies Allergy Verified 07/01/18 03:23 Medications: Current Medications Acetaminophen (Tylenol) 650 mg PO Q4H PRN PRN Reason: Headache/Fever or Pain Last Admin: 07/08/18 13:31 Dose: 650 mg Hydrocodone Bitart/Acetaminophen ([place] 10/325) 1 tab PO TIDPRN PRN PRN Reason: Pain Last Admin: 07/10/18 20:19 Dose: 1 tab Albuterol/Ipratropium (Duoneb) 3 ml NEB [id number] PRN PRN Reason: SOB &/or Wheezing Last Admin: 07/09/18 18:48 Dose: 3 ml Amitriptyline HCl (Elavil) 100 mg PO HS [facility] Last Admin: 07/10/18 20:20 Dose: 100 mg Aspirin (Aspirin Chewable) 81 mg PO BID [facility] Last Admin: 07/11/18 08:36 Dose: 81 mg Benzonatate (Tessalon) 100 mg PO TID [facility] Last Admin: 07/11/18 15:34 Dose: 100 mg Bisacodyl (Dulcolax) 10 mg PO DAILYPRN PRN PRN Reason: Constipation Cholecalciferol (Vitamin D3) 2,000 units PO HS [facility] Last Admin: 07/10/18 20:20 Dose: 2,000 units Cyclobenzaprine HCl (Flexeril) 10 mg PO TIDPRN PRN PRN Reason: .PAIN Last Admin: 07/09/18 14:55 Dose: 10 mg Famotidine (Pepcid) 20 mg PO BID [facility] Last Admin: 07/11/18 08:36 Dose: 20 mg Fentanyl (Duragesic) 50 mcg TD Q3D [facility] Last Admin: 07/10/18 12:25 Dose: 50 mcg Ferrous Sulfate (Feosol) 325 mg PO BID-WM [facility] Furosemide (Lasix) 40 mg PO DAILY-AC [facility] Last Admin: 07/11/18 08:36 Dose: 40 mg Conivaptan HCl 20 mg/ Device 100 mls @ 200 mls/hr IVPB NOW [facility] Stop: 07/12/18 17:31 Levothyroxine Sodium (Synthroid) 25 mcg PO 0600 [facility] Last Admin: 07/11/18 05:46 Dose: 25 mcg Lubiprostone (Amitiza) 24 mcg PO BID-WM PRN PRN Reason: Constipation Ondansetron HCl (Zofran Odt) 4 mg PO Q6H PRN PRN Reason: Nausea/Vomiting Ondansetron HCl (Zofran) 4 mg IVP Q6H PRN PRN Reason: Nausea/Vomiting Pantoprazole Sodium (Protonix) 40 mg PO DAILY [facility] Pantoprazole Sodium (Protonix) 40 mg PO ONE [facility] Polyethylene Glycol (Miralax) 17 gm PO DAILY [facility] Last Admin: 07/11/18 08:36 Dose: 17 gm Senna/Docusate Sodium (Senokot S) 1 tab PO BID [facility] Last Admin: 07/11/18 08:41 Dose: Not Given Sodium Chloride (Flush - Normal Saline) 10 ml IVF Q12HR [facility] Last Admin: 07/11/18 08:36 Dose: 10 ml Sodium Chloride (Flush - Normal Saline) 10 ml IVF PRN PRN PRN Reason: Saline Flush Last Admin: 07/07/18 03:18 Dose: 10 ml Tolvaptan (Samsca) 15 mg PO DAILY [facility] Last Admin: 07/11/18 12:05 Dose: 15 mg
[2018-07-11] MEDS: Ferrous Sulfate 325 MG TAB PO SCH (17:28)
[2018-07-11] MEDS: Amitriptyline HCl 100 MG TAB PO SCH (21:03)
[2018-07-11] MEDS: HYDROcodone/Acetaminophen 10/325 mg Tablet PO PRN (21:03)
[2018-07-12] MEDS: Levothyroxine Sodium 25 MCG TAB PO SCH (05:49)
[2018-07-12 05:55] LABS: Anion Gap 15 mmol/L (10-20); BUN (Urea Nitrogen) 29 mg/dL (9.8-20.1); Calc. Creatinine Clearance 92 mL/min (70-130); Carbon Dioxide 27 mmol/L (22-29); Chloride 92 mmol/L (98-107); Estimated GFR-MDRD 50; Glucose 101 mg/dL (70-105); Sodium 130 mmol/L (136-145)
[2018-07-12 06:23] LABS: Eosinophils 3 % (0-10); Hemoglobin 7.8 g/dL (12.0-16.0); Hypochromia SLIGHT = 6-15 cells (100X) (0-5/hpf); Lymphocytes 26 % (21-51); MDiff Complete? YES; Mean Corpuscular HGB CONC 29.6 g/dL (32.0-36.0); Mean Corpuscular Hemoglobin 25.8 pg (27.0-31.0); Mean Platelet Volume 10.1 fL (7.4-10.4); Monocytes 8 % (0-10); Neutrophil 62 % (42-75); PLT Morphology Comment Appears Increased; Platelet Count 552 thou/uL (130-400); RBC Distribution Width 18.6 % (11.5-14.5); Red Blood Cell (RBC) Count 3.03 mill/uL (4.20-5.40); Target Cells MODERATE= 6-15 cells (100X) (0-1/hpf); White Blood Cell (WBC) Count 10.9 thou/uL (4.8-10.8)
[2018-07-12] MEDS: Tolvaptan 15 MG TAB PO SCH (08:50)
[2018-07-12] MEDS: Polyethylene Glycol 3350 17 GM Packet PO SCH (08:51)
[2018-07-12] MEDS: Benzonatate 100 MG CAP PO SCH ×3 (08:51→20:42)
[2018-07-12] MEDS: Furosemide 40 MG TAB PO SCH (08:51)
[2018-07-12] MEDS: Famotidine 20 MG TAB PO SCH ×2 (08:51→20:41)
[2018-07-12] MEDS: Ferrous Sulfate 325 MG TAB PO SCH ×2 (08:51→17:34)
[2018-07-12] MEDS: Senokot S 8.6-50 MG TAB PO SCH ×2 (08:52→20:41)
--- NOTE | 2018-07-12 09:16 | PRG ---
DATE OF SERVICE: 07/12/2018 SUBJECTIVE: Ms. Hand is a 53-year-old white female with known history of lung cancer in remission, status post Keytruda, and being seen by the Renal Service for her hyponatremia and acute kidney inju ry. She was admitted for generalized edema and CHF. She was diuresed. Recently diuretics have been discontinued or adjusted downwards. We have also seen the patient for the hyponatremia which we fel t was initially from dilutional hyponatremia. However, the volume overload has been clinically corre cted. However, the hyponatremia was persistent. The possibility that this patient may have SIADH. She has been started on Tolvaptan and the serum sodium has improved over time. Most recent sodium is now 130. We will continue free water restriction and the Tolvaptan. Liver function test is also be ing monitored. Her AST is 81 with ALT of 37. Alkaline phosphatase is 201. No new complaints today. PHYSICAL EXAMINATION: VITAL SIGNS: Blood pressure is 105/55, heart rate 80, respiratory rate 18, temperature 98.1, pulse o x 92%. GENERAL: Noted to be awake, alert, comfortable, not in distress. SKIN: Adequate turgor. HEENT: Slightly pale conjunctivae, anicteric sclerae. NECK: No neck mass, no carotid bruits, no JVD. CHEST: No deformities. LUNGS: Decreased breath sounds. HEART: Normal sinus rhythm. No murmur, no gallops, no rubs. ABDOMEN: Globular, soft, nontender, no masses. EXTREMITIES: No edema. Decreased motor left lower extremity. MEDICATIONS: 07/12/2018 - Reviewed. LABORATORY DATA: 07/12/2018 - White count 10.9, hemoglobin 7.8. Sodium 130, potassium 4, chloride 9 2, carbon dioxide 27, BUN 29, creatinine 1.13, AST 81, ALT 37, alkaline phosphatase 201, total biliru bin 2.2, albumin is 2.0. ASSESSMENT AND PLAN: 1. Hyponatremia - initially felt this was dilutional hyponatremia. However, with correction of volu me overload serum sodium remains persistently low. Possibility of syndrome of inappropriate antidiur etic hormone secretion remains. She has been started on Tolvaptan and free water restriction. Serum sodium is slowly improving. Most recent sodium is 130. I would probably continue 1-2 more days of Tolvaptan. Liver dysfunction and is only mildly impaired. No other recommendations at the present time except for the Tolvaptan and free water restriction. 2. Congestive heart failure, clinically resolved. 3. Acute kidney injury, much improved with adjustment of her diuretics downwards. Continue supporti ve care. We will check base met in the a.m.
--- NOTE | 2018-07-12 13:50 | PDOC.CTH ---
<Reina Braden - Last Filed: 07/12/18 13:50> Cardiology Progress Note - Subjective The pt seen and examined. No overnight events. No cardiac complaints. She still have a vapor at bedside although each time she stated she never used in the room. Also there was an empty medication container of Xanax next her in her bed. She stated the bottle was already empty on the day she admitted to the hospital. The pt was instructed to give all her medication to RN and lock them up at Security. - Objective Vital Signs Temp Pulse Pulse Pulse Resp BP BP 07/12/18 11:47 98.7 F 81 16 07/12/18 09:39 72 81 97/55 L 124/64 07/12/18 08:48 97.8 F 83 18 07/12/18 03:13 98.1 F 80 18 BP Pulse Ox Pulse Ox Pulse Ox 07/12/18 11:47 107/56 L 94 L 07/12/18 09:39 95 96 07/12/18 08:48 116/57 L 96 07/12/18 03:13 105/55 L 92 L Admit Weight 224 lb 4.8 oz Weight 220 lb 07/11/18 07/12/18 07/13/18 06:59 06:59 06:59 Intake Total 700 450 Output Total 1200 700 Balance -500 -250 - Physical Examination General/Neuro: alert & oriented x3 Neck: no JVD present Lungs: other: (diminished at bases) Heart: RRR Abdomen: soft Extremities: other: (3-4+ pitting BLE edema) - Telemetry Telemetry Rhythm: SR - Labs Result Diagrams: 07/12/18 04:55 07/12/18 04:55 Troponin/CKMB CK-MB (CK-2) 0.5 ng/mL (0-6.6) 06/30/18 21:11 Troponin I Less than 0.010 ng/mL (< 0.028) 07/01/18 03:00 - Assessment/Plan 1. Acute on Chronic diastolic HF with severe BLE edema - BLE edema have improving with Lasix. On Lisinopril 5mg qd. Not on BBlocker due to hx of COPD. Daily weight, strict I&O. Fluid restriction 800ml/day 2. Hyponatremia - Na level has improved gradually. The lower extremity edema/ anasarca have been improving slowly. On Tolvaptan 150mg qd by packing house laborer. Cont. Strict I&O. Fluid restriction 800ml/day to avoide further hyponatremia. 3. stage 4 Lung Cancer - will be followed by oncology service 4. COPD - unchanged. 5. Anemia - After receiving Iron infusion with 2 units of PRBCs on 07/03/18, Hgb level has been stable. 6. Hx of Hep C and Cirrhosis - 7. Anxiety and depression - 8. hx of fall hip fracture and surgical repair on 07/04/18. 9. AMY - managed by packing house laborer 10. Hypothyroidism - TSH today was > 8. Managed by PCP MAR reviewed Review of Systems - Review of Systems Constitutional: reports: no symptoms reported EENTM: reports: no symptoms reported Respiratory: reports: no symptoms reported Cardiac (ROS): reports: no symptoms reported ABD/GI: reports: no symptoms reported : reports: no symptoms reported Musculoskeletal: reports: no symptoms reported Skin: reports: no symptoms reported Neurological: reports: no symptoms reported <Kenney Jacobson - Last Filed: 07/12/18 17:37> Cardiology Progress Note - Objective Vital Signs Temp Pulse Pulse Pulse Resp BP BP 07/12/18 14:30 98.0 F 83 20 07/12/18 11:47 98.7 F 81 16 07/12/18 09:39 72 81 97/55 L 124/64 07/12/18 08:48 97.8 F 83 18 BP Pulse Ox Pulse Ox Pulse Ox 07/12/18 14:30 105/65 96 07/12/18 11:47 107/56 L 94 L 07/12/18 09:39 95 96 07/12/18 08:48 116/57 L 96 Admit Weight 224 lb 4.8 oz Weight 220 lb 07/11/18 07/12/18 07/13/18 06:59 06:59 06:59 Intake Total 700 450 240 Output Total 1200 700 500 Balance -500 -250 -260 - Labs Result Diagrams: 07/12/18 04:55 07/12/18 04:55 Troponin/CKMB CK-MB (CK-2) 0.5 ng/mL (0-6.6) 06/30/18 21:11 Troponin I Less than 0.010 ng/mL (< 0.028) 07/01/18 03:00 - Assessment/Plan Pt. seen and eval. by me. I agree with the A/P by the PROJECT CONSULTANT. I do not have any further recommendations. I will sign off.If any new cardiac problems please do not hesitate to contact me again. Thank you.
--- NOTE | 2018-07-12 14:05 | PRG ---
DATE OF SERVICE: 07/12/2018 HISTORY OF PRESENT ILLNESS: Ms. Hand feels pretty good. She showed me a large clot that she state s she spit up. She states her nose bleeds, sometimes she swallows those, sometimes she will cough th at up, but she did not throw it up. On further questioning, she notes this happens a few times a wee k. Otherwise, the nurses also found an empty bottle of Xanax in her bed. She states she did not take al l of those. PHYSICAL EXAMINATION: VITAL SIGNS: Temperature 98.7, pulse 81, blood pressure 107/56. LUNGS: Clear. HEART: Regular rate and rhythm without clicks or murmurs. ABDOMEN: Soft, nontender. LABORATORY STUDIES: Hemoglobin 7.8, it was 7.4 yesterday. White count was 10.9, platelet count 552. Sodium 130, potassium 4, BUN and creatinine 29 and 1.39. TSH 8.8. Cortisol 14. Bilirubin 2.2, T and ALT are 81 and 37, alkaline phosphatase 201. ASSESSMENT: 1. Hepatitis C, cirrhosis. 2. Massive hepatomegaly, more out of proportion than what one would expect from liver disease. She does have a history apparently of being diagnosed with some pulmonary hypertension, her pulmonary pre ssure is only about 50. Her imaging studies have not shown significantly dilated hepatic vein or inf erior vena cava. 3. Anemia. She had a pretty extensive GI workup which was essentially negative between endoscopies except for a polyp that was removed and then bled a little bit and subsequent endoscopy and then a ne gative capsule endoscopy. She today has a large clot that she spit up. She states it comes from her nose which is pretty regular for her. I suspect that maybe this workup we have been doing for anemi a may be more related to nosebleeds. RECOMMENDATIONS: 1. Liver biopsy with large hepatomegaly unexplainable and ongoing anemia, need to rule out myeloma. 2. ENT evaluation for nosebleeds.
--- NOTE | 2018-07-12 14:17 | CON ---
DATE OF CONSULTATION: 07/11/2018 REASON FOR CONSULTATION: Heme-positive stool. HISTORY OF PRESENT ILLNESS: Ms. Hand is a 53-year-old female with advanced lung cancer, who is on Keytruda, who also has hepatitis C and cirrhosis and significant renal insufficiency, who we have see n numerous times with regards to anemia. There has been concern that she has had GI bleeding, but ju st about every time she has come in, she has had Hemoccult-negative stools; March, April. Then, in our office more recently, she had a positive Hemoccult on the and of this month. She apparent ly was admitted on the short of breath. She has been discharged that day from [facility] 2 hours before presenting, noting that she could not walk up her steps or a trailer. She has had quite a bit of peripheral edema. With regard to her anemia, she had pretty extensive workup with Hem atology ultimately having bone marrows with us. In March, she had an upper and lower endoscopy and townsend d grade I varices, mild portal gastropathy. She ultimately had a colonoscopy notable for a 5-mm sigm oid polyp, which was removed. She had diverticulosis with a very tight colon. We could only examini ng it with EGD scope due to poor prep. No mass or lesions seen. Later that month, she returned. at was the only time she had had acute bleeding, that was in the about 2 weeks after the first e ndoscopy. At that time, she had some darker stool and passing some bright red blood in her stool. S he ultimately underwent repeat endoscopy on 04/22/2018. Normal esophagus, retained food in the stoma ch, normal duodenum. In the colon, there were solid and liquid stool with poor evaluation. Some blo od in the colon, diverticulosis in left side, and an ulcerated area of 25 mm from the anorectal verge with some friability that was hemoclipped. This was felt to be related to the previous polypectomy. Since that time, she had no further acute bleeding. We were consulted numerous times in both April and May with regard to recurrent anemia and at this visit, she was in fact Hemoccult negative. Ultimately, she had a capsule endoscopy in the outpatient setting, which showed no bleeding sources o r acute bleeding. Talking with Dr. Rich of Hematology, they considered the fact that possibly the Keytruda could be causing anemia and they decided to hold that medication. Her hemoglobin has been relatively stable since May, around 7 to 8. When she was admitted here with shortness of breath, she was transfused 2 units on 07/03/2018 when her hemoglobin went from 7.5 her baseline to 6.8. Her hemoglobin went up to 9.5. Next day, it was 7.6 on and she ultimately stayed right at the level 7.6 on the and ; and then on the , it was 7.4. She was given a unit of blood on the and for unclear reasons. Talking with the nurses, there has been no overt active bleeding. According to the patient, she has had no overt pain or active bleeding. PAST MEDICAL HISTORY: 1. Metastatic lung cancer. 2. Congestive heart failure. 3. Cirrhosis. 4. Heart failure. PAST SURGICAL HISTORY: Multiple endoscopies, splenectomy, tonsillectomy, hysterectomy. This admissi on, she had a surgery for a left intertrochanteric hip fracture. That fracture occurred when the pat ient tried to get up and fell here while in the hospital this admission. MEDICATIONS: Tylenol, DuoNeb, Elavil, aspirin, Tessalon, Dulcolax, Flexeril, Pepcid, Duragesic, iron , Terrell, Amitiza, Zofran, Protonix, Senokot, MiraLax, normal saline. PHYSICAL EXAMINATION: VITAL SIGNS: Temperature 98, pulse 83, blood pressure 110/57, respirations 12. GENERAL: She is overweight. She is resting in bed. LUNGS: Clear to auscultation. HEART: Regular rate and rhythm without clicks or murmurs. ABDOMEN: Soft and nontender. It is protuberant. There is no shifting dullness and fluid wave. The liver is massively enlarged in the right abdomen. EXTREMITIES: 3+ edema. LABORATORY AND X-RAY FINDINGS: White count today is 12.4, hemoglobin 7.4, platelet count 608, sodium 127, potassium 5.2, bicarbonate 89, BUN and creatinine 32 and 1.4, bilirubin is 2, albumin 2, protei n 7. Serum protein electrophoresis is nondiagnostic. AFP is normal. Recent bone marrow biopsy is n egative. ASSESSMENT: 1. Anemia. This is likely multifactorial. She could have some kind of slow gastrointestinal loss, but there was no overt large lesion seen. Mentally, she has had a very poor prep colon in both exams , but most of the time she has been in her stools, then Hemoccult negative despite her requiring ongo ing transfusions. She had a capsule endoscopy of small bowel recently, which was negative as well. She does have some mild portal gastropathy explain her anemia. As I talked with Dr. Rich in the outpatient setting, we have reasonable to stop the Keytruda and see if this is contributing. 2. With regard to her large hepatomegaly, this is a little bit out of proportion one would expect ju st from cirrhosis and her hepatitis C. It may be that with her component of COPD that she has got so me abdominal pressure on the liver, making it appear larger than , but on imaging, she has got a fairly large liver as well. It may be reasonable to biopsy this to rule out amyloidosis or other et iologies for a massive hepatomegaly. There does not have any hepatoma. 3. I have placed a call to Dr. Rich, talked with her about the case again to see if they have any other thoughts on her care at this time. RECOMMENDATIONS: 1. If there is acute bleeding, we would consider repeat endoscopy and she will need a several day robert wel prep to do that. Right now, I would not proceed with that as she has got a broken leg, just had that fixed. 2. With regard to her massively enlarged liver, it may be reasonable to consider biopsying that. I do not see that has been done in the past and it is a little bit bigger than one would expect for his tory of hepatitis C or cirrhosis. 3. With regard to her anemia, I think the plan was to stop her Keytruda for a time and see if her bl ood count improves. I will talk with touch base to Dr. Rich about that again.
--- NOTE | 2018-07-12 16:52 | PRG ---
DATE OF SERVICE: 07/12/2018 SUBJECTIVE: Ms. Hand has no new complaints. She has been walking much since she has significant pain. I have asked Orthopedic Surgery to see her again. I also put in transfer orders to move her to the Orthopedic Surgery She is not having any rhythm disturbances are reviewed. Telemetry monitoring. She is in sinus rhythm. OBJECTIVE: VITAL SIGNS: She is afebrile, heart rate 81, oximetry is 94 on 2 liters. LUNGS: Clear. HEART: Regular rhythm. ABDOMEN: Soft. IMPRESSION: 1. Pulmonary hypertension secondary to liver disease 2. Cirrhosis, likely brought on by fatty liver. 3. Stage IV lung cancer, on Keytruda. 4. Diastolic heart failure that is mild. W need to get her to a rehab facility ideally over in [place]. WILBER
--- NOTE | 2018-07-12 17:34 | PDOC.PN ---
- Subjective Encounter Start Date: 07/12/18 Encounter Start Time: 08:40 Pt seen for followup re: CHF exacerbation. Denies chest pain or shortness of breath. - Objective Resuscitation Status: Resuscitation Status DNR:Do Not Resuscitate MAR Reviewed: Yes Vital Signs & Weight: Vital Signs (12 hours) Temp Pulse Pulse Pulse Resp BP BP 07/12/18 14:30 98.0 F 83 20 07/12/18 11:47 98.7 F 81 16 07/12/18 09:39 72 81 97/55 L 124/64 07/12/18 08:48 97.8 F 83 18 BP Pulse Ox Pulse Ox Pulse Ox 07/12/18 14:30 105/65 96 07/12/18 11:47 107/56 L 94 L 07/12/18 09:39 95 96 07/12/18 08:48 116/57 L 96 Weight Admit Weight 224 lb 4.8 oz Weight 220 lb I&O: 07/11/18 07/12/18 07/13/18 06:59 06:59 06:59 Intake Total 700 450 240 Output Total 1200 700 500 Balance -500 -250 -260 Result Diagrams: 07/12/18 04:55 07/12/18 04:55 EKG Reviewed by me: Yes (Tele: NSR) Phys Exam - Physical Examination Constitutional: NAD HEENT: moist MMs Neck: supple Respiratory: clear to auscultation bilateral Cardiovascular: RRR Gastrointestinal: soft Neurological: moves all 4 limbs Psychiatric: normal affect Dx/Plan (1) Acute on chronic diastolic CHF (congestive heart failure), NYHA class 3 Code(s): I50.33 - ACUTE ON CHRONIC DIASTOLIC (CONGESTIVE) HEART FAILURE Status : Acute Comment: continue oral furosemide (2) Hip fracture, left Code(s): S72.002A - FRACTURE OF UNSP PART OF NECK OF LEFT FEMUR, INIT Status: Acute Comment: s/p surgery. (3) Hyponatremia Code(s): E87.1 - HYPO-OSMOLALITY AND HYPONATREMIA Status: Acute Comment: sodium improved to 130 today, pt receiving conivaptan (4) Chronic hepatitis C Code(s): B18.2 - CHRONIC VIRAL HEPATITIS C Status: Chronic Comment: stable (5) Hypothyroidism Code(s): E03.9 - HYPOTHYROIDISM, UNSPECIFIED Status: Chronic Comment: on synthroid (6) Lung cancer Code(s): C34.90 - MALIGNANT NEOPLASM OF UNSP PART OF UNSP BRONCHUS OR LUNG Status: Chronic (7) Anemia Code(s): D64.9 - ANEMIA, UNSPECIFIED Status: Chronic Comment: Appreciate GI service input - Plan * . Review of Systems - Review of Systems Cardiovascular: negative: chest pain, palpitations, orthopnea, paroxysmal nocturnal dyspnea, edema, light headedness Gastrointestinal: negative: Nausea, Vomiting, Abdominal Pain, Diarrhea, Constipation, Melena, Hematochezia - Medications/Allergies Allergies/Adverse Reactions: Allergies Allergy/AdvReac Type Severity Reaction Status Date / Time No Known Drug Allergies Allergy Verified 07/01/18 03:23 Medications: Current Medications Acetaminophen (Tylenol) 650 mg PO Q4H PRN PRN Reason: Headache/Fever or Pain Last Admin: 07/08/18 13:31 Dose: 650 mg Hydrocodone Bitart/Acetaminophen ([place] 10/325) 1 tab PO TIDPRN PRN PRN Reason: Pain Last Admin: 07/11/18 21:03 Dose: 1 tab Albuterol/Ipratropium (Duoneb) 3 ml NEB [id number] PRN PRN Reason: SOB &/or Wheezing Last Admin: 07/09/18 18:48 Dose: 3 ml Amitriptyline HCl (Elavil) 100 mg PO HS [facility] Last Admin: 07/11/18 21:03 Dose: 100 mg Aspirin (Aspirin Chewable) 81 mg PO BID [facility] Last Admin: 07/12/18 08:51 Dose: 81 mg Benzonatate (Tessalon) 100 mg PO TID [facility] Last Admin: 07/12/18 17:28 Dose: Not Given Bisacodyl (Dulcolax) 10 mg PO DAILYPRN PRN PRN Reason: Constipation Cholecalciferol (Vitamin D3) 2,000 units PO HS [facility] Last Admin: 07/11/18 21:02 Dose: 2,000 units Cyclobenzaprine HCl (Flexeril) 10 mg PO TIDPRN PRN PRN Reason: .PAIN Last Admin: 07/09/18 14:55 Dose: 10 mg Famotidine (Pepcid) 20 mg PO BID [facility] Last Admin: 07/12/18 08:51 Dose: 20 mg Fentanyl (Duragesic) 50 mcg TD Q3D [facility] Last Admin: 07/10/18 12:25 Dose: 50 mcg Ferrous Sulfate (Feosol) 325 mg PO BID-WM [facility] Last Admin: 07/12/18 08:51 Dose: 325 mg Furosemide (Lasix) 40 mg PO DAILY-AC [facility] Last Admin: 07/12/18 08:51 Dose: 40 mg Levothyroxine Sodium (Synthroid) 25 mcg PO 0600 [facility] Last Admin: 07/12/18 05:49 Dose: 25 mcg Lubiprostone (Amitiza) 24 mcg PO BID-WM PRN PRN Reason: Constipation Ondansetron HCl (Zofran Odt) 4 mg PO Q6H PRN PRN Reason: Nausea/Vomiting Ondansetron HCl (Zofran) 4 mg IVP Q6H PRN PRN Reason: Nausea/Vomiting Pantoprazole Sodium (Protonix) 40 mg PO DAILY [facility] Last Admin: 07/12/18 08:51 Dose: 40 mg Polyethylene Glycol (Miralax) 17 gm PO DAILY [facility] Last Admin: 07/12/18 08:51 Dose: Not Given Senna/Docusate Sodium (Senokot S) 1 tab PO BID [facility] Last Admin: 07/12/18 08:52 Dose: Not Given Sodium Chloride (Flush - Normal Saline) 10 ml IVF Q12HR [facility] Last Admin: 07/12/18 08:52 Dose: 10 ml Sodium Chloride (Flush - Normal Saline) 10 ml IVF PRN PRN PRN Reason: Saline Flush Last Admin: 07/07/18 03:18 Dose: 10 ml Tolvaptan (Samsca) 15 mg PO DAILY [facility] Last Admin: 07/12/18 08:50 Dose: 15 mg
[2018-07-12] MEDS: Conivaptan 20 MG in Premix Bag 1 BAG IVPB SCH ×2 (17:40→17:41)
[2018-07-12] MEDS ORDERED: Oxymetazoline HCl 0.05% ( 15 ML ) NASAL SCH (19:00)
[2018-07-12] MEDS: HYDROcodone/Acetaminophen 10/325 mg Tablet PO PRN (19:36)
[2018-07-12] MEDS: Amitriptyline HCl 100 MG TAB PO SCH (20:42)
[2018-07-13 05:45] LABS: Anion Gap 15 mmol/L (10-20); BUN (Urea Nitrogen) 25 mg/dL (9.8-20.1); Calc. Creatinine Clearance 113 mL/min (70-130); Calcium 8.9 mg/dL (7.8-10.44); Carbon Dioxide 28 mmol/L (22-29); Chloride 93 mmol/L (98-107); Estimated GFR-MDRD 62; Glucose 95 mg/dL (70-105); Potassium 3.6 mmol/L (3.5-5.1); Sodium 132 mmol/L (136-145)
[2018-07-13] MEDS: HYDROcodone/Acetaminophen 10/325 mg Tablet PO PRN ×3 (05:45→21:48)
[2018-07-13] MEDS: Levothyroxine Sodium 25 MCG TAB PO SCH (05:46)
[2018-07-13 06:13] LABS: Anisocytosis SLIGHT = 6-15 cells (100X) (0-5/hpf); Hemoglobin 7.3 g/dL (12.0-16.0); Hypochromia SLIGHT = 6-15 cells (100X) (0-5/hpf); Lymphocytes 30 % (21-51); MDiff Complete? YES; Mean Corpuscular HGB CONC 29.6 g/dL (32.0-36.0); Mean Corpuscular Hemoglobin 25.6 pg (27.0-31.0); Mean Corpuscular Volume 86.3 fL (78.0-98.0); Mean Platelet Volume 10.2 fL (7.4-10.4); Monocytes 14 % (0-10); Neutrophil 56 % (42-75); Platelet Count 461 thou/uL (130-400); Polychromasia SLIGHT = 2-3 cells (100X) (0-2/hpf); RBC Distribution Width 19.1 % (11.5-14.5); Red Blood Cell (RBC) Count 2.86 mill/uL (4.20-5.40); Target Cells SLIGHT = 2-5 cells (100X) (0-1/hpf); White Blood Cell (WBC) Count 10.1 thou/uL (4.8-10.8)
[2018-07-13] MEDS: Furosemide 40 MG TAB PO SCH (06:32)
[2018-07-13] MEDS: Benzonatate 100 MG CAP PO SCH ×3 (08:27→20:20)
[2018-07-13] MEDS: Famotidine 20 MG TAB PO SCH ×2 (08:27→20:22)
[2018-07-13] MEDS: Senokot S 8.6-50 MG TAB PO SCH ×2 (08:27→20:21)
[2018-07-13] MEDS: Ferrous Sulfate 325 MG TAB PO SCH ×2 (08:27→17:57)
[2018-07-13] MEDS: Tolvaptan 15 MG TAB PO SCH (08:27)
[2018-07-13] MEDS: Polyethylene Glycol 3350 17 GM Packet PO SCH (08:33)
[2018-07-13 09:25] LABS: Free T4 (Free Thyroxine) 0.74 ng/dL (0.70-1.48)
--- NOTE | 2018-07-13 09:46 | PRG ---
DATE OF SERVICE: 07/13/2018 RENAL MEDICINE SUBJECTIVE: Ms. Hand is a 53-year-old white female with known history of lung cancer - in [facility], status post Keytruda treatment and seen by the Renal Service for her hyponatremia. Slowly improvi ng with free water restriction and with tolvaptan. She was initially admitted for congestive heart failure which has now resolved. No new complaints to day. PHYSICAL EXAMINATION: VITAL SIGNS: Blood pressure is 102/67, heart rate 77, respiratory rate 15, temperature 97.7, pulse o x of 97%. GENERAL: Noted to be awake, supine, comfortable, not in distress. SKIN: Adequate turgor. HEENT: Pinkish conjunctivae. Anicteric sclerae. NECK: No neck mass, no carotid bruits, no JVD. CHEST: No deformities. LUNGS: Decreased breath sounds. HEART: Normal sinus rhythm. No murmurs, no gallops, no rubs. ABDOMEN: Globular, soft, nontender, no masses. EXTREMITIES: No edema, no deformities. MEDICATIONS: Medications of 07/13/2018 was reviewed. LABORATORY DATA: Laboratories of 07/13/2018 showed white count 10.1, hemoglobin 7.3, sodium 132, pot assium 3.6, chloride 93, carbon dioxide 28, BUN 25, creatinine 0.94, calcium is 8.9. ASSESSMENT AND PLAN: 1. Hyponatremia - slowly improving. Continue free water restriction 1.5 liters per day. Continue t olvaptan for the next few days and eventually discontinue once the serum sodium is normal, which is n ear normal. 2. Acute kidney injury - hemodynamically mediated renal dysfunction. Adjustment of diuretics has be en made. 3. Lung cancer - on Keytruda - stable. Agree with current management. Recheck base met in a.m.
[2018-07-13] MEDS: fentaNYL 50 mcg/hour Patch TD SCH (14:07)
--- NOTE | 2018-07-13 16:11 | PDOC.PN ---
- Subjective Encounter Start Date: 07/13/18 Encounter Start Time: 08:20 Pt seen for followup re: CHF exacerbation. More alert today. No complaints. - Objective Resuscitation Status: Resuscitation Status DNR:Do Not Resuscitate MAR Reviewed: Yes Vital Signs & Weight: Vital Signs (12 hours) Temp Pulse Resp BP Pulse Ox 07/13/18 15:39 97.1 F L 84 15 103/67 98 07/13/18 11:59 97.6 F 81 15 100/65 96 07/13/18 08:27 97 07/13/18 08:00 97.7 F 77 15 102/67 97 07/13/18 03:57 97.6 F 77 18 130/85 94 L Weight Admit Weight 224 lb 4.8 oz Weight 230 lb 7.011 oz I&O: 07/12/18 07/13/18 07/14/18 06:59 06:59 06:59 Intake Total 450 610 Output Total 700 2075 Balance -250 -1465 Result Diagrams: 07/13/18 04:35 07/13/18 04:35 Additional Labs: Labs reviewed by me Phys Exam - Physical Examination Constitutional: NAD HEENT: moist MMs Neck: supple Respiratory: clear to auscultation bilateral Cardiovascular: RRR Gastrointestinal: soft Neurological: moves all 4 limbs Psychiatric: normal affect Dx/Plan (1) Acute on chronic diastolic CHF (congestive heart failure), NYHA class 3 Code(s): I50.33 - ACUTE ON CHRONIC DIASTOLIC (CONGESTIVE) HEART FAILURE Status : Acute Comment: Improved, continue oral furosemide (2) Hip fracture, left Code(s): S72.002A - FRACTURE OF UNSP PART OF NECK OF LEFT FEMUR, INIT Status: Acute Comment: s/p surgery. (3) Hyponatremia Code(s): E87.1 - HYPO-OSMOLALITY AND HYPONATREMIA Status: Acute Comment: sodium improved to 132 today, pt receiving ctolivaptan (4) Chronic hepatitis C Code(s): B18.2 - CHRONIC VIRAL HEPATITIS C Status: Chronic Comment: stable (5) Hypothyroidism Code(s): E03.9 - HYPOTHYROIDISM, UNSPECIFIED Status: Chronic Comment: on synthroid (6) Lung cancer Code(s): C34.90 - MALIGNANT NEOPLASM OF UNSP PART OF UNSP BRONCHUS OR LUNG Status: Chronic (7) Anemia Code(s): D64.9 - ANEMIA, UNSPECIFIED Status: Chronic Comment: Appreciate GI service input - Plan * . Review of Systems - Review of Systems Constitutional: negative: fever, chills, sweats, weakness, malaise Cardiovascular: negative: chest pain, palpitations, orthopnea, paroxysmal nocturnal dyspnea, edema, light headedness - Medications/Allergies Allergies/Adverse Reactions: Allergies Allergy/AdvReac Type Severity Reaction Status Date / Time No Known Drug Allergies Allergy Verified 07/01/18 03:23 Medications: Current Medications Acetaminophen (Tylenol) 650 mg PO Q4H PRN PRN Reason: Headache/Fever or Pain Last Admin: 07/08/18 13:31 Dose: 650 mg Hydrocodone Bitart/Acetaminophen ([place] 10/325) 1 tab PO TIDPRN PRN PRN Reason: Pain Last Admin: 07/13/18 13:41 Dose: 1 tab Albuterol/Ipratropium (Duoneb) 3 ml NEB [id number] PRN PRN Reason: SOB &/or Wheezing Last Admin: 07/09/18 18:48 Dose: 3 ml Amitriptyline HCl (Elavil) 100 mg PO [facility] Last Admin: 07/12/18 20:42 Dose: 100 mg Benzonatate (Tessalon) 100 mg PO TID [facility] Last Admin: 07/13/18 14:19 Dose: 100 mg Bisacodyl (Dulcolax) 10 mg PO DAILYPRN PRN PRN Reason: Constipation Cholecalciferol (Vitamin D3) 2,000 units PO [facility] Last Admin: 07/12/18 20:43 Dose: 2,000 units Cyclobenzaprine HCl (Flexeril) 10 mg PO TIDPRN PRN PRN Reason: .PAIN Last Admin: 07/09/18 14:55 Dose: 10 mg Famotidine (Pepcid) 20 mg PO BID [facility] Last Admin: 07/13/18 08:27 Dose: 20 mg Fentanyl (Duragesic) 50 mcg TD Q3D [facility] Last Admin: 07/13/18 14:07 Dose: 50 mcg Ferrous Sulfate (Feosol) 325 mg PO BID-WM [facility] Last Admin: 07/13/18 08:27 Dose: 325 mg Furosemide (Lasix) 40 mg PO DAILY-AC [facility] Last Admin: 07/13/18 06:32 Dose: 40 mg Levothyroxine Sodium (Synthroid) 25 mcg PO 0600 [facility] Last Admin: 07/13/18 05:46 Dose: 25 mcg Lubiprostone (Amitiza) 24 mcg PO BID-WM PRN PRN Reason: Constipation Ondansetron HCl (Zofran Odt) 4 mg PO Q6H PRN PRN Reason: Nausea/Vomiting Ondansetron HCl (Zofran) 4 mg IVP Q6H PRN PRN Reason: Nausea/Vomiting Pantoprazole Sodium (Protonix) 40 mg PO DAILY [facility] Last Admin: 07/13/18 08:27 Dose: 40 mg Polyethylene Glycol (Miralax) 17 gm PO DAILY [facility] Last Admin: 07/13/18 08:33 Dose: Not Given Senna/Docusate Sodium (Senokot S) 1 tab PO BID [facility] Last Admin: 07/13/18 08:27 Dose: 1 tab Sodium Chloride (Flush - Normal Saline) 10 ml IVF Q12HR [facility] Last Admin: 07/13/18 08:33 Dose: 10 ml Sodium Chloride (Flush - Normal Saline) 10 ml IVF PRN PRN PRN Reason: Saline Flush Last Admin: 07/07/18 03:18 Dose: 10 ml Tolvaptan (Samsca) 15 mg PO DAILY [facility] Last Admin: 07/13/18 08:27 Dose: 15 mg
--- NOTE | 2018-07-13 18:19 | PRG ---
DATE OF SERVICE: 07/13/2018 SUBJECTIVE: Valentina Hand is in no distress. She was on side of bed when I saw her this morning. OBJECTIVE: VITAL SIGNS: She is afebrile, heart rate 81, respiratory rate is 15, oximetry is 96 on room air, blood pressure 100/65. Intake and output is negative 1465. LUNGS: Clear. HEART: Regular rhythm. ABDOMEN: Soft. LABORATORY DATA: White count 10.1; hemoglobin 7.3, 7.8 yesterday, 7.4 the day before. She had no bands on her peripheral smear today. She did have 14% monocytes surprisingly, significance of this is unclear. Sodium 132, potassium 3.6, chloride 93, bicarbonate 20, BUN 25, creatinine 0.94. IMPRESSION: 1. Status post hip fracture. 2. Pulmonary hypertension, most likely secondary to cirrhosis. 3. Diastolic dysfunction with mild to moderate mitral regurgitation. 4. Anasarca on admission that has essentially resolved. 5. Chronic kidney disease, stable renal function with a creatinine down to 0.94 in spite of a negative fluid balance. PLAN: Continue with supportive care, mainly physical therapy and eventual placement over in [place] for nursing home and physical therapy. MTDD
[2018-07-13] MEDS: Acetaminophen 325 MG TAB PO PRN (20:20)
[2018-07-13] MEDS: Amitriptyline HCl 100 MG TAB PO SCH (20:21)
--- NOTE | 2018-07-14 02:29 | PRG ---
DATE OF SERVICE: 07/13/2018 SUBJECTIVE: Ms. Hand was never seen by ENT apparently I made a call in some orders for her that e said they did not come by, the nurse does note there are orders in the chart, I see no note from at may be not dictated. Ms. Hand also was taking 2 aspirin a day that has been stopped. She has had no further nosebleeds yesterday she was having nosebleed most of the day. She did not have any liver biopsy performed today as the radiologist wanted her be off aspirin for 7 days. OBJECTIVE: GENERAL: She is without complaints. VITAL SIGNS: Temperature 97, blood pressure 103/67, respirations 18. ABDOMEN: Soft and nontender. EXTREMITIES: She has massive hepatomegaly. LABORATORY STUDIES: Blood work notable for white count of 10, hemoglobin 7.3, platelet count is 461. ASSESSMENT: 1. Anemia. At this time, she had Hemoccult positive stools, her stools have been Hemoccult negative every other time we evaluate her. She has had an essentially nondiagnostic upper and lower endoscop y and a small bowel capsule enteroscopy. This admission, she noted she was having nosebleeds and had a fairly copious amount I saw yesterday and she notes that she has been having nosebleeds for severa l months now intermittently a few times per week, although she is not mention that before. This is l ikely the source of her heme positive stool at this time. 2. Massive hepatomegaly, probably a very related to her cirrhosis, hepatitis C, but is very large wi th her other ongoing problems with anemia despite negative bone marrow biopsy. We are going to recom mend she consider liver biopsy, the radiologist cannot perform this for 7 days when she is off aspiri n for 7 days. 3. Nosebleeds as per ENT. 4. History of congestive heart failure. She is on aspirin. Cardiology says she does not need that so it is going to be stopped. At this time, we will follow from this and she can follow up with me i n the office and we can arrange liver biopsy in the outpatient setting.
[2018-07-14 05:09] VITALS: BMI 39.1
[2018-07-14 05:51] LABS: Anion Gap 15 mmol/L (10-20); BUN (Urea Nitrogen) 22 mg/dL (9.8-20.1); Calc. Creatinine Clearance 114 mL/min (70-130); Carbon Dioxide 28 mmol/L (22-29); Chloride 95 mmol/L (98-107); Estimated GFR-MDRD 64; Glucose 86 mg/dL (70-105); Sodium 134 mmol/L (136-145)
[2018-07-14] MEDS: Levothyroxine Sodium 25 MCG TAB PO SCH (06:38)
[2018-07-14] MEDS: Furosemide 40 MG TAB PO SCH (06:38)
[2018-07-14] MEDS: Famotidine 20 MG TAB PO SCH (08:38)
[2018-07-14] MEDS: Benzonatate 100 MG CAP PO SCH ×2 (08:38→17:17)
[2018-07-14] MEDS: Ferrous Sulfate 325 MG TAB PO SCH ×2 (08:38→16:43)
[2018-07-14] MEDS: Polyethylene Glycol 3350 17 GM Packet PO SCH (08:38)
[2018-07-14] MEDS: Senokot S 8.6-50 MG TAB PO SCH (08:38)
[2018-07-14] MEDS: HYDROcodone/Acetaminophen 10/325 mg Tablet PO PRN ×2 (08:39→16:43)
[2018-07-14] MEDS: Cyclobenzaprine 10 MG TAB PO PRN (08:39)
--- NOTE | 2018-07-14 10:06 | PRG ---
DATE OF SERVICE: 07/14/2018 Valentina Hand has no new complaints. She had a nosebleed yesterday that has resolved. She is tentatively scheduled for a liver biopsy, but this was canceled because of recent aspirin use. Her hemoglobin was 7.3 yesterday. There is no hemoglobin today. IMPRESSION: 1. Stage IV non-small cell lung cancer. 2. Cirrhosis. 3. Liver enlargement. 4. Pulmonary hypertension. 5. Mixed anemia. PLAN: Physical therapy and supportive care. It would not be unreasonable to give her blood prior to discharge to hopefully keep her out of the hospital. I discussed the above with Dr. Rich and Dr. Gama. I am not sure that proceeding down the path of the liver biopsy will really change her out come given that she has metastatic lung cancer.
[2018-07-14] MEDS: Tolvaptan 15 MG TAB PO SCH (10:25)
[2018-07-14 10:26] LABS: Anisocytosis MODERATE=16-30 cells (100X) (0-5/hpf); Band 1 % (5-11); Eosinophils 2 % (0-10); Giant Platelets SLIGHT; Hemoglobin 7.3 g/dL (12.0-16.0); Large Platelets MODERATE; Lymphocytes 30 % (21-51); MDiff Complete? YES; Mean Corpuscular HGB CONC 28.9 g/dL (32.0-36.0); Mean Corpuscular Hemoglobin 25.5 pg (27.0-31.0); Mean Corpuscular Volume 88.5 fL (78.0-98.0); Microcytosis SLIGHT = 6-15 cells (100X) (0-5/hpf); Monocytes 6 % (0-10); Neutrophil 61 % (42-75); PLT Morphology Comment Appears Increased; Platelet Count 491 thou/uL (130-400); Polychromasia SLIGHT = 2-3 cells (100X) (0-2/hpf); RBC Distribution Width 20.1 % (11.5-14.5); Red Blood Cell (RBC) Count 2.84 mill/uL (4.20-5.40); Target Cells SLIGHT = 2-5 cells (100X) (0-1/hpf); White Blood Cell (WBC) Count 10.8 thou/uL (4.8-10.8)
[2018-07-14] MEDS: Acetaminophen 325 MG TAB PO PRN (11:10)
--- NOTE | 2018-07-14 13:33 | DIS ---
DATE OF ADMISSION: 07/01/2018 DATE OF DISCHARGE: 07/14/2018 PRIMARY CARE PROVIDER: Mandy Cadena DO DISCHARGE DIAGNOSES: 1. Diastolic congestive heart failure exacerbation. 2. Iron deficiency. 3. Left hip fracture. 4. Hyponatremia. HOSPITAL COURSE: Acute renal failure. CONSULTATIONS DURING THIS HOSPITALIZATION: Gastroenterology, Dr. Gama; Nephrology, Dr. Cabral; Orthop edics, Dr. Bailey; Oncology, Dr. Desir; Cardiology, Dr. Jacobson; and Pulmonology, Dr. Wren. CONDITION OF PATIENT ON THE DAY OF DISCHARGE: Stable. I assessed Ms. Hand on the day of discharge . She denies any chest pain or shortness of breath. Vital signs are stable. S1 and S2 are heard, r egular. Lungs are clear to auscultation bilaterally. DISCHARGE MEDICATIONS: Xanax 1 mg 2 times a day, amitriptyline 100 mg at bedtime, vitamin D3 2000 u nits at bedtime, Flexeril 10 mg 3 times a day, levothyroxine 25 mcg daily, MiraLax 17 grams daily, zo lpidem 10 mg at bedtime, fentanyl 50 mcg every 72 hours patch, Feosol 325 mg 2 times a day, Lasix 40 mg daily, Protonix 40 mg daily, MiraLax 17 grams daily, Amitiza 24 mcg 2 times a day as needed, Parthenon 10/325 mg 3 times a day as needed. HOSPITAL COURSE: Ms. Hand is a pleasant 53-year-old lady who was admitted to [facility] on 07/01/2018 for acute exacerbation of diastolic congestive heart failure. She was kiran ated with diuretics. She was seen by Cardiology and Oncology services. On 07/03/2018, she sustained a fall. She was found to have a left displaced intertrochanteric fractu re. She was seen by Orthopedic Service. On 07/04/2018, she underwent open reduction and internal fi xation with dynamic hip screw. She was seen by therapy services. She was also seen by Pulmonology [facility] pike. She has chronic anemia. She had a positive fecal occult blood test during this hospitalization. Gas troenterology service was consulted. She was found to have low iron and has been started on iron the rapy. It was found that she was also having epistaxis, most likely secondary to oxygen use and this may have resulted in the positive fecal occult blood test. She also had hyponatremia at the time of admission. She was seen by Nephrology service and received tolvaptan. She is also on fluid restriction of 1500 mL per day. Her sodium level improved. She also had acute renal insufficiency, most likely secondary to aggressive diuresis. Renal function improved after switching her to lower dose of oral furosemide. On the day of discharge, she has white count 10,800, hemoglobin 7.3, for which she is receiving 1 uni t of packed RBCs, platelet count 491,000. Sodium 134, potassium 4.0, and creatinine 0.92. She had a n elevated TSH of 8.8709 during this hospitalization. Her free T4 was normal at 0.74, free T3 was de creased at 1.52. She had a normal cortisol level during this hospitalization. She is being discharged to [facility] for further management. Many thanks for allowing me to participate in your patient's care. Please feel free to contact me wi th any questions or concerns. DISCHARGE DESTINATION: [facility]. TOTAL AMOUNT OF TIME SPENT COORDINATING THIS DISCHARGE: 35 minutes.
[2018-07-14 16:47] VITALS: BP 110/72; TEMP 98.1
--- NOTE | 2018-07-15 11:44 | EKG ---
Test Reason : Blood Pressure : / mmHG Vent. Rate : 081 BPM Atrial Rate : 081 BPM P-R Int : 162 ms QRS Dur : 086 ms QT Int : 400 ms P-R-T Axes : 076 042 058 degrees QTc Int : 464 ms Normal sinus rhythm Cannot rule out Anterior infarct , age undetermined Abnormal ECG Confirmed by MARIA C GARCIA DO ([id number]), technical editor EVAN CELIS ([id number]) on 07/15/2018 11:44:05 AM Referred By: Confirmed By:MARIA C GARCIA DO
== END 2018-07-14 18:04 | disposition swing bed (61) | DRG 981 ==
LOC: ERS 20:45 → 2NO 07-01 00:44 → SJJU 07-12 14:46
PROVIDERS: ADMIT Internal Medicine; ATTEND Internal Medicine
PROC: 30233N1 Transfusion of Nonautologous Red Blood Cells into Peripheral Vein, Percutaneous Approach (ICD-10-PCS; principal; 2018-07-03)
PROC: 0QS704Z Reposition Left Upper Femur with Internal Fixation Device, Open Approach (ICD-10-PCS; 2018-07-04)
DX: I50.33 Acute on chronic diastolic (congestive) heart failure (principal); J96.21 Acute and chronic respiratory failure with hypoxia; S72.142A Displaced intertrochanteric fracture of left femur, initial encounter for closed fracture; C78.02 Secondary malignant neoplasm of left lung; C78.01 Secondary malignant neoplasm of right lung; C34.90 Malignant neoplasm of unspecified part of unspecified bronchus or lung; N17.9 Acute kidney failure, unspecified; E87.1 Hypo-osmolality and hyponatremia; R04.0 Epistaxis; B18.2 Chronic viral hepatitis C; I27.20 Pulmonary hypertension, unspecified; D50.9 Iron deficiency anemia, unspecified; I08.1 Rheumatic disorders of both mitral and tricuspid valves; D69.6 Thrombocytopenia, unspecified; I27.81 Cor pulmonale (chronic); K74.60 Unspecified cirrhosis of liver; Z66 Do not resuscitate; F41.8 Other specified anxiety disorders; E66.9 Obesity, unspecified; J44.9 Chronic obstructive pulmonary disease, unspecified; E03.9 Hypothyroidism, unspecified; R19.5 Other fecal abnormalities; Z68.39 Body mass index [BMI] 39.0-39.9, adult; Z87.891 Personal history of nicotine dependence; Z79.899 Other long term (current) drug therapy; Z79.82 Long term (current) use of aspirin; W18.30XA Fall on same level, unspecified, initial encounter; Y92.230 Patient room in hospital as the place of occurrence of the external cause
CPT/HCPCS: 36415; 36430; 70260; 71045; 76000; 76705; 80048; 80076; 81003; 81015; 82274; 82533; 82553; 83540; 83550; 83880; 83930; 83935; 84300; 84439; 84443; 84481; 84484; 84550; 85025; 85046; 85610; 85730; 86850; 86900; 86901; 93005; 93798; 94640; 96374; A4216; C1713; G8978-GP-CH; G8978-GP-CM; G8979-GP-CK; G8980-GP-CI; J1650; J1940; J2001; J2270; J2704; J2916; J3010; J3490; J7050; J7620; P9016